=== PATIENT | male | born 1935 | race Caucasian/White ===

== ENCOUNTER 2017-06-07 11:40 | Outpatient (CLI) | payer MEDICARE ==
[2017-06-07 13:06] LABS: Mean Corpuscular HGB CONC 34.2 g/dL (32.0-36.0); Mean Corpuscular Hemoglobin 32.1 pg (27.0-31.0); Mean Corpuscular Volume 93.9 fl (80.0-94.0); Mean Platelet Volume 7.2 fL (7.4-10.4); Platelet Count 244 thou/uL (130-400); Red Blood Cell (RBC) Count 4.04 mill/uL (4.70-6.10); White Blood Cell (WBC) Count 7.4 thou/uL (4.8-10.8)
[2017-06-07 13:11] LABS: INR-International Normal Ratio 1.1; Prothrombin Time 14.3 SEC (12.0-14.7)
[2017-06-07 13:12] LABS: PTT 32.5 SEC (22.9-36.1)
[2017-06-07 13:20] LABS: Bilirubin Negative (Negative); Blood, Urine Large (Negative); Clarity CLEAR (Clear); Glucose, Urine (Dipstick) Negative (Negative); Leukocyte Trace (Negative); Nitrite Negative (Negative); Protein, Urine (Dipstick) 30 mg/dL (Neg-Trace); Specific Gravity, Urine 1.007 (1.002-1.036); Urobilinogen 0.2 mg/dL (0.2-1.0)
[2017-06-07 13:26] LABS: Bacteria/HPF None Seen HPF (None Seen); Hyaline Casts/LPF 0-3 HYALINE CAST LPF (0-3 Hyaline); Pathc Cast-AUWi Flag 0.14 (0-2.49); RBC/HPF GREATER THAN 50-TNTC HPF (0-3); Squamous Epithelial None Seen HPF (0-3); WBC/HPF 0-3 HPF (0-3)
[2017-06-07 13:33] LABS: Anion Gap 12 mmol/L (10-20); BUN (Urea Nitrogen) 12 mg/dL (8.4-25.7); Calc. Creatinine Clearance 0 mL/min (70-130); Calcium 9.6 mg/dL (7.8-10.44); Carbon Dioxide 26 mmol/L (23-31); Chloride 104 mmol/L (98-107); Estimated GFR-MDRD 62; Glucose 87 mg/dL (83-110); Potassium 4.3 mmol/L (3.5-5.1); Sodium 138 mmol/L (136-145)
--- NOTE | 2017-06-10 08:49 | EKG ---
Test Reason : Blood Pressure : / mmHG Vent. Rate : 058 BPM Atrial Rate : 058 BPM P-R Int : 176 ms QRS Dur : 138 ms QT Int : 456 ms P-R-T Axes : 028 033 212 degrees QTc Int : 447 ms Sinus bradycardia Left bundle branch block Abnormal ECG No previous ECGs available Confirmed by COOKIE AVILA, GABY ([id number]) on 06/10/2017 8:48:44 AM Referred By: ETHEL Confirmed By:GABY GARY MD
== END 2017-06-07 11:41 | disposition home or self-care (01) ==
LOC: LABBT 11:40
PROVIDERS: ATTEND Urology
DX: Z01.818 Encounter for other preprocedural examination (principal); D49.4 Neoplasm of unspecified behavior of bladder
CPT/HCPCS: 80048; 81001; 85027; 85610; 85730; 86850; 86900; 86901; 87086; 93005; 93010

== ENCOUNTER 2017-06-15 09:02 | Outpatient (CLI) | payer MEDICARE | END 2017-06-15 09:03 | disposition home or self-care (01) | LOC: LABBT 09:02 | PROVIDERS: ATTEND Urology | DX: Z01.818 Encounter for other preprocedural examination (principal); D49.4 Neoplasm of unspecified behavior of bladder | CPT/HCPCS: 86850; 86900; 86901 ==

== ENCOUNTER 2017-06-20 05:51 | Day surgery (SDC) | payer MEDICARE ==
[2017-06-07 11:58] VITALS: BMI 29.6
[2017-06-20] MEDS ORDERED: Levofloxacin 500 mg/D5W 100 ml Premix Bag ONE (06:40)
[2017-06-20 06:50] LABS: #Basophils 0.1 thou/uL (0.0-0.2); #Eosinphils 0.4 thou/uL (0.0-0.7); #Lymphocytes 2.2 thou/uL (1.20-3.40); #Monocytes 0.9 thou/uL (0.11-0.59); #Neutrophils 5.6 thou/uL (1.40-6.50); %Basophils 0.8 % (0.0-1.0); %Eosinophils 4.7 % (0.0-10.0); %Lymphocytes 23.6 % (21.0-51.0); %Neutrophils 60.9 % (42.0-75.0); Hemoglobin 12.9 g/dL (14.0-18.0); Mean Corpuscular HGB CONC 34.6 g/dL (32.0-36.0); Mean Corpuscular Hemoglobin 32.4 pg (27.0-31.0); Mean Corpuscular Volume 93.7 fl (80.0-94.0); Mean Platelet Volume 7.2 fL (7.4-10.4); Platelet Count 224 thou/uL (130-400); White Blood Cell (WBC) Count 9.1 thou/uL (4.8-10.8)
[2017-06-20] MEDS ORDERED: Iothalamate Meglumine 60% 50 ML VIAL FS ONE (07:07)
[2017-06-20] MEDS ORDERED: Fentanyl 100 MCG/2 ML VIAL ONE (07:08)
[2017-06-20] MEDS ORDERED: Midazolam HCl 2 mg/2 ml Vial ONE (07:08)
[2017-06-20] MEDS ORDERED: Oxybutynin 5 MG TAB ONE (08:52)
[2017-06-20] MEDS ORDERED: Phenazopyridine HCl 97.5 MG TABLET ONE ×2 (08:52)
[2017-06-20] MEDS ORDERED: HYDROcodone/Acetaminophen 5/325 mg Tablet ONE (10:10)
--- NOTE | 2017-06-20 11:32 | OP ---
DATE OF PROCEDURE: 06/20/2017 PRIMARY CARE PHYSICIAN: Dr. Aren Sellers. PREOPERATIVE DIAGNOSES: 1. An 82-year-old male with history of gross hematuria secondary to bladder tumor. 2. Trilobar hyperplasia of the prostate. POSTOPERATIVE DIAGNOSES: 1. An 82-year-old male with history of gross hematuria secondary to bladder tumor. 2. Trilobar hyperplasia of the prostate. PROCEDURES: Cystoscopy, meatal calibration dilatation with Sam sounds, transurethral resection of bladder tumor, fulguration of prostate. SURGEON: Chitra Cruz D.O. ANESTHESIA: General. COMPLICATIONS: None apparent. DISPOSITION: To recovery room in stable condition. SPECIMEN: TUR of the bladder, superficial and deep. EBL: Less than 50 mL minimal. INTRAOPERATIVE FINDINGS: 1. 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 2. Trilobar hyperplasia of the prostate, moderate to severe obstruction with intravesical median lobe, friable oozy prostate. 3. Bladder tumor x2; left lateral wall papillary sessile in nature, appears superficial, measuring approximately 1.5-2 cm, next focus right lateral wall 6 mm. INDICATIONS FOR THE PROCEDURE AND HISTORY: Mr. Blount is a pleasant 82-year- old male who presented to his PCP with gross hematuria. CT demonstrating bladder mass. The patient underwent cardiac clearance and presents today for transurethral resection of bladder tumor. Cardiac clearance has been obtained. Urine culture is negative. Indications for the procedure reviewed, risks and complications including, but not limited to, bleeding, pain, infection, stricture formation, clot retention, bladder perforation, sepsis, injury to adjacent organs, perioperative morbidity reviewed with him in detail. All questions were answered to their satisfaction and patient desired to proceed without reservation. DESCRIPTION OF THE PROCEDURE: After an informed consent is signed, the patient is taken to the operating room, placed in a dorsal lithotomy position and the genital area prepped and draped in the usual surgical sterile fashion. Bilateral LULU hose, SCDs, and broad-spectrum antibiotics were provided. A 21 Jordanian cystoscope was utilized for cystoscopy which passed without difficulty. There was a subtle bulbar stricture not warranting treatment. Prostatic urethra demonstrated friable prostate, trilobar hyperplasia with intravesical median lobe. The UO's were easily visualized away from the reflection of the intravesical median lobe. The bladder tumor was again surveyed demonstrating left lateral papillary tumor approximately 1.5-2 cm right lateral wall, second focus approximately 6 mm papillary sessile in nature. We did switch to a 70- degree lens in which I cannot find any further tumor focus. At this time, using a 26-Jordanian resectoscope with visual obturator, we passed resectoscope under direct visualization. Prior to passing, there was some resistance at the meatus accommodating 26 Jordanian. Therefore, I did calibrate his meatus with Sam sounds from 24-30 without difficulty. The visual obturator was then utilized to pass the resectoscope. As he has a high median bar intravesical median lobe, we carefully negotiated the resectoscope into the bladder, the angle was somewhat challenging due to his intravesical median lobe. The bladder was entered and at this time, we switched out to a bladder loop, bipolar gyrus loop. Resection of the bladder tumor was performed in a systematic fashion. Superficial specimen was sent separately. The right small lateral tumor was also resected with a superficial specimen. At the end of the procedure, I did not see any further tumor nidus. Given his age, his bladder was attenuated; therefore I did not aggressively resect deep. I was able to visualize muscle fibers, in which deep resection was performed for specimen and sent separately. As his bladder was attenuated, we did not go into deep resection as there is high risk of perforation. At the end of the procedure, there was no evidence of bladder tumor residual left. Upon removing the resectoscope, we did encounter prostatic oozing that needed to be addressed. There was discrete area of oozing coming from the anterior prostate bladder neck region and this was fulgurated. The lateral lobes were somewhat friable as well and I did perform fulguration of the prostate to get good hemostasis. To prevent catheter trauma, a 0.35 Super Stiff wire was placed into the bladder and a 24-Jordanian three-way Lynn catheter was passed over a guidewire assist which passed without difficulty. Subsequent urine was clear. A 30 mL was insufflated and the wire removed. His catheter was attached to a leg bag. I anticipate patient will be discharged home. He will follow up with me next week for catheter removal. He is advised to continue his prostate medication, terazosin and dutasteride. I would discuss with patient and family regarding possible elective TURP. He will follow up with me next week for catheter removal. He is discharged with [place] 5/ #50, Myrbetriq for a course of 5 days, Colace p.r.n., ciprofloxacin until follow up, AZO p.r.n. MTDD
[2017-06-20] MEDS ORDERED: Ketorolac Tromethamine 30 MG/ML VIAL ONE (15:14)
[2017-06-20] MEDS ORDERED: PROPOFOL 200 MG/20 ML VIAL ONE (15:14)
[2017-06-20] MEDS ORDERED: Lidocaine 1% PF 5 ML VIAL ONE (15:14)
== END 2017-06-20 13:15 | disposition home or self-care (01) ==
LOC: SDC 05:51
PROVIDERS: ATTEND Urology
PROC: 0TBB8ZX Excision of Bladder, Via Natural or Artificial Opening Endoscopic, Diagnostic (ICD-10-PCS; principal; 2017-06-20)
PROC: 0V508ZZ Destruction of Prostate, Via Natural or Artificial Opening Endoscopic (ICD-10-PCS; 2017-06-20)
DX: C67.2 Malignant neoplasm of lateral wall of bladder (principal); N40.0 Benign prostatic hyperplasia without lower urinary tract symptoms; I10 Essential (primary) hypertension; H40.9 Unspecified glaucoma; E03.9 Hypothyroidism, unspecified; Z79.899 Other long term (current) drug therapy; Z88.2 Allergy status to sulfonamides; Z98.890 Other specified postprocedural states; Z87.891 Personal history of nicotine dependence
CPT/HCPCS: 36415; 85025; 88307; J1885; J1956; J2001; J2250; J2704; J3010; Q9961

== ENCOUNTER → 2017-10-10 | Outpatient (CLI) | payer MEDICARE ==
[2017-10-10 12:23] LABS: Hemoglobin 12.3 g/dL (14.0-18.0); Mean Corpuscular HGB CONC 33.3 g/dL (32.0-36.0); Mean Corpuscular Hemoglobin 31.1 pg (27.0-31.0); Mean Corpuscular Volume 93.5 fL (78.0-98.0); Mean Platelet Volume 6.8 fL (7.4-10.4); Platelet Count 281 thou/uL (130-400); RBC Distribution Width 11.9 % (11.5-14.5); Red Blood Cell (RBC) Count 3.96 mill/uL (4.70-6.10); White Blood Cell (WBC) Count 7.8 thou/uL (4.8-10.8)
[2017-10-10 12:30] LABS: PTT 32.7 SEC (22.9-36.1); Prothrombin Time 13.5 SEC (12.0-14.7)
[2017-10-10 12:41] LABS: Bilirubin Negative (Negative); Blood, Urine Negative (Negative); Clarity CLEAR (Clear); Glucose, Urine (Dipstick) Negative (Negative); Leukocyte Negative (Negative); Nitrite Negative (Negative); Protein, Urine (Dipstick) Negative (Neg-Trace)
[2017-10-10 12:44] LABS: Anion Gap 14 mmol/L (10-20); BUN (Urea Nitrogen) 8 mg/dL (8.4-25.7); Calc. Creatinine Clearance 0 mL/min (70-130); Calcium 9.1 mg/dL (7.8-10.44); Carbon Dioxide 24 mmol/L (23-31); Chloride 104 mmol/L (98-107); Estimated GFR-MDRD 56; Glucose 162 mg/dL (83-110); Potassium 4.3 mmol/L (3.5-5.1); Sodium 138 mmol/L (136-145)
[2017-10-10 12:45] LABS: Bacteria/HPF None Seen HPF (None Seen); Hyaline Casts/LPF 0-3 HYALINE CAST LPF (0-3 Hyaline); Pathc Cast-AUWi Flag 0.14 (0-2.49); RBC/HPF 0-3 HPF (0-3); Squamous Epithelial None Seen HPF (0-3); WBC/HPF 0-3 HPF (0-3)
--- NOTE | 2017-10-12 15:08 | EKG ---
Test Reason : Blood Pressure : / mmHG Vent. Rate : 059 BPM Atrial Rate : 118 BPM P-R Int : 174 ms QRS Dur : 138 ms QT Int : 474 ms P-R-T Axes : 026 023 010 degrees QTc Int : 469 ms Sinus tachycardia with 2nd degree A-V block with 2:1 A-V conduction Left bundle branch block T wave abnormality, consider lateral ischemia Abnormal ECG When compared with ECG of 07-JUN-2017 12:29, No significant change was found Confirmed by GABY GARY MD ([id number]) on 10/12/2017 3:07:43 PM Referred By: ETHEL Confirmed By:GABY GARY MD
== END ==
LOC: LABBT 10:00
PROVIDERS: ATTEND Urology
DX: Z01.812 Encounter for preprocedural laboratory examination (principal); N40.0 Benign prostatic hyperplasia without lower urinary tract symptoms; Z85.51 Personal history of malignant neoplasm of bladder
CPT/HCPCS: 80048; 81001; 85027; 85610; 85730; 87086; 93005; 93010

== ENCOUNTER 2017-11-05 14:54 | Outpatient (CLI) | payer MEDICARE ==
[2017-11-05 15:48] LABS: Bilirubin Negative (Negative); Blood, Urine Negative (Negative); Clarity CLEAR (Clear); Glucose, Urine (Dipstick) 250 mg/dL (Negative); Hemoglobin 12.8 g/dL (14.0-18.0); Leukocyte Negative (Negative); Mean Corpuscular HGB CONC 34.6 g/dL (32.0-36.0); Mean Corpuscular Hemoglobin 32.1 pg (27.0-31.0); Mean Corpuscular Volume 92.8 fL (78.0-98.0); Mean Platelet Volume 7.3 fL (7.4-10.4); Nitrite Negative (Negative); Platelet Count 241 thou/uL (130-400); Protein, Urine (Dipstick) Negative (Neg-Trace); RBC Distribution Width 11.8 % (11.5-14.5); Red Blood Cell (RBC) Count 4.01 mill/uL (4.70-6.10); Specific Gravity, Urine 1.009 (1.002-1.036); White Blood Cell (WBC) Count 7.4 thou/uL (4.8-10.8); pH, Urine 6.5 (5.0-9.0)
[2017-11-05 15:49] LABS: Bacteria/HPF None Seen HPF (None Seen); Hyaline Casts/LPF 0-3 HYALINE CAST LPF (0-3 Hyaline); Pathc Cast-AUWi Flag 0.14 (0-2.49); RBC/HPF 0-3 HPF (0-3); Squamous Epithelial None Seen HPF (0-3); WBC/HPF 0-3 HPF (0-3)
[2017-11-05 15:55] LABS: PTT 30.9 SEC (22.9-36.1); Prothrombin Time 13.5 SEC (12.0-14.7)
[2017-11-05 16:05] LABS: Anion Gap 13 mmol/L (10-20); BUN (Urea Nitrogen) 11 mg/dL (8.4-25.7); Calc. Creatinine Clearance 0 mL/min (70-130); Calcium 8.8 mg/dL (7.8-10.44); Carbon Dioxide 23 mmol/L (23-31); Chloride 105 mmol/L (98-107); Estimated GFR-MDRD 55; Glucose 187 mg/dL (83-110); Potassium 3.9 mmol/L (3.5-5.1); Sodium 137 mmol/L (136-145)
--- NOTE | 2017-11-11 14:31 | EKG ---
Test Reason : Blood Pressure : / mmHG Vent. Rate : 063 BPM Atrial Rate : 063 BPM P-R Int : 174 ms QRS Dur : 136 ms QT Int : 450 ms P-R-T Axes : 029 026 211 degrees QTc Int : 460 ms Normal sinus rhythm Left bundle branch block Abnormal ECG When compared with ECG of 10-OCT-2017 11:53, Sinus rhythm is no longer with 2nd degree A-V block Inverted T waves have replaced nonspecific T wave abnormality in Inferior leads Confirmed by TSERING AMBROCIO (2) on 11/11/2017 2:31:15 PM Referred By: ETHEL Confirmed By:TSERING AMRBOCIO
== END 2017-11-05 14:55 | disposition home or self-care (01) ==
LOC: LABBT 14:54
PROVIDERS: ATTEND Urology
DX: Z01.818 Encounter for other preprocedural examination (principal); N40.0 Benign prostatic hyperplasia without lower urinary tract symptoms; Z85.51 Personal history of malignant neoplasm of bladder
CPT/HCPCS: 80048; 81001; 85027; 85610; 85730; 87086; 93005; 93010

== ENCOUNTER 2017-12-12 06:03 | Day surgery (SDC) | payer MEDICARE ==
[2017-11-05 15:06] VITALS: BMI 29.5
[2017-12-12] MEDS ORDERED: Levofloxacin 500 mg/D5W 100 ml Premix Bag ONE (06:20)
[2017-12-12] MEDS ORDERED: Famotidine/PF 20 mg/2ml Vial ONE (06:53)
[2017-12-12] MEDS ORDERED: Fentanyl 100 MCG/2 ML VIAL ONE (06:53)
[2017-12-12] MEDS ORDERED: Iothalamate Meglumine 60% 50 ML VIAL FS ONE (07:10)
[2017-12-12] MEDS ORDERED: Phenazopyridine HCl 97.5 MG TABLET ONE (08:44)
[2017-12-12] MEDS ORDERED: Oxybutynin 5 MG TAB ONE (08:44)
--- NOTE | 2017-12-12 10:24 | OP ---
DATE OF PROCEDURE: 12/12/2017 PREOPERATIVE DIAGNOSES: 1. 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 2. Recent cystoscopy grossly negative, 09/2017, positive cytology. POSTOPERATIVE DIAGNOSES: 1. 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 2. Recent cystoscopy grossly negative, 09/2017, positive cytology. PROCEDURES: Cystoscopy, bladder biopsy, TURBT, fulguration of median lobe of the prostate. SURGEON: Chitra Cruz D.O. ANESTHESIA: General. SPECIMEN: 1. Left trigonal/lateral bladder tumor or bladder biopsy. 2. TUR, deep bladder tumor bed DRAINS: A 20-Barbadian 3-way 30 mL Lynn catheter to leg bag. CBI port plugged. INTRAOPERATIVE FINDINGS: 1. Moderate BPH, small intravesical median lobe with prostatic varicosity. 2. Bilateral clear efflux of urine. 3. Left trigonal/lateral bladder tumor recurrence, superficial in nature, satellite lesions approximately 4 in number; surface area of the tumor bed fulgurated 2 cm. INDICATIONS FOR THE PROCEDURE AND HISTORY: Mr. Blount is a pleasant 82-year- old male, who presented to my office for evaluation of gross hematuria, subsequently found to have a left lateral bladder tumor. The patient with history of BPH, has been on terazosin and Avodart due to obstructing prostate. He initially underwent transurethral resection of the bladder tumor uneventfully ; final pathology consistent with a low-grade TCC with no evidence of lamina propria invasion. He underwent local cystoscopy at 3-month interval and found to have no tumor recurrence; however, cytology positive. A restaging CT was obtained demonstrating no evidence of abnormality or filling defect. He presents today for exam under anesthesia, random bladder biopsy, possible ureteroscopy retrograde. The patient desired to defer his exam under anesthesia due to social constraints, and therefore, presents today, per his requested date by the patient. The risks and complications of the procedure were reviewed including, but not limited to, bleeding, pain, infection, injury to adjacent organs, urosepsis, bladder neck contracture, clot retention, stricture formation. All questions answered to his satisfaction and he desired to proceed without reservation. DESCRIPTION OF THE PROCEDURE: After an informed consent is signed, the patient was taken to the operating room, placed in a dorsal lithotomy position with the genital area prepped and draped in the usual surgical sterile fashion. Bilateral LULU hose and SCDs were provided. A 21-Barbadian cystoscope was utilized , which passed without difficulty. The prostatic urethra was entered demonstrating bilobar hyperplasia with moderate obstruction. There was a small intravesical median lobe. There appeared to be some superficial varicosities of the median lobes, somewhat oozing upon entry into the bladder. The UOs were identified bilaterally with clear efflux of urine. There was no bladder trabeculation, stones. The cystoscopy was performed with a 30- and a 70-degree lens. Upon putting a 70-degree lens, we noticed the papillary tumor recurrence at the left lateral trigone encroaching the bladder neck. There were 3-4 satellite lesions, each approximately about 5-6 mm. No other lesions were found. Given the small satellite lesions, I did biopsy them with an endoscopic biopsy intact. This was sent as superficial tumor. Around the area of the tumor, the surface area of approximately 2 cm, there appeared to be some papillary abnormality of the mucosa. Therefore, we fulgurated the entire bed of the abnormal mucosa encompassing the biopsy of the satellite papillary lesions. The left UO was kept out of harm's way with fulguration. Clear efflux was noted. We did obtain deeper resection of the tumor bed for a separate specimen. Good hemostasis was noted. There was some oozing from the median lobe varicosities. Median lobe itself is small, with component of median bar. He does have significant varicosity of his prostate resulting in oozing. Fulguration of the bladder neck, small median lobe was performed to obtain good hemostasis. Good hemostasis was obtained and he tolerated the procedure well. A 20-Barbadian 3-way Lynn catheter was passed without difficulty and attached to gravity leg bag. CBI port was plugged. If urine output remains relatively clear, he will be discharged home with catheter to leg bag. He is discharged with [place] 5/325, #30, AZO, VESIcare 5 mg one p.o. daily #6, ciprofloxacin until followup appointment, Colace b.i.d. p.r.n. As there is an early recurrence of his bladder tumor, I would discuss with patient and family regarding BCG induction therapy. Previously, they declined; however, due to early recurrence, we will rediscuss with them regarding indications of BCG. MTDD
[2017-12-12] MEDS ORDERED: hydrALAZINE 20 MG/ML VIAL ONE (10:47)
[2017-12-12] MEDS ORDERED: PHENYLEPHRINE-NS 100 MCG/ML 10 ML SYRINGE ONE (14:17)
[2017-12-12] MEDS ORDERED: Ondansetron PF 4 MG/2 ML Vial ONE (14:17)
[2017-12-12] MEDS ORDERED: Glycopyrrolate 0.2 MG/ML 5 ML SYRINGE ONE (14:17)
[2017-12-12] MEDS ORDERED: Lidocaine 1% PF 5 ML VIAL ONE (14:17)
[2017-12-12] MEDS ORDERED: PROPOFOL 200 MG/20 ML VIAL ONE (14:17)
== END 2017-12-12 13:25 | disposition home or self-care (01) ==
LOC: SDC 06:03
PROVIDERS: ATTEND Urology
PROC: 0V508ZZ Destruction of Prostate, Via Natural or Artificial Opening Endoscopic (ICD-10-PCS; principal; 2017-12-12)
PROC: 0T5B8ZZ Destruction of Bladder, Via Natural or Artificial Opening Endoscopic (ICD-10-PCS; 2017-12-12)
DX: C67.0 Malignant neoplasm of trigone of bladder (principal); N40.0 Benign prostatic hyperplasia without lower urinary tract symptoms; Z79.82 Long term (current) use of aspirin; Z79.899 Other long term (current) drug therapy; Z88.2 Allergy status to sulfonamides; Z98.890 Other specified postprocedural states
CPT/HCPCS: 52234; 52601; 76000; 88305; 96374; C1758; 96375; J0131; J0360; J1956; J2001; J2405; J2704; J3010; Q9961; S0028

== ENCOUNTER 2018-03-20 06:28 | Outpatient (CLI) | payer MEDICARE ==
[2018-03-20 11:24] LABS: Hemoglobin 12.4 g/dL (14.0-18.0); Mean Corpuscular HGB CONC 32.6 g/dL (32.0-36.0); Mean Corpuscular Hemoglobin 30.1 pg (27.0-31.0); Mean Corpuscular Volume 92.3 fL (78.0-98.0); Mean Platelet Volume 7.6 fL (7.4-10.4); Platelet Count 227 thou/uL (130-400); Red Blood Cell (RBC) Count 4.13 mill/uL (4.70-6.10); White Blood Cell (WBC) Count 6.8 thou/uL (4.8-10.8)
[2018-03-20 11:25] LABS: Bilirubin Negative (Negative); Blood, Urine Negative (Negative); Clarity CLEAR (Clear); Glucose, Urine (Dipstick) Negative (Negative); Leukocyte Negative (Negative); Nitrite Negative (Negative); Protein, Urine (Dipstick) Negative (Neg-Trace); Specific Gravity, Urine 1.028 (1.002-1.036); pH, Urine 6.5 (5.0-9.0)
[2018-03-20 11:26] LABS: Bacteria/HPF None Seen HPF (None Seen); Hyaline Casts/LPF 0-3 HYALINE CAST LPF (0-3 Hyaline); Pathc Cast-AUWi Flag 0.14 (0-2.49); RBC/HPF 0-3 HPF (0-3); Squamous Epithelial 0-3 HPF (0-3); WBC/HPF 0-3 HPF (0-3)
[2018-03-20 11:32] LABS: INR-International Normal Ratio 1.1; PTT 31.1 SEC (22.9-36.1)
[2018-03-20 11:48] LABS: Anion Gap 11 mmol/L (10-20); BUN (Urea Nitrogen) 9 mg/dL (8.4-25.7); Calc. Creatinine Clearance 0 mL/min (70-130); Calcium 9.4 mg/dL (7.8-10.44); Carbon Dioxide 25 mmol/L (23-31); Chloride 103 mmol/L (98-107); Estimated GFR-MDRD 58; Glucose 159 mg/dL (83-110); Potassium 4.2 mmol/L (3.5-5.1); Sodium 135 mmol/L (136-145)
--- NOTE | 2018-03-20 16:02 | EKG ---
Test Reason : Blood Pressure : / mmHG Vent. Rate : 063 BPM Atrial Rate : 063 BPM P-R Int : 164 ms QRS Dur : 136 ms QT Int : 452 ms P-R-T Axes : 044 038 167 degrees QTc Int : 462 ms Normal sinus rhythm Non-specific intra-ventricular conduction block T wave abnormality, consider inferolateral ischemia Abnormal ECG When compared with ECG of 05-NOV-2017 15:28, No significant change was found Confirmed by JOHNATHON AVILA, . SBridgette ([id number]) on 03/20/2018 4:01:36 PM Referred By: ETHEL Confirmed By:DR. Evangelina DIEGO MD
== END 2018-03-20 06:29 | disposition home or self-care (01) ==
LOC: LABBT 06:28
PROVIDERS: ATTEND Urology
DX: Z01.818 Encounter for other preprocedural examination (principal); C67.9 Malignant neoplasm of bladder, unspecified; N40.0 Benign prostatic hyperplasia without lower urinary tract symptoms; I10 Essential (primary) hypertension; R81 Glycosuria
CPT/HCPCS: 80048; 81001; 85027; 85610; 85730; 87086; 93005; 93010

== ENCOUNTER 2018-03-20 08:53 | Outpatient (CLI) | payer MEDICARE ==
--- NOTE | 2018-03-20 10:48 | CT ---
CT ABDOMEN WITH AND WITHOUT IV CONTRAST CT PELVIS WITH AND WITHOUT IV CONTRAST: DATE: 03/20/2018. HISTORY: Malignant neoplasm of urinary bladder, hematuria. COMPARISON: 10/08/2017. FINDINGS: There is a small thin-walled lucency in the left lung base. Lung bases are otherwise clear. No renal or ureteral calculi are seen bilaterally, and there is no hydronephrosis. However, there is slight asymmetric prominence of the right ureter compared to the left ureter with an area of slight increased density seen within the mid right ureter at the level of the lower aspect right sacroiliac joint, and on delayed images through this region. The ureters are well opacified, and there is evide nce of a filling defect with mild thickening of the jones of the ureter in this region. Findings cou ld be related to transitional cell carcinoma involving the mid right ureter. No definite additional defect is seen in the bilateral renal collecting systems or ureters. There is a stable approximately 2.9 cm fluid attenuation lesion superior pole left kidney which is bi lobed and likely represents a small cyst. A subcentimeter too small to characterize hypodense lesion is seen in the mid portion right kidney. The urinary bladder is incompletely distended. Focal of gas is seen in the urinary bladder which cou ld be related to recent catheterization, but clinical correlation is recommended. The prostate gland is mildly enlarged in transverse dimensions measuring approximately 5.1 cm. Associated prostate alba cifications are present. The liver, spleen, and bilateral adrenal glands demonstrate a normal CT appearance. The pancreas is fatty replaced but also demonstrates an otherwise normal CT appearance. There are innumerable colonic diverticula involving the distal descending colon as well as involving the sigmoid colon. There is suggested thickening in the region of the sigmoid colon. This could be related to incomplete distention as well as secondary to multiple diverticula in this region. A frank lar finding was seen on the prior exam. Neoplastic process in this region is thought less likely, bu t this would be better assessed with colonoscopy. No pericolonic inflammatory changes are seen. Vascular calcifications are seen in the abdominal aorta and involving the iliac arteries. There are lucencies seen within the right femoral head also seen on the prior study and may be relate d to prominent subchondral cystic changes and possibly developing area of avascular necrosis. There is no collapse present in this region. Degenerative changes are seen in the lower lumbar spine. IMPRESSION: 1. Filling defect related to a mass-like lesion within the mid portion of the right ureter. 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 The ureter proximal to this region is mildly and asy mmetrically dilated compared to the left ureter. There is no hydronephrosis present. 2. No renal or ureteral calculi are seen bilaterally. 3. Left renal cyst with too small to characterize subcentimeter hypodense lesion in the mid portion of the right kidney. No enhancing renal mass is seen. 4. Colonic diverticulosis with innumerable colonic diverticula in the region of the sigmoid colon. There is suggested wall thickening within a portion of the sigmoid colon which could be related to in complete distention and diverticular disease, but this is asymmetric compared to the remainder of the colon. Colonoscopy is suggested for further evaluation. There is no pericolonic inflammatory stran ding identified. 5. Mild enlargement of the prostate gland. 6. Prominent fat-containing bilateral inguinal rings. 7. Additional findings as described above including lucency within the region of the superomedial as pect of the right femoral which could be related to either subchondral cystic change or possibly deve loping area of avascular necrosis. CODE T
[2018-03-20] MEDS ORDERED: Iopamidol 370 76% 100 ML VIAL ONE (13:30)
== END 2018-03-20 08:54 | disposition home or self-care (01) ==
LOC: CT 08:53
PROVIDERS: ATTEND Urology
DX: C67.9 Malignant neoplasm of bladder, unspecified (principal); R81 Glycosuria; N28.1 Cyst of kidney, acquired; K57.30 Diverticulosis of large intestine without perforation or abscess without bleeding; N40.0 Benign prostatic hyperplasia without lower urinary tract symptoms; C66.9 Malignant neoplasm of unspecified ureter
CPT/HCPCS: 74178; 80048; 81001; 85027; 85610; 85730; 87086; 93005; 93010; Q9967

== ENCOUNTER 2018-03-28 09:01 | Outpatient (CLI) | payer MEDICARE | END 2018-03-28 09:02 | disposition home or self-care (01) | LOC: LABBT 09:01 | PROVIDERS: ATTEND Urology | DX: Z01.812 Encounter for preprocedural laboratory examination (principal) | CPT/HCPCS: 86850; 86900; 86901 ==

== ENCOUNTER 2018-04-03 05:57 | Day surgery (SDC) | payer MEDICARE ==
[2018-03-20 10:13] VITALS: BMI 28.8
[2018-04-03] MEDS ORDERED: Iothalamate Meglumine 60% 50 ML VIAL FS ONE (07:06)
[2018-04-03] MEDS ORDERED: Fentanyl 100 MCG/2 ML VIAL ONE (07:12)
[2018-04-03] MEDS ORDERED: Levofloxacin 500 mg/D5W 100 ml Premix Bag ONE (07:54)
[2018-04-03] MEDS ORDERED: Oxybutynin 5 MG TAB ONE (09:36)
[2018-04-03] MEDS ORDERED: Phenazopyridine HCl 97.5 MG TABLET ONE (09:36)
--- NOTE | 2018-04-03 09:50 | RAD ---
RETROGRADE RIGHT UROGRAM: 04/03/2018 HISTORY: Right ureteral stent placement. Mass in right ureter on CT exam. FINDINGS: Five intraoperative fluoroscopic images of the abdomen are submitted for interpretation. Images demonstrate right retrograde urogram with additional imaging demonstrating a guidewire in plac e and subsequent images demonstrating placement of a right ureteral stent. The most proximal portion of the ureteral stent overlies the expected location of the upper pole collecting system, with the d istal portion of the stent overlying the expected location of the urinary bladder. Limited opacifica tion of the renal collecting system and ureter demonstrates mild dilatation of the right renal collec ting system as well as the ureter. Correlation with intraoperative findings is recommended. POS: MAYELA
--- NOTE | 2018-04-03 11:35 | OP ---
DATE OF PROCEDURE: 04/03/2018 PRIMARY CARE PHYSICIAN: Dr. Aren Sellers. PREOPERATIVE DIAGNOSES: 1. An 83-year-old male with pathologic Ta TCC low-grade bladder cancer, status post transurethral resection of bladder tumor, initially diagnosed in June 2017. 2. History of BPH. 3. Superficial left lateral tumor recurrence on surveillance cystoscopy. 4. Restaging CT demonstrating right mid ureteral filling defect measuring 1.3 cm in craniocaudal dimension at the level of mid SI level suspicious for ureteral transitional cell carcinoma. 5. Nonspecific colonic sigmoid wall thickening. Recommend colonoscopy electively. POSTOPERATIVE DIAGNOSES: 1. An 83-year-old male with pathologic Ta TCC low-grade bladder cancer, status post transurethral resection of bladder tumor, initially diagnosed in June 2017. 2. History of BPH. 3. Superficial left lateral tumor recurrence on surveillance cystoscopy. 4. Restaging CT demonstrating right mid ureteral filling defect measuring 1.3 cm in craniocaudal dimension at the level of mid SI level suspicious for ureteral transitional cell carcinoma. 5. Nonspecific colonic sigmoid wall thickening. Recommend colonoscopy electively. PROCEDURES PERFORMED: Cystoscopy, right retrograde pyelogram, 6 x 26 double-J ureteral stent, balloon dilatation of the right intramural ureter, rigid ureteroscopy, ureteral mass biopsy, pyeloscopy, bladder biopsy of left lateral superficial bladder tumors, fulguration of bladder tumor site 22-Malagasy 3-way Lynn catheter placement. ANESTHESIA: General. COMPLICATIONS: None apparent. DISPOSITION: To recovery room in stable condition. SPECIMENS: 1. Right mid ureteral biopsy x2 specimen. 2. Left lateral bladder tumor biopsy x3. INTRAOPERATIVE FINDINGS: 1. Bilobar hyperplasia of the prostate moderately obstructing with minimal median lobe component. 2. Left lateral superficial satellite tumor recurrence, 3 tiny areas in the left lateral wall each measuring approximately 3 mm surface area approximately 2 cm. 3. Right mid ureteral mass, ureteroscopy consistent with TCC. 4. Pyeloscopy without evidence of calyceal TCC involvement. INDICATIONS FOR PROCEDURE AND HISTORY: Mr. Blount is an 83-year-old male referred to me for history of gross hematuria, BPH. He underwent workup demonstrating a low-grade pathologic TCC of the bladder. The patient was on surveillance cystoscopy as they desired observation without BCG for the time being. Unfortunately, surveillance cystoscopy demonstrated left lateral papillary tumor recurrence small in caliber. However, as he has had recurrent TCC accelerated with initial treatment, I made a decision to perform an upper tract imaging for restaging. Unfortunately, repeat CT scan of the abdomen and pelvis with and without IV contrast demonstrated a right mid ureteral mass measuring 1.3 cm in craniocaudal dimension. I contacted the family regarding restaging CT findings and advise regarding concomitant ureteroscopy, biopsy of ureteral mass. Risks and complications and indications for the procedure were reviewed with the patient in detail including , but not limited to, bleeding, pain, infection, injury to adjacent organs, urosepsis, clot retention, stricture formation, possible secondary procedure, PE, DVT, and perioperative morbidity mortality. All questions were answered to his satisfaction. He desired to proceed without reservation. DESCRIPTION OF PROCEDURE: After an informed consent was signed, the patient was taken to the operating room, placed in a dorsal lithotomy position with the genital area prepped and draped in the usual surgical sterile fashion. Bilateral LULU hose SCDs and broad-spectrum antibiotics were provided. A 21-Malagasy cystoscope was utilized for cystoscopy, which demonstrated normal anterior posterior urethra. Prostatic urethra again demonstrated bilobar hyperplasia, moderately obstructing with minimal intravesical median lobe with UOs identified without significant issues. Surveillance cystoscopy again with the 30 and 70-degree lens demonstrated papillary focus appeared superficial in the left lateral wall. The UOs were well away. There were 3 satellite lesions approximately 2 to 3 mm; however, the surface area involving the area was approximately 2 cm. I initially evaluated his ureter first. At this time, a retrograde pyelogram was performed, which demonstrated high- grade obstruction due to a soft tissue mass in the mid SI ureter. I could not opacify proximal to the mass. Therefore, an open-ended catheter was placed to the level of the mass and we gently passed a 0.35 Sensor wire. This did pass without significant issues to the upper pole collecting system. An open-ended catheter was passed beyond the mass, and a retrograde pyelogram was performed confirming proper placement of the 0.35 Sensor wire. There was evidence of hydronephrosis consistent with the CT scan. At this time using a [employer] 4 cm 12-Malagasy balloon dilator, I dilated the intramural ureter. I dilated the ureter in 2 segments to the level of the mass. Subsequently, it was completely deflated. A rigid ureteroscope was then passed to the level of stone with safety wire in-situ. Unfortunately, this confirmed on visual inspection consistent with TCC papillary tumor. We used a back-loading big biopsy cup; biopsied 2 specimens. One was bit small, however, the second specimen was a significant tumor burden. At this time, we passed a 10-Malagasy dual-lumen access sheath to the level of the proximal ureter and a 0.35 Super Stiff wire was placed to the right upper pole. I attempted to pass a navigator sheath, however, would not pass; therefore, I did not forcibly engage. Therefore, the flexible ureteroscope was then passed over the working wire to the level of the renal pelvis. Surveillance of the collecting system failed to demonstrate any further TCC lesions in the collecting system of the kidney. The proximal ureter was surveyed, which demonstrated no lesions. We surveyed the ureteral mass again, which demonstrated a bulky mass in the mid ureter. I did attempt to ablate; however, given the bulky nature, moreover in location just at the level of the iliacs, I did not further pursue. A 6 x 26 double-J ureteral stent was passed without difficulty. At this time, we treated his bladder tumor. We biopsied it en bloc x3. The surface area involving the bladder tumor was then treated with gyrus bipolar. A 26-Malagasy resectoscope was passed with the visual obturator. Surface area of the bladder biopsy site was fulgurated with good hemostasis. A 22-Malagasy 3-way Lynn catheter was passed without difficulty, 30 mL insufflated. CBI port is plugged. If urine is relatively clear, I will discharge the patient. He will follow up with me next week with catheter removal and discuss pathology and regarding his further options of his ureteral TCC. Regarding his sigmoid colon demonstrating thickening elective colonoscopy and GI referral, he is advised and has been initiated. The patient discharged with Myrbetriq 50 mg one p.o. daily for 10 days; ciprofloxacin for 10 days; Colace; and [place] 5/325, #30. Job ID: [id number] [facility]
[2018-04-03] MEDS ORDERED: Lidocaine 1% PF 5 ML VIAL ONE (13:31)
[2018-04-03] MEDS ORDERED: PROPOFOL 200 MG/20 ML VIAL ONE (13:31)
[2018-04-03] MEDS ORDERED: Rocuronium Bromide 10 MG/ML (10ML VIAL) ONE (13:31)
[2018-04-03] MEDS ORDERED: PHENYLEPHRINE-NS 100 MCG/ML 10 ML SYRINGE ONE (13:31)
== END 2018-04-03 11:40 | disposition home or self-care (01) ==
LOC: SDC 05:57
PROVIDERS: ATTEND Urology
PROC: 0TB68ZX Excision of Right Ureter, Via Natural or Artificial Opening Endoscopic, Diagnostic (ICD-10-PCS; principal; 2018-04-03)
PROC: 0TBB8ZX Excision of Bladder, Via Natural or Artificial Opening Endoscopic, Diagnostic (ICD-10-PCS; 2018-04-03)
DX: C66.1 Malignant neoplasm of right ureter (principal); C67.2 Malignant neoplasm of lateral wall of bladder; N13.5 Crossing vessel and stricture of ureter without hydronephrosis; N40.0 Benign prostatic hyperplasia without lower urinary tract symptoms; I10 Essential (primary) hypertension; Z87.891 Personal history of nicotine dependence; Z85.51 Personal history of malignant neoplasm of bladder; Z79.899 Other long term (current) drug therapy; Z88.2 Allergy status to sulfonamides
CPT/HCPCS: 52204; 52354; 74420; 86850; 86900; 86901; 88305; C1758; C1769; 36415; A4216; J1956; J2001; J2704; J3010; J9280; Q9961

== ENCOUNTER 2018-04-18 10:14 | Outpatient (CLI) | payer MEDICARE ==
--- NOTE | 2018-04-18 15:38 | NM ---
WHOLE BODY BONE SCAN: INDICATION: Malignant neoplasm of the left ureter. COMPARISON: Prior CT of the abdomen and pelvis dated 03/20/2018. FINDINGS: 29.9 mCi Technetium 99m-MDP IV was utilized for the exam. There is mild urinary contamination seen within the peroneal region. There is some radiotracer accum ulating within the extrarenal pelves bilaterally at the level of the kidneys. No suspicious region o f abnormal radiotracer uptake is seen within the visualized axial and appendicular skeleton. There i s mild degenerative change involving the shoulders, sternoclavicular joint, and the spine. IMPRESSION: 1. No suspicious osteoblastic lesion identified. 2. Mild scattered degenerative change. POS: [facility]
== END 2018-04-18 10:15 | disposition home or self-care (01) ==
LOC: NM 10:14
PROVIDERS: ATTEND Urology
DX: C66.2 Malignant neoplasm of left ureter (principal); C67.9 Malignant neoplasm of bladder, unspecified; M19.012 Primary osteoarthritis, left shoulder; M19.011 Primary osteoarthritis, right shoulder
CPT/HCPCS: 78306; A9503

== ENCOUNTER 2018-04-22 08:34 | Outpatient (CLI) | payer MEDICARE ==
[2018-04-22] MEDS ORDERED: Iopamidol 370 76% 100 ML VIAL ONE (10:57)
--- NOTE | 2018-04-22 10:57 | CT ---
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 Evaluate for metastatic disease. COMPARISON: None. FINDINGS: Lungs are clear. No pneumothorax. No effusion. No suspicious pulmonary nodule. There is a 2-3 mm nodule in the left lung base abutting the diaphragmatic pleura, axial image 3, whic h was likely present back in 2018, not definitively a metastatic focus. No pericardial effusion. No pleural effusion. No thoracic spine compression fracture. The sternum and manubrium are intact. Thyroid is unremarkable. No mediastinal adenopathy. Upper abdomen demonstrates a partially visualized stent in the right kidney. IMPRESSION: No definite evidence of metastatic disease in the chest. 3.0 mm nodule left lung base as described, w hich was likely present back in 2018, unchanged, and therefore, likely benign. POS: [facility]
== END 2018-04-22 08:35 | disposition home or self-care (01) ==
LOC: BICCT 08:34
PROVIDERS: ATTEND Urology
DX: C66.2 Malignant neoplasm of left ureter (principal); C67.9 Malignant neoplasm of bladder, unspecified; R91.1 Solitary pulmonary nodule
CPT/HCPCS: 71260; 82565; Q9967

== ENCOUNTER 2018-04-24 10:27 | Outpatient (CLI) | payer MEDICARE ==
--- NOTE | 2018-04-24 15:30 | NM ---
RADIONUCLIDE DIURETIC RENOGRAM: HISTORY: Malignant neoplasm of ureter. RADIOPHARMACEUTICAL: Technetium 99m MAG-3 8.6 millicuries injected intravenously. DIURETIC: Lasix 40 mg IV, given 15 minutes prior to the injection of the radiopharmaceutical. CORRELATION: CT abdomen and pelvis from 03/20/2018. Bone scan from 04/18/2018. FINDINGS: There is good flow to both kidneys with normal tracer uptake and excretion. Normal downsloping renog jakub curves are seen on either side. The differential function measures 52% on the right and 48% on t he left. IMPRESSION: 1. No evidence of high-grade obstruction. 2. Differential function measures 52% on the right and 48% on the left. POS: [facility]
== END 2018-04-24 10:28 | disposition home or self-care (01) ==
LOC: NM 10:27
PROVIDERS: ATTEND Urology
DX: C66.2 Malignant neoplasm of left ureter (principal); C67.9 Malignant neoplasm of bladder, unspecified
CPT/HCPCS: 78708; A4641; A9562

== ENCOUNTER 2018-05-08 15:45 | Outpatient (CLI) | payer MEDICARE ==
[2018-05-08 17:03] LABS: Hemoglobin 11.9 g/dL (14.0-18.0); Mean Corpuscular HGB CONC 33.3 g/dL (32.0-36.0); Mean Corpuscular Hemoglobin 30.9 pg (27.0-31.0); Mean Corpuscular Volume 92.8 fL (78.0-98.0); Mean Platelet Volume 7.4 fL (7.4-10.4); Platelet Count 215 thou/uL (130-400); RBC Distribution Width 11.8 % (11.5-14.5); Red Blood Cell (RBC) Count 3.87 mill/uL (4.70-6.10); White Blood Cell (WBC) Count 8.8 thou/uL (4.8-10.8)
[2018-05-08 17:04] LABS: Bilirubin Negative (Negative); Blood, Urine Large (Negative); Clarity CLOUDY (Clear); Glucose, Urine (Dipstick) 100 mg/dL (Negative); Leukocyte Large (Negative); Nitrite Negative (Negative); PTT 30.2 SEC (22.9-36.1); Protein, Urine (Dipstick) 100 mg/dL (Neg-Trace); Specific Gravity, Urine 1.016 (1.002-1.036)
[2018-05-08 17:05] LABS: Hyaline Casts/LPF 0-3 HYALINE CAST LPF (0-3 Hyaline); Pathc Cast-AUWi Flag 0.54 (0-2.49); Squamous Epithelial None Seen HPF (0-3)
[2018-05-08 17:06] LABS: Yeast-AUWi Flag 46.6 (0-25.0)
[2018-05-08 17:18] LABS: Bacteria/HPF 1+ HPF (None Seen); RBC/HPF 21-50 HPF (0-3); Yeast-All Forms None Seen HPF (None Seen)
[2018-05-08 17:20] LABS: Anion Gap 11 mmol/L (10-20); BUN (Urea Nitrogen) 8 mg/dL (8.4-25.7); Calc. Creatinine Clearance 0 mL/min (70-130); Calcium 8.8 mg/dL (7.8-10.44); Carbon Dioxide 26 mmol/L (23-31); Chloride 103 mmol/L (98-107); Estimated GFR-MDRD 55; Glucose 177 mg/dL (83-110); Potassium 3.9 mmol/L (3.5-5.1); Sodium 136 mmol/L (136-145)
--- NOTE | 2018-05-10 16:37 | EKG ---
Test Reason : Blood Pressure : / mmHG Vent. Rate : 071 BPM Atrial Rate : 071 BPM P-R Int : 164 ms QRS Dur : 134 ms QT Int : 442 ms P-R-T Axes : 036 040 251 degrees QTc Int : 480 ms Normal sinus rhythm Non-specific intra-ventricular conduction block T wave abnormality, consider inferolateral ischemia Abnormal ECG When compared with ECG of 20-MAR-2018 10:39, No significant change was found Confirmed by DR. Adrián CAIN ([id number]) on 05/10/2018 4:37:09 PM Referred By: ETHEL Confirmed By:DR. Adrián CAIN
== END 2018-05-08 15:46 | disposition home or self-care (01) ==
LOC: LABBT 15:45
PROVIDERS: ATTEND Urology
DX: Z01.818 Encounter for other preprocedural examination (principal); N32.89 Other specified disorders of bladder
CPT/HCPCS: 80048; 81001; 85027; 85610; 85730; 86850; 86900; 86901; 87077; 87086; 87186; 93005; 93010

== ENCOUNTER 2018-05-15 05:47 | Day surgery (SDC) | payer MEDICARE ==
[2018-05-08 16:18] VITALS: BMI 29.5
[2018-05-15] MEDS ORDERED: Levofloxacin 500 mg/D5W 100 ml Premix Bag ONE (06:01)
[2018-05-15] MEDS ORDERED: Fentanyl 100 MCG/2 ML VIAL ONE (06:36)
[2018-05-15] MEDS ORDERED: Iothalamate Meglumine 60% 50 ML VIAL FS ONE (06:49)
[2018-05-15] MEDS ORDERED: Phenazopyridine HCl 97.5 MG TABLET ONE (10:51)
[2018-05-15] MEDS ORDERED: Oxybutynin 5 MG TAB ONE (10:51)
--- NOTE | 2018-05-15 11:49 | OP ---
DATE OF PROCEDURE: 05/15/2018 PREOPERATIVE DIAGNOSES: 1. An 83-year-old male with history of Ta TCC low-grade bladder cancer, status post transurethral resection of bladder tumour initially diagnosed in June 2017. 2. History of BPH. 3. Newly appreciated right mid ureteral TCC 1.3 cm at the level of L5 mid SI ureter. Previous biopsy demonstrating low-grade noninvasive TCC of the ureter. POSTOPERATIVE DIAGNOSES: 1. An 83-year-old male with history of Ta TCC low-grade bladder cancer, status post transurethral resection of bladder tumour initially diagnosed in June 2017. 2. History of BPH. 3. Newly appreciated right mid ureteral TCC 1.3 cm at the level of L5 mid SI ureter. Previous biopsy demonstrating low-grade noninvasive TCC of the ureter. PROCEDURES PERFORMED: Cystoscopy, right retrograde pyelogram, 6 x 26 double-J ureteral stent exchange, right rigid and flexible ureteroscopy, flexible pyeloscopy, laser ablation of mid ureteral TCC tumor, bladder biopsy of the left lateral wall, fulguration of biopsy site, 20-Pakistani 3-way Lynn catheter placement with a 3- way port plugged attached to gravity bag. ANESTHESIA: General. COMPLICATIONS: None apparent. SPECIMENS: Left lateral bladder biopsy x2. INTRAOPERATIVE FINDINGS: 1. Bilobar hyperplasia of the prostate moderately obstructing with high median bar. 2. Left lateral bladder with previous bladder biopsy TURBT site demonstrating no gross papillary tumor recurrence, previous repeat biopsy demonstrated polypoid mucosa with no evidence of mass. There were some polypoid lesions in the left lateral wall. This was biopsy suspicion low for TCC recurrence. 3. Right pyeloscopy demonstrating no gross calyceal tumor. 4. Restaging of the right mid ureteral TCC noted, a second nidus of ureteral TCC about 2 cm proximal to this region appears mucosa based. INDICATIONS FOR THE PROCEDURE AND HISTORY: Mr. Blount is an 83-year-old male referred to me with history of gross hematuria and BPH. Workup demonstrated low-grade TCC of the bladder, which was appropriately treated. On surveillance cystoscopy, he developed left lateral tumor recurrence small in nature. Subsequent 3-month interval cystoscopy demonstrated polypoid lesions. I did obtain a restaging CT as I had concern regarding recurrence of his bladder cancer in an accelerated fashion, therefore, CT was obtained. This demonstrated a right mid ureteral mass consistent with TCC confirmed on ureteroscopy, ureteral mass biopsy. He was presented at [facility] and options of right nephroureterectomy vs endoscopic treatment for conservative nephron sparing. Segmental ureterectomy not advised due to length of the tumor. However, he has been fully informed regarding indications for repeat ureteroscopy, stricture formation, possible risk of perforation, sepsis, a need for ongoing surveillance under anesthesia was reviewed. He would like to give an attempt for TCC to be treated endoscopically if possible, therefore, presents for ureteroscopic ablation. Risks and complications as above were reviewed with the patient in detail including, but not limited to, bleeding, pain, infection, injury to adjacent organs, urosepsis, possible secondary procedure, ureteral perforation, stricture formation, PE, DVT, perioperative morbidity mortality was reviewed. All questions were answered to his satisfaction. The patient and family desired to proceed without reservation. DESCRIPTION OF PROCEDURE: After an informed consent was signed, the patient was taken to the operating room, placed in a dorsal lithotomy position. Bilateral LULU hose SCDs and broad-spectrum antibiotics were provided. Repeat urine culture was negative. After general anesthesia, we prepped and draped him in the usual surgical sterile fashion. A 21-Pakistani cystoscope was utilized for cystoscopy, which demonstrated normal anterior posterior urethra. Again, noted was a bilobar hyperplasia of the prostate, moderately obstructing. There was a median bar. He previously had a small intravesical median lobe. I do not appreciate a gross intravesical median lobe on today's cystoscopy. The UOs identified well away from the bladder neck. Bladder was surveyed with a 30 and 70-degree lens, which demonstrated no gross evidence of papillary tumor recurrence. Previous resection site at the left lateral wall was noted with granulomatous reaction. Surrounding areas demonstrated changes consistent with polypoid inflammation. I did biopsy this area x2 and the surface area approximately 2 to 3 cm of the polypoid inflammation was fulgurated with gyrus bipolar. We proceeded to remove his ureteral stent and at this time, the stent was removed to the level of the meatus and a 0.35 Sensor wire was passed to the right upper pole without difficulty. A staged rigid ureteroscopy was performed demonstrating the tumor in the right mid ureter at the level of L5 -S1 to mid SI joint level. Attempts were made to remove bulk of the tumor using a zero tip nitinol basket, Milagros basket however it would not engage appropriately to be removed in this manner. We used a 365 micron laser fiber at tissue ablating setting. I initially tried an endoscopic Bugbee, however, as I did not want to use sterile water with pressure irrigation, we used normal saline and had the cautery setting at 40 to 50. Although, there was ablation and cauterization effect, decision was made to use laser instead for more efficacious ablation. Using 365 micron laser fiber, we ablated the transitional tumor on the right mid ureter. We did much as we could with the rigid ureteroscope, however, given the angle, I did switch to a flexible ureteroscope as there as the base of the tumor located in the anterior wall of the right mid ureter. We ablated the tumor with laser adequately. There was a small mucosal flap just inferior to dominant mass became somewhat hindersome to pass the scope back and forth, however, I was able to pass without traumatizing the ureter. The tumor was ablated as much as we could and ablated reaction with cauterization effect was noted. We passed the flexible ureteroscope all the way into the upper collecting system, which I did not appreciate any calyceal TCC. There was some mucosa field defect change just proximal to the primary tumor approximately 1cm cm in the anterior wall and I did ablate this with the laser fiber as well. The focus of the mucosa field defect appears to be approximately 1 cm. This area was ablated. Restaging of the primary TCC of the mid ureter demonstrated adequate ablation. I did not aggressively ablate the tumor, to decrease his risk of ureteral perforation. As I anticipate that he will need a staged ureteroscopy to further stage his progress with laser ablation. To minimize risk of ureteral stricture and injury, i.e., perforation, we ablated as much as we could on this endeavor and I do plan on bringing this patient back for restaging ureteroscopy to see results of current ablation. No active bleeding was appreciated. A 6 x 26 double-J ureteral stent was passed without difficulty. The area of fulguration of the bladder demonstrated no active bleeding and with good hemostasis. A 20-Pakistani 3-way Lynn catheter was placed, 30 mL insufflated and catheter plugged with the CBI port and attached to gravity bag demonstrating clear output. The patient and family desires gravity bag 24/7 as it is easier to take care of and emptying. He is discharged with ciprofloxacin for 10 days; Myrbetriq 50 mg one p.o. daily for 7 days; Colace p.r.n.; Shawn , #30 p.r.n. He will follow up with me next Sunday for catheter removal. I do recommend that he proceed with restaging ureteroscopy to re-stage his TCC of the mid ureter. Job ID: [id number] [facility]
--- NOTE | 2018-05-15 12:00 | RAD ---
RETROGRADE IVP: COMPARISON: 04/03/2018. HISTORY: Kidney stones. FINDINGS/IMPRESSION: Multiple limited intraoperative fluoroscopic views from a retrograde IVP were submitted for interpret ation. There is mild right hydronephrosis. Eventually, a double J ureteral stent is seen in the rig t renal collecting system. This appears in good position. POS: [facility]
== END 2018-05-15 12:15 | disposition home or self-care (01) ==
LOC: SDC 05:47
PROVIDERS: ATTEND Urology
PROC: 0T568ZZ Destruction of Right Ureter, Via Natural or Artificial Opening Endoscopic (ICD-10-PCS; principal; 2018-05-15)
PROC: 0TBB8ZX Excision of Bladder, Via Natural or Artificial Opening Endoscopic, Diagnostic (ICD-10-PCS; 2018-05-15)
PROC: 0T768DZ Dilation of Right Ureter with Intraluminal Device, Via Natural or Artificial Opening Endoscopic (ICD-10-PCS; 2018-05-15)
DX: C66.1 Malignant neoplasm of right ureter (principal); N30.80 Other cystitis without hematuria; N32.89 Other specified disorders of bladder; N40.1 Benign prostatic hyperplasia with lower urinary tract symptoms; N13.8 Other obstructive and reflux uropathy; I10 Essential (primary) hypertension; Z87.891 Personal history of nicotine dependence; Z79.899 Other long term (current) drug therapy; Z88.2 Allergy status to sulfonamides; Z98.890 Other specified postprocedural states
CPT/HCPCS: 52204; 52332; 52354; 74420; 88305; C1758; C1769; J1956; J3010; J3370; Q9961

== ENCOUNTER 2018-05-23 07:41 | Outpatient (CLI) | payer MEDICARE ==
--- NOTE | 2018-05-23 08:49 | ULT ---
FEXAM: Bilateral lower extremity venous duplex: Deep veins evaluated with color Doppler, spectral analysis, and compression. INDICATIONS: Bilateral lower extremity pain and edema. FINDINGS: Deep veins interrogated include common femoral vein, femoral vein, popliteal vein, and post erior tibial vein. These veins show normal compression and blood flow. No evidence of DVT. IMPRESSION: Negative Bilateral venous duplex exam.
== END 2018-05-23 07:42 | disposition home or self-care (01) ==
LOC: ULT 07:41
PROVIDERS: ATTEND Urology
DX: M79.89 Other specified soft tissue disorders (principal)
CPT/HCPCS: 93970

== ENCOUNTER 2018-06-03 00:07 | Outpatient (CLI) | payer MEDICARE ==
[2018-06-03 13:06] LABS: Bilirubin Negative (Negative); Blood, Urine Moderate (Negative); Clarity CLEAR (Clear); Glucose, Urine (Dipstick) Negative (Negative); Leukocyte Moderate (Negative); Nitrite Negative (Negative); Protein, Urine (Dipstick) 30 mg/dL (Neg-Trace); Specific Gravity, Urine 1.011 (1.002-1.036)
[2018-06-03 13:07] LABS: Bacteria/HPF None Seen HPF (None Seen); Hyaline Casts/LPF 7-10 HYALINE CAST LPF (0-3 Hyaline); Pathc Cast-AUWi Flag 2.04 (0-2.49); RBC/HPF GREATER THAN 50-TNTC HPF (0-3); Squamous Epithelial 0-3 HPF (0-3); WBC/HPF 21-50 HPF (0-3)
[2018-06-03 13:08] LABS: Hemoglobin 12.2 g/dL (14.0-18.0); Mean Corpuscular HGB CONC 32.1 g/dL (32.0-36.0); Mean Corpuscular Hemoglobin 30.3 pg (27.0-31.0); Mean Corpuscular Volume 94.3 fL (78.0-98.0); Mean Platelet Volume 7.6 fL (7.4-10.4); Platelet Count 259 thou/uL (130-400); RBC Distribution Width 11.9 % (11.5-14.5); Red Blood Cell (RBC) Count 4.02 mill/uL (4.70-6.10); White Blood Cell (WBC) Count 7.7 thou/uL (4.8-10.8)
[2018-06-03 13:10] LABS: Yeast-AUWi Flag 46.9 (0-25.0)
[2018-06-03 13:13] LABS: PTT 31.2 SEC (22.9-36.1); Prothrombin Time 13.5 SEC (12.0-14.7)
[2018-06-03 13:15] LABS: Anion Gap 12 mmol/L (10-20); BUN (Urea Nitrogen) 8 mg/dL (8.4-25.7); Calc. Creatinine Clearance 0 mL/min (70-130); Calcium 9.2 mg/dL (7.8-10.44); Carbon Dioxide 27 mmol/L (23-31); Chloride 102 mmol/L (98-107); Estimated GFR-MDRD 60; Glucose 171 mg/dL (83-110); Potassium 3.9 mmol/L (3.5-5.1); Sodium 137 mmol/L (136-145)
[2018-06-03 13:26] LABS: Renal Epithelial None Seen HPF (0-3); Transitional Epithelial NONE SEEN HPF (0-3); Yeast-All Forms None Seen HPF (None Seen)
== END 2018-06-03 00:08 | disposition home or self-care (01) ==
LOC: LABBT 00:07
PROVIDERS: ATTEND Urology
DX: Z01.812 Encounter for preprocedural laboratory examination (principal); C67.9 Malignant neoplasm of bladder, unspecified
CPT/HCPCS: 80048; 81001; 85027; 85610; 85730; 87086; 93005; 93010

== ENCOUNTER 2018-06-17 05:57 | Day surgery (SDC) | payer MEDICARE ==
[2018-06-03 11:57] VITALS: BMI 28.7
[2018-06-17] MEDS ORDERED: Fentanyl 100 MCG/2 ML VIAL ONE (06:31)
[2018-06-17] MEDS ORDERED: cefTRIAXone\\ROCEPHIN 2 GM VIAL ONE (06:55)
[2018-06-17] MEDS ORDERED: Sodium Chloride 0.9% 100 ML ONE (06:55)
[2018-06-17] MEDS ORDERED: Levofloxacin 500 mg/D5W 100 ml Premix Bag ONE (06:55)
[2018-06-17] MEDS ORDERED: Iothalamate Meglumine 60% 50 ML VIAL FS ONE (06:57)
[2018-06-17] MEDS ORDERED: Phenazopyridine HCl 97.5 MG TABLET ONE (09:15)
[2018-06-17] MEDS ORDERED: Oxybutynin 5 MG TAB ONE (09:15)
--- NOTE | 2018-06-17 10:09 | OP ---
DATE OF PROCEDURE: 06/17/2018 PRIMARY CARE PHYSICIAN: Aren Sellers MD PREOPERATIVE DIAGNOSES: 1. An 83-year-old male with history of pathologic Ta TCC low-grade bladder cancer, status post transurethral resection of bladder tumor. 2. 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 3. History of bilobar hyperplasia of the prostate. POSTOPERATIVE DIAGNOSES: 1. An 83-year-old male with history of pathologic Ta TCC low-grade bladder cancer, status post transurethral resection of bladder tumor. 2. 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 3. History of bilobar hyperplasia of the prostate. PROCEDURES PERFORMED: Cystoscopy, transurethral resection of bladder tumor, right 6 x 26 double-J ureteral stent exchange, right retrograde pyelogram, right ureteroscopy, pyeloscopy, laser ablation of residual right ureteral TCC and intravesical mitomycin-C instillation. ANESTHESIA: General. COMPLICATIONS: None apparent. SPECIMENS: 1. TUR of right bladder neck tumor, superficial. 2. Deep. INTRAOPERATIVE FINDINGS: 1. Bilobar hyperplasia of the prostate, moderately obstructing. 2. Previous left lateral TUR site with granulating tissue. No evidence of tumor recurrence on the left side. 3. Newly appreciated right bladder neck polypoid sessile lesion concerning for a new right TCC of the bladder neck measuring approximately 1.5 cm, surface area 2-3cm fulgurated. 4. Possible secondary satellite lesion right lateral periureteral x2, 5 mm each. 5. Ureteroscopy demonstrating near resolution of his previous ureteral TCC, small residual lesion in the right mid ureter ablated. 6. Pyeloscopy negative for tumor. INDICATIONS FOR PROCEDURE: Mr. Blount is a pleasant 83-year-old male with history of low-grade TCC, initial TURBT June 20, 2017. He underwent repeat resection demonstrating a small recurrence of the left lateral wall. Restaging CT demonstrated a right ureteral mass consistent with TCC, biopsied and confirmed to be low grade. He underwent laser ablation of his ureteral mass, which was large in size. He presents today for second-look ureteroscopy. Risks, complications, and indications have been fully discussed with patient and family in detail including, but not limited to, bleeding, pain, infection, sepsis, stricture formation, bladder, ureteral, or kidney injury, PE, DVT, perioperative morbidity and mortality. All questions were answered to his satisfaction. He desired to proceed without reservation. DESCRIPTION OF PROCEDURE: After an informed consent was signed, the patient was taken to the operating room, placed in the dorsal lithotomy position with the genital area prepped and draped in the usual surgical sterile fashion. Bilateral LULU hose SCDs and broad-spectrum antibiotics were provided. A 21-Afghan cystoscope was utilized for cystoscopy, which demonstrated normal anterior and posterior urethra. Bilobar hyperplasia, moderately obstructing with no evidence of intravesical median lobe. The UO was about 5-6 mm away from the bladder neck. There was a newly appreciated right bladder neck lesion, which appeared to be polypoid, sessile in nature. The tumor measured approximately 1.5-2 cm surface area at the right bladder neck at 7 o'clock position. We did perform a cystoscopic evaluation using a 30 and 70-degree lens. I did not see any further lesion. However, after removing the stent, there were 2 right periureteral lateral lesion about 5 mm each. The previous resection site in the left lateral wall demonstrated no evidence of tumor recurrence. Granulating tissue noted from the previous resection site noted. At this time, the previously placed ureteral stent was removed to level of the meatus and a 0.35 Sensor wire passed. However, the stent did migrate out, therefore an open-ended catheter was utilized to perform retrograde pyelogram, which demonstrated no obvious filling defect. There was a wide caliber change of the mid ureter where the previous tumor was. The upper pole collecting system opacified without difficulty. A 0.035 Sensor wire was able to be passed without significant issues to the right upper pole. At this time, a rigid ureteroscope was performed. I was able to pass the scope to the proximal ureter just distal to the UPJ with the rigid ureteroscope. Surveillance ureteroscopy demonstrates no gross tumor recurrence of concern there. The previous presenting tumor site at the right mid ureter demonstrated some postoperative changes of inflammation. However, there was a minute amount of tissue that may be inflammation versus tumor residual. These were quite small residual left. Using 200 micron laser fiber, I ablated the residual lesion. It was not obvious that it was tumor. However, given the inflammatory area, as there could be a tumor nidus, I did ablate this lesion with resolution. Reinspection of the ureter from the area just distal to the UPJ to the ureter were clear of any obvious ureteral tumor recurrence. At this time with the wire in situ, we passed a 10-Afghan dual-lumen access sheath, performing a retrograde pyelogram. A second safety wire 0.035 Super Stiff was then placed into the right upper pole. An 11/13-Afghan x 46 navigator passed without difficulty to the proximal UPJ. Flexible ureteroscope was then advanced without significant issues. Pyeloscopy was performed, which demonstrated no evidence of calyceal lesion of concern. There was no evidence of ureteral perforation with surveillance of the ureter. At this time, the navigator was removed and a 6 x 26 double-J ureteral stent was passed over the guidewire. All wires were then subsequently removed. At this time, we performed a resection of the bladder neck tumor. A 26-Afghan continuous sheath resectoscope with a visual obturator was passed without significant issue to the bladder. Using gyrus bipolar, we resected the bladder neck tumor flush to the bladder mucosa. Superficial and deep were sent separately. Upon further resecting, there may be component of cystitis cystica of the right nicole-trigone. I ablated the 2 small residual tumors next to the ureter with gyrus bipolar. This surface area cauterized was approximately 2.5 to 3 cm, cauterized the bladder neck and resolved any inflammatory residual mass of concern. I did fulgurate the edges of previous resection site as well as there appeared to be some inflammatory reaction consistent with cystitis. Good hemostasis was noted. A 20-Afghan 3-way Lynn catheter was placed with 30 mL of sterile water instilled. We placed mitomycin-C 40 mg diluted in 40 mL of sterile water. We will hold retention for an hour in PACU. CBI will be started subsequently and I anticipate the patient will be discharged with indwelling Lynn catheter for removal of catheter and stent next week. Job ID: [id number] [facility]
--- NOTE | 2018-06-17 10:10 | RAD ---
FOUR FLUOROSCOPIC SPOT IMAGES SUBMITTED FROM A RETROGRADE IVP: INDICATION: History of cystoscopy and right stent placement. FINDINGS: Selected images demonstrate retrograde opacification of the right renal collecting system. There is moderate right hydronephrosis still present. Subsequent images demonstrate placement of a wire withi n the superior calyx of the right renal collecting system with subsequent placement of a right ureter al catheter. Visualized bowel gas pattern is unremarkable appearing. IMPRESSION: Intraoperative images from a retrograde IVP evaluation. The 1st submitted images demonstrated modera te right hydronephrosis. Subsequent images demonstrate placement of right ureteral catheter and wire . POS: [facility]
[2018-06-17] MEDS ORDERED: Ondansetron PF 4 MG/2 ML Vial ONE (17:00)
[2018-06-17] MEDS ORDERED: Dexamethasone 20 MG/5 ML VIAL ONE (17:00)
[2018-06-17] MEDS ORDERED: Glycopyrrolate 0.2 MG/ML 5 ML SYRINGE ONE (17:00)
[2018-06-17] MEDS ORDERED: Lidocaine 1% PF 5 ML VIAL ONE (17:00)
[2018-06-17] MEDS ORDERED: Rocuronium Bromide 10 MG/ML (10ML VIAL) ONE (17:00)
[2018-06-17] MEDS ORDERED: Succinylcholine Chloride 20 MG/ML 10 ml SYRINGE FS ONE (17:00)
[2018-06-17] MEDS ORDERED: PROPOFOL 200 MG/20 ML VIAL ONE (17:00)
== END 2018-06-17 13:30 | disposition home or self-care (01) ==
LOC: SDC 05:57
PROVIDERS: ATTEND Urology
PROC: 0T5B8ZZ Destruction of Bladder, Via Natural or Artificial Opening Endoscopic (ICD-10-PCS; principal; 2018-06-17)
PROC: 0T5C8ZZ Destruction of Bladder Neck, Via Natural or Artificial Opening Endoscopic (ICD-10-PCS; 2018-06-17)
PROC: 0T768DZ Dilation of Right Ureter with Intraluminal Device, Via Natural or Artificial Opening Endoscopic (ICD-10-PCS; 2018-06-17)
PROC: 0TP98DZ Removal of Intraluminal Device from Ureter, Via Natural or Artificial Opening Endoscopic (ICD-10-PCS; 2018-06-17)
PROC: BT1DZZZ Fluoroscopy of Right Kidney, Ureter and Bladder (ICD-10-PCS; 2018-06-17)
PROC: 0T568ZZ Destruction of Right Ureter, Via Natural or Artificial Opening Endoscopic (ICD-10-PCS; 2018-06-17)
DX: C66.1 Malignant neoplasm of right ureter (principal); C67.5 Malignant neoplasm of bladder neck; N30.80 Other cystitis without hematuria; N40.0 Benign prostatic hyperplasia without lower urinary tract symptoms; Z79.899 Other long term (current) drug therapy; Z88.2 Allergy status to sulfonamides; Z98.890 Other specified postprocedural states
CPT/HCPCS: 52234; 52332; 52354; 74420; 86850; 86900; 86901; 88305; 88341; 88342; C1758; C1769; J9280; 36415; A4216; J0696; J1100; J1956; J2001; J2405; J2704; J3010; J3490; Q9961

== ENCOUNTER 2018-08-12 08:18 | Outpatient (CLI) | payer MEDICARE ==
[2018-08-12] MEDS ORDERED: Iopamidol 300 61% 100 ML VIAL FS ONE (09:00)
--- NOTE | 2018-08-12 10:12 | CT ---
CT Abdomen Pelvis W WO con History: C6-C7 0.9. Cc 66.2. Malignant neoplasm of the urinary bladder unspecified site. Transitional cell carcinoma of left ureter. Comparison: CT abdomen and pelvis March 20, 2018 Findings: Previously described right mid/distal ureteral filling defect is not appreciated on today's examination. No abnormal enhancing urothelial mass. Simple cyst superior pole left kidney. Prostate mildly enlarged. No retroperitoneal periaortic adenopathy. Incidental note is made of a sple nule. Urinary bladder is unremarkable. No dilated loops of large or small bowel. Mild diverticular disease without active current inflammation. Mild pancreatic atrophy. Mild submucosal thickening of the mid sigmoid colon unchanged. On the delayed phase contrast there are no filling defects within the renal calyces, pelvis, nor ureters. There is very subtle thickening of the right mid and distal ureter. No acute osseous abnormality. Subcortical cyst formation of the right femoral head. Impression: 1. Long segment thickening of the right mid and distal ureter approximately 12 cm may be posttreatmen t in nature versus changes from stent placement.. No evidence of obstruction. No asymmetric renal enhancement. No filling defect. 2. No hydronephrosis. 3. No abnormal renal enhancing mass. 4. Incidental note of a diverticulum of the third portion of the duodenum. 5. Mild circumferential wall thickening of the submucosa of the sigmoid colon with extensive divertic ular disease likely sequelae of prior bouts of diverticulitis. Recommend correlation with colonoscopic evaluation.
== END 2018-08-12 08:19 | disposition home or self-care (01) ==
LOC: SCSCT 08:18
PROVIDERS: ATTEND Urology
DX: C67.9 Malignant neoplasm of bladder, unspecified (principal); C66.2 Malignant neoplasm of left ureter; K57.30 Diverticulosis of large intestine without perforation or abscess without bleeding
CPT/HCPCS: 36415; 74178; 80053; 81001; 87077; 87086; 87186; 88121; Q9967

== ENCOUNTER 2018-09-06 09:57 | Outpatient (CLI) | payer MEDICARE ==
[2018-09-06 11:31] LABS: Hemoglobin 11.7 g/dL (14.0-18.0); Mean Corpuscular HGB CONC 32.9 g/dL (32.0-36.0); Mean Corpuscular Hemoglobin 30.9 pg (27.0-31.0); Mean Corpuscular Volume 94.1 fL (78.0-98.0); Mean Platelet Volume 7.3 fL (7.4-10.4); Platelet Count 216 thou/uL (130-400); RBC Distribution Width 12.1 % (11.5-14.5); Red Blood Cell (RBC) Count 3.78 mill/uL (4.70-6.10); White Blood Cell (WBC) Count 6.3 thou/uL (4.8-10.8)
[2018-09-06 11:38] LABS: Bacteria/HPF None Seen HPF (None Seen); Bilirubin Negative (Negative); Blood, Urine Negative (Negative); Clarity Clear (Clear); Glucose, Urine (Dipstick) 30 mg/dL (Negative); Leukocyte Negative Leu/uL (Negative); Nitrite Negative (Negative); PTT 31.4 SEC (22.9-36.1); Protein, Urine (Dipstick) Negative (Neg-Trace); Prothrombin Time 13.3 SEC (12.0-14.7); RBC/HPF 0-3 HPF (0-3); Squamous Epithelial None Seen HPF (0-3); Urobilinogen Normal mg/dL (Less than 2); WBC/HPF 0-3 HPF (0-3)
[2018-09-06 12:01] LABS: Anion Gap 12 mmol/L (10-20); BUN (Urea Nitrogen) 6 mg/dL (8.4-25.7); Calc. Creatinine Clearance 0 mL/min (70-130); Calcium 8.9 mg/dL (7.8-10.44); Carbon Dioxide 24 mmol/L (23-31); Chloride 105 mmol/L (98-107); Estimated GFR-MDRD 57; Glucose 173 mg/dL (83-110); Potassium 4.8 mmol/L (3.5-5.1); Sodium 136 mmol/L (136-145)
--- NOTE | 2018-09-06 17:21 | EKG ---
Test Reason : Blood Pressure : / mmHG Vent. Rate : 055 BPM Atrial Rate : 055 BPM P-R Int : 182 ms QRS Dur : 140 ms QT Int : 494 ms P-R-T Axes : 040 038 229 degrees QTc Int : 472 ms Sinus bradycardia Non-specific intra-ventricular conduction block Cannot rule out Anterior infarct (cited on or before 03-JUN-2018) T wave abnormality, consider inferolateral ischemia Abnormal ECG When compared with ECG of 03-JUN-2018 12:28, (Unconfirmed) No significant change was found Confirmed by DR. Katharine BAUTISTA ([id number]) on 09/06/2018 5:20:29 PM Referred By: ETHEL Confirmed By:DR. Katharine BAUTISTA
== END 2018-09-06 09:58 | disposition home or self-care (01) ==
LOC: LABBT 09:57
PROVIDERS: ATTEND Urology
DX: Z01.818 Encounter for other preprocedural examination (principal); C67.9 Malignant neoplasm of bladder, unspecified
CPT/HCPCS: 80048; 81001; 85027; 85610; 85730; 87086; 93005; 93010

== ENCOUNTER 2018-09-13 10:05 | Outpatient (CLI) | payer MEDICARE | END 2018-09-13 10:06 | disposition home or self-care (01) | LOC: LABBT 10:05 | PROVIDERS: ATTEND Urology | DX: Z01.812 Encounter for preprocedural laboratory examination (principal); C67.9 Malignant neoplasm of bladder, unspecified | CPT/HCPCS: 86850; 86900; 86901 ==

== ENCOUNTER 2018-09-16 06:54 | Day surgery (SDC) | payer MEDICARE ==
[2018-09-06 10:37] VITALS: BMI 30.4
[2018-09-16] MEDS ORDERED: Fentanyl 100 MCG/2 ML VIAL ONE (08:46)
[2018-09-16] MEDS ORDERED: Iothalamate Meglumine 60% 50 ML VIAL FS ONE (08:58)
[2018-09-16] MEDS ORDERED: Piperacillin/Tazobactam 3.375 GM VIAL ONE (09:01)
[2018-09-16] MEDS ORDERED: Sodium Chloride 0.9% 100 ML ONE (09:01)
--- NOTE | 2018-09-16 10:39 | RAD ---
EXAM: Retrograde IVP HISTORY: Right hydronephrosis COMPARISON: CT abdomen/pelvis 08/12/2018 FINDINGS/IMPRESSION: Limited intraoperative fluoroscopic views of the retrograde IVP were submitted f or interpretation. Contrast is seen on the initial image in the right ureter. There is enlargement of the right ureter without significant calyceal dilatation in the right kidney. No obvious filling d efects are seen. A double-J stent is seen in good position on the final image.
[2018-09-16] MEDS ORDERED: SUGAMMADEX SODIUM 200 MG/2 ML VIAL ONE (10:43)
[2018-09-16] MEDS ORDERED: Phenazopyridine HCl 97.5 MG TABLET ONE (11:16)
--- NOTE | 2018-09-16 12:31 | OP ---
DATE OF PROCEDURE: 09/16/2018 PREOPERATIVE DIAGNOSES: 1. 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 2. History of right ureteral transitional cell carcinoma, status post laser ablation, ureteral biopsy. 3. Benign prostatic hyperplasia. POSTOPERATIVE DIAGNOSES: 1. 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 2. History of right ureteral transitional cell carcinoma, status post laser ablation, ureteral biopsy. 3. Benign prostatic hyperplasia. PROCEDURES PERFORMED: Cystoscopy, bladder biopsy, fulguration of biopsy sites, right retrograde pyelogram, 6 x 26 double-J ureteral stent placement, flexible and rigid ureteroscopy, big biopsy of right ureteral lesion at the level of L5-S1, laser ablation of ureteral lesion x2, flexible pyeloscopy. ANESTHESIA: General. COMPLICATIONS: None apparent. DISPOSITION: To recovery room in stable condition. INTRAOPERATIVE FINDINGS: 1. Moderately obstructing prostate, with small intravesical median lobe. 2. Previous resection site noted in the mid-trigone just proximal to the bladder neck with no recurrence. 3. Diffuse area of cystitis cystica with no gross evidence of papillary tumor recurrence in the bladder. 4. Ureteroscopy demonstrating small papillary recurrence about 5 to 6 mm in the right L5-S1 ureter, second recurrence tiny 2 to 3 mm right distal ureter at the level of S3-S4. 5. Pyeloscopy, negative for TCC. 6. A caliber change in the right ureter of the previous ureteral TCC site at the level of L5, however, no evidence of obstructing stricture. Scope able to be passed without significant issues. SPECIMENS: 1. Right ureteral biopsy x1. 2. Bladder biopsy x3: Posterior, right, and left lateral wall. DRAINS: 6 x 26 double-J ureteral stent with distal tail in situ. INDICATIONS FOR PROCEDURE AND HISTORY: Mr. Blount is a pleasant 83-year-old male with history of pathologic Ta low-grade TCC of the bladder, status post TURBT. Initial presenting bladder tumor about 1.5 to 2 cm. Subsequent staging demonstrated a right ureteral mass, right ureteral mass. He underwent treatment of his ureteral lesion with laser ablation, biopsy. He presents today for staging ureteroscopy, cystoscopy. Risks and complications and indications for the procedure was reviewed with the patient and family in detail including, but not limited to, bleeding, pain, infection, injury to adjacent organs, urosepsis, ureteral renal injury, stricture formation. All questions were answered to his satisfaction and he desired to proceed. DESCRIPTION OF PROCEDURE: After an informed consent was signed, the patient was taken to the operating room, placed in a dorsal lithotomy position with the genital area prepped and draped in the usual surgical sterile fashion. A 21-Yoruba cystoscope was utilized for cystoscopy, which demonstrated normal urethra with no evidence of stricture. Prostatic urethra was staged, which demonstrated moderately obstructing lateral lobes. There was a small intravesical median lobe; however, this was not encroaching the ureteral orifice. The UOs are about 5 to 6 mm away from the bladder neck easily visualized. At this time, we surveyed the bladder using a 30-degree and 70-degree lens. There was no papillary tumor recurrence of concern. There were diffuse areas of cystitis cystica changes mostly in bilateral lateral wall, posterior wall. The previous resection site at the bladder neck trigone region demonstrated no evidence of papillary recurrence. I did do a random bladder biopsy of the bladder including the cystitis cystica change lesions in the right, left, lateral wall, posterior wall. Endoscopic Bugbee was utilized to coagulate and cauterize the biopsy site, which demonstrated good hemostasis. I did perform a ureteroscopy first. At this time, a 0.35 Sensor wire was passed to the right ureter with an open-ended catheter. Retrograde pyelogram was performed. This demonstrated a caliber change in the L5-S1, however, no gross stricture. The ureter component of the mid segment where he previously had the ureteral TCC was more capacious. However, there appeared to be no significant caliber change demonstrating obstruction. The upper tract collecting system demonstrated no evidence of hydronephrosis. A 0.35 Sensor wire was placed in the right upper pole and we performed a rigid ureteroscope for diagnosis. There was a caliber change at the L5-S1 ureter, however, the scope was able to be passed in and out without significant issues with no gross evidence of obstructing stricture. There was a small papillary recurrence at the floor of the ureter at the L5-S1 just distal to the caliber change of the ureter, this appeared to be about 6 to 8 mm in surface area. We used a big back-loading biopsy forceps. It was very difficult to engage because of the angle. We were able to biopsy some of the lesion and sent for permanent chemical histologic evaluation. Restaging ureteroscopy demonstrated the lesion was resolved with a biopsy. Using a 200 micron laser fiber and a tissue setting, we ablated the bed of the tumor. There was a second tiny lesion in the S3 ureter about 2 to 3 mm in the medial anterior wall, which we ablated with the laser fiber. At this time, a second safety wire was placed into the right upper pole using a 10-Yoruba dual-lumen access sheath. A flexible ureteroscope was then advanced over the safety wire to the level of the upper pole. We surveyed the collecting system, which demonstrated no evidence of upper tract calyceal lesion of concern. At this time, we surveyed the ureter, which demonstrated no evidence of further TCC of concern. A 6 x 26 double-J ureteral stent was passed over the safety wire and the wire completely removed. We surveyed the bladder biopsy sites, which demonstrated no evidence of bleeding or oozing of concern. As minimal biopsy was performed of the bladder mucosa, I did not leave the patient with a Lynn catheter and we were watching for voiding status postop and we will discharge if no significant issues of retention. He is discharged with Macrobid 100 mg one p.o. b.i.d. x5 days, then one p.o. b.i.d. on September 26, morning of cysto stent pull. Azo p.r.n., Ditropan 5 mg #20 p.o. q.8 hours for bladder spasm. He will continue his BPH medications with Proscar, Hytrin. Return to clinic on September 26 for stent pull on [facility]. I will continue to monitor him with 3-month interval surveillance cystoscopy. Given that he has minimal residual ureteral TCC, pending followup cytology, may examine him under local cysto, if followup CT staging is grossly unremarkable. Job ID: [id number] [facility]
[2018-09-16] MEDS ORDERED: Rocuronium Bromide 10 MG/ML (10ML VIAL) ONE (17:01)
[2018-09-16] MEDS ORDERED: PROPOFOL 200 MG/20 ML VIAL ONE (17:01)
[2018-09-16] MEDS ORDERED: Lidocaine 1% PF 5 ML VIAL ONE (17:01)
[2018-09-16] MEDS ORDERED: Glycopyrrolate 0.2 MG/ML 5 ML SYRINGE ONE (17:01)
[2018-09-16] MEDS ORDERED: ePHEDrine 50 MG/ML VIAL ONE (17:01)
== END 2018-09-16 14:35 | disposition home or self-care (01) ==
LOC: SDC 06:54
PROVIDERS: ATTEND Urology
PROC: 0T568ZZ Destruction of Right Ureter, Via Natural or Artificial Opening Endoscopic (ICD-10-PCS; principal; 2018-09-16)
PROC: 0TBB8ZX Excision of Bladder, Via Natural or Artificial Opening Endoscopic, Diagnostic (ICD-10-PCS; 2018-09-16)
PROC: 0T768DZ Dilation of Right Ureter with Intraluminal Device, Via Natural or Artificial Opening Endoscopic (ICD-10-PCS; 2018-09-16)
DX: C66.1 Malignant neoplasm of right ureter (principal); N30.80 Other cystitis without hematuria; N40.0 Benign prostatic hyperplasia without lower urinary tract symptoms; E11.9 Type 2 diabetes mellitus without complications; I10 Essential (primary) hypertension; Z85.51 Personal history of malignant neoplasm of bladder; Z87.891 Personal history of nicotine dependence; Z79.899 Other long term (current) drug therapy; Z88.2 Allergy status to sulfonamides; Z98.890 Other specified postprocedural states
CPT/HCPCS: 52204; 52332; 52354; 74420; 88305; 88341; 88342; C1758; C1769; A4216; J2001; J2543; J2704; J3010; J3490; J9280

== ENCOUNTER 2018-12-06 09:15 | Outpatient (CLI) | payer MEDICARE ==
--- NOTE | 2018-12-09 23:07 | EKG ---
Test Reason : Blood Pressure : / mmHG Vent. Rate : 062 BPM Atrial Rate : 062 BPM P-R Int : 170 ms QRS Dur : 138 ms QT Int : 462 ms P-R-T Axes : 033 020 201 degrees QTc Int : 468 ms Normal sinus rhythm Non-specific intra-ventricular conduction block T wave abnormality, consider inferolateral ischemia Abnormal ECG When compared with ECG of 06-SEP-2018 11:04, No significant change was found Confirmed by BAYLEE PINO M.D. ([id number]) on 12/09/2018 11:07:19 PM Referred By: ETHEL Confirmed By:BAYLEE PINO M.D.
== END 2018-12-06 09:16 | disposition home or self-care (01) ==
LOC: LABBT 09:15
PROVIDERS: ATTEND Urology
DX: Z01.818 Encounter for other preprocedural examination (principal); C67.9 Malignant neoplasm of bladder, unspecified; C66.2 Malignant neoplasm of left ureter; N40.0 Benign prostatic hyperplasia without lower urinary tract symptoms; R31.9 Hematuria, unspecified; I10 Essential (primary) hypertension
CPT/HCPCS: 93005; 93010

== ENCOUNTER 2018-12-09 08:39 | Day surgery (SDC) | payer MEDICARE ==
[2018-12-06 10:19] VITALS: BMI 29.9
[2018-12-06 11:02] LABS: Hemoglobin 12.3 g/dL (14.0-18.0); Mean Corpuscular HGB CONC 34.8 g/dL (32.0-36.0); Mean Corpuscular Hemoglobin 32.9 pg (27.0-31.0); Mean Corpuscular Volume 94.5 fL (78.0-98.0); Mean Platelet Volume 7.3 fL (7.4-10.4); Platelet Count 226 thou/uL (130-400); Red Blood Cell (RBC) Count 3.76 mill/uL (4.70-6.10)
[2018-12-06 11:09] LABS: PTT 30.5 SEC (22.9-36.1); Prothrombin Time 13.6 SEC (12.0-14.7)
[2018-12-06 11:23] LABS: Anion Gap 12 mmol/L (10-20); BUN (Urea Nitrogen) 4 mg/dL (8.4-25.7); Calc. Creatinine Clearance 0 mL/min (70-130); Carbon Dioxide 24 mmol/L (23-31); Chloride 104 mmol/L (98-107); Estimated GFR-MDRD 56; Glucose 213 mg/dL (83-110); Potassium 4.2 mmol/L (3.5-5.1); Sodium 136 mmol/L (136-145)
[2018-12-09] MEDS ORDERED: Levofloxacin 500 mg/D5W 100 ml Premix Bag ONE (09:49)
[2018-12-09] MEDS ORDERED: Fentanyl 100 MCG/2 ML VIAL ONE (14:05)
[2018-12-09] MEDS ORDERED: Iothalamate Meglumine 60% 50 ML VIAL FS ONE (14:29)
--- NOTE | 2018-12-09 15:41 | RAD ---
Exam: Intraoperative fluoroscopy for retrograde IVP Exposure: 23 mGy; 40 seconds FINDINGS: Retrograde IVP was performed. Bilateral ureteral stents are placed. IMPRESSION: Intraprocedure fluoroscopy as above.
[2018-12-09] MEDS ORDERED: Phenazopyridine HCl 97.5 MG TABLET ONE (16:06)
--- NOTE | 2018-12-09 18:03 | OP ---
DATE OF PROCEDURE: 12/09/2018 PREOPERATIVE DIAGNOSES: 1. 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 2. History of right ureteral transitional cell carcinoma, low grade, noninvasive. 3. History of Benign prostatic hypertrophy. 4. History of cystitis cystica/glandularis. POSTOPERATIVE DIAGNOSES: 1. 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 2. History of right ureteral transitional cell carcinoma, low grade, noninvasive. 3. History of Benign prostatic hypertrophy. 4. History of cystitis cystica/glandularis. PROCEDURES PERFORMED: 1. Cystoscopy. 2. Bilateral retrograde. 3. Bilateral 6 x 26 stent placement. 4. Bilateral ureteroscopy. 5. Left diagnostic ureteroscopy. 6. Laser ablation of right mid ureteral lesion at the level of just proximal to the intramural ureter and nonspecific right mid ureteral lesion area around S2-S3 region of previous tumor site. 7. Bladder biopsy of posterior wall. 8. Transurethral resection of bladder neck tumor. 9. Prostatic urethral biopsy. 10. Fulguration of prostatic urethral biopsy site. 11. Fulguration of bladder biopsy. ANESTHESIA: General. COMPLICATIONS: None apparent. DISPOSITION: To recovery room in stable condition. DRAINS: Bilateral 6 x 26 double-J ureteral stent. SPECIMENS: 1. Posterior bladder wall cystitis cystica/glandularis area. 2. Prostatic urethral biopsy of left mid and lateral prostatic urethra. 3. Transurethral resection of bladder neck tumor at 1 o'clock position. COMPLICATIONS: None. INTRAOPERATIVE FINDINGS: 1. Bilobar hyperplasia of the prostate, moderate. 2. Left lateral mid prostatic urethral lesion about 4 to 5 mm with 2nd small lesion 2 to 3 mm in the mid prostatic urethra, ablated. 3. Bladder of posterior wall consistent with prior cystitis cystica/glandularis lesion. 4. Left retrograde pyelogram, demonstrating some fullness of the mid ureter just proximal to the intramural ureter; however no evidence of stricture nor ureteral lesion on the left. 5. Right retrograde pyelogram demonstrating as previous. Some fullness just proximal to the previous TCC ablation with no functional obstruction, no obstructing ureteral stricture No hydronephrosis. Nonspecific right mid S2 ureteral area, ablated, surface area about 5-6 mm. 6. Nonspecific right inflammatory lesion in the right ureter just proximal to the intramural ureter. INDICATIONS FOR PROCEDURE AND HISTORY: Mr. Blount is an 83-year-old male with history of transitional carcinoma of the bladder, right ureteral TCC. Given his advanced age, they declined BCG, declined right nephroureterectomy with bladder cuff, therefore, on surveillance cystoscopy. He recently underwent a right ureteroscopy, laser ablation of his ureteral TCC with low-grade recurrence of minute, and recent cytologies positive. He has a recent CT scan in 07/2018, which demonstrated no metastatic disease. He presents today for exam under anesthesia due to positive cytology. Indications reviewed including risks and complications including, but not limited to, bleeding, pain, infection, injury to adjacent organs, bladder perforation, ureteral stricture disease, sepsis. All questions were answered to the satisfaction and he desired to proceed. DESCRIPTION OF PROCEDURE: After an informed consent was signed, the patient was taken to the operating room, placed in a dorsal lithotomy position with the genital area prepped and draped in the usual surgical sterile fashion. A 22-Ghanaian cystoscope was utilized for cystoscopy, which demonstrated normal anterior urethra. Prostatic urethra was entered, which demonstrated a small inflammatory lesion at the left mid prostatic urethra, about 5 or 6 mm. A small 2 mm inflammatory lesion in the posterior urethra, mid. Bladder with bilobar hyperplasia of the prostate was noted, demonstrating moderate obstruction with no median lobe. Upon entering the bladder, the bilateral UOs identified with clear efflux of urine. At the posterior wall, there were intermittent areas of cystitis cystica/glandularis changes. Upon entering the bladder, we did see a bladder tumor recurrence at the bladder neck region, isolated, located at 1 o'clock position in the bladder neck about 10 mm. This appeared to be sessile, superficial. At this time, we staged the ureters 1st, performing bilateral retrograde pyelogram. Right retrograde pyelogram demonstrates again previous ureteral TCC site with focal dilatation above this site with no evidence of intrinsic functional obstruction. No filling defect was noted. A 0.035 Sensor wire was placed into the right upper pole and we performed the diagnostic ureteroscopy. It was nice and dilated as due to previous ureteral stent and ureteroscopic evaluation. There was a nonspecific tiny pedunculated inflammatory lesion in the right distal ureter just proximal to the intramural ureter. This measured about 2 to 3 mm. We tried a biopsy; however, this was ablated with a biopsy forceps because this was a small in nature. At the level of the previous ureteral TCC at S2-S3 level. There were some inflammatory changes, nonspecific. Upon trying a biopsy, it appeared to be high risk for perforation. Therefore, we ablated this area with surface area about 6 mm in size. No other lesions were seen. As such, we placed a 6 x 26 double-J ureteral stent. It was placed in the right collecting system. Left retrograde pyelogram was performed. This demonstrated some fullness just proximal to the intramural ureter. No gross filling defect was noted. However, we needed to rule out an occult lesion here. Therefore, a 0.035 Sensor wire was placed into the left upper pole, we dilated the left intramural ureter. Dilation of the intramural ureter was performed using [employer] 4-cm 12-Ghanaian balloon dilator of the left intramural ureter. Subsequently, we were able to pass a rigid ureteroscope without any issues and this demonstrated no ureteral intrinsic lesion of concern. A 6 x 26 double-J ureteral stent was then placed into the left collecting system with ease. At this time, we biopsied the posterior wall cystitis cystica region, we biopsied the prostatic urethral lesion with flexible biopsy forceps. This area was fulgurated with Gyrus bipolar. At this time, we passed a 24-Ghanaian Gyrus bipolar resectoscope under visual obturator. We resected the bladder neck tumor, and since it was small in size upon resection, most of the tumor was obliterated; however, we were obtained specimen and this was sent under formalin. The bed of the tumor was resected and appeared to be isolated to the bladder neck. As the tumor was in the bladder neck, I did not see the need for an indwelling Lynn catheter as there was no significant hematuria of concern. He will be monitored postoperatively. If there is no significant hematuria or retention of concern, he will be discharged without an indwelling Lynn catheter. He is discharged with ciprofloxacin for a course of 12 days, tramadol p.r.n., Azo p.r.n., Colace p.r.n., he is to continue his BPH medications of terazosin and Avodart. He will return to clinic on 12/19 for cysto and bilateral stent pull under local. I will discuss with the patient and family regarding reconsideration for BCG. Increased risk of BCG complication due to advanced age has been reviewed with them in detail. Job ID: [id number] MTDD
== END 2018-12-09 17:40 | disposition home or self-care (01) ==
LOC: SDC 08:39
PROVIDERS: ATTEND Urology
PROC: 0TB78ZX Excision of Left Ureter, Via Natural or Artificial Opening Endoscopic, Diagnostic (ICD-10-PCS; principal; 2018-12-09)
PROC: 0TB68ZX Excision of Right Ureter, Via Natural or Artificial Opening Endoscopic, Diagnostic (ICD-10-PCS; 2018-12-09)
PROC: 0T5B8ZZ Destruction of Bladder, Via Natural or Artificial Opening Endoscopic (ICD-10-PCS; 2018-12-09)
PROC: 0TBD8ZX Excision of Urethra, Via Natural or Artificial Opening Endoscopic, Diagnostic (ICD-10-PCS; 2018-12-09)
PROC: 0T788DZ Dilation of Bilateral Ureters with Intraluminal Device, Via Natural or Artificial Opening Endoscopic (ICD-10-PCS; 2018-12-09)
DX: C66.1 Malignant neoplasm of right ureter (principal); C67.5 Malignant neoplasm of bladder neck; N30.81 Other cystitis with hematuria; N40.1 Benign prostatic hyperplasia with lower urinary tract symptoms; N13.8 Other obstructive and reflux uropathy; I10 Essential (primary) hypertension; E11.9 Type 2 diabetes mellitus without complications; Z87.891 Personal history of nicotine dependence; Z79.899 Other long term (current) drug therapy
CPT/HCPCS: 74420; 80048; 85027; 85610; 85730; 86850; 86900; 86901; 88305; 88307; J1956; J3010

== ENCOUNTER 2019-03-17 07:18 | Outpatient (CLI) | payer MEDICARE ==
[2019-03-17 10:29] LABS: Hemoglobin 12.4 g/dL (14.0-18.0); Mean Corpuscular HGB CONC 33.8 g/dL (32.0-36.0); Mean Corpuscular Volume 94.8 fL (78.0-98.0); Mean Platelet Volume 7.5 fL (7.4-10.4); Platelet Count 229 thou/uL (130-400); RBC Distribution Width 12.1 % (11.5-14.5); Red Blood Cell (RBC) Count 3.87 mill/uL (4.70-6.10); White Blood Cell (WBC) Count 6.6 thou/uL (4.8-10.8)
[2019-03-17 10:32] LABS: Bacteria/HPF None Seen HPF (None Seen); Bilirubin Negative (Negative); Blood, Urine Negative (Negative); Clarity Clear (Clear); Glucose, Urine (Dipstick) Normal (Negative); Leukocyte Negative Leu/uL (Negative); Nitrite Negative (Negative); Protein, Urine (Dipstick) Negative (Neg-Trace); RBC/HPF 0-3 HPF (0-3); Squamous Epithelial 0-3 HPF (0-3); Urobilinogen Normal mg/dL (Less than 2); WBC/HPF 0-3 HPF (0-3)
[2019-03-17 10:35] LABS: PTT 31.9 SEC (22.9-36.1); Prothrombin Time 13.2 SEC (12.0-14.7)
[2019-03-17 10:50] LABS: Anion Gap 10 mmol/L (10-20); BUN (Urea Nitrogen) 7 mg/dL (8.4-25.7); Calc. Creatinine Clearance 0 mL/min (70-130); Calcium 8.8 mg/dL (7.8-10.44); Carbon Dioxide 27 mmol/L (23-31); Chloride 104 mmol/L (98-107); Estimated GFR-MDRD 62; Glucose 188 mg/dL (83-110); Potassium 4.1 mmol/L (3.5-5.1); Sodium 137 mmol/L (136-145)
--- NOTE | 2019-03-17 23:30 | EKG ---
Test Reason : Blood Pressure : / mmHG Vent. Rate : 066 BPM Atrial Rate : 066 BPM P-R Int : 142 ms QRS Dur : 134 ms QT Int : 434 ms P-R-T Axes : 028 044 251 degrees QTc Int : 454 ms Normal sinus rhythm Non-specific intra-ventricular conduction block Cannot rule out Anterior infarct (cited on or before 17-MAR-2019) T wave abnormality, consider inferolateral ischemia Abnormal ECG When compared with ECG of 06-DEC-2018 10:41, T wave inversion more evident in Inferior leads Confirmed by Jaycob GUAN ([id number]) on 03/17/2019 11:30:28 PM Referred By: ETHEL Confirmed By:Jaycob GUAN
== END 2019-03-17 07:19 | disposition home or self-care (01) ==
LOC: LABBT 07:18 → EDSTATUS 07:18 → LABBT 07:19
PROVIDERS: ATTEND Urology
DX: Z01.818 Encounter for other preprocedural examination (principal); C67.9 Malignant neoplasm of bladder, unspecified
CPT/HCPCS: 80048; 81001; 85027; 85610; 85730; 86850; 86900; 86901; 87086; 93005; 93010

== ENCOUNTER 2019-03-19 10:57 | Outpatient (CLI) | payer MEDICARE ==
--- NOTE | 2019-03-19 13:03 | CT ---
CT Abdomen Pelvis W WO con: 03/19/2019 12:00 AM CLINICAL HISTORY: Cancer of the urinary bladder. TECHNIQUE: Multiple contiguous axial images were obtained and a CT of the abdomen and pelvis without and with IV contrast. Postcontrast images were obtained in the nephrographic and excretory phases. Sagittal and coronal reformats were performed. COMPARISON: 08/12/2018 FINDINGS: Kidneys and Urinary Tract: Right kidney and ureter: No calculi. No hydronephrosis or hydroureter. Subcentimeter hypodensity like ly represents a small cyst No urothelial lesions: no filling defect, dilation, stricture or wall thickening. Left kidney and ureter: No calculi. No hydronephrosis or hydroureter. 2.9 cm left renal cyst No uroth elial lesions: no filling defect, dilation, stricture or wall thickening. Urinary bladder: Normal, no calculi, mass or other lesions. Remainder of Abdomen and Pelvis: Liver: Normal. Gallbladder and biliary system: Normal. No CT evident gallstones. No biliary ductal dilatation. Spleen: Normal. Pancreas: Normal. Adrenal glands: Normal. GI tract: Scattered diverticula in the colon. Normal caliber small bowel. Abdominal aorta and its major branches: Atherosclerotic calcifications. No aneurysm. Peritoneum/retroperitoneum: Normal. No ascites. No adenopathy. Pelvic structures: Normal. No pelvic lymphadenopathy. Body wall and musculoskeletal: Mild degenerative changes in the spine. Visualized lower thorax: Normal. No pulmonary parenchymal mass or pleural effusion. IMPRESSION: 1. Bilateral renal cysts 2. Diverticulosis 3. No evidence of urinary collecting system abnormality.
== END 2019-03-19 10:58 | disposition home or self-care (01) ==
LOC: SCSCT 10:57
PROVIDERS: ATTEND Urology
DX: C67.9 Malignant neoplasm of bladder, unspecified (principal); C66.2 Malignant neoplasm of left ureter; N28.1 Cyst of kidney, acquired; K57.30 Diverticulosis of large intestine without perforation or abscess without bleeding
CPT/HCPCS: 74178

== ENCOUNTER 2019-07-03 06:34 | Outpatient (CLI) | payer MEDICARE, OTHER ==
[2019-07-03 15:33] LABS: Hemoglobin 12.7 g/dL (14.0-18.0); Mean Corpuscular HGB CONC 33.8 g/dL (32.0-36.0); Mean Corpuscular Hemoglobin 32.6 pg (27.0-31.0); Mean Corpuscular Volume 96.3 fL (78.0-98.0); Mean Platelet Volume 7.6 fL (7.4-10.4); Platelet Count 220 thou/uL (130-400); RBC Distribution Width 11.9 % (11.5-14.5); White Blood Cell (WBC) Count 6.8 thou/uL (4.8-10.8)
[2019-07-03 15:37] LABS: PTT 29.7 SEC (22.9-36.1); Prothrombin Time 12.7 sec (12.0-14.7)
[2019-07-03 15:48] LABS: Anion Gap 13 mmol/L (10-20); BUN (Urea Nitrogen) 7 mg/dL (8.4-25.7); Calc. Creatinine Clearance 0 mL/min (70-130); Calcium 8.8 mg/dL (7.8-10.44); Carbon Dioxide 25 mmol/L (23-31); Chloride 104 mmol/L (98-107); Estimated GFR-MDRD 53; Glucose 150 mg/dL (83-110); Potassium 3.8 mmol/L (3.5-5.1); Sodium 138 mmol/L (136-145)
[2019-07-03 16:10] LABS: Bacteria/HPF None Seen HPF (None Seen); Bilirubin Negative (Negative); Blood, Urine Negative (Negative); Clarity Clear (Clear); Glucose, Urine (Dipstick) 150 mg/dL (Negative); Leukocyte Negative Leu/uL (Negative); Nitrite Negative (Negative); Protein, Urine (Dipstick) Negative (Neg-Trace); RBC/HPF 0-3 HPF (0-3); Squamous Epithelial None Seen HPF (0-3); Urobilinogen Normal mg/dL (Less than 2); WBC/HPF 0-3 HPF (0-3)
--- NOTE | 2019-07-03 17:41 | EKG ---
Test Reason : Blood Pressure : / mmHG Vent. Rate : 060 BPM Atrial Rate : 060 BPM P-R Int : 168 ms QRS Dur : 140 ms QT Int : 470 ms P-R-T Axes : 040 028 153 degrees QTc Int : 470 ms Normal sinus rhythm Left bundle branch block Abnormal ECG When compared with ECG of 17-MAR-2019 10:05, Minimal criteria for Anterior infarct are no longer Present T wave inversion less evident in Inferior leads Confirmed by JOHNATHON AVILA, SBridgette ([id number]) on 07/03/2019 5:40:51 PM Referred By: ETHEL Confirmed By:DR. Evangelina DIEGO MD
[2019-07-04 10:42] LABS: SARS-CoV-2 MS2 Positive; SARS-CoV-2 N Gene Negative; SARS-CoV-2 S Gene Negative; SARS-CoV-2 orf1ab Negative
== END 2019-07-03 06:35 | disposition home or self-care (01) ==
LOC: LABBT 06:34
PROVIDERS: ATTEND Urology
DX: Z01.818 Encounter for other preprocedural examination (principal); Z11.59 Encounter for screening for other viral diseases; C67.9 Malignant neoplasm of bladder, unspecified; C66.2 Malignant neoplasm of left ureter; N40.0 Benign prostatic hyperplasia without lower urinary tract symptoms; I10 Essential (primary) hypertension; N28.1 Cyst of kidney, acquired; R31.9 Hematuria, unspecified
CPT/HCPCS: 80048; 81001; 85027; 85610; 85730; 86850; 86900; 86901; 87086; 93005; U0003; 87635; 93010

== ENCOUNTER 2019-07-07 06:01 | Day surgery (SDC) | payer MEDICARE ==
[2019-07-03 14:41] VITALS: BMI 27.9
[2019-07-07] MEDS ORDERED: Iopamidol 50 ML FS ONE (07:05)
[2019-07-07] MEDS ORDERED: PHENYLEPHRINE-NS 100 MCG/ML 10 ML SYRINGE ONE ×2 (07:06→10:33)
[2019-07-07] MEDS ORDERED: Fentanyl 100 MCG/2 ML VIAL ONE (07:06)
[2019-07-07] MEDS ORDERED: Phenylephrine 10 MG/ML VIAL ONE (07:07)
[2019-07-07] MEDS ORDERED: Levofloxacin 500 mg/D5W 100 ml Premix Bag ONE (07:10)
--- NOTE | 2019-07-07 09:51 | RAD ---
Retrograde ureterogram intraoperative fluoroscopy HISTORY: Ureteral obstruction. FINDINGS: Intraoperative fluoroscopy was provided for retrograde study as performed by Dr. Froy crandall. Spot fluoroscopic images show contrast opacification of a mildly distended right ureter. Full balloon profile documented at a focal area of narrowing at the mid to distal right ureter. Final image shows double-pigtail stent projecting over the expected course of the right ureter.
[2019-07-07] MEDS ORDERED: Oxybutynin 5 MG TAB ONE (10:29)
[2019-07-07] MEDS ORDERED: Phenazopyridine HCl 97.5 MG TABLET ONE (10:30)
[2019-07-07] MEDS ORDERED: Ondansetron PF 4 MG/2 ML Vial ONE (10:33)
[2019-07-07] MEDS ORDERED: Lidocaine 1% PF 5 ML VIAL ONE (10:33)
[2019-07-07] MEDS ORDERED: Rocuronium Bromide 10 MG/ML (10ML VIAL) ONE (10:33)
[2019-07-07] MEDS ORDERED: PROPOFOL 200 MG/20 ML VIAL ONE (10:33)
--- NOTE | 2019-07-07 10:38 | OP ---
DATE OF PROCEDURE: 07/07/2019 PREOPERATIVE DIAGNOSES: 1. An 84-year-old male with history of pathologic Ta transitional cell carcinoma , low-grade bladder tumor, status post transurethral resection of bladder tumor with multiple recurrence. 2. 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 POSTOPERATIVE DIAGNOSES: 1. An 84-year-old male with history of pathologic Ta transitional cell carcinoma , low-grade bladder tumor, status post transurethral resection of bladder tumor with multiple recurrence. 2. 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 PROCEDURES PERFORMED: Cystoscopy, bladder biopsy, fulguration of bladder tumor( multiple), right retrograde pyelogram, 6 x 26 double-J ureteral stent, a rigid and flexible ureteroscopy, flexible pyeloscopy, laser ablation of multiple right ureteral, renal pelvic transitional cell carcinoma with multiple recurrence, dilation of right mid ureteral stricture, debulking of right ureteral renal pelvic transitional cell carcinoma, right ureteral biopsy, right renal pelvic mass biopsy. ANESTHESIA: General. ESTIMATED BLOOD LOSS: Minimal. IV FLUIDS: 800 mL. COMPLICATIONS: None apparent. DISPOSITION: To recovery room in stable condition INTRAOPERATIVE FINDINGS: 1. Multiple satellite bladder tumor recurrence: papillary TCC of the right UO x3-4( 2-3mm) , right posterior wall tumor recurrence about 8-10 mm, dome 3-4 focus of recurrence each about 6 to 8 mm. 2. Multiple right ureteral TCC, innumerous(numerous right ureteral lesions studded , most of which variable 2-5 mm ) 3. Right mid ureteral stricture, low-grade, at the location of initial tumor site, nonobstructing. 4. Multiple right renal pelvic calyceal TCC tumor innumerous(multiple focus seen in the right renal pelvis, right mid to upper pole calyx) 5. Bilobar hyperplasia of the prostate, moderate. INDICATIONS FOR THE PROCEDURE AND HISTORY: Mr. Blount is a pleasant 84-year- old whom I have been following with multiple bladder tumor recurrence, right ureteral renal pelvic TCC. He was presented at [facility], deemed advanced age to proceed with chemo, right nephroureterectomy, therefore, we have been managing his bladder and ureteral TCC with debulking laser ablation. He had a staging CT scan this year in February 2019, which demonstrated no obvious filling defect or metastatic disease. He recently had a CT scan June 19, bone scan, chest x-ray demonstrating no evidence of metastatic disease. However, even though the imaging was read as normal on CT, per my review, there was a filling defect in the upper pole about 1.3 cm. As he has multiple bladder tumor recurrence, presents today for diagnostic ureteroscopy, pyeloscopy, bladder biopsy, TURBT. Risks and complications of the procedure, has been discussed with him in detail including, but not limited to, bleeding, pain, infection, injury to adjacent organs, urosepsis. He presents today for the staging ureteroscopy, pyeloscopy, bladder tumor resection. Risks and complications of the procedure were reviewed with him in detail including, but not limited to, bleeding, pain, infection, injury to adjacent organs, ureteral renal bladder injury, stricture formation. All questions answered to his satisfaction. He desired to proceed. DESCRIPTION OF PROCEDURE: After an informed consent was signed, the patient taken to the operating room, placed in a dorsal lithotomy position with the genital area prepped and draped in the usual surgical sterile fashion. A 21-Congolese cystoscope was utilized for cystoscopy, which demonstrated normal anterior posterior urethra. Moderately obstructing bilobar hyperplasia of the prostate was noted. Upon entering the bladder, there was some cystitis glandularis cystica changes in the trigone as previous. The bilateral UOs identified in normal anatomical location with mildly patulous UOs bilaterally. As previously noted, there were about 4 small sessile lesions surrounding the right ureteral orifice, these were about 2 to 3 mm in size. At the dome of the bladder, about 4 lesions about 6 to 8 mm each in size. At this time, we did a bladder biopsy of the posterior wall en block. Biopsy removed, and we also took some specimen off the right periureteral lesion. However, these were very small. Therefore, I did not need to fulgurate the area. As the dome is somewhat difficult to engage the tumor with the resection loop, decision was made to ablate the tumor with Gyrus bipolar at the dome tumors. After we removed the posterior and the right ureteral tumor, we transitioned to a bipolar gyrus, with a 26-Congolese resectoscope visual obturator. I cauterized the tumor bed of the posterior wall, and we had to treat his bladder dome lesion recurrence with the bladder not significantly distended as it was difficult to engage. With manual compression of the dome, we were able to ablate the dome lesion completely with Gyrus. Excellent hemostasis was noted. At this time, we engaged the right UO with a retrograde pyelogram. There were multiple filling defects especially in the proximal ureter and a narrowing of the mid ureter consistent with prior retrograde pyelogram with proximal dilatation. The collecting system itself is not dilated. At this time, we placed a 0.35 Sensor wire into the right upper pole and a rigid ureteroscopy was performed. There were multiple tumor recurrence in the right ureter, innumerous to count. Using a 200 micron laser fiber at a tissue ablation setting of 1.0 joules, we debulked the lesions within the ureter. Care was taken not to aggressively ablate because as we were working in the ureter we debulked as much as we could. However, tumor residual remains, as there were some areas that are difficult to engage. However, we were able to debulk most of his ureteral TCC. However, there were innumerous tumor recurrence throughout the right ureter. There was a focal narrowing in the right mid ureter consistent with the initial presentation. However, this was nonobstructing with proximal dilatation. At this time, we passed a 0.35 Super Stiff wire through the dual-lumen access sheath. This was able to be passed into the proximal ureter with ease. However, an 11/13- Congolese navigator would not pass the distal mid ureter. Therefore, a decision was made to dilate the area of narrowing. We dilated the [id number] ureter in 2 sequences using 6 cm 15-Congolese balloon dilator. After successful dilatation of the mid and distal ureter, we were able to pass a 11/13-Congolese navigator to the right proximal ureter. We surveyed the collecting system. Unfortunately there were multiple tumor recurrence in the renal pelvis in the upper and mid calyx consistent with tumor progression and recurrence accelerated. Using a back-loading biopsy forceps, we were able to biopsy the renal pelvic tumor, of note, we did biopsy the distal ureteral TCC as well for tissue diagnosis using back-loading biopsy as well. With the specimen obtained, we transitioned to a 273 micron ball-tip fiber. We ablated some of the tumors. However, this was a debulking, not curative as it was too numerous to treat complete. We debulked some of his renal pelvic in mid and upper pole calyceal tumor recurrence. However, tumor nidus remained as there was too much tumor recurrence to render him free. As this is not a curative intent, after debulking some of the tumor, a decision was made to stop, as it is not curative in nature and visualization became somewhat poor due to sloughing of the ablated tumor nidus. The ureter was surveyed, which demonstrated no evidence of ureteral injury. A 6 x 26 double-J ureteral stent was passed without difficulty. We surveyed the bladder demonstrating good hemostasis. A 20-Congolese 3-way Lynn catheter was placed, 30 mL insufflated. We instilled 40 mg of mitomycin-C in 40 mL of water and we will hold retention for 1 hour and started CBI. Plan to monitor his urine output after mitomycin-C and will be discharged with indwelling Lynn catheter. He will return to clinic next week, to review pathology and remove Lynn catheter. I will leave his ureteral stent minimum for 2 weeks as we ablated a lot of his tumors in the ureter and renal pelvis to allow the mucosa to heal. He is discharged with ciprofloxacin for 10 days 500 mg, Azo p.r.n., Colace p.r.n., tramadol #30 50 mg 1 to 2 p.o. q.6 hours, VESIcare 5 mg one p.o. daily # 10. He will follow up with me next at 1:15 for catheter removal and review pathology. I will need to discuss with the patient regarding proceeding with right nephroureterectomy as an option. Job ID: [id number] MTDD
== END 2019-07-07 13:00 | disposition home or self-care (01) ==
LOC: SDC 06:01
PROVIDERS: ATTEND Urology
PROC: 0T5B8ZZ Destruction of Bladder, Via Natural or Artificial Opening Endoscopic (ICD-10-PCS; principal; 2019-07-07)
PROC: 0T538ZZ Destruction of Right Kidney Pelvis, Via Natural or Artificial Opening Endoscopic (ICD-10-PCS; 2019-07-07)
PROC: 0T568ZZ Destruction of Right Ureter, Via Natural or Artificial Opening Endoscopic (ICD-10-PCS; 2019-07-07)
PROC: 0T768DZ Dilation of Right Ureter with Intraluminal Device, Via Natural or Artificial Opening Endoscopic (ICD-10-PCS; 2019-07-07)
DX: C65.1 Malignant neoplasm of right renal pelvis (principal); C67.6 Malignant neoplasm of ureteric orifice; C67.1 Malignant neoplasm of dome of bladder; C67.4 Malignant neoplasm of posterior wall of bladder; N13.5 Crossing vessel and stricture of ureter without hydronephrosis; N40.0 Benign prostatic hyperplasia without lower urinary tract symptoms; N30.81 Other cystitis with hematuria; E11.9 Type 2 diabetes mellitus without complications; I10 Essential (primary) hypertension; N28.1 Cyst of kidney, acquired; Z87.891 Personal history of nicotine dependence; Z79.899 Other long term (current) drug therapy; Z88.2 Allergy status to sulfonamides
CPT/HCPCS: 52234; 52332; 52354; 74420; 88305; C1758; C1769; J9280; J1956; J2001; J2370; J2405; J2704; J3010; Q9967

== ENCOUNTER 2019-08-12 20:20 | Inpatient (IN) | payer MEDICARE ==
[2019-08-12] MEDS ORDERED: Ondansetron PF 4 MG/2 ML Vial ONE (20:24)
[2019-08-12 20:45] LABS: #Eosinphils 0.2 thou/uL (0.0-0.7); #Lymphocytes 2.1 thou/uL (1.20-3.40); #Monocytes 0.8 thou/uL (0.11-0.59); #Neutrophils 10.3 thou/uL (1.40-6.50); %Basophils 0.2 % (0.0-1.0); %Eosinophils 1.4 % (0.0-10.0); %Lymphocytes 15.5 % (21.0-51.0); %Monocytes 6.2 % (0.0-10.0); %Neutrophils 76.7 % (42.0-75.0); Hemoglobin 12.6 g/dL (14.0-18.0); Mean Corpuscular Hemoglobin 32.9 pg (27.0-31.0); Mean Corpuscular Volume 93.9 fL (78.0-98.0); Mean Platelet Volume 7.1 fL (7.4-10.4); Platelet Count 310 thou/uL (130-400); RBC Distribution Width 11.6 % (11.5-14.5); Red Blood Cell (RBC) Count 3.83 mill/uL (4.70-6.10); White Blood Cell (WBC) Count 13.4 thou/uL (4.8-10.8)
[2019-08-12 21:01] LABS: ALT (SGPT) 12 U/L (8-55); AST (SGOT) 15 U/L (5-34); Albumin 3.7 g/dL (3.4-4.8); Alkaline Phosphatase 69 U/L (40-110); Anion Gap 17 mmol/L (10-20); BUN (Urea Nitrogen) 9 mg/dL (8.4-25.7); Bilirubin, Total 0.5 mg/dL (0.2-1.2); Calc. Creatinine Clearance 0 mL/min (70-130); Calcium 8.6 mg/dL (7.8-10.44); Carbon Dioxide 20 mmol/L (23-31); Chloride 101 mmol/L (98-107); Estimated GFR-MDRD 58; Globulin 2.9 g/dL (2.4-3.5); Glucose 197 mg/dL (83-110); Potassium 3.5 mmol/L (3.5-5.1); Protein, Total 6.6 g/dL (5.8-8.1); Sodium 134 mmol/L (136-145)
--- NOTE | 2019-08-12 21:10 | RAD ---
PORTABLE CHEST: 08/12/19 HISTORY: Fall. Heart size appears borderline considering technique. Pulmonary vessels are mildly engorged again. Choco e of this just related to supine technique. There are chronic appearing lung changes. The bones are d emineralized. A left humeral shaft fracture is partially visualized. No rib fractures. IMPRESSION: 1. Borderline heart size with some chronic appearing lung change. 2. Partially visualized spiral fracture of the left humeral shaft. POS: [facility]
--- NOTE | 2019-08-12 21:12 | RAD ---
LEFT HUMERUS TWO VIEWS: 08/12/19 HISTORY: Fall with pain in humerus. There is a spiral type fracture which extends from the proximal to the distal aspect of the humeral s haft. There is approximately a half shaft width of displacement associated with this. IMPRESSION: Spiral fracture of the humeral shaft. POS: [facility]
--- NOTE | 2019-08-12 21:13 | RAD ---
LEFT ELBOW TWO VIEWS: 08/12/19 HISTORY: Fall with elbow pain. Spiral type fracture of the humeral shaft is again identified. The bones are demineralized. I do not see any definite signs of fracture at the level of the elbow. IMPRESSION: Humeral shaft fracture. POS: [facility]
--- NOTE | 2019-08-12 21:14 | RAD ---
RIGHT KNEE TWO VIEWS: 08/12/19 HISTORY: Fall with knee pain. There is a fracture of the patella. Fracture appears to extend in a more transverse orientation throu gh the mid to upper pole portion of the patella. There is some minimal offset of the superior patella r articular surface. No significant distraction of the fracture. There is associated joint effusion. IMPRESSION: Patellar fracture. POS: [facility]
--- NOTE | 2019-08-12 21:24 | CT ---
CT OF BRAIN PERFORMED WITHOUT CONTRAST ENHANCEMENT: 08/12/19 HISTORY: Altered mental status. Status post fall. There is generalized ventricular and sulcal prominence. There is no signs of intracerebral hemorrhage or extra-axial fluid collections. The sagittal and transverse sinuses in this patient is somewhat pr ominent, but I do not believe this represents subdural blood. No mass effect. The mastoid air cells a nd visualized sinuses are clear. IMPRESSION: No acute intracranial abnormalities. POS: [facility]
[2019-08-13 00:21] LABS: Troponin I 0.038 ng/mL (< 0.028)
[2019-08-13] MEDS ORDERED: Ondansetron ODT 4 MG TAB PO PRN (00:52)
[2019-08-13] MEDS ORDERED: Insulin Regular 300 UNITS/3 ML VIAL SC PRN (00:52)
[2019-08-13] MEDS ORDERED: Morphine 2 MG/ML SYRINGE SLOW IVP PRN (00:52)
[2019-08-13] MEDS ORDERED: Cyclobenzaprine 10 MG TAB PO PRN (00:52)
[2019-08-13] MEDS ORDERED: Ondansetron PF 4 MG/2 ML Vial IVP PRN (00:52)
[2019-08-13] MEDS ORDERED: Morphine 4 MG/ML VIAL SLOW IVP PRN (00:52)
[2019-08-13] MEDS ORDERED: Dextrose 50% Abboject 50 ML SYRINGE SLOW IVP PRN (00:52)
[2019-08-13] MEDS ORDERED: hydrALAZINE 20 MG/ML VIAL SLOW IVP PRN (00:52)
[2019-08-13] MEDS ORDERED: Dextrose 5% in Water 1,000 ML IV PRN (00:52)
[2019-08-13] MEDS ORDERED: Acetaminophen 325 MG TAB PO SCH (01:00)
[2019-08-13] MEDS ORDERED: Ketorolac Tromethamine 30 MG/ML VIAL IVP SCH (01:15)
[2019-08-13 01:22] VITALS: BMI 28.5
--- NOTE | 2019-08-13 01:36 | HP ---
REQUESTING PHYSICIAN: Dr. Rainey. ATTENDING SURGEON: Dr. Schwartz. CONSULTATIONS: Orthopedics, Dr. Medina. HISTORY OF PRESENT ILLNESS: The patient is an 84-year-old man, who has a history of renal and bladder cancer. Today, he was at [facility] to undergo procedures. When returning home, the patient needed to go to the bathroom. He stopped at a store in [place] and on his way to the bathroom, tripped over some carts in the aisle and fell, injuring his left upper extremity and his right lower extremity. The patient denied any loss of consciousness. He was evaluated on the scene by [place] [facility] and they recommended he be transported to [place], but the patient declined that and requested that he be allowed to come home and seek treatment here. The patient was brought to the emergency department by probably own vehicle. Once in the emergency department, the patient was noted to be some vasovagal, which he relates to the pain of his left upper extremity. He underwent evaluation and examination in the emergency department, was noted to have a left midshaft humerus fracture and a right patella fracture. The remainders of his exams were unremarkable. The patient remained hemodynamically stable with the exception of one blood pressure of systolic of 77, who has since been responsive to fluids and he reports that he felt fine when they reported his blood pressure being that low. The patient's EKG was unremarkable. We were asked to evaluate the patient for admission and orthopedic examination. ALLERGIES: SULFA. THE PATIENT REPORTS HAVING A RASH A CHILD. CURRENT MEDICATIONS: 1. . 2. Latanoprost ophthalmic. 3. Levothyroxine. 4. Lisinopril. 5. Terazosin. PAST MEDICAL HISTORY: Diabetes which he reports he controlled with his diet, hypothyroidism, hyperlipidemia, and hypertension. The patient has significant hearing loss. PAST SURGICAL HISTORY: Appendectomy, multiple cystoscopies by Dr. Cruz. SOCIAL HISTORY: The patient lives here in [place] with family. He is a former smoker greater than 10 years ago. Denies drug or alcohol use. 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 REVIEW OF SYSTEMS: A 10-point review of systems is negative as otherwise stated. PHYSICAL EXAMINATION: VITAL SIGNS: Current vital signs; blood pressure 129/67, heart rate 84, respirations 18, oxygen saturation 95% on room air, and temperature is 98.1. GENERAL: The patient is resting comfortably in bed. He is hard of hearing, but he is awake, alert, and oriented x3. [place] Coma Scale is 15. HEENT: Head is normocephalic and atraumatic. Eyes, extraocular motions are intact. PERRLA bilaterally. Ears are atraumatic without discharge. Nose is atraumatic without discharge. Oropharynx is clear. NECK: Nontender. Trachea is midline with no JVD. CHEST: Clear to auscultation with good inspiratory and expiratory effort. HEART: Regular rate and rhythm. ABDOMEN: Soft, flat, and nontender with active bowel sounds. Pelvis is stable. EXTREMITIES: Neurovascularly intact x4. Left upper extremity is immobilized in a sling and a long-arm posterior splint. Again, he is neurovascularly intact in that extremity. The right lower extremity has a knee immobilizer on it, again is neurovascularly intact. By report, the patient's back is atraumatic and nontender. LABORATORY FINDINGS: White blood cell count 13.4, hemoglobin 12.6, hematocrit 36.0, platelets 310. Sodium 134, potassium 3.5, chloride 101, CO2 of 20, BUN 9, creatinine 1.20, glucose 197. LFTs are unremarkable. CK-MB 4.0, troponin 0.032. BNP 98. D-dimer 11.6. RADIOGRAPHIC EXAMINATION: CT of the brain without contrast shows no acute intracranial abnormalities. CT of the C-spine without contrast shows a questionable change in the posterior ligament of C2, otherwise unremarkable for acute findings. AP chest x-ray shows some chronic appearing lung changes. Views of the left humerus show a spiral fracture of the humeral shaft. Views of the left elbow demonstrate the humeral shaft fracture. Views of the right knee show a transverse patella fracture. ASSESSMENT AND PLAN: 1. Status post ground level fall with several-hour delayed presentation. 2. Left humerus fracture. 3. Right patella fracture. 4. Pain secondary to above. 5. Elevated D-dimer, most likely due to his cancer. The patient does not have any symptoms at this time concerning for pulmonary embolism, specifically dyspnea, shortness of breath, hypoxia, tachycardia, and EKG changes. In light of him already receiving today at [facility] and renal issues, even in light of his normal creatinine, it was felt that we will hold off on doing a CTA at this time. The patient also does not have any calf pain suspicious for deep venous thrombosis. We will put the patient on the telemetry for tonight for close monitoring. If any symptoms or signs change, we can emergently do his chest CTA. The patient will be kept n.p.o. overnight. We will do pain control, pulmonary toilet, gastritis, mechanical VTE prophylaxis. The ER has notified Dr. Medina of the patient. The evaluation, examination, laboratory, and radiographic findings will be discussed with Dr. Schwartz after this dictation. Job ID: [id number]
[2019-08-13] MEDS: Sodium Chloride 0.9% 1,000 ML IV SCH ×2 (01:55→05:34)
[2019-08-13] MEDS: Acetaminophen 325 MG TAB PO SCH ×4 (05:33→23:03)
[2019-08-13 05:36] LABS: #Monocytes 0.7 thou/uL (0.11-0.59); #Neutrophils 8.7 thou/uL (1.40-6.50); %Basophils 0.3 % (0.0-1.0); %Eosinophils 0.2 % (0.0-10.0); %Lymphocytes 9.3 % (21.0-51.0); %Monocytes 6.2 % (0.0-10.0); Hemoglobin 10.1 g/dL (14.0-18.0); Mean Corpuscular HGB CONC 35.2 g/dL (32.0-36.0); Mean Corpuscular Volume 93.8 fL (78.0-98.0); Mean Platelet Volume 7.4 fL (7.4-10.4); Platelet Count 244 thou/uL (130-400); RBC Distribution Width 11.6 % (11.5-14.5); Red Blood Cell (RBC) Count 3.07 mill/uL (4.70-6.10); White Blood Cell (WBC) Count 10.4 thou/uL (4.8-10.8)
[2019-08-13] MEDS: Insulin Regular 300 UNITS/3 ML VIAL SC PRN ×2 (05:43→17:12)
[2019-08-13 05:51] LABS: INR-International Normal Ratio 1.1; Prothrombin Time 14.7 sec (12.0-14.7)
[2019-08-13 05:52] LABS: PTT 30.3 sec (22.9-36.1)
[2019-08-13 05:59] LABS: Phosphorus 3.1 mg/dL (2.3-4.7)
[2019-08-13 06:01] LABS: Anion Gap 9 mmol/L (10-20); BUN (Urea Nitrogen) 9 mg/dL (8.4-25.7); Calc. Creatinine Clearance 61 mL/min (70-130); Calcium 7.6 mg/dL (7.8-10.44); Carbon Dioxide 24 mmol/L (23-31); Chloride 104 mmol/L (98-107); Estimated GFR-MDRD 66; Glucose 194 mg/dL (83-110); Magnesium 1.6 mg/dL (1.6-2.6); Sodium 133 mmol/L (136-145)
--- NOTE | 2019-08-13 06:29 | CT ---
CT OF CERVICAL SPINE PERFORMED WITHOUT CONTRAST ENHANCEMENT: HISTORY: Fall with neck pain. FINDINGS: There is moderate degenerative disk narrowing at C4-5 and more severe disk narrowing at C5-6 and c6-7 . The facets are in normal alignment. There are moderate degenerative facet changes noted. There is a mild to moderate degree of canal stenosis from the C4-5 to the C6-7 level. There is right -sided foraminal narrowing at C4-5 and C5-6 and bilateral foraminal narrowing at C6-7. There is no C T evidence for a fracture. The lung apices are clear. IMPRESSION: No CT evidence of fracture of the cervical spine. POS: [facility]
[2019-08-13] MEDS ORDERED: Magnesium 2 GM/50 ML 2 GM in Premix Bag 1 BAG IVPB SCH (07:15)
[2019-08-13] MEDS ORDERED: Magnesium Sulfate 2 GM in Sodium Chloride 0.9% 100 ML IVPB SCH (07:15)
[2019-08-13] MEDS ORDERED: Ibuprofen 200 MG TAB PO PRN (09:10)
[2019-08-13] MEDS ORDERED: traMADol HCl 50 MG TAB PO PRN (09:11)
--- NOTE | 2019-08-13 11:38 | CON ---
DATE OF CONSULTATION: We were asked by Trauma to see the patient. The patient was coming home from [facility], He had received a lot of fluids. They pulled off to use the restroom. Unfortunately, when he walked around the corner, he was wearing a mask and did not see a cart that was on the floor, he stumbled and sustained a left humerus fracture and right patella fracture. The patient's son said he hit his head, but he was cognizant and lucid after the fall. He is able to move his left hand, does not have a whole lot of swelling in the area. Sensations are good. The same for his right lower extremity. He has good sensations in the lower extremity and movement. The patient was brought to the hospital. These fractures were found. PAST MEDICAL HISTORY: Positive for diet-controlled diabetes, hypothyroidism, hyperlipidemia, and hypertension. He does have some mild hearing loss. He is able to hear me okay and bladder and kidney cancer. PAST SURGICAL HISTORY: Appendectomy, multiple cystoscopies by Dr. Cruz. SOCIAL HISTORY: He lives alone. Family is close. Quit smoking many years ago. No drug or alcohol use. 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 ALLERGIES: SULFA. CURRENT MEDICATIONS: 1. Latanoprost ophthalmic. 2. Levothyroxine. 3. Lisinopril. 4. Terazosin. 5. Dutasteride. 6. Tylenol as needed. FAMILY HISTORY: For this event is noncontributory. REVIEW OF SYSTEMS: Denies any chest pain or shortness of breath. No headache. He is lucid, answering questions well. His only complaint is currently left upper extremity pain, very mild and right lower extremity pain, mild. He does have bladder issues, but reports no urinary issues currently. PHYSICAL EXAMINATION: GENERAL: Well-nourished, well-developed male, alert, pleasant, and in no acute distress. Speech clear. Affect pleasant. Answers questions appropriately. He is alert and oriented x3. Son is at the bedside and his is on video call. HEENT: Face symmetric. Tongue midline. I reviewed the scalp, but did not see any bruising to the scalp or the face. NECK: Supple. Trachea midline. LUNGS: Respirations are 16, no acute distress. EXTREMITIES: Upper extremities and hands are equal size, shape, bulk, and tone. 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 He does have a splint on his left upper extremity and he is currently in a sling. Sensations to upper extremities are intact. Pelvis, no pain with rocking or moving the lower extremities around. The right lower extremity is in a horribly small knee immobilizer that is probably grossly and remarkably inappropriate. It is so small, I Will order a new one. Left lower extremity and right lower extremity DP and PT pulses are intact as are movements of the feet and digits and sensations are intact. IMAGING STUDIES: X-ray show a midshaft humerus fracture. Patella x-rays, a fracture just past the superior mid part of the patella, but it is intact and touching. We will keep him in a knee immobilizer. ASSESSMENT: 1. Fall with ensuing left humerus fracture and right patella fracture with no loss of consciousness. 2. Multiple health issues currently. The most significant one being renal and bladder cancer taken care by Dr. Cruz, and [facility]. PLAN: Currently with viewing his x-rays and imaging studies, no surgical intervention is needed. He is in a sugar-tong splint and sling and that will be perfect for the time being. We will see him back in 10 to 14 days and put him in a clamshell type brace and this has been explained to the family and the patient. Also for the patella with the totally inappropriate knee immobilizer placed, we will get a new one placed 22 inches from either the hospital if we have any of this equipment or from [facility]. This has also been explained to the patient. We will follow this up also in 10 to 14 days. Again, both areas of fractures need no surgical intervention at this point. I explained this to the patient's daughter and son. They had many questions, which I addressed and answered. The patient I think would be a great candidate for inpatient rehab, but if he does well with physical therapy here, he might be able to go home with home health, home PT. Dr. Cruz did go down and see the patient. She is worried about him being here due to his immunocompromised status, which Trauma and Orthopedics also agree with. We will try and get him either to inpatient rehab or home depending on how he does with therapy. The family is quite happy with this plan. We will check on the patient daily and see about his progress. Job ID: [id number] [facility]
--- NOTE | 2019-08-13 11:43 | PRG ---
DATE OF SERVICE: 08/13/2019 SUBJECTIVE: Mr. Blount is an 84-year-old man with history of bladder cancer, who is post injury #1, status post ground level fall. The patient sustained a left humerus and right patellar fractures, both of which being managed nonoperatively per Orthopedic Surgery. The patient is awake and alert. He has been on a threat monitoring analyst on telemetry and has had no arrhythmias. This morning denies any dyspnea or syncope. He reports adequate pain control. OBJECTIVE: VITAL SIGNS: Currently include blood pressure 132/58, pulse 75, respiratory rate is 13, temperature 97.6 degrees Fahrenheit, and oxygen saturation is 97% on room air. HEART: Reveals regular rate and rhythm. LUNGS: Clear to auscultation bilaterally. Breathing regular and nonlabored. ABDOMEN: Soft, nontender, and nondistended. NEUROLOGIC: Reveals no focal deficits present. IMPRESSION: 1. Post- injury day #1 s/p Fall 2. Left Humeral fracture 3. Right patellar fracture PLAN: 1. The patient will be transferred to general surgical floor, where we will continue with physical and occupational therapy. 2. Anticipate discharge to home versus inpatient rehabilitation over the next 24 hours. Job ID: [id number] [facility]
[2019-08-13] MEDS: Gabapentin 100 MG CAP PO SCH ×2 (14:26→20:52)
--- NOTE | 2019-08-13 16:34 | CON ---
DATE OF CONSULTATION: 08/13/2019 HISTORY OF PRESENT ILLNESS: Mr. 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 The patient and son desired my services to check on his status, as he was admitted late last night, ground fall and he sustained a left humerus fracture and right patellar fracture. The patient was just leaving [facility], as I referred him to [facility] for higher level of care. Given his advanced age, he is a poor surgical candidate for right nephroureterectomy. As such, I have been treating him by debulking his ureteral TCC. His last ureteroscopy with me was July 07, 2019. His bladder cancer appeared to be in remission, however, his right ureteral TCC has progressed, bulky and multiple in nature. Therefore, debulking was no longer an optimal option. Given his advanced age and comorbidities, patient was advised to obtain a second opinion at [facility]. with my encouragement, they have done so. Records from [facility] reviewed, patient underwent evaluation by Dr. Mcgarry, who specializes in upper tract transitional cell carcinoma at [facility]. He underwent repeat ureteroscopy, laser ablation of multifocal ureteral TCC on July 30, 2019, with a stent exchange. He has an appointment at [facility] this Sunday, with repeat CT scan and echocardiogram and the plan is to discuss with the patient regarding adjuvant chemotherapy including Adriamycin, Gemzar, and Taxol. Local medical oncology service recommended no chemotherapy given his advanced age. The patient states that he has been urinating without significant issues. He has always tolerated ureteral stent without significant issues and he denies flank pain, dysuria, or gross hematuria. He states that they had given him fluid boluses, he had strong urge to urinate, and in a hurry to obtain access to the bathroom, he fell. Currently, he has been seen by Trauma Service, Orthopedic Surgery, and a plan is to monitor him nonoperatively. PT evaluation is in progress. 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 PAST SURGICAL HISTORY: Includes; 1. Appendectomy. 2. Eye surgery. 3. He has undergone numerous cystoscopies, right ureteroscopies, and TURBTs. 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 FAMILY HISTORY: Positive for heart disease, diabetes. SOCIAL HISTORY: Nonsmoker. He lives with his family. ALLERGIES: HE IS ALLERGIC TO SULFA, WHICH CAUSES HIVES AND SWELLING. REVIEW OF SYSTEMS: Ten-point review of systems as above, otherwise noncontributory. PHYSICAL EXAMINATION: VITAL SIGNS: Stable at 98.2, 82, 18, 98, and 156/72. I's and O's; there are no strict I's and O's, but he has voided urine, which I visualized at bedside is concentrated yellow. GENERAL: The patient is in no acute distress, he appears to be in good spirits, states that he is happy to see me on today's visit. HEENT: Grossly unremarkable. HEART: Regular rate. LUNGS: Clear. ABDOMEN: Soft, nontender, and nondistended. No rigidity. No rebound. Obese. EXTREMITIES: He has his left arm in a cast as well as right lower extremity. GENITOURINARY: Deferred at this time, as family is at bedside. PERTINENT LABORATORY DATA: Sodium 133, creatinine is 1.0. Admitting creatinine is 1.2. Coagulation profile is within normal limits. IMPRESSION AND PLAN: Mr. 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 1. 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 Due to progressive right ureteral transitional cell carcinoma bulky in nature, he has been referred to [facility] , in which he underwent repeat ureteroscopy, laser lithotripsy, stent placement on July 30, 2019. He is currently admitted, status post fall, with left upper extremity, right patellar fracture. I did discuss his case with Orthopedic Surgery. Plan is to monitor him with nonsurgical treatment and plan physical therapy. I informed the patient as well as Orthopedic Service, we would like to have the patient proceed with his cancer evaluation ongoing at [facility]. Avoid nephrotoxins, as the patient has history of acute renal insufficiency, with right upper tract urothelial carcinoma Job ID: [id number] [facility]
[2019-08-13] MEDS: Terazosin HCl 5 MG CAP PO SCH (20:52)
[2019-08-13] MEDS ORDERED: Non-Formulary Item 1 EACH (Terazosin Hcl [Terazosin Hcl] 10 MG) PO SCH (21:00)
[2019-08-13] MEDS: Latanoprost 0.005% Ophth Soln 2.5 ml Bottle EA EYE SCH (21:04)
--- NOTE | 2019-08-14 02:06 | PRG ---
DATE OF SERVICE: 08/14/2019 SUBJECTIVE: The patient is currently on the surgical floor. He was moved up from telemetry floor today. He is status post ground level fall, which he sustained a left humerus fracture and a right patellar fracture, both of which are going to be treated nonoperatively. The patient is currently awaiting placement. His pain is controlled. He is tolerating a diet. PHYSICAL EXAMINATION: VITAL SIGNS: Stable. The patient is afebrile. GENERAL: The patient is resting comfortably in bed. He is awake, alert, conversant, and appropriate. He denies any complaints at this time. RESPIRATIONS: Nonlabored. ABDOMEN: Soft, nondistended. EXTREMITIES: Neurovascularly intact x4. His left upper extremity has a splint and sling on it. His right lower extremity has a knee immobilizer on it. ASSESSMENT AND PLAN: 1. Status post ground level fall. 2. Left humerus fracture. 3. Right patellar fracture. Plan will be to continue supportive care. Encourage physical and occupational therapy and await discharge decision. Job ID: [id number]
[2019-08-14] MEDS: Acetaminophen 325 MG TAB PO SCH ×4 (05:56→23:46)
[2019-08-14] MEDS: Levothyroxine Sodium 25 MCG TAB PO SCH (05:56)
[2019-08-14] MEDS: Insulin Regular 300 UNITS/3 ML VIAL SC PRN ×3 (05:59→17:19)
[2019-08-14 06:11] LABS: Anion Gap 10 mmol/L (10-20); BUN (Urea Nitrogen) 8 mg/dL (8.4-25.7); Calc. Creatinine Clearance 60 mL/min (70-130); Calcium 7.5 mg/dL (7.8-10.44); Carbon Dioxide 24 mmol/L (23-31); Chloride 102 mmol/L (98-107); Estimated GFR-MDRD 65; Glucose 138 mg/dL (83-110); Phosphorus 3.1 mg/dL (2.3-4.7); Potassium 3.3 mmol/L (3.5-5.1); Sodium 133 mmol/L (136-145)
--- NOTE | 2019-08-14 07:14 | CT ---
CT OF BRAIN PERFORMED WITHOUT CONTRAST ENHANCEMENT: HISTORY: Fell and hit head. FINDINGS: Generalized ventricular and sulcal prominence. There are no signs of intracerebral hemorrhage or ext raaxial fluid collection. The falx is somewhat dense, but I think this is largely related to calcifi cation and prominence related to the atrophy. The sagittal and transverse sinuses are also prominent and some increased density along the tentorium. Again, I think this is just on the basis of some de nsity to the tentorium and not true subdural blood given its very symmetric appearance. IMPRESSION: No acute intracranial abnormalities. Findings discussed with Dr. Daily. CODE CR
--- NOTE | 2019-08-14 07:25 | PRG ---
DATE OF SERVICE: 08/14/2019 SUBJECTIVE: The patient resting comfortably, easily arousable. OBJECTIVE: VITAL SIGNS: Stable. He is afebrile. Urine output, clear yellow. ABDOMEN: Soft, nontender, and nondistended. No suprapubic tenderness. EXTREMITIES: Appropriate braces in place. He relates no significant discomfort. IMPRESSION AND PLAN: 1. Mr. Blount is a pleasant 84-year-old male, well known to me with history of bladder cancer, history of right bulky ureteral transitional cell carcinoma, recently underwent right ureteroscopy, repeat debulking by Dr. Mcgarry at [facility]. patient was deemed a poor surgical candidate for right nephroureterectomy locally as well as an [facility]. 2. Current admission due to ground fall, humerus and patellar fracture, managed nonoperatively. Await placement. Discussed with the patient's son yesterday regarding ongoing treatment. Repeat workup/imaging pending at [facility]. Ideally, the patient and family would like to continue treatment at [facility] this will be dictated by his placement rehab. 3. BPH. Continue BPH medications. Continue present management. Job ID: [id number] [facility]
[2019-08-14] MEDS: Dutasteride 0.5 MG CAP PO SCH (07:36)
[2019-08-14] MEDS: Lisinopril 10 MG TAB PO SCH (07:36)
[2019-08-14] MEDS: Gabapentin 100 MG CAP PO SCH ×3 (07:36→20:16)
--- NOTE | 2019-08-14 15:33 | PRG ---
DATE OF SERVICE: 08/14/2019 SUBJECTIVE: The patient was evaluated today during morning rounds. He denied having any pain and reported that he is tolerating p.o. at this time. He continues to work with physical therapy and occupational therapy at this time. He suffered a left midshaft humerus fracture and a right patella fracture that are currently being treated nonoperatively. Both physical therapy and occupational therapy have recommended rehab at this time and for the patient's insurance, he is currently pending skilled placement. Dr. Cruz has consulted on the patient and recommends that he continue his workup and imaging at [facility] as soon as possible. OBJECTIVE: VITAL SIGNS: Temperature 97.9 Fahrenheit, pulse 78, respiratory rate 18, 98% on room air, blood pressure 131/65. GENERAL: Elderly male, sitting upright, in bedside chair, in no acute distress. HEENT: Atraumatic and normocephalic. Trachea midline. RESPIRATORY: Equal rise and fall. Nonlabored. The patient in no acute respiratory distress. CARDIAC: Regular rate and rhythm. No murmurs appreciated. ABDOMEN: Soft, nontender, nondistended. Active bowel sounds. EXTREMITIES: Sling in place for supporting left upper extremity and splint in place on the right lower extremity. The patient is neurovascularly intact x4. LABORATORY DATA: Sodium 133, potassium 3.3, chloride 102, carbon dioxide 24, BUN 8, creatinine 1.08, GFR 65, phosphorus 3.1, magnesium 2.0. IMAGING DATA: No new diagnostic imaging report. ASSESSMENT: 1. Status post ground level fall. 2. Left humerus fracture, treated nonoperatively. 3. Right patella fracture, treated nonoperatively. 4. 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 PLAN: Continue supportive care at this time. The patient is to continue PT and OT. The patient continues to tolerate his diet. We will continue to monitor electrolytes and replete as necessary. The patient is currently waiting on placement in fci unit for continued physical therapy and occupational therapy. We will encourage the patient to continue to follow up with [facility] for imaging and workup as soon as appropriate. The patient will continue to have nonoperative management at this time. The patient was evaluated by and the case discussed with Dr. Chowdary during morning rounds and he is agreeable with the plan of care. Job ID: [id number] [facility]
[2019-08-14] MEDS: Senokot S 8.6-50 MG TAB PO SCH (20:16)
[2019-08-14] MEDS: Terazosin HCl 5 MG CAP PO SCH (20:16)
[2019-08-14] MEDS: Latanoprost 0.005% Ophth Soln 2.5 ml Bottle EA EYE SCH (20:16)
--- NOTE | 2019-08-15 01:26 | PRG ---
DATE OF SERVICE: 08/15/2019 SUBJECTIVE: The patient is currently on the surgical floor. He is status post ground level fall with a delayed presentation of the left humerus fracture and right patellar fracture, both of which are being treated nonoperatively. He is currently awaiting placement. Due to his insurance, it appears he likely will have to go to a skilled facility. He and his family are in agreement with this. Today, the patient had no issues. He is tolerating a diet. His pain is controlled, and he is working with Physical and Occupational Therapy. PHYSICAL EXAMINATION: VITAL SIGNS: Stable. The patient is afebrile. GENERAL: The patient is resting comfortably in bed. He is awake, alert, conversant, and appropriate. Jennifer Coma Scale is 15. HEENT: Unremarkable. LUNGS: Clear to auscultation bilaterally. HEART: Regular rate and rhythm. ABDOMEN: Soft, flat, nontender with active bowel sounds. EXTREMITIES: Neurovascularly intact x4. His splint and sling are in place. They are clean, dry, and intact. ASSESSMENT AND PLAN: 1. Status post ground level fall. 2. Left humerus fracture, treated nonoperatively. 3. Right patellar fracture, treated nonoperatively. Plan will be to continue supportive care and await placement decision. Job ID: [id number]
[2019-08-15] MEDS: Levothyroxine Sodium 25 MCG TAB PO SCH (05:32)
[2019-08-15] MEDS: Acetaminophen 325 MG TAB PO SCH ×2 (05:32→11:43)
[2019-08-15] MEDS: Insulin Regular 300 UNITS/3 ML VIAL SC PRN ×2 (05:39→12:48)
[2019-08-15 06:06] LABS: Anion Gap 9 mmol/L (10-20); BUN (Urea Nitrogen) 9 mg/dL (8.4-25.7); Calc. Creatinine Clearance 55 mL/min (70-130); Calcium 7.7 mg/dL (7.8-10.44); Carbon Dioxide 25 mmol/L (23-31); Chloride 106 mmol/L (98-107); Estimated GFR-MDRD 59; Glucose 144 mg/dL (83-110); Phosphorus 3.4 mg/dL (2.3-4.7); Potassium 4.1 mmol/L (3.5-5.1); Sodium 136 mmol/L (136-145)
--- NOTE | 2019-08-15 07:33 | PRG ---
DATE OF SERVICE: 08/15/2019 SUBJECTIVE: The patient without complaints, doing well. OBJECTIVE: VITAL SIGNS: Stable. He is afebrile. ABDOMEN: Soft, nontender, and nondistended. No CVA tenderness. No suprapubic tenderness of concern. I's and O's; 2170 in, 2625 out. LABORATORY DATA: Creatinine stable at 1.1. IMPRESSION: 1. Mr. Blount is a pleasant 84-year-old male, well known to me with history of bladder cancer. 2. 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 3. Current admission due to fall, left humerus, right patellar fracture, managed nonoperatively. 4. Benign prostatic hyperplasia. Continue medication. await placement due to recent fall. He is undergoing ongoing treatment at [facility]. Recent ureteroscopy, stent exchange performed by Dr. Mcgarry. patient's son is fully aware, that his father needs to continue follow up regarding his right upper tract ureteral transitional cell carcinoma at [facility]. will sign off. Dr. Lynch is covering me this weekend Contacted patient's family. They are being transitioned to for chest rehab this afternoon. They have arranged a tentative date with [facility] September 18. Will be transitioning to [facility] assisted under Dr. Gerardo Job ID: [id number] [facility]
[2019-08-15] MEDS: Gabapentin 100 MG CAP PO SCH ×2 (08:28→14:02)
[2019-08-15] MEDS: Lisinopril 10 MG TAB PO SCH (08:28)
[2019-08-15] MEDS: Dutasteride 0.5 MG CAP PO SCH (08:28)
[2019-08-15] MEDS: Senokot S 8.6-50 MG TAB PO SCH (08:28)
[2019-08-15] MEDS ORDERED: Polyethylene Glycol 3350 17 GM Packet PO SCH (09:00)
[2019-08-15 11:24] VITALS: BP 145/70; TEMP 97.9
--- NOTE | 2019-08-15 11:29 | PRG ---
DATE OF SERVICE: 08/15/2019 This is Keaton Moran PA-C dictating a report for Aquiles Chowdary DO. SUBJECTIVE: Mr. Blount is an 84-year-old male, status post fall with he suffered from left proximal humerus fracture and right patellar fracture, conservative treatment per Orthopedic, Dr. Medina. The patient remained in surgical floor. The patient's condition has been stable. The patient has been working with physical therapy, occupation therapy. His vital signs have been stable. He tolerated with his regular diet. No overnight event. bridge ironworker is working for placement in jail facility. OBJECTIVE: GENERAL: Currently, the patient is lying in bed, comfortable with no acute respiratory distress. VITAL SIGNS: Temperature 97.6, heart rate 82, respiratory rate 16, O2 saturation 97% on room air, and blood pressure 137/65. LUNGS: Clear bilaterally. HEART: Regular rate and rhythm. ABDOMEN: Soft, nondistended. EXTREMITIES: Neurovascularly intact x4. Left upper extremity and right lower extremity braces in place, comfortable. NEUROLOGIC: No focal neurology deficits. ASSESSMENT: 1. Status post ground level fall. 2. Left distal proximal humeral fracture, conservative treatment. 3. Right patellar fracture, conservative treatment. 4. History of bladder cancer. PLAN: Continue supportive care. Continue pain control. Initiate DVT prophylaxis today. Continue working with physical therapy and occupational therapy. bridge ironworker is working for placement in jail facility for rehab. The patient was seen on rounds with Dr. Chowdary on round this morning. Job ID: [id number] MTDD
[2019-08-15] MEDS ORDERED: Enoxaparin Sodium 40 MG/0.4 ML SYRINGE SC SCH (21:00)
== END 2019-08-15 15:31 | DRG 563 ==
LOC: ERS 20:20 → 2NO 08-13 00:06 → SURG A 08-13 12:06
PROVIDERS: ADMIT Surgery; ATTEND Surgery
DX: S42.342A Displaced spiral fracture of shaft of humerus, left arm, initial encounter for closed fracture (principal); S82.031A Displaced transverse fracture of right patella, initial encounter for closed fracture; C66.1 Malignant neoplasm of right ureter; E03.9 Hypothyroidism, unspecified; I10 Essential (primary) hypertension; E78.5 Hyperlipidemia, unspecified; F17.210 Nicotine dependence, cigarettes, uncomplicated; H91.90 Unspecified hearing loss, unspecified ear; N40.0 Benign prostatic hyperplasia without lower urinary tract symptoms; E11.9 Type 2 diabetes mellitus without complications; H40.9 Unspecified glaucoma; W01.0XXA Fall on same level from slipping, tripping and stumbling without subsequent striking against object, initial encounter; Y92.512 Supermarket, store or market as the place of occurrence of the external cause; Z90.49 Acquired absence of other specified parts of digestive tract; Z85.51 Personal history of malignant neoplasm of bladder; Z85.528 Personal history of other malignant neoplasm of kidney; Z88.2 Allergy status to sulfonamides; Z79.899 Other long term (current) drug therapy; Z79.890 Hormone replacement therapy
CPT/HCPCS: 36415; 36416; 70450; 71045; 72125; 80048; 80053; 82553; 83735; 83880; 84100; 84484; 85025; 85379; 85610; 85730; 93005; 94760; 96361; 96374; J1815; J1885; J2405; J3475; J7030

== ENCOUNTER 2019-11-12 11:50 | Inpatient (IN) | payer MEDICARE, OTHER ==
[2019-11-12 12:35] LABS: #Lymphocytes 0.7 thou/uL (1.20-3.40); #Monocytes 0.6 thou/uL (0.11-0.59); #Neutrophils 13.2 thou/uL (1.40-6.50); %Basophils 0.2 % (0.0-1.0); %Eosinophils 0.2 % (0.0-10.0); %Lymphocytes 5.1 % (21.0-51.0); %Monocytes 4.1 % (0.0-10.0); %Neutrophils 90.4 % (42.0-75.0); Hemoglobin 11.1 g/dL (14.0-18.0); Mean Corpuscular HGB CONC 30.8 g/dL (32.0-36.0); Mean Corpuscular Hemoglobin 30.9 pg (27.0-31.0); Mean Platelet Volume 8.2 fL (7.4-10.4); Platelet Count 258 thou/uL (130-400); RBC Distribution Width 11.5 % (11.5-14.5); Red Blood Cell (RBC) Count 3.61 mill/uL (4.70-6.10); White Blood Cell (WBC) Count 14.6 thou/uL (4.8-10.8)
[2019-11-12 13:01] LABS: ALT (SGPT) 12 U/L (8-55); AST (SGOT) 11 U/L (5-34); Albumin 3.7 g/dL (3.4-4.8); Alkaline Phosphatase 119 U/L (40-110); BUN (Urea Nitrogen) 33 mg/dL (8.4-25.7); Bilirubin, Total 0.4 mg/dL (0.2-1.2); Calc. Creatinine Clearance 0 mL/min (70-130); Calcium 8.8 mg/dL (7.8-10.44); Chloride 96 mmol/L (98-107); Estimated GFR-MDRD 25; Globulin 2.9 g/dL (2.4-3.5); Lipase 57 U/L (8-78); Protein, Total 6.6 g/dL (5.8-8.1); Sodium 130 mmol/L (136-145)
[2019-11-12 13:05] LABS: Carbon Dioxide Less than 8 mmol/L (23-31)
[2019-11-12 13:10] LABS: Glucose 741 mg/dL (83-110)
[2019-11-12] MEDS ORDERED: Ondansetron PF 4 MG/2 ML Vial ONE ×2 (13:17→14:24)
[2019-11-12] MEDS ORDERED: Electrolyte Replacement Protocol IVPB SCH (13:53)
[2019-11-12] MEDS ORDERED: Sodium Chloride 0.9% 1,000 ML IV PRN ×4 (13:53)
[2019-11-12] MEDS ORDERED: Bisacodyl 5 MG TAB PO PRN (13:53)
[2019-11-12] MEDS ORDERED: Ondansetron PF 4 MG/2 ML Vial IVP PRN (13:53)
[2019-11-12] MEDS ORDERED: NS 0.9% w/ 20 MEQ KCL 1,000 ML IV PRN ×2 (13:53)
[2019-11-12] MEDS ORDERED: Dextrose 5 %-0.45 % NaCl 1,000 ML IV PRN (13:53)
[2019-11-12] MEDS ORDERED: D5 1/2 NS w/20 mEq KCL 1,000 ML IV PRN (13:53)
[2019-11-12 13:56] LABS: Base Excess-Venous -22.2 mmol/L (-2.0 to 3.0); Bicarbonate (HCO3v) 5.7 mmol/L (22.0-28.0); CO2 Tension (PvCO2) 18.5 mmHg (40.0-50.0); Calcium, Ionized 1.13 mmol/L (See Comments:); Chloride 103 mmol/L (98-107); Hemoglobin - Calc 11.2 g/dL (14.0-18.0); Potassium 4.9 mmol/L (3.5-5.1); Sodium 125 mmol/L (138-145); T. Carbon Dioxide 6.3 mmol/L (22.0-28.0); vO2 Saturation-calc 96.9 % (60.0-85.0)
--- NOTE | 2019-11-12 13:58 | CT ---
CT OF THE ABDOMEN AND PELVIS WITHOUT IV CONTRAST: 11/12/19 INDICATION: History of nausea, vomiting, and diarrhea with history of renal cell carcinoma. COMPARISON: Prior CT of the abdomen and pelvis dated 06/20/19. FINDINGS: Lung bases are clear. Unopacified liver is unremarkable appearing. The pancreas and adrenal glands ar e unremarkable. The spleen is normal appearing. There are stable left renal cysts. There is a right d ouble-J ureteral stent in place. Prostate is enlarged. There is scattered colonic diverticula. Colon is poorly distended. The appendix is not definitely seen. Small bowel is of normal caliber. There are moderate calcifications involving the abdominal and pelvic vasculature. There is scattered degenerat rissa and osteoarthritic change. No definite acute osseous abnormality is evident. There is healing fra cture deformity involving the anterior lateral right 7th through 9th ribs. IMPRESSION: 1. Right double-J ureteral stent without hydronephrosis. 2. Healing right anterior lateral 7th through 9th rib fractures. 3. Colonic diverticulosis without overt evidence of colonic diverticulitis. POS: [facility]
[2019-11-12] MEDS ORDERED: HUMULIN R 100 UNITS in Sodium Chloride 0.9% 100 ML IVPB SCH ×2 (14:00→19:15)
[2019-11-12] MEDS ORDERED: Potassium Chloride 20 MEQ TAB ONE (14:05)
[2019-11-12] MEDS ORDERED: Insulin Regular 300 UNITS/3 ML VIAL ONE (14:05)
[2019-11-12 14:07] LABS: CKMB 4.1 ng/mL (0-6.6)
[2019-11-12 14:59] LABS: BUN (Urea Nitrogen) 34 mg/dL (8.4-25.7); Calc. Creatinine Clearance 0 mL/min (70-130); Calcium 8.5 mg/dL (7.8-10.44); Carbon Dioxide Less than 8 mmol/L (23-31); Chloride 96 mmol/L (98-107); Estimated GFR-MDRD 25; Glucose 800 mg/dL (83-110); Sodium 129 mmol/L (136-145)
[2019-11-12] MEDS ORDERED: Vancomycin 1 GM in Premix Bag 1 BAG IVPB SCH (16:00)
[2019-11-12 16:15] LABS: Lactic Acid 3.1 mmol/L (0.5-2.2)
[2019-11-12 16:44] LABS: Hemoglobin A1c 7.1 % (4.0-6.0)
[2019-11-12] MEDS ORDERED: Sodium Bicarb 50 MEQ/50 ML Abboject 8.4% SYRINGE IVP SCH ×2 (16:45→19:00)
--- NOTE | 2019-11-12 16:53 | PDOC.HHP ---
Hospitalist HPI - History of Present Illness Vomiting and diarrhea History of Present Illness: Patient is a pleasant 83-year-old gentleman who was seen in the emergency room on November 12, 2019. He is accompanied by daughter. Patient is hard of hearing, unable to converse well because he usually relies on lip reading. Patient's grandson stays with him. Patient reportedly developed vomiting and diarrhea as well as nausea last night. He reportedly has a history of diet- controlled diabetes mellitus and has noticed that his blood sugars have been slowly creeping up. He denies any abdominal pain, melena, hematochezia or hematemesis. He denies any urinary symptoms. He denies any cough. He denies any chest pain. Patient has a history of bladder and ureteral transitional cell carcinoma. He h as started immunotherapy at [facility]. His first session was 2 weeks ago. He was supposed to go back a couple of days ago but did not travel to [place] because of inclement weather. In the emergency room, patient was diagnosed with diabetic ketoacidosis. He was started on intravenous fluids and intravenous insulin. However, his blood pressure started decreasing. He is now getting a central line and will be started on pressors for possible septic shock. ED Course: BP: 88/35, Pulse: 110, Resp: 17, Temp: 94.5 (Rectal), Pain: 0, O2 sat: 95 on (Room Air), Time: 11/12/2019 16:44. Hospitalist ROS - Review of Systems Constitutional: denies: fever, chills, sweats, weakness, malaise Respiratory: denies: cough, shortness of breath, SOB with excertion, pleuritic pain, wheezing Cardiovascular: denies: chest pain, palpitations, orthopnea, paroxysmal noc. dyspnea, edema, light headedness Gastrointestinal: reports: nausea, vomiting, diarrhea Genitourinary: denies: dysuria, frequency, incontinence, hematuria, retention All other systems reviewed; all pertinent +/- noted in HPI/Subj - Medication Medications: Allergies: Sulfa Current medications: dutasteride capsule : Strength - 0.5 mg : ORAL Patient Dose: once a day. latanoprost drops : Strength - 0.005 % : OPHTHALMIC (EYE) Patient Dose: once a day (at bedtime). levothyroxine oral tablet : Strength - 25 mcg : ORAL Patient Dose: once a day (in the morning). lisinopril tablet : Strength - 10 mg : ORAL Patient Dose: once a day (in the morning). terazosin capsule : Strength - 10 mg : ORAL Patient Dose: once a day (in the morning). gabapentin tablet : Strength - 100 mg : ORAL Patient Dose: See Notes.UNKNOWN STRENGTH. Hospitalist History - Past Medical History Other Medical History: Past medical history: Significant for diet-controlled diabetes mellitus, hypothyroidism, dyslipidemia and hypertension. Patient had left ventricular ejection fraction of 50 to 55% in April 2019. Patient also has a history of transitional cell cancer of urinary bladder and ureter. Surgical history: Appendectomy and multiple cystoscopies. Social history: Patient quit smoking in 1959. He denies alcohol use or recreational drug use. Family history: Significant for heart disease in his mother side of the family. CODE STATUS: I discussed his CODE STATUS. He is DNAR. - Exam General Appearance: awake alert Eye: anicteric sclera ENT: normocephalic atraumatic Neck: supple, no thyromegaly Heart - other findings: S1, S2, tachycardic and regular. Respiratory: CTAB, no wheezes, no rales, no ronchi, normal chest expansion Gastrointestinal: soft, non-tender, non-distended, normal bowel sounds Extremities: 1+ LE edema Skin: no rashes Psychiatric: normal affect, normal behavior, oriented to person, oriented to place Hospitalist Results - Labs Result Diagrams: 11/12/19 12:23 11/12/19 16:58 Lab results: WBC 14.6 thou/uL (4.8-10.8) H 11/12/19 12:23 Hgb 11.1 g/dL (14.0-18.0) L 11/12/19 12:23 Hct 36.2 % (42.0-52.0) L 11/12/19 12:23 MCV 100.0 fL (78.0-98.0) H 11/12/19 12:23 Plt Count 258 thou/uL (130-400) 11/12/19 12:23 Neutrophils % 90.4 % (42.0-75.0) H 11/12/19 12:23 VBG pCO2 18.5 mmHg (40.0-50.0) L* 11/12/19 13:57 VBG pO2 117.9 mmHg (35.0-45.0) H 11/12/19 13:57 Sodium 129 mmol/L (136-145) L 11/12/19 14:08 Potassium 5.0 mmol/L (3.5-5.1) 11/12/19 14:08 Chloride 96 mmol/L (98-107) L 11/12/19 14:08 Carbon Dioxide Less than 8 mmol/L (23-31) L* 11/12/19 14:08 BUN 34 mg/dL (8.4-25.7) H 11/12/19 14:08 Creatinine 2.45 mg/dL (0.7-1.3) H 11/12/19 14:08 Glucose 800 mg/dL (83-110) H* 11/12/19 14:08 Lactic Acid 3.1 mmol/L (0.5-2.2) H 11/12/19 15:48 Calcium 8.5 mg/dL (7.8-10.44) 11/12/19 14:08 Total Bilirubin 0.4 mg/dL (0.2-1.2) 11/12/19 12:23 AST 11 U/L (5-34) 11/12/19 12:23 ALT 12 U/L (8-55) 11/12/19 12:23 Alkaline Phosphatase 119 U/L (40-110) H 11/12/19 12:23 CK-MB (CK-2) 4.1 ng/mL (0-6.6) 11/12/19 13:07 Troponin I 0.033 ng/mL (< 0.028) H 11/12/19 13:07 Serum Total Protein 6.6 g/dL (5.8-8.1) 11/12/19 12:23 Albumin 3.7 g/dL (3.4-4.8) 11/12/19 12:23 Lipase 57 U/L (8-78) 11/12/19 12:23 - EKG Interpretation EKG: EKG by my review shows sinus tachycardia. He also has a left bundle branch block, which was also present in the past. - Radiology Interpretation Chest x-ray Status: image reviewed by me Additional Comment: EXAM: CHEST ONE VIEW HISTORY: Nausea vomiting and diarrhea. High blood sugar. Evaluate for infection. COMPARISON: 08/12/2019 FINDINGS: Cardiac silhouette and pulmonary vasculature are within normal limits for the portable technique of t he study. The lungs are clear without consolidation or pleural fluid. Osteopenia is again present. IMPRESSION: No acute cardiopulmonary process. CT scan - abdomen Additional Comment: CT OF THE ABDOMEN AND PELVIS WITHOUT IV CONTRAST: 11/12/19 INDICATION: History of nausea, vomiting, and diarrhea with history of renal cell carcinoma. COMPARISON: Prior CT of the abdomen and pelvis dated 06/20/19. FINDINGS: Lung bases are clear. Unopacified liver is unremarkable appearing. The pancreas and adrenal glands ar e unremarkable. The spleen is normal appearing. There are stable left renal cysts. There is a right d ouble-J ureteral stent in place. Prostate is enlarged. There is scattered colonic diverticula. Colon is poorly distended. The appendix is not definitely seen. Small bowel is of normal caliber. There are moderate calcifications involving the abdominal and pelvic vasculature. There is scattered degenerat rissa and osteoarthritic change. No definite acute osseous abnormality is evident. There is healing fra cture deformity involving the anterior lateral right 7th through 9th ribs. IMPRESSION: 1. Right double-J ureteral stent without hydronephrosis. 2. Healing right anterior lateral 7th through 9th rib fractures. 3. Colonic diverticulosis without overt evidence of colonic diverticulitis. Hospitalist H&P A/P - Problem (1) Septic shock Code(s): A41.9 - SEPSIS, UNSPECIFIED ORGANISM; R65.21 - SEVERE SEPSIS WITH SEPTIC SHOCK Status: Acute (2) DKA (diabetic ketoacidoses) Code(s): E11.10 - TYPE 2 DIABETES MELLITUS WITH KETOACIDOSIS WITHOUT COMA Status: Acute (3) SARIAH (acute kidney injury) Code(s): N17.9 - ACUTE KIDNEY FAILURE, UNSPECIFIED Status: Acute (4) Hyponatremia Code(s): E87.1 - HYPO-OSMOLALITY AND HYPONATREMIA Status: Acute (5) Metabolic acidosis Code(s): E87.2 - ACIDOSIS Status: Acute (6) Lactic acidosis Code(s): E87.2 - ACIDOSIS Status: Acute (7) Vomiting and diarrhea Code(s): R11.10 - VOMITING, UNSPECIFIED; R19.7 - DIARRHEA, UNSPECIFIED Status: Acute (8) HTN (hypertension) Code(s): I10 - ESSENTIAL (PRIMARY) HYPERTENSION Status: Chronic (9) Hypothyroidism Code(s): E03.9 - HYPOTHYROIDISM, UNSPECIFIED Status: Chronic - Plan Plan: Patient to be admitted to critical care unit for vasopressors. Check urinalysis. Check blood cultures. Start empiric antibiotics, IV vancomycin and IV Zosyn. Follow cultures. Start DKA protocol. Check hemoglobin A1c. Check TSH. Check stool studies to rule out infection. Hyponatremia secondary to hyperosmolarity from DKA. Continue dutasteride and terazosin.
[2019-11-12 17:22] LABS: Actual Bicarbonate (HCO3a) 5.4 mEq/L (22-28); Analyzer IN Cardio ER; Base Excess (BEa) -22.3 mEq/L (-2.0 to +3.0); Calcium, Ionized (arterial) 1.24 mmol/L (1.12-1.30); Carboxyhemoglobin (COHb) 0.2 gm% (0.0-3.0); Hemoglobin (Hb) 10.6 g/dL (14.0-18.0); O2 Tension (PaO2), arterial 114.3 mmHg (> 60.0); Potassium - ABG Lab 4.35 mmol/L (3.70-5.30)
[2019-11-12 17:23] LABS: CO2 Tension 17.4 mmHg (35.0-45.0); Puncture Site RRA; pH, Arterial 7.11 (7.35-7.45)
[2019-11-12 17:30] LABS: BUN (Urea Nitrogen) 36 mg/dL (8.4-25.7); Calc. Creatinine Clearance 0 mL/min (70-130); Calcium 8.1 mg/dL (7.8-10.44); Chloride 101 mmol/L (98-107); Estimated GFR-MDRD 24; Potassium 4.2 mmol/L (3.5-5.1); Sodium 131 mmol/L (136-145)
[2019-11-12 17:32] LABS: Carbon Dioxide Less than 8 mmol/L (23-31); Glucose 744 mg/dL (83-110)
[2019-11-12 17:36] LABS: Bilirubin Negative (Negative); Blood, Urine 3+ (Negative); Clarity Turbid (Clear); Glucose, Urine (Dipstick) Greater than 1000 mg/dL (Negative); Ketone, Urine 40 mg/dL (Negative); Leukocyte 500 Leu/uL (Negative); Nitrite Negative (Negative); Protein, Urine (Dipstick) 100 mg/dL (Neg-Trace); Specific Gravity, Urine 1.014 (1.002-1.036); Squamous Epithelial 0-3 HPF (0-3); Urobilinogen Normal mg/dL (Less than 2); WBC/HPF Greater than 50 HPF (0-3); pH, Urine 5.5 (5.0-9.0)
[2019-11-12 17:37] LABS: Troponin I 0.052 ng/mL (< 0.028)
[2019-11-12 17:43] LABS: Bacteria/HPF None Seen HPF (None Seen)
[2019-11-12 17:44] LABS: Renal Epithelial 0-3 HPF (None Seen); Transitional Epithelial 0-3 HPF (None Seen); Yeast-Budding 4+ HPF (None Seen)
[2019-11-12] MEDS ORDERED: Midazolam HCl 2 mg/2 ml Vial ONE (17:56)
[2019-11-12] MEDS ORDERED: Ventilator Sedation Protocol 1 EACH FS ONE (18:06)
[2019-11-12 18:33] LABS: Glucose 737 mg/dL (83-110)
[2019-11-12] MEDS ORDERED: DISCONTINUE PREVIOUS NARCOTIC PAIN MEDICATIONS AND BENZODIAZEPINES FS SCH (18:45)
[2019-11-12] MEDS ORDERED: Propofol 1,000 MG/100 ML VIAL IV PRN (18:45)
[2019-11-12] MEDS ORDERED: Propofol BOLUS 1,000 MG/100 ML VIAL IV PRN (18:45)
[2019-11-12] MEDS ORDERED: Fentanyl BOLUS 250 ML IVPB PRN (18:45)
[2019-11-12 18:47] LABS: Analyzer IN Cardio ER; Base Excess (BEa) -22.8 mEq/L (-2.0 to +3.0); Calcium, Ionized (arterial) 1.21 mmol/L (1.12-1.30); Carboxyhemoglobin (COHb) 0.2 gm% (0.0-3.0); Hemoglobin (Hb) 10.3 g/dL (14.0-18.0); O2 Tension (PaO2), arterial 226.1 mmHg (> 60.0); Potassium - ABG Lab 4.26 mmol/L (3.70-5.30)
[2019-11-12 18:50] LABS: CO2 Tension 16.4 mmHg (35.0-45.0); Puncture Site RRA
[2019-11-12] MEDS: Sodium Bicarb 50 MEQ/50 ML Abboject 8.4% SYRINGE ONE ×2 (18:51→18:52)
[2019-11-12] MEDS: fentaNYL Citrate/PF 2,000 MCG in Sodium Chloride 0.9% 60 ML IV SCH (19:12)
[2019-11-12] MEDS ORDERED: Sodium Chloride 0.45% 1,000 ML IV SCH (19:15)
[2019-11-12] MEDS ORDERED: Sodium Chloride 0.9% 1,000 ML IV SCH (19:15)
[2019-11-12] MEDS: Sodium Bicarbonate 150 MEQ in Dextrose 5% in Water 1,000 ML IV SCH (19:59)
[2019-11-12] MEDS: Lorazepam 2 MG/ML VIAL SLOW IVP PRN (20:03)
[2019-11-12] MEDS ORDERED: Vancomycin 1.5 GRAM/300 ML BAG 1.5 GM in Premix Bag 1 BAG IVPB SCH (20:15)
[2019-11-12] MEDS: Piperacillin/Tazobactam 4.5 GM in Sodium Chloride 0.9% 100 ML IVPB SCH (20:38)
[2019-11-12 21:34] LABS: Glucose 652 mg/dL (83-110)
[2019-11-12 21:50] LABS: BUN (Urea Nitrogen) 38 mg/dL (8.4-25.7); Calc. Creatinine Clearance 23 mL/min (70-130); Calcium 7.6 mg/dL (7.8-10.44); Chloride 105 mmol/L (98-107); Estimated GFR-MDRD 24; Potassium 4.3 mmol/L (3.5-5.1); Sodium 135 mmol/L (136-145)
[2019-11-12 21:53] LABS: Carbon Dioxide Less than 8 mmol/L (23-31); Glucose 651 mg/dL (83-110)
[2019-11-12] MEDS ORDERED: Piperacillin/Tazobactam 4.5 GM in Sodium Chloride 0.9% 100 ML IVPB SCH (22:00)
[2019-11-12 23:05] LABS: Glucose 645 mg/dL (83-110)
[2019-11-12] MEDS: Norepinephrine 8 MG/0.9% NS 250 ML IVPB SCH (23:18)
[2019-11-13 00:25] LABS: Glucose 627 mg/dL (83-110)
--- NOTE | 2019-11-13 00:35 | CON ---
DATE OF CONSULTATION: 11/12/2019 HISTORY OF PRESENT ILLNESS: Mr. Blount is an 84-year-old male, who presented to the hospital this morning with a history of less than 24 hours of nausea, vomiting, and diarrhea. He ate a [employer] and his daughter was wondering if this was the problem. He has no pre-existing diagnosis of diabetes, requiring medication, although apparently it has been noted that his blood sugar has been increasing. He has bladder and ureteral transitional cell carcinoma, was recently started on immunotherapy. He missed his last visit to [facility] because of the weather. He was seen in the emergency department and had significant hyperglycemia with severe metabolic acidosis and an elevated beta hydroxybutyrate and was subsequently admitted to the critical care unit. He really has not been a frequent flyer in this hospital and was last admitted in August after a fall, leading to a proximal humerus fracture and a right patella fracture. Both fractures were managed conservatively. PAST MEDICAL HISTORY: Other problems include hypothyroidism, lipid disorder, and hypertension as well as significant hearing loss. He has had multiple cystoscopies in the past and an appendectomy. SOCIAL HISTORY: Quit smoking 10 years ago. He is not a drinker. 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 REVIEW OF SYSTEMS: Ten points otherwise negative. His daughter tells me that he was quite active prior to this admission. PHYSICAL EXAMINATION: VITAL SIGNS: When he arrived from the emergency room, his blood pressure was in the 90s, heart rate was in 80s, respiratory rate was in the low 20s, but he had extremely large tidal volume breaths. I am guessing he was breathing 800 to 900 cc per breath. HEAD AND NECK: Unremarkable. LUNGS: Clear. HEART: Regular rhythm. No S3. ABDOMEN: Soft and nontender. EXTREMITIES: Without clubbing, cyanosis, or edema. He was not on an insulin drip on arrival. LABORATORY DATA: White count is 14.6 at noon today with hemoglobin 11.1, and platelets 258. Sodium was 129, potassium 5, chloride 96, bicarb less than 8, BUN 34, and creatinine 2.45, glucose 800, creatinine was 1.17 in July when he was in the hospital. Beta-hydroxybutyrate was 9.7. COVID screen was not done. Urinalysis is unremarkable. A venous blood gas showed pH of 7.09. An arterial blood gas was ordered at 1721; already, he has come to the ICU, his pH was 7.11, CO2 of , PO2 114. Chest x-ray was clear. IMPRESSION: Even though it is clinically unusual, it certainly appears that he may have diabetic ketoacidosis. I have seen starvation ketosis falsely bump up a beta-hydroxybutyrate assay. I have read that there could be a false cross acid a with significant starvation ketones, but he has not had a decrease in p.o. intake by history longer enough to explain this, so I think we have to assume that he has a mixture of hyperosmolar state and diabetic ketoacidosis. He was started on an insulin drip. He had received some insulin in the ER, but no drip. He is given two more liters of saline on arrival. He was given two amps of bicarb post intubation and blood gas showed no change in his pH. He was started on a bicarb drip. We will gently hydrate him at 200 cc an hour with his bicarb drip and gently administer insulin, and I suspect we will see gradual improvement of his glucoses, which is what we want to see. He did go from being normal to 800 in 24 hours, so we probably need to move cautiously as far as correcting his hyperosmolar state. Did recommend intubation because I did not think he could keep up these large tidal volumes for 12 to 24 hours. His daughter approved to this recommendation. He has been successfully intubated and is sedated for ventilation. CRITICAL CARE TIME: 95 minutes independent of procedures performed. Job ID: [id number] MTDD
[2019-11-13] MEDS: Sodium Bicarbonate 150 MEQ in Dextrose 5% in Water 1,000 ML IV SCH (00:53)
[2019-11-13 01:33] LABS: Glucose 642 mg/dL (83-110)
[2019-11-13 01:58] LABS: Glucose 609 mg/dL (83-110)
[2019-11-13 03:38] LABS: #Basophils 0.1 thou/uL (0.0-0.2); #Lymphocytes 1.2 thou/uL (1.20-3.40); #Monocytes 1.3 thou/uL (0.11-0.59); #Neutrophils 17.1 thou/uL (1.40-6.50); %Basophils 0.4 % (0.0-1.0); %Eosinophils 0.2 % (0.0-10.0); %Lymphocytes 6.2 % (21.0-51.0); %Monocytes 6.4 % (0.0-10.0); %Neutrophils 86.8 % (42.0-75.0); Hemoglobin 10.1 g/dL (14.0-18.0); Mean Corpuscular Hemoglobin 31.3 pg (27.0-31.0); Mean Corpuscular Volume 94.7 fL (78.0-98.0); Mean Platelet Volume 8.1 fL (7.4-10.4); Platelet Count 258 thou/uL (130-400); RBC Distribution Width 11.5 % (11.5-14.5); Red Blood Cell (RBC) Count 3.24 mill/uL (4.70-6.10); White Blood Cell (WBC) Count 19.7 thou/uL (4.8-10.8)
[2019-11-13 03:52] LABS: Anion Gap 22 mmol/L (10-20); BUN (Urea Nitrogen) 42 mg/dL (8.4-25.7); Calc. Creatinine Clearance 22 mL/min (70-130); Calcium 7.9 mg/dL (7.8-10.44); Carbon Dioxide 16 mmol/L (23-31); Chloride 103 mmol/L (98-107); Estimated GFR-MDRD 22; Potassium 3.4 mmol/L (3.5-5.1); Sodium 138 mmol/L (136-145)
[2019-11-13 04:01] LABS: Glucose 557 mg/dL (83-110)
[2019-11-13] MEDS ORDERED: Potassium Chloride 40 MEQ in Premix Bag 1 BAG IVPB SCH (05:00)
[2019-11-13] MEDS: Levothyroxine Sodium 25 MCG TAB PO SCH (05:28)
[2019-11-13] MEDS: Piperacillin/Tazobactam 4.5 GM in Sodium Chloride 0.9% 100 ML IVPB SCH (05:28)
[2019-11-13 06:08] LABS: Glucose 480 mg/dL (83-110)
--- NOTE | 2019-11-13 06:48 | OP ---
DATE OF PROCEDURE: 11/12/2019 PROCEDURE: Fiberoptic intubation. DESCRIPTION OF PROCEDURE: The patient had intubation explained. His throat was sprayed with Cetacaine. He was given 1 mg of versed. As he became somnolent, a bite block was placed in his mouth. Bronchoscope was introduced and passed down through normal-appearing cords into his trachea. This tube was secured above the main amy and the scope was withdrawn, and he was hyperventilated. The scope was re-introduced, and his entire tracheobronchial tree was inspected. No endobronchial lesions were seen. He tolerated the procedure well. There were no purulent secretions. Antibiotics had not been started in the emergency department, so these were ordered to be started as soon as he arrived in the ICU. Job ID: [id number]
[2019-11-13 06:59] LABS: Actual Bicarbonate (HCO3a) 21.5 mEq/L (22-28); Base Excess (BEa) 0.7 mEq/L (-2.0 to +3.0); Calcium, Ionized (arterial) 1.06 mmol/L (1.12-1.30); Carboxyhemoglobin (COHb) 0.3 gm% (0.0-3.0); Hemoglobin (Hb) 10.6 g/dL (14.0-18.0); O2 Tension (PaO2), arterial 156.3 mmHg (> 60.0); Potassium - ABG Lab 3.14 mmol/L (3.70-5.30)
[2019-11-13 07:03] LABS: CO2 Tension 23.2 mmHg (35.0-45.0); Puncture Site RRA; pH, Arterial 7.58 (7.35-7.45)
[2019-11-13 07:55] LABS: Glucose 453 mg/dL (83-110)
[2019-11-13 08:01] LABS: Magnesium 1.7 mg/dL (1.6-2.6)
--- NOTE | 2019-11-13 08:02 | RAD ---
Exam: Chest one view HISTORY:Respiratory distress. Ventilated patient. Comparison: 11/12/2019 FINDINGS: Bilaterally tubes: Interval placement of endotracheal tube and nasogastric tube. The distal tip of the nasogastric tube is not included on this exam. Cardiac silhouette: Normal Aorta: Unremarkable Pulmonary vessels: Normal Costophrenic angles: Clear LUNGS: Scattered interstitial opacities. Pneumothorax: None Osseous abnormalities: None IMPRESSION: 1. Interval placement of endotracheal tube and nasogastric tube 2. Scattered interstitial opacities. Correlate for edema and/or infiltrate
[2019-11-13 08:08] LABS: Phosphorus 1.6 mg/dL (2.3-4.7)
--- NOTE | 2019-11-13 08:20 | CON ---
DATE OF CONSULTATION: 11/13/2019 Consultation requested by daughter. REASON FOR CONSULT: History of transitional cell carcinoma of the bladder and right upper tract TCC. HISTORY OF PRESENT ILLNESS: Mr. Blount is a pleasant 84-year-old male, well known to me, he was initially referred to me by his primary care, as he was subsequently diagnosed with low-grade transitional cell carcinoma of the bladder, BPH on dual medical therapy with terazosin and Avodart. He underwent uneventful TURBT, however, was found to have subsequently right upper tract ureterorenal pelvic TCC. I have been performing multiple TURBTs, ureteroscopies, debulking his ureteral TCC. However, he has had progressive increase in the bulk of the tumor, and has been deemed high risk for nephroureterectomy by local Oncology as well as [facility]. He has transitioned his care regarding his upper tract TCC to [facility] and has undergone multiple ureteroscopies and has undergone chemoimmunotherapy. I do not have recent records of his [facility] assessment; however, it appears that he has missed recent followup with [facility]. Family has been very proactive in his care. Events of his admission reviewed. He is admitted with dehydration, nausea, vomiting, and DKA. He is currently intubated in the ICU due to severe metabolic acidosis. His ER records, CT, and labs were reviewed. PAST MEDICAL HISTORY: Includes low-grade TCC of the bladder, TCC of the right ureter and renal pelvis, diabetes, BPH, glaucoma, and hypertension. PAST SURGICAL HISTORY: Includes appendectomy, multiple cystoscopies, TURBTs, and ureteroscopies. He was recently admitted for hip fracture. FAMILY HISTORY: Positive for coronary artery disease and diabetes. SOCIAL HISTORY: He is a former smoker, quit in 1961. Has extended family with good marriage and family therapist help. He is a . ALLERGIES: ALLERGIC TO SULFA, CAUSES RASH AND HIVES. REVIEW OF SYSTEMS: Ten-point review of systems unable to be obtained as he is intubated. PHYSICAL EXAMINATION: VITAL SIGNS: Temperature 98.6, 27, 40, 82, and 149/79. I's and O's 4480 in, urine output 360. NG tube 650, bilious fluid. GENERAL: Intubated. HEART: Regular rate. LUNGS: Clear. Intermittent coarse rhonchi. ABDOMEN: Morbidly obese, protuberant. No rigidity. No rebound. : Lynn catheter noted with clear yellow urine, however, it is secured on tension, I re-sutured his catheter with StatLock x2, covered with appropriate dressing as he is on two-point restraints due to confusion. Nursing staff advised regarding appropriate catheter care, to keep out of harm's way to prevent traumatic Lynn catheter removal. EXTREMITIES: No cyanosis, clubbing, or edema. No calf tenderness appreciated. NEUROLOGIC: Unable to fully exam due to intubated state. SKIN: No obvious rashes or lesions appreciated. PERTINENT LABORATORY DATA: Sodium 129, admitting creatinine 2.4, his baseline creatinine is 1.1. White count is 14, hemoglobin 10, platelet 257. Glucose on admission is 800. He is on an insulin drip. UA demonstrates 500 leukocytes, 7- 10 rbc's, greater than 50 wbc's, no bacteria noted. CT of the abdomen and pelvis on admission without contrast, which I reviewed myself, right ureteral stent in appropriate position in the renal pelvis with no evidence of hydronephrosis, BPH noted. No obvious bladder mass. , ureteral pelvic mass appreciated. IMPRESSION AND PLAN: 1. Mr. Blount is an 84-year-old male with history of bladder cancer transitional cell carcinoma, low-grade; right ureterorenal pelvic transitional cell carcinoma, bulky in nature. He has undergone multiple ureteroscopies, debulking, has transitioned care to [facility]. He was also deemed high risk for nephroureterectomy at [facility] and continues to be treated with surveillance ureteroscopy and chemotherapy at [facility]. When he is medically stable, the patient will continue to follow up at [facility]. 2. BPH with no significant PVR previously of concern. Continue indwelling Lynn catheter as he is currently intubated and this can be removed when his mental status improves. 3. Currently admitted due to diabetic ketoacidosis. He is in the ICU, managed by hospitalist and ICU muleser. Today's consultation provided as a courtesy as family requested me to check his inpatient status. There are no acute issues regarding his transitional cell cancer of the renal pelvis or bladder on this admission, continue medical therapy, ICU monitoring for diabetic ketoacidosis. will see juan Job ID: [id number] [facility]
[2019-11-13] MEDS ORDERED: Sodium Chloride 0.45% 1,000 ML IV SCH (09:00)
[2019-11-13] MEDS ORDERED: Sodium Chloride 0.9% 1,000 ML IV SCH (09:00)
[2019-11-13] MEDS ORDERED: Potassium Phosphate 30 MMOL in Sodium Chloride 0.9% 250 ML 250 ML IVPB SCH (09:00)
[2019-11-13 09:07] LABS: Glucose 407 mg/dL (83-110)
[2019-11-13] MEDS: Dutasteride 0.5 MG CAP PO SCH (09:15)
[2019-11-13] MEDS: Terazosin HCl 5 MG CAP PO SCH (09:16)
[2019-11-13] MEDS: Enoxaparin Sodium 30 MG/0.3 ML SYRINGE SC SCH (09:16)
[2019-11-13] MEDS: Albumin 25% 25 GM/100 ML BOT IVPB SCH ×3 (09:30→21:31)
[2019-11-13] MEDS: Lorazepam 2 MG/ML VIAL SLOW IVP PRN ×2 (10:26→23:43)
[2019-11-13 10:50] LABS: Anion Gap 17 mmol/L (10-20); BUN (Urea Nitrogen) 40 mg/dL (8.4-25.7); Calc. Creatinine Clearance 24 mL/min (70-130); Calcium 7.7 mg/dL (7.8-10.44); Carbon Dioxide 21 mmol/L (23-31); Chloride 103 mmol/L (98-107); Estimated GFR-MDRD 24; Glucose 361 mg/dL (83-110); Sodium 138 mmol/L (136-145)
[2019-11-13 10:55] LABS: Potassium 2.8 mmol/L (3.5-5.1)
[2019-11-13] MEDS: fentaNYL Citrate/PF 2,000 MCG in Sodium Chloride 0.9% 60 ML IV SCH (11:29)
[2019-11-13 11:40] LABS: Glucose 302 mg/dL (83-110)
[2019-11-13] MEDS: Piperacillin/Tazobactam 2.25 GM in Sodium Chloride 0.9% 100 ML IVPB SCH ×2 (11:44→17:34)
[2019-11-13] MEDS: Norepinephrine 8 MG/0.9% NS 250 ML IVPB SCH (11:54)
--- NOTE | 2019-11-13 11:59 | PRG ---
DATE OF SERVICE: 11/13/2019 SUBJECTIVE: Mr. Blount is sedated for ventilation. OBJECTIVE: VITAL SIGNS: Heart rates in the 60s, blood pressure 112/44. He is afebrile. Oximetry is 100%. LUNGS: Clear anteriorly. HEART: Regular rhythm. ABDOMEN: Soft and nontender. EXTREMITIES: Without edema. LABORATORY DATA: White count 19.7, hemoglobin 10.1, platelets 258. Sodium 138, potassium 2.8, chloride 103, bicarb 21, BUN 40, creatinine 2.52. Glucose is trending downwards in an appropriate rate. Blood gas shows pH 7.58, CO2 of 23, pO2 of 156. Ventilatory rate was decreased. Bicarb drip has been discontinued. Potassium phosphates ordered for replacement of potassium and phosphorus. With his declining renal function, I am hesitant to wean and extubate him today, so we will re-assess in the morning. CRITICAL CARE TIME: 30 minutes. Job ID: [id number] MTDD
[2019-11-13 12:08] LABS: SARS-CoV-2 MS2 Positive; SARS-CoV-2 N Gene Negative; SARS-CoV-2 S Gene Negative; SARS-CoV-2 by NAA Not Detected (NotDetected); SARS-CoV-2 orf1ab Negative
[2019-11-13 13:34] LABS: Glucose 229 mg/dL (83-110)
[2019-11-13] MEDS ORDERED: Dextrose 5 %-0.45 % NaCl 1,000 ML IV SCH (14:30)
[2019-11-13 15:12] LABS: Glucose 129 mg/dL (83-110)
[2019-11-13 17:38] LABS: Glucose 141 mg/dL (83-110)
--- NOTE | 2019-11-13 17:54 | PDOC.HOSPP ---
- Subjective Encounter Date: 11/13/19 Encounter Time: 10:00 Subjective: Seen for follow-up regarding diabetic ketoacidosis. Patient is intubated, unable to complete review of systems. - Objective Vital Signs & Weight: Vital Signs (12 hours) Temp Pulse Resp Pulse Ox 11/13/19 17:48 16 11/13/19 16:00 97.9 F 11/13/19 15:56 16 11/13/19 15:42 65 11/13/19 13:56 16 11/13/19 13:36 65 11/13/19 12:00 16 11/13/19 10:00 16 11/13/19 09:56 63 11/13/19 08:00 16 100 11/13/19 06:52 85 11/13/19 06:00 27 H Weight Admit Weight 171 lb Weight 171 lb 15.369 oz Most Recent Monitor Data Heart Rate from ECG 62 NIBP 132/50 NIBP BP-Mean 77 Respiration from ECG 0 SpO2 100 I&O: 11/12/19 11/13/19 11/14/19 06:59 06:59 06:59 Intake Total 4468.8 2229.9 Output Total 1010 253 Balance 3458.8 1976.9 Result Diagrams: 11/13/19 03:00 11/13/19 17:04 Additional Labs: Accuchecks 11/13/19 11/13/19 11/13/19 17:17 16:11 15:33 POC Glucose 129 H 100 99 11/13/19 11/13/19 11/13/19 05:49 04:26 04:26 POC Glucose 448 H 473 H 452 H 11/13/19 11/13/19 04:17 03:13 POC Glucose 451 H 475 H I reviewed patient's labs and MAR EKG Reviewed by me: Yes (Telemetry: Normal sinus rhythm) Hospitalist ROS - Review of Systems ROS unobtainable: due to endotracheal tube - Medication Medications: Active Medications Generic Name Dose Route Start Last Admin Trade Name Freq PRN Reason Stop Dose Admin Albumin Human 25 gm 11/13/19 09:00 11/13/19 14:47 Albumin 25% 25 Gm/100 Ml Bot IVPB 11/14/19 03:01 25 gm 0300,0900,1500,2100 PINA Administration Albuterol/Ipratropium 3 ml 11/13/19 10:30 11/13/19 14:19 Ipratropium/Albuterol Sulfate 3 Ml Neb NEB 3 ml [id number] PINA Administration Dutasteride 0.5 mg 11/13/19 09:00 11/13/19 09:15 Dutasteride 0.5 Mg Cap PO 0.5 mg DAILY PINA Administration Enoxaparin Sodium 30 mg 11/13/19 09:00 11/13/19 09:16 Enoxaparin Sodium 30 Mg/0.3 Ml Syringe SC 30 mg 09 PINA Administration Norepinephrine Bitartrate 250 mls @ 0 mls/hr 11/12/19 16:15 11/13/19 11:54 Levophed IVPB 250 mls INF PINA Administration Protocol Titrate Fentanyl Citrate 2,000 mcg/ 100 mls @ 0 mls/hr 11/12/19 18:45 11/13/19 11:29 Sodium Chloride IV 12/12/19 18:45 100 mls INF PINA Administration Protocol Per Protocol Insulin Human Regular 100 101 mls @ 5 mls/hr 11/12/19 19:15 11/13/19 11:58 units/ Sodium Chloride IVPB 101 mls INF PINA Administration Piperacillin Sod/Tazobactam 100 mls @ 200 mls/hr 11/13/19 12:00 11/13/19 17:34 Sod 2.25 gm/ Sodium Chloride IVPB 100 mls Q6HR PINA Administration Dextrose/Sodium Chloride 1,000 mls @ 150 mls/hr 11/13/19 14:30 11/13/19 14:47 D5 1/2 Ns IV 1,000 mls .[id number] PINA Administration Levothyroxine Sodium 25 mcg 11/13/19 06:00 11/13/19 05:28 Levothyroxine Sodium 25 Mcg Tab PO 25 mcg 0600 PINA Administration Lorazepam 2 mg 11/12/19 18:45 11/13/19 10:26 Lorazepam 2 Mg/Ml Vial SLOW IVP 12/12/19 18:45 2 mg Q1H PRN Administration Breakthrough agitation Terazosin HCl 10 mg 11/13/19 09:00 11/13/19 09:16 Terazosin Hcl 5 Mg Cap PO 10 mg QAM PINA Administration - Exam General - other findings: Intubated Eye: anicteric sclera ENT: normocephalic atraumatic Neck - other findings: Endotracheal tube Heart: RRR Respiratory: CTAB Gastrointestinal: soft, non-tender Extremities: no cyanosis Skin: no rashes Neurological - other findings: Unable to assess Psychiatric - other findings: Unable to assess Hosp A/P (1) DKA (diabetic ketoacidoses) Code(s): E11.10 - TYPE 2 DIABETES MELLITUS WITH KETOACIDOSIS WITHOUT COMA Status: Acute (2) Septic shock Code(s): A41.9 - SEPSIS, UNSPECIFIED ORGANISM; R65.21 - SEVERE SEPSIS WITH SEPTIC SHOCK Status: Acute (3) SARIAH (acute kidney injury) Code(s): N17.9 - ACUTE KIDNEY FAILURE, UNSPECIFIED Status: Acute (4) Hyponatremia Code(s): E87.1 - HYPO-OSMOLALITY AND HYPONATREMIA Status: Acute (5) Metabolic acidosis Code(s): E87.2 - ACIDOSIS Status: Acute (6) Lactic acidosis Code(s): E87.2 - ACIDOSIS Status: Acute (7) Vomiting and diarrhea Code(s): R11.10 - VOMITING, UNSPECIFIED; R19.7 - DIARRHEA, UNSPECIFIED Status: Acute (8) HTN (hypertension) Code(s): I10 - ESSENTIAL (PRIMARY) HYPERTENSION Status: Chronic (9) Hypothyroidism Code(s): E03.9 - HYPOTHYROIDISM, UNSPECIFIED Status: Chronic - Plan DKA is improving. Continue IV vancomycin and Zosyn, follow cultures. Creatinine improved slightly. Electrolyte replacement protocol. Patient is intubated and mechanically ventilated, currently in CCU.
[2019-11-13 18:31] LABS: Anion Gap 14 mmol/L (10-20); BUN (Urea Nitrogen) 39 mg/dL (8.4-25.7); Calc. Creatinine Clearance 25 mL/min (70-130); Calcium 7.6 mg/dL (7.8-10.44); Carbon Dioxide 22 mmol/L (23-31); Chloride 104 mmol/L (98-107); Estimated GFR-MDRD 26; Glucose 176 mg/dL (83-110); Potassium 3.3 mmol/L (3.5-5.1); Sodium 137 mmol/L (136-145)
[2019-11-13] MEDS ORDERED: Sodium Chloride 77 MEQ in Dextrose 10% in Water 1,000 ML IV SCH ×2 (18:45→19:00)
[2019-11-13 19:28] LABS: Glucose 212 mg/dL (83-110)
[2019-11-13 21:10] LABS: Glucose 237 mg/dL (83-110)
[2019-11-13 22:46] LABS: Glucose 254 mg/dL (83-110)
--- NOTE | 2019-11-14 | CON ---
DATE OF CONSULTATION: 11/13/2019 HISTORY OF PRESENT ILLNESS: Mr. Blount is an 84-year-old white male, who was admitted for sepsis and currently we are being consulted for his acute kidney injury. The patient initially presented with persistent nausea and vomiting. Workup suggested he may have been septic. He was also found to be in a ? of DKA. He was also severely acidemic. For that reason, he has received bicarbonate therapy. He was also given volume repletion. During the course of the treatment, he developed pulmonary edema. He was subsequently intubated due to the acute respiratory failure. 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 REVIEW OF SYSTEMS: Not obtainable since the patient is intubated and on ventilator. PAST MEDICAL HISTORY: 1. Hypertension. 2. Glaucoma. 3. BPH. 4. Type 2 DM. 5. 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 The patient recently received immunotherapy for his underlying ureteral cancer. 6. History of decreased hearing. PAST SURGICAL HISTORY: 1. Status post multiple cystoscopy, status post appendectomy, status post TURBT, status post ureteroscopy. 2. Status post colonoscopy. FAMILY HISTORY: No family history of ESRD. SOCIAL HISTORY: The patient lives in [place]. He lives alone. He has 3 children. He is a . He smoked for 5 years one pack a day. He is a . 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 Education, high school. Alcohol, none. No IV drug abuse. ALLERGIES: SULFA. TRAUMA: Status post toe fracture, status post left humeral fracture, and status post right kneecap fracture. IMMUNIZATION: Up-to-date. HOSPITALIZATIONS: Please see past medical history. PHYSICAL EXAMINATION: VITAL SIGNS: Blood pressure is noted at 125/47, heart rate 63, and O2 saturation 100%. GENERAL: The patient is sedated, intubated, on ventilator support. HEENT: Pinkish conjunctivae. Anicteric sclerae. NECK: No neck mass. No carotid bruits. No JVD. CHEST: No deformities. LUNGS: Decreased breath sounds. HEART: Normal sinus rhythm. No murmurs, gallops, or rubs. ABDOMEN: Globular, soft, nontender, no masses. EXTREMITIES: No edema. No deformities. NEUROLOGICAL: The patient is sedated. MEDICATIONS: Medications of November 13, 2019; 1. Albumin 25 g IV q.6. 2. He is currently on D5 half-normal saline at 150 mL/h. 3. Avodart 0.5 mg p.o. daily. 4. Lovenox 30 mg subcu daily. 5. Fentanyl IV as directed. 6. Insulin drip. 7. Levothyroxine 25 mcg daily. 8. Norepinephrine IV drip as directed. 9. Zosyn 2.25 g IV q.6 hours. 10. Propofol drip as directed. 11. Terazosin 10 mg q.a.m. LABORATORY DATA: November 13, 2019; white count 19.7 and hemoglobin 10.1. Sodium 128, potassium 2.8, chloride 103, carbon dioxide 21, BUN 40, creatinine 2.52, glucose 361, and calcium 7.7. November 12, 2019; creatinine 2.56. August 15, 2019; creatinine 1.07. Urinalysis of November 12, 2019, shows a urine that is turbid. Urine glucose more than 1000, protein is 100, rbc is 7 to 10, and wbc greater than 50. CT of the abdomen and pelvis, November 12, 2019, showed right double-J ureteral stent without hydronephrosis, healing right anterior lateral 7th to 9th rib fracture, colonic diverticulosis. There is no hydronephrosis. ASSESSMENT AND PLAN: 1. Acute kidney injury-consider hemodynamically-mediated renal dysfunction. Currently hemodynamics is being optimized. The patient receiving IV fluid-crystalloids and colloids. The urine sediment does not show any overt acute tubular necrosis. Although, this possibility may still be that the elevated renal dysfunction is prerenal in etiology. There is no indication for any dialytic intervention with this patient. The case was discussed at length with the patient's daughter. 2. Sepsis, on IV antibiotics. 3. Acute respiratory failure, currently intubated on ventilator support. I agree with current management. Please note, the patient's prognosis remains guarded. Job ID: [id number]
[2019-11-14] MEDS: Piperacillin/Tazobactam 2.25 GM in Sodium Chloride 0.9% 100 ML IVPB SCH ×4 (00:11→18:05)
[2019-11-14] MEDS: fentaNYL Citrate/PF 2,000 MCG in Sodium Chloride 0.9% 60 ML IV SCH (01:03)
[2019-11-14] MEDS: Lorazepam 2 MG/ML VIAL SLOW IVP PRN (03:18)
[2019-11-14] MEDS: Albumin 25% 25 GM/100 ML BOT IVPB SCH (03:18)
[2019-11-14 05:04] LABS: Band 16 % (5-11); Hemoglobin 9.1 g/dL (14.0-18.0); Lymphocytes 15 % (21-51); MDiff Complete? YES; Mean Corpuscular HGB CONC 35.4 g/dL (32.0-36.0); Mean Corpuscular Hemoglobin 33.4 pg (27.0-31.0); Mean Corpuscular Volume 94.3 fL (78.0-98.0); Mean Platelet Volume 8.1 fL (7.4-10.4); Monocytes 2 % (0-10); Neutrophil 67 % (42-75); Platelet Count 157 thou/uL (130-400); Platelet Morphology Comment Appears Adequate; RBC Distribution Width 11.7 % (11.5-14.5); Red Blood Cell (RBC) Count 2.72 mill/uL (4.70-6.10); White Blood Cell (WBC) Count 8.3 thou/uL (4.8-10.8)
[2019-11-14 05:05] LABS: Anion Gap 14 mmol/L (10-20); BUN (Urea Nitrogen) 32 mg/dL (8.4-25.7); Calc. Creatinine Clearance 28 mL/min (70-130); Calcium 7.7 mg/dL (7.8-10.44); Carbon Dioxide 23 mmol/L (23-31); Chloride 104 mmol/L (98-107); Estimated GFR-MDRD 30; Glucose 330 mg/dL (83-110); Sodium 138 mmol/L (136-145)
[2019-11-14] MEDS: Levothyroxine Sodium 25 MCG TAB PO SCH (06:02)
[2019-11-14 07:03] LABS: Actual Bicarbonate (HCO3a) 22.4 mEq/L (22-28); Base Excess (BEa) -1.7 mEq/L (-2.0 to +3.0); CO2 Tension 35.2 mmHg (35.0-45.0); Calcium, Ionized (arterial) 1.05 mmol/L (1.12-1.30); Carboxyhemoglobin (COHb) 0.3 gm% (0.0-3.0); Hemoglobin (Hb) 9.6 g/dL (14.0-18.0); O2 Tension (PaO2), arterial 80.5 mmHg (> 60.0); Potassium - ABG Lab 3.02 mmol/L (3.70-5.30); pH, Arterial 7.42 (7.35-7.45)
[2019-11-14 07:09] LABS: Puncture Site RRAD
--- NOTE | 2019-11-14 07:52 | RAD ---
Chest AP view INDICATION: Intubation COMPARISON: November 13, 2019 FINDINGS: Lungs: There is persistent bilateral airspace disease in the lung bases Cardiac silhouette: The cardiomediastinal silhouette appears within normal limits. Pulmonary vasculature: Normal Pleural spaces: No pleural effusion or pneumothorax is demonstrated. Upper abdomen: No abnormality seen. Osseous structures: No acute osseous abnormality. Additional findings: ET tube and gastric catheter unchanged. IMPRESSION: Persistent bibasilar airspace disease. ET tube and gastric catheter unchanged. No pneumothorax.
[2019-11-14] MEDS ORDERED: Potassium Chloride 40 MEQ in Premix Bag 1 BAG IVPB SCH (08:45)
[2019-11-14] MEDS: Enoxaparin Sodium 30 MG/0.3 ML SYRINGE SC SCH (08:54)
[2019-11-14] MEDS: Terazosin HCl 5 MG CAP PO SCH (08:54)
[2019-11-14] MEDS: Dutasteride 0.5 MG CAP PO SCH (08:54)
--- NOTE | 2019-11-14 09:19 | PRG ---
DATE OF SERVICE: 11/14/2019 SUBJECTIVE: Mr. Blount is an 84-year-old white male, being followed up by the renal service for his acute kidney injury. He was initially admitted for generalized weakness and was diagnosed to have DKA as well as sepsis. He was initially volume repleted due to possible prerenal azotemia. He developed volume overload with this. He was subsequently intubated and placed on ventilator support. He is currently being optimized on his hemodynamics. He did receive albumin infusion yesterday. We feel that the patient's acute kidney injury may be all hemodynamically-mediated renal dysfunction. No acute events noted last night. OBJECTIVE: VITAL SIGNS: Blood pressure is currently noted at 135/58, heart rate 101, respiratory rate 14, and O2 saturation 97%. GENERAL: The patient is sedated, intubated on ventilator support. SKIN: Adequate turgor. HEENT: He has slightly pale conjunctivae. Anicteric sclerae. NECK: No neck mass. No carotid bruits. No JVD. CHEST: No deformities. LUNGS: Decreased breath sounds. HEART: Normal sinus rhythm. No murmur. No gallops. No rubs. ABDOMEN: Globular, soft, and nontender. No masses. EXTREMITIES: No edema. No deformities. MEDICATIONS: Medications of 11/14/2019 were reviewed. LABORATORY DATA: On 11/14/2019: White count 8.3, hemoglobin 9.1, and hematocrit 25.6. Sodium 138, potassium 3, chloride 104, carbon dioxide 23, BUN 32, creatinine 2.13, GFR 30 mL/minute, and calcium 7.7. Repeat urinalysis of 11/14/2019 is pending. On 11/14/2019, chest x-ray shows persistent bilateral airspace disease in lung bases. No pleural effusion noted. Pulmonary vasculature is noted to be within normal. ASSESSMENT AND PLAN: 1. Acute kidney injury, consider hemodynamically-mediated renal dysfunction. Much improved with crystalloid and colloid infusion. There is no indication for any dialytic intervention. Creatinine is actually slowly improving. Urine sediment previously was relatively benign. We will recheck another urinalysis today to rule out superimposed acute tubular necrosis. 2. Acute respiratory failure, stable, currently intubated on ventilator support. 3. Diabetic ketoacidosis, currently on insulin drip. 4. Sepsis, on IV antibiotics. Recheck CBC and basic metabolic in a.m. Job ID: [id number]
[2019-11-14] MEDS ORDERED: Dextrose 5% in Water 1,000 ML IV PRN (09:30)
[2019-11-14] MEDS: Sodium Chloride 0.45% 1,000 ML IV SCH (09:38)
[2019-11-14] MEDS: Insulin Glargine 20 UNITS in Pre-Filled Syringe 1 EACH SC SCH (11:30)
[2019-11-14] MEDS: Insulin Regular 300 UNITS/3 ML VIAL SC PRN ×2 (12:27→18:06)
--- NOTE | 2019-11-14 17:56 | PDOC.HOSPP ---
- Subjective Encounter Date: 11/14/19 Encounter Time: 17:55 Subjective: Patient seen for follow-up regarding sepsis. He is currently intubated, could not complete review of systems. - Objective Vital Signs & Weight: Vital Signs (12 hours) Temp Pulse Resp Pulse Ox 11/14/19 16:00 99.2 F 16 11/14/19 15:45 89 11/14/19 15:44 91 19 95 11/14/19 14:00 15 11/14/19 12:00 100.0 F H 11/14/19 11:52 95 11/14/19 11:49 14 11/14/19 10:13 106 H 17 95 11/14/19 10:00 16 11/14/19 09:00 100.8 F H 11/14/19 08:00 100.1 F H 11/14/19 07:57 98 11/14/19 07:46 16 11/14/19 07:11 69 16 100 11/14/19 07:09 69 11/14/19 06:00 16 Weight Admit Weight 171 lb Weight 175 lb 4.28 oz Most Recent Monitor Data Heart Rate from ECG 78 NIBP 132/62 NIBP BP-Mean 85 Respiration from ECG 13 SpO2 96 I&O: 11/13/19 11/14/19 11/15/19 06:59 06:59 06:59 Intake Total 4468.8 4677.1 522.7 Output Total 1010 929 465 Balance 3458.8 3748.1 57.7 Result Diagrams: 11/14/19 04:15 11/14/19 04:15 Additional Labs: Accuchecks 11/14/19 11/14/19 11/14/19 17:45 12:15 09:08 POC Glucose 257 H 299 H 256 H 11/14/19 11/14/19 11/14/19 08:31 07:34 06:11 POC Glucose 296 H 319 H 328 H 11/14/19 11/14/19 11/14/19 05:14 04:18 03:21 POC Glucose 322 H 332 H 254 H 11/14/19 11/14/19 11/14/19 02:12 01:11 00:16 POC Glucose 281 H 258 H 277 H 11/12/19 11/12/19 11/12/19 22:19 20:58 19:27 POC Glucose Greater than 500 H Greater than 500 H Greater than 500 H 11/12/19 18:01 POC Glucose Greater than 500 H I reviewed patient's labs and MAR EKG Reviewed by me: Yes (Telemetry: Normal sinus rhythm) Hospitalist ROS - Review of Systems ROS unobtainable: due to endotracheal tube - Medication Medications: Active Medications Generic Name Dose Route Start Last Admin Trade Name Freq PRN Reason Stop Dose Admin Albuterol/Ipratropium 3 ml 11/13/19 10:30 11/14/19 15:44 Ipratropium/Albuterol Sulfate 3 Ml Neb NEB 3 ml [id number] PINA Administration Dutasteride 0.5 mg 11/13/19 09:00 11/14/19 08:54 Dutasteride 0.5 Mg Cap PO 0.5 mg DAILY PINA Administration Enoxaparin Sodium 30 mg 11/13/19 09:00 11/14/19 08:54 Enoxaparin Sodium 30 Mg/0.3 Ml Syringe SC 30 mg 0900 PINA Administration Norepinephrine Bitartrate 250 mls @ 0 mls/hr 11/12/19 16:15 11/13/19 11:54 Levophed IVPB 250 mls INF PINA Administration Protocol Titrate Piperacillin Sod/Tazobactam 100 mls @ 200 mls/hr 11/13/19 12:00 11/14/19 11:44 Sod 2.25 gm/ Sodium Chloride IVPB 100 mls Q6HR PINA Administration Sodium Chloride 1,000 mls @ 75 mls/hr 11/14/19 09:30 11/14/19 09:38 1/2 Normal Saline IV 1,000 mls .[id number] PINA Administration Insulin Glargine 20 units/ 0.2 mls @ 0 mls/hr 11/14/19 09:00 11/14/19 11:30 Miscellaneous Medication SC 0.2 mls QAM PINA Administration Dexmedetomidine HCl 400 mcg/ 100 mls @ 0 mls/hr 11/14/19 10:45 11/14/19 10:49 Sodium Chloride IVPB 100 mls INF PINA Administration Protocol Per Protocol Insulin Human Regular 0 units 11/14/19 09:30 11/14/19 12:27 Insulin Regular 300 Units/3 Ml Vial SC 6 unit .MODERATE SLIDING SC PRN Administration MODERATE SLIDING SCALE Protocol Levothyroxine Sodium 25 mcg 11/13/19 06:00 11/14/19 06:02 Levothyroxine Sodium 25 Mcg Tab PO 25 mcg 0600 PINA Administration Sodium Chloride 10 ml 11/14/19 09:00 11/14/19 09:19 Flush - Normal Saline 10 Ml Syringe IVF 10 ml Q12HR PINA Administration Terazosin HCl 10 mg 11/13/19 09:00 11/14/19 08:54 Terazosin Hcl 5 Mg Cap PO 10 mg QAM PINA Administration - Exam General Appearance: awake alert Eye: anicteric sclera ENT: normocephalic atraumatic Heart: RRR Respiratory: CTAB Gastrointestinal: soft, normal bowel sounds Skin: no rashes Neurological - other findings: Unable to assess Psychiatric - other findings: Unable to assess Hosp A/P (1) Sepsis Code(s): A41.9 - SEPSIS, UNSPECIFIED ORGANISM Status: Acute (2) DKA (diabetic ketoacidoses) Code(s): E11.10 - TYPE 2 DIABETES MELLITUS WITH KETOACIDOSIS WITHOUT COMA Status: Acute (3) SARIAH (acute kidney injury) Code(s): N17.9 - ACUTE KIDNEY FAILURE, UNSPECIFIED Status: Acute (4) HTN (hypertension) Code(s): I10 - ESSENTIAL (PRIMARY) HYPERTENSION Status: Chronic (5) Hypothyroidism Code(s): E03.9 - HYPOTHYROIDISM, UNSPECIFIED Status: Chronic (6) Hyponatremia Code(s): E87.1 - HYPO-OSMOLALITY AND HYPONATREMIA Status: Resolved (7) Metabolic acidosis Code(s): E87.2 - ACIDOSIS Status: Resolved (8) Vomiting and diarrhea Code(s): R11.10 - VOMITING, UNSPECIFIED; R19.7 - DIARRHEA, UNSPECIFIED Status: Resolved - Plan DKA is improving. Continue Zosyn, cultures negative so far. Creatinine improved to 2.13. Electrolyte replacement protocol. Patient is intubated and mechanically ventilated, currently in CCU. Pulmonary and critical care medicine and nephrology following. TSH is low but free T4 is normal.
--- NOTE | 2019-11-14 21:01 | PRG ---
DATE OF SERVICE: 11/14/2019 SUBJECTIVE: Mr. Blount did well overnight. We tried to wean him today, but he would become agitated, tachypneic, and tachycardic. We switched him to Precedex for sedation and he has basically been on a spontaneous breathing trial all day with 10 of pressure support, 5 of PEEP, and done well. His minute ventilation is 7 to 8 L a minute. OBJECTIVE: LUNGS: Unchanged. HEART: Unchanged. ABDOMEN: Unchanged. He is started on Lantus insulin and his drip was stopped this morning. LABORATORY DATA: White count is 8.3, hemoglobin 9.1, platelets 157. Glucoses have been in the mid 200s today. PH this morning is 7.42, pCO2 of 35, pO2 of 80. IMPRESSION: 1. Status post immunotherapy for bladder cancer. 2. New onset type 1 diabetes, which is extremely unusual in an 84-year-old. 3. Acute renal insufficiency with improved renal function. He may have an increase in interstitial markings in his lung bases, but we will repeat a chest x-ray in the morning. Hopefully, we can consider weaning and extubation tomorrow. His acid-base disorders resolved and his diabetes is at least reasonably controlled. Now explained to his daughter that him running highish blood sugar is better than running extremely low blood sugars at 84 years of age. CRITICAL CARE TIME: 30 minutes. Job ID: [id number]
[2019-11-14] MEDS: Morphine 2 MG/ML VIAL SLOW IVP PRN (21:53)
[2019-11-15] MEDS: Piperacillin/Tazobactam 2.25 GM in Sodium Chloride 0.9% 100 ML IVPB SCH ×4 (00:18→18:37)
[2019-11-15] MEDS: Sodium Chloride 0.45% 1,000 ML IV SCH ×2 (01:01→17:41)
[2019-11-15] MEDS: Morphine 2 MG/ML VIAL SLOW IVP PRN (04:47)
[2019-11-15] MEDS: Levothyroxine Sodium 25 MCG TAB PO SCH (04:59)
[2019-11-15 05:08] LABS: Anion Gap 14 mmol/L (10-20); BUN (Urea Nitrogen) 21 mg/dL (8.4-25.7); Calc. Creatinine Clearance 40 mL/min (70-130); Calcium 7.7 mg/dL (7.8-10.44); Carbon Dioxide 22 mmol/L (23-31); Chloride 105 mmol/L (98-107); Estimated GFR-MDRD 44; Glucose 244 mg/dL (83-110); Potassium 3.5 mmol/L (3.5-5.1); Sodium 137 mmol/L (136-145)
[2019-11-15 05:16] LABS: Band 15 % (5-11); Hemoglobin 9.7 g/dL (14.0-18.0); Lymphocytes 13 % (21-51); MDiff Complete? YES; Mean Corpuscular HGB CONC 33.6 g/dL (32.0-36.0); Mean Corpuscular Hemoglobin 32.2 pg (27.0-31.0); Mean Corpuscular Volume 95.8 fL (78.0-98.0); Mean Platelet Volume 8.3 fL (7.4-10.4); Monocytes 3 % (0-10); Neutrophil 69 % (42-75); Platelet Count 136 thou/uL (130-400); RBC Distribution Width 11.7 % (11.5-14.5); Red Blood Cell (RBC) Count 3.02 mill/uL (4.70-6.10); White Blood Cell (WBC) Count 7.1 thou/uL (4.8-10.8)
[2019-11-15] MEDS: Insulin Regular 300 UNITS/3 ML VIAL SC PRN ×2 (05:22→11:49)
[2019-11-15 07:24] LABS: Actual Bicarbonate (HCO3a) 22.8 mEq/L (22-28); Base Excess (BEa) -1.1 mEq/L (-2.0 to +3.0); CO2 Tension 35.3 mmHg (35.0-45.0); Calcium, Ionized (arterial) 1.09 mmol/L (1.12-1.30); Carboxyhemoglobin (COHb) 0.3 gm% (0.0-3.0); Hemoglobin (Hb) 11.5 g/dL (14.0-18.0); O2 Tension (PaO2), arterial 73.5 mmHg (> 60.0); Potassium - ABG Lab 3.68 mmol/L (3.70-5.30); pH, Arterial 7.43 (7.35-7.45)
[2019-11-15 07:46] LABS: ALV-art Gradient 131.925 mmHg (0-20); Puncture Site RRAD
[2019-11-15] MEDS: Enoxaparin Sodium 30 MG/0.3 ML SYRINGE SC SCH (08:05)
[2019-11-15] MEDS: Insulin Glargine 20 UNITS in Pre-Filled Syringe 1 EACH SC SCH (08:05)
[2019-11-15] MEDS: Terazosin HCl 5 MG CAP PO SCH (08:05)
[2019-11-15] MEDS: Dutasteride 0.5 MG CAP PO SCH (08:05)
--- NOTE | 2019-11-15 12:10 | PRG ---
DATE OF SERVICE: 11/15/2019 SERVICE: Renal Medicine. SUBJECTIVE: Mr. Blount is an 84-year-old white male who was initially admitted for hypotension, DKA, and sepsis. We are following up this patient for his acute kidney injury. Initially, we felt that acute kidney injury was from a hemodynamically-mediated renal dysfunction. He has been given fluid- crystalloids and colloids. There is an improvement of the renal function with a creatinine now noted at 1.51. Please note that the patient's creatinine initially was as high as 2.75. He is tolerating current IV hydration. He is also diuresing about 50 mL/hour. He has also been extubated. OBJECTIVE: VITAL SIGNS: Blood pressure 148/81, heart rate 86, respiratory rate 17, and O2 saturation 100%. GENERAL: The patient is sleepy, but arousable, not in distress. SKIN: Adequate turgor. HEENT: Pinkish conjunctivae. Anicteric sclerae. NECK: No neck mass. No carotid bruits. No JVD. CHEST: No deformities. LUNGS: Decreased breath sounds. HEART: Normal sinus rhythm. No murmur. No gallops. No rubs. ABDOMEN: Globular, soft, nontender. No masses. EXTREMITIES: No edema. MEDICATIONS: Of November 15, 2019, were reviewed. LABORATORY DATA: Laboratories of November 15, 2019; white count 7.1, hemoglobin 9.7. Sodium 137, potassium 3.5, chloride 105, carbon dioxide 22, BUN 21, creatinine 1.51, and calcium 7.7. ASSESSMENT AND PLAN: 1. Acute kidney injury - hemodynamically-mediated renal dysfunction. Much improved with hydration-crystalloids and colloids. Creatinine now noted at 1.51 with a GFR of 44 mL/minute. There is no indication for any dialytic intervention. With this patient, continue supportive care. 2. Acute respiratory failure, resolved. The patient currently off ventilator. 3. Recheck CBC and basic metabolic profile in a.m. Job ID: [id number] [facility]
--- NOTE | 2019-11-15 14:26 | PRG ---
DATE OF SERVICE: 11/15/2019 SUBJECTIVE: Carroll Blount did well overnight. Sedation was minimal Precedex. This morning he was awake and follow commands. He met criteria for extubation after a long spontaneous breathing trial basically all night yesterday. OBJECTIVE: LUNGS: Clear. HEART: Regular rhythm. ABDOMEN: Soft. EXTREMITIES: Without asymmetry or edema. LABORATORY DATA: White count 7.1, hemoglobin 9.7, platelets 136. Sodium 137, potassium 3.5, chloride 105, bicarb 22, BUN 21, creatinine 1.51. Cultures were negative except for yeast from urine culture, which I suspect is yeast contaminant versus yeast colonization. Once his Lynn comes out, he could be given Diflucan for a few days and that should take care of this. I felt he was a candidate for extubation. This has been done successfully. We turned off his Precedex once he was extubated. Hopefully tomorrow, we can transfer him out of Critical Care. He is on Lantus and insulin plus sliding scale, appears to be stable at this time. I suspect he was just intravascularly dry and acidemic and diabetic ketoacidosis. No clear infectious cause has been identified at this point. Critical care time was 30 min. Job ID: [id number] [facility]
--- NOTE | 2019-11-15 17:59 | PDOC.HOSPP ---
- Subjective Encounter Date: 11/15/19 Encounter Time: 15:30 Subjective: Patient seen and examined for respiratory failure with diabetic ketoacidosis. Extubated today. Denies any nausea, fever or abdominal pain. - Objective Vital Signs & Weight: Vital Signs (12 hours) Temp Pulse Resp Pulse Ox 11/15/19 16:00 98.8 F 98 11/15/19 14:50 94 21 H 98 11/15/19 12:00 98.4 F 99 11/15/19 10:06 81 17 100 11/15/19 08:00 98 11/15/19 07:59 14 11/15/19 07:44 74 11/15/19 07:43 81 15 99 11/15/19 06:00 18 Weight Admit Weight 171 lb Weight 183 lb 3.266 oz Most Recent Monitor Data Heart Rate from ECG 108 NIBP 149/76 NIBP BP-Mean 100 Respiration from ECG 24 SpO2 98 I&O: 11/14/19 11/15/19 11/16/19 06:59 06:59 06:59 Intake Total 4677.1 2221.5 122.2 Output Total 929 1078 640 Balance 3748.1 1143.5 -517.8 Result Diagrams: 11/15/19 04:35 11/15/19 04:35 Additional Labs: Accuchecks 11/15/19 11/15/19 11/15/19 16:23 11:51 08:14 POC Glucose 76 155 H 222 H 11/15/19 11/14/19 00:22 20:53 POC Glucose 151 H 195 H EKG Reviewed by me: Yes (Sinus rhythm on telemetry) Hospitalist ROS - Review of Systems Respiratory: denies: cough, dry, shortness of breath, hemoptysis, SOB with excertion, pleuritic pain, sputum, wheezing, other Cardiovascular: denies: chest pain, palpitations, orthopnea, paroxysmal noc. dyspnea, edema, light headedness, other - Medication Medications: Active Medications Generic Name Dose Route Start Last Admin Trade Name Freq PRN Reason Stop Dose Admin Albuterol/Ipratropium 3 ml 11/13/19 10:30 11/15/19 14:50 Ipratropium/Albuterol Sulfate 3 Ml Neb NEB 3 ml [id number] PINA Administration Dutasteride 0.5 mg 11/13/19 09:00 11/15/19 08:05 Dutasteride 0.5 Mg Cap PO 0.5 mg DAILY PINA Administration Enoxaparin Sodium 30 mg 11/13/19 09:00 11/15/19 08:05 Enoxaparin Sodium 30 Mg/0.3 Ml Syringe SC 30 mg 0900 PINA Administration Norepinephrine Bitartrate 250 mls @ 0 mls/hr 11/12/19 16:15 11/13/19 11:54 Levophed IVPB 250 mls INF PINA Administration Protocol Titrate Piperacillin Sod/Tazobactam 100 mls @ 200 mls/hr 11/13/19 12:00 11/15/19 11:48 Sod 2.25 gm/ Sodium Chloride IVPB 100 mls Q6HR PINA Administration Sodium Chloride 1,000 mls @ 75 mls/hr 11/14/19 09:30 11/15/19 17:41 1/2 Normal Saline IV 1,000 mls .[id number] PINA Administration Insulin Glargine 20 units/ 0.2 mls @ 0 mls/hr 11/14/19 09:00 11/15/19 08:05 Miscellaneous Medication SC 0.2 mls QAM PINA Administration Dexmedetomidine HCl 400 mcg/ 100 mls @ 0 mls/hr 11/14/19 10:45 11/15/19 03:23 Sodium Chloride IVPB 100 mls INF PINA Administration Protocol Per Protocol Levothyroxine Sodium 25 mcg 11/13/19 06:00 11/15/19 04:59 Levothyroxine Sodium 25 Mcg Tab PO 25 mcg 0600 PINA Administration Morphine Sulfate 2 mg 11/12/19 18:45 11/15/19 04:47 Morphine 2 Mg/Ml Vial SLOW IVP 12/12/19 18:45 2 mg Q1H PRN Administration Breakthrough Pain/Agitation Sodium Chloride 10 ml 11/14/19 09:00 11/15/19 08:36 Flush - Normal Saline 10 Ml Syringe IVF 10 ml Q12HR PINA Administration Terazosin HCl 10 mg 11/13/19 09:00 11/15/19 08:05 Terazosin Hcl 5 Mg Cap PO 10 mg QAM PINA Administration - Exam General Appearance: ill appearing Neck: supple, no JVD Heart: RRR, no gallops Respiratory: no wheezes, rhonchi Gastrointestinal: soft, non-tender, normal bowel sounds Extremities: no cyanosis Neurological: no new deficit Hosp A/P (1) SARIAH (acute kidney injury) Code(s): N17.9 - ACUTE KIDNEY FAILURE, UNSPECIFIED Status: Acute (2) DKA (diabetic ketoacidoses) Code(s): E11.10 - TYPE 2 DIABETES MELLITUS WITH KETOACIDOSIS WITHOUT COMA Status: Acute (3) Hypovolemic shock Code(s): R57.1 - HYPOVOLEMIC SHOCK Status: Acute (4) Lactic acidosis Code(s): E87.2 - ACIDOSIS Status: Acute (5) Hypothyroidism Code(s): E03.9 - HYPOTHYROIDISM, UNSPECIFIED Status: Chronic (6) Other issues per previous notes - Plan Continue IV fluids. Continue current dose of Lantus with sliding scale. Continue empiric Zosyn. Lynn catheter can probably be DC'd in a.m. due to yeast colonization. Will start fluconazole tomorrow. Consult physical therapy. Speech therapy consulted. Continue DVT prophylaxis. Add Pepcid. Continue other medications as above. Resume eyedrops.
[2019-11-15] MEDS: Dextrose 5 %-0.45 % NaCl 1,000 ML IV SCH (18:33)
[2019-11-15] MEDS: Famotidine 20 MG TAB PO SCH (20:16)
[2019-11-15] MEDS: Docusate 100 MG CAP PO SCH (20:16)
[2019-11-15] MEDS: Dextrose 50% Abboject 50 ML SYRINGE IVP PRN (20:17)
[2019-11-15] MEDS: Latanoprost 0.005% Ophth Soln 2.5 ml Bottle EA EYE SCH (20:21)
[2019-11-16] MEDS: Piperacillin/Tazobactam 2.25 GM in Sodium Chloride 0.9% 100 ML IVPB SCH ×4 (00:15→17:55)
[2019-11-16] MEDS: Insulin Regular 300 UNITS/3 ML VIAL SC PRN ×3 (04:10→15:30)
[2019-11-16 04:55] LABS: Anion Gap 13 mmol/L (10-20); BUN (Urea Nitrogen) 14 mg/dL (8.4-25.7); Calc. Creatinine Clearance 56 mL/min (70-130); Calcium 7.7 mg/dL (7.8-10.44); Carbon Dioxide 22 mmol/L (23-31); Chloride 105 mmol/L (98-107); Estimated GFR-MDRD 59; Glucose 182 mg/dL (83-110); Magnesium 1.4 mg/dL (1.6-2.6); Potassium 3.3 mmol/L (3.5-5.1); Sodium 137 mmol/L (136-145)
[2019-11-16 04:56] LABS: Phosphorus 1.7 mg/dL (2.3-4.7)
[2019-11-16] MEDS: Levothyroxine Sodium 25 MCG TAB PO SCH (05:11)
[2019-11-16] MEDS ORDERED: Potassium Chloride 40 MEQ in Premix Bag 1 BAG IVPB SCH (05:15)
[2019-11-16] MEDS ORDERED: Electrolyte Replacement Protoc 1 EACH EACH FS PRN (05:15)
[2019-11-16 05:31] LABS: Band 18 % (5-11); Hemoglobin 9.7 g/dL (14.0-18.0); Lymphocytes 9 % (21-51); MDiff Complete? YES; Mean Corpuscular HGB CONC 34.1 g/dL (32.0-36.0); Mean Corpuscular Hemoglobin 32.4 pg (27.0-31.0); Mean Platelet Volume 8.5 fL (7.4-10.4); Monocytes 3 % (0-10); Neutrophil 70 % (42-75); Platelet Count 133 thou/uL (130-400); RBC Distribution Width 11.6 % (11.5-14.5); Red Blood Cell (RBC) Count 2.99 mill/uL (4.70-6.10); White Blood Cell (WBC) Count 9.1 thou/uL (4.8-10.8)
[2019-11-16] MEDS ORDERED: Magnesium 2 GM/50 ML 2 GM in Premix Bag 1 BAG IVPB SCH (06:00)
[2019-11-16] MEDS ORDERED: Potassium Phosphate 15 MMOL in Sodium Chloride 0.9% 250 ML 250 ML IVPB SCH (06:15)
[2019-11-16] MEDS: Docusate 100 MG CAP PO SCH ×3 (08:46→20:44)
[2019-11-16] MEDS: Saccharomyces boulardii 250 MG CAP PO SCH ×2 (08:47→10:57)
[2019-11-16] MEDS: Dutasteride 0.5 MG CAP PO SCH ×2 (08:47→10:57)
[2019-11-16] MEDS: Fluconazole 100 MG TAB PO SCH ×2 (08:47→10:57)
[2019-11-16] MEDS: Famotidine 20 MG TAB PO SCH ×3 (08:47→20:44)
[2019-11-16] MEDS: Terazosin HCl 5 MG CAP PO SCH ×2 (08:48→10:57)
[2019-11-16] MEDS: Insulin Glargine 20 UNITS in Pre-Filled Syringe 1 EACH SC SCH (08:56)
[2019-11-16] MEDS: Enoxaparin Sodium 30 MG/0.3 ML SYRINGE SC SCH (08:56)
[2019-11-16] MEDS: Dextrose 5 %-0.45 % NaCl 1,000 ML IV SCH (11:01)
--- NOTE | 2019-11-16 11:37 | PRG ---
DATE OF SERVICE: 11/16/2019 SUBJECTIVE: Mr. Blount is an 84-year-old white male, who was admitted for DKA/sepsis. He was seen by the Renal Service for his acute kidney injury. We felt that this was a hemodynamically-mediated renal dysfunction. The patient received crystalloids and colloids. He has now been extubated. Renal function is much improved. No acute events noted last night. OBJECTIVE: VITAL SIGNS: Blood pressure is 141/81, heart rate is 98, respiratory rate 17, O2 saturation 95%. GENERAL: The patient is awake, can follow simple commands, not in distress. SKIN: Adequate turgor. HEENT: Slightly pale conjunctivae. Anicteric sclerae. NECK: No neck mass. No carotid bruits. No JVD. CHEST: No deformities. LUNGS: Clear breath sounds. No wheezing. No crackles. HEART: Normal sinus rhythm. No murmur. No gallops. No rubs. ABDOMEN: Globular. Soft. Nontender. No masses. EXTREMITIES: No edema. MEDICATIONS: November 16, 2019, was reviewed. LABORATORY DATA: Laboratories of November 16, 2019; white count 9.1, hemoglobin 9.7. Sodium 137, potassium 3.3, chloride 105, carbon dioxide 22, BUN 14, creatinine 1.17, glucose 182, calcium 7.7, magnesium 1.4, phosphorus 1.7. ASSESSMENT AND PLAN: 1. Acute kidney injury - hemodynamically mediated renal dysfunction. Renal function is much improved, is now normal, baseline. This is improved with IV hydration. 2. Mild decreased phosphorus/decreased magnesium level, p.r.n. correction. 3. Status post sepsis - on IV antibiotics. 4. Diabetes ketoacidosis, much improved. 5. Mild hypokalemia, p.r.n. correction. 6. Due to the improved renal function, we will be signing off. Please recall if needed. Job ID: [id number] [facility]
--- NOTE | 2019-11-16 13:05 | EKG ---
Test Reason : STAT Blood Pressure : / mmHG Vent. Rate : 062 BPM Atrial Rate : 062 BPM P-R Int : 160 ms QRS Dur : 132 ms QT Int : 464 ms P-R-T Axes : 034 040 211 degrees QTc Int : 470 ms Normal sinus rhythm Left bundle branch block Abnormal ECG No previous ECGs available Confirmed by GABY GARY MD ([id number]) on 11/16/2019 1:05:05 PM Referred By: LIZ Confirmed By:GABY GARY MD
[2019-11-16] MEDS: Sodium Chloride 0.45% 1,000 ML IV SCH (13:26)
--- NOTE | 2019-11-16 14:44 | PDOC.HOSPP ---
- Subjective Encounter Date: 11/16/19 Encounter Time: 13:30 Subjective: Patient seen and examined for sepsis with DKA. Denies any new complaints. No overnight events. No fever or chills reported. - Objective Vital Signs & Weight: Vital Signs (12 hours) Temp Pulse Resp Pulse Ox 11/16/19 14:19 96 20 100 11/16/19 12:00 97.8 F 11/16/19 10:34 98 17 95 11/16/19 08:00 99.3 F 97 11/16/19 07:05 95 21 H 96 11/16/19 04:00 100.1 F H Weight Admit Weight 171 lb Weight 187 lb 9.814 oz Most Recent Monitor Data Heart Rate from ECG 93 NIBP 126/64 NIBP BP-Mean 84 Respiration from ECG 19 SpO2 97 I&O: 11/15/19 11/16/19 11/17/19 06:59 06:59 06:59 Intake Total 2221.5 2126.2 270 Output Total 1078 1227 240 Balance 1143.5 899.2 30 Result Diagrams: 11/16/19 03:54 11/16/19 03:54 Additional Labs: Accuchecks 11/16/19 11/16/19 11/16/19 11:18 08:03 06:29 POC Glucose 205 H 181 H 144 H 11/16/19 11/16/19 11/15/19 04:12 02:40 22:16 POC Glucose 170 H 158 H 103 H 11/15/19 11/15/19 11/15/19 20:12 18:06 16:23 POC Glucose 65 L 64 L 76 Laboratory Tests 11/16/19 11/16/19 03:54 03:54 Phosphorus 1.7 L Magnesium 1.4 L EKG Reviewed by me: Yes (Sinus rhythm on telemetry) Hospitalist ROS - Review of Systems Respiratory: denies: cough, dry, shortness of breath, hemoptysis, SOB with excertion, pleuritic pain, sputum, wheezing, other Cardiovascular: denies: chest pain, palpitations, orthopnea, paroxysmal noc. dyspnea, edema, light headedness, other - Medication Medications: Active Medications Generic Name Dose Route Start Last Admin Trade Name Freq PRN Reason Stop Dose Admin Albuterol/Ipratropium 3 ml 11/13/19 10:30 11/16/19 14:19 Ipratropium/Albuterol Sulfate 3 Ml Neb NEB 3 ml [id number] PINA Administration Dextrose/Water 25 gm 11/14/19 09:30 11/15/19 20:17 Dextrose 50% Abboject 50 Ml Syringe IVP 25 gm PRN PRN Administration HYPOGLYCEMIA PROTOCOL Docusate Sodium 100 mg 11/15/19 21:00 11/16/19 10:58 Docusate 100 Mg Cap PO 100 mg BID PINA Administration Dutasteride 0.5 mg 11/13/19 09:00 11/16/19 10:57 Dutasteride 0.5 Mg Cap PO 0.5 mg DAILY PINA Administration Enoxaparin Sodium 30 mg 11/13/19 09:00 11/16/19 08:56 Enoxaparin Sodium 30 Mg/0.3 Ml Syringe SC 30 mg 09 PINA Administration Famotidine 20 mg 11/15/19 21:00 11/16/19 10:57 Famotidine 20 Mg Tab PO 20 mg BID PINA Administration Norepinephrine Bitartrate 250 mls @ 0 mls/hr 11/12/19 16:15 11/13/19 11:54 Levophed IVPB 250 mls INF PINA Administration Protocol Titrate Piperacillin Sod/Tazobactam 100 mls @ 200 mls/hr 11/13/19 12:00 11/16/19 12:15 Sod 2.25 gm/ Sodium Chloride IVPB 100 mls Q6HR PINA Administration Sodium Chloride 1,000 mls @ 75 mls/hr 11/14/19 09:30 11/16/19 13:26 1/2 Normal Saline IV 1,000 mls .[id number] PINA Administration Insulin Glargine 20 units/ 0.2 mls @ 0 mls/hr 11/14/19 09:00 11/16/19 08:56 Miscellaneous Medication SC 0.2 mls QAM PINA Administration Dexmedetomidine HCl 400 mcg/ 100 mls @ 0 mls/hr 11/14/19 10:45 11/15/19 03:23 Sodium Chloride IVPB 100 mls INF PINA Administration Protocol Per Protocol Insulin Human Regular 0 units 11/15/19 16:45 11/16/19 11:19 Insulin Regular 300 Units/3 Ml Vial SC 3 units .MILD SLIDING PRN Administration MILD SLIDING SCALE Protocol Latanoprost 1 drop 11/15/19 21:00 11/15/19 20:21 Latanoprost 0.005% Ophth Soln 2.5 Ml Bottle EA EYE 1 drop HS PINA Administration Levothyroxine Sodium 25 mcg 11/13/19 06:00 11/16/19 05:11 Levothyroxine Sodium 25 Mcg Tab PO Not Given 0600 PINA Morphine Sulfate 2 mg 11/12/19 18:45 11/15/19 04:47 Morphine 2 Mg/Ml Vial SLOW IVP 12/12/19 18:45 2 mg Q1H PRN Administration Breakthrough Pain/Agitation Saccharomyces Boulardii 250 mg 11/16/19 09:00 11/16/19 10:57 Saccharomyces Boulardii 250 Mg Cap PO 250 mg DAILY PINA Administration Sodium Chloride 10 ml 11/14/19 09:00 11/16/19 08:56 Flush - Normal Saline 10 Ml Syringe IVF 10 ml Q12HR PINA Administration Terazosin HCl 10 mg 11/13/19 09:00 11/16/19 10:57 Terazosin Hcl 5 Mg Cap PO 10 mg QAM PINA Administration - Exam General Appearance: NAD Neck: supple, no JVD Heart: RRR, no gallops Respiratory: no wheezes, no ronchi Gastrointestinal: soft, non-distended Extremities: no clubbing, no edema Neurological: no new deficit Hosp A/P (1) DKA (diabetic ketoacidoses) Code(s): E11.10 - TYPE 2 DIABETES MELLITUS WITH KETOACIDOSIS WITHOUT COMA Status: Acute (2) SARIAH (acute kidney injury) Code(s): N17.9 - ACUTE KIDNEY FAILURE, UNSPECIFIED Status: Acute (3) Hypovolemic shock Code(s): R57.1 - HYPOVOLEMIC SHOCK Status: Acute (4) Lactic acidosis Code(s): E87.2 - ACIDOSIS Status: Acute (5) Hypothyroidism Code(s): E03.9 - HYPOTHYROIDISM, UNSPECIFIED Status: Chronic (6) Electrolyte abnormality Code(s): E87.8 - OTH DISORDERS OF ELECTROLYTE AND FLUID BALANCE, NEC Status: Acute (7) Swallowing dysfunction Code(s): R13.10 - DYSPHAGIA, UNSPECIFIED Status: Acute (8) Other issues per previous notes - Plan DVT proph w/lovenox, DVT proph w/SCDs 11/15 Start diet per speech therapy recommendation. Change IV fluid to half NS. Continue Lantus with sliding scale. Continue empiric antibiotics. Cultures so far have been negative. Will discontinue Lynn catheter in a.m. Continue physical therapy. Replace electrolytes. A.m. labs. Continue other medications as above. 11/14 Continue IV fluids. Continue current dose of Lantus with sliding scale. Continue empiric Zosyn. Lynn catheter can probably be DC'd in a.m. due to yeast colonization. Will start fluconazole tomorrow. Consult physical therapy. Speech therapy consulted. Continue DVT prophylaxis. Add Pepcid. Continue other medications as above. Resume eyedrops.
--- NOTE | 2019-11-16 15:12 | PRG ---
DATE OF SERVICE: 11/16/2019 SUBJECTIVE: Mr. Blount is still very hard of hearing, so I have to get close to his right ear for him to understand me. He says he is feeling better. His family feels he is a little better. OBJECTIVE: VITAL SIGNS: Heart rates in the 90s, respiratory rate is 20, oximetry is 100%, and Blood pressure 126/64. He is on room air now. LUNGS: Clear. HEART: Regular rhythm. ABDOMEN: Soft. LABORATORY DATA: White count 9.1, hemoglobin 9.7, and platelets 133. Sodium 137, potassium 3.3, chloride 105, bicarb 22, BUN 14, and creatinine 1.17. He did have a drop in blood glucoses yesterday, but he is trending back up with D5W. IMPRESSION: 1. Status post immunotherapy for bladder cancer. 2. Diabetic ketoacidosis, which is unusual for an 84-year-old with no prior history of type 1 diabetes major pancreatic insult. I would wonder if side effect of the immunotherapy, although I will have to discuss this with one of the oncologists here in [facility] that deals with these drugs more often. It probably would be stable to move him out of the Critical Care Unit in the morning. Job ID: [id number]
[2019-11-16] MEDS: Latanoprost 0.005% Ophth Soln 2.5 ml Bottle EA EYE SCH (20:46)
[2019-11-16] MEDS ORDERED: PHOS-NAK 1 PKT PACK PO SCH (21:00)
[2019-11-17] MEDS: Piperacillin/Tazobactam 2.25 GM in Sodium Chloride 0.9% 100 ML IVPB SCH ×5 (00:30→23:16)
[2019-11-17 05:12] LABS: Band 4 % (5-11); Eosinophils 3 % (0-10); Hemoglobin 9.3 g/dL (14.0-18.0); Lymphocytes 11 % (21-51); MDiff Complete? YES; Mean Corpuscular HGB CONC 34.2 g/dL (32.0-36.0); Mean Corpuscular Hemoglobin 33.1 pg (27.0-31.0); Mean Corpuscular Volume 96.9 fL (78.0-98.0); Monocytes 10 % (0-10); Neutrophil 72 % (42-75); Platelet Count 147 thou/uL (130-400); RBC Distribution Width 11.8 % (11.5-14.5); Red Blood Cell (RBC) Count 2.81 mill/uL (4.70-6.10); White Blood Cell (WBC) Count 8.7 thou/uL (4.8-10.8)
[2019-11-17 05:15] LABS: Anion Gap 12 mmol/L (10-20); BUN (Urea Nitrogen) 13 mg/dL (8.4-25.7); Calc. Creatinine Clearance 63 mL/min (70-130); Calcium 7.9 mg/dL (7.8-10.44); Carbon Dioxide 22 mmol/L (23-31); Chloride 107 mmol/L (98-107); Estimated GFR-MDRD 68; Glucose 106 mg/dL (83-110); Magnesium 1.9 mg/dL (1.6-2.6); Potassium 3.4 mmol/L (3.5-5.1); Sodium 138 mmol/L (136-145)
[2019-11-17] MEDS: Sodium Chloride 0.45% 1,000 ML IV SCH ×2 (05:15→13:55)
[2019-11-17 05:16] LABS: Phosphorus 2.2 mg/dL (2.3-4.7)
[2019-11-17] MEDS ORDERED: Potassium Chloride 40 MEQ in Premix Bag 1 BAG IVPB SCH (05:30)
[2019-11-17] MEDS ORDERED: Magnesium 2 GM/50 ML 2 GM in Premix Bag 1 BAG IVPB SCH (05:30)
[2019-11-17] MEDS: Levothyroxine Sodium 25 MCG TAB PO SCH (06:13)
[2019-11-17] MEDS: Docusate 100 MG CAP PO SCH ×2 (08:27→20:41)
[2019-11-17] MEDS: Dutasteride 0.5 MG CAP PO SCH (08:27)
[2019-11-17] MEDS: Famotidine 20 MG TAB PO SCH ×2 (08:28→20:41)
[2019-11-17] MEDS: Terazosin HCl 5 MG CAP PO SCH (08:28)
[2019-11-17] MEDS: Saccharomyces boulardii 250 MG CAP PO SCH (08:28)
[2019-11-17] MEDS: Enoxaparin Sodium 30 MG/0.3 ML SYRINGE SC SCH (08:28)
[2019-11-17] MEDS: Insulin Glargine 20 UNITS in Pre-Filled Syringe 1 EACH SC SCH (08:48)
--- NOTE | 2019-11-17 09:46 | PRG ---
DATE OF SERVICE: 11/17/2019 SUBJECTIVE: Mr. Blount says he is feeling better. OBJECTIVE: GENERAL: He is in no distress. VITAL SIGNS: Temperature is 99, heart rate is 98, blood pressure 141/75, respiratory rate is in the 20s, oximetry is 100%. LUNGS: Clear. HEART: Regular rhythm. ABDOMEN: Soft. LABORATORY DATA: White count 8.7, hemoglobin 9.3, platelets 147. Sodium 138, potassium 3.4, chloride 107, bicarb 22, BUN 32, creatinine 1.04. IMPRESSION: 1. Status post intubation for severe diabetic ketoacidosis. 2. Diabetic ketoacidosis, resolved. 3. Advanced age. 4. Bladder cancer, receiving immunotherapy. 5. Anemia, most likely chronic disease. PLAN: Continue supportive care. He will be transferred out of the critical care unit today to a medical bed. He needs to begin physical therapy and then will likely need placement in some type of rehab environment for at least a short period of time unless he progresses rapidly with physical therapy. Job ID: [id number]
[2019-11-17] MEDS: Insulin Regular 300 UNITS/3 ML VIAL SC PRN ×2 (12:59→16:42)
--- NOTE | 2019-11-17 17:42 | PDOC.HOSPP ---
- Subjective Encounter Date: 11/17/19 Encounter Time: 09:45 Subjective: Patient seen and examined for altered mentation with sepsis. Denies any new complaints. No overnight events. - Objective Vital Signs & Weight: Vital Signs (12 hours) Temp Pulse Pulse Resp BP BP Pulse Ox 11/17/19 16:00 97.9 F 96 20 126/72 97 11/17/19 14:52 92 20 98 11/17/19 11:22 97.4 F L 97 22 H 152/77 H 96 11/17/19 10:10 97.8 F 102 H 20 157/77 H 96 11/17/19 08:56 100 142/84 H 11/17/19 08:00 99.2 F 11/17/19 06:38 100 11/17/19 06:37 97 20 100 Weight Admit Weight 171 lb Weight 188 lb 7.924 oz Most Recent Monitor Data Heart Rate from ECG 99 NIBP 142/84 NIBP BP-Mean 103 Respiration from ECG 25 SpO2 100 I&O: 11/16/19 11/17/19 11/18/19 06:59 06:59 06:59 Intake Total 2126.2 2679 Output Total 1227 741 0 Balance 899.2 1938 0 Result Diagrams: 11/17/19 04:20 11/17/19 04:20 Additional Labs: Accuchecks 11/17/19 11/17/19 11/17/19 16:30 11:59 08:31 POC Glucose 234 H 214 H 138 H 11/17/19 11/17/19 11/16/19 04:30 00:39 20:36 POC Glucose 99 106 H 121 H 11/16/19 11/13/19 00:24 04:17 POC Glucose 144 H 451 H EKG Reviewed by me: Yes (Sinus rhythm on telemetry) Hospitalist ROS - Review of Systems Respiratory: denies: cough, dry, shortness of breath, hemoptysis, SOB with excertion, pleuritic pain, sputum, wheezing, other Cardiovascular: denies: chest pain, palpitations, orthopnea, paroxysmal noc. dyspnea, edema, light headedness, other - Medication Medications: Active Medications Generic Name Dose Route Start Last Admin Trade Name Freq PRN Reason Stop Dose Admin Albuterol/Ipratropium 3 ml 11/13/19 10:30 11/17/19 14:52 Ipratropium/Albuterol Sulfate 3 Ml Neb NEB 3 ml [id number] PINA Administration Dextrose/Water 25 gm 11/14/19 09:30 11/15/19 20:17 Dextrose 50% Abboject 50 Ml Syringe IVP 25 gm PRN PRN Administration HYPOGLYCEMIA PROTOCOL Docusate Sodium 100 mg 11/15/19 21:00 11/17/19 08:27 Docusate 100 Mg Cap PO 100 mg BID PINA Administration Dutasteride 0.5 mg 11/13/19 09:00 11/17/19 08:27 Dutasteride 0.5 Mg Cap PO 0.5 mg DAILY PINA Administration Enoxaparin Sodium 30 mg 11/13/19 09:00 11/17/19 08:28 Enoxaparin Sodium 30 Mg/0.3 Ml Syringe SC 30 mg 0900 PINA Administration Famotidine 20 mg 11/15/19 21:00 11/17/19 08:28 Famotidine 20 Mg Tab PO 20 mg BID PINA Administration Norepinephrine Bitartrate 250 mls @ 0 mls/hr 11/12/19 16:15 11/13/19 11:54 Levophed IVPB 250 mls INF PINA Administration Protocol Titrate Piperacillin Sod/Tazobactam 100 mls @ 200 mls/hr 11/13/19 12:00 11/17/19 13:05 Sod 2.25 gm/ Sodium Chloride IVPB 100 mls Q6HR PINA Administration Sodium Chloride 1,000 mls @ 75 mls/hr 11/14/19 09:30 11/17/19 13:55 1/2 Normal Saline IV 1,000 mls .[id number] PINA Administration Insulin Glargine 20 units/ 0.2 mls @ 0 mls/hr 11/14/19 09:00 11/17/19 08:48 Miscellaneous Medication SC 0.2 mls QAM PINA Administration Dexmedetomidine HCl 400 mcg/ 100 mls @ 0 mls/hr 11/14/19 10:45 11/15/19 03:23 Sodium Chloride IVPB 100 mls INF PINA Administration Protocol Per Protocol Insulin Human Regular 0 units 11/15/19 16:45 11/17/19 16:42 Insulin Regular 300 Units/3 Ml Vial SC 3 units .MILD SLIDING PRN Administration MILD SLIDING SCALE Protocol Latanoprost 1 drop 11/15/19 21:00 11/16/19 20:46 Latanoprost 0.005% Ophth Soln 2.5 Ml Bottle EA EYE 1 drop HS PINA Administration Levothyroxine Sodium 25 mcg 11/13/19 06:00 11/17/19 06:13 Levothyroxine Sodium 25 Mcg Tab PO 25 mcg 0600 PINA Administration Morphine Sulfate 2 mg 11/12/19 18:45 11/15/19 04:47 Morphine 2 Mg/Ml Vial SLOW IVP 12/12/19 18:45 2 mg Q1H PRN Administration Breakthrough Pain/Agitation Saccharomyces Boulardii 250 mg 11/16/19 09:00 11/17/19 08:28 Saccharomyces Boulardii 250 Mg Cap PO 250 mg DAILY PINA Administration Sodium Chloride 10 ml 11/14/19 09:00 11/17/19 08:28 Flush - Normal Saline 10 Ml Syringe IVF Not Given Q12HR PINA Terazosin HCl 10 mg 11/13/19 09:00 11/17/19 08:28 Terazosin Hcl 5 Mg Cap PO 10 mg QAM PINA Administration - Exam General Appearance: NAD Neck: supple, no JVD Heart: RRR, no gallops, no rubs Respiratory: no rales Gastrointestinal: non-tender, non-distended Extremities: no cyanosis Neurological: no new deficit Hosp A/P (1) DKA (diabetic ketoacidoses) Code(s): E11.10 - TYPE 2 DIABETES MELLITUS WITH KETOACIDOSIS WITHOUT COMA Status: Acute (2) SARIAH (acute kidney injury) Code(s): N17.9 - ACUTE KIDNEY FAILURE, UNSPECIFIED Status: Acute (3) Hypovolemic shock Code(s): R57.1 - HYPOVOLEMIC SHOCK Status: Acute (4) Lactic acidosis Code(s): E87.2 - ACIDOSIS Status: Acute (5) Hypothyroidism Code(s): E03.9 - HYPOTHYROIDISM, UNSPECIFIED Status: Chronic (6) Electrolyte abnormality Code(s): E87.8 - OTH DISORDERS OF ELECTROLYTE AND FLUID BALANCE, NEC Status: Acute (7) Swallowing dysfunction Code(s): R13.10 - DYSPHAGIA, UNSPECIFIED Status: Acute (8) Other issues per previous notes - Plan 11/16 Continue supportive care. Patient will be transferred to medical bed. [facility] facility evaluation. Cultures negative so far. Lynn catheter DC'd. Continue other medications including antibiotics for now. Continue current dose of Lantus with sliding scale. Replace potassium and phosphorus. Recheck labs in a.m. 11/15 Start diet per speech therapy recommendation. Change IV fluid to half NS. Continue Lantus with sliding scale. Continue empiric antibiotics. Cultures so far have been negative. Will discontinue Lynn catheter in a.m. Continue physical therapy. Replace electrolytes. A.m. labs. Continue other medications as above. 11/14 Continue IV fluids. Continue current dose of Lantus with sliding scale. Continue empiric Zosyn. Lynn catheter can probably be DC'd in a.m. due to yeast colonization. Will start fluconazole tomorrow. Consult physical therapy. Speech therapy consulted. Continue DVT prophylaxis. Add Pepcid. Continue other medications as above. Resume eyedrops.
[2019-11-17] MEDS: Latanoprost 0.005% Ophth Soln 2.5 ml Bottle EA EYE SCH (23:16)
[2019-11-18] MEDS ORDERED: OLANZapine 10 MG VIAL IM SCH (03:30)
--- NOTE | 2019-11-18 03:31 | PDOC.EVN ---
Event Note - Event Note Event Note: 032 Pt acutely agitated overnight, punching and kicking staff members and pulling at lines. Pt given 2.5 mg of Zyprexa.
[2019-11-18] MEDS: Levothyroxine Sodium 25 MCG TAB PO SCH (05:43)
[2019-11-18] MEDS: Piperacillin/Tazobactam 2.25 GM in Sodium Chloride 0.9% 100 ML IVPB SCH ×3 (06:18→17:29)
[2019-11-18 06:23] LABS: Anion Gap 14 mmol/L (10-20); BUN (Urea Nitrogen) 14 mg/dL (8.4-25.7); Calc. Creatinine Clearance 60 mL/min (70-130); Calcium 8.1 mg/dL (7.8-10.44); Carbon Dioxide 21 mmol/L (23-31); Chloride 107 mmol/L (98-107); Estimated GFR-MDRD 64; Glucose 111 mg/dL (83-110); Potassium 3.6 mmol/L (3.5-5.1); Sodium 138 mmol/L (136-145)
[2019-11-18 06:24] LABS: Phosphorus 2.1 mg/dL (2.3-4.7)
[2019-11-18 06:33] LABS: Hemoglobin 9.3 g/dL (14.0-18.0); Mean Corpuscular HGB CONC 33.2 g/dL (32.0-36.0); Mean Corpuscular Hemoglobin 32.3 pg (27.0-31.0); Mean Corpuscular Volume 97.1 fL (78.0-98.0); Mean Platelet Volume 7.3 fL (7.4-10.4); Platelet Count 186 thou/uL (130-400); RBC Distribution Width 11.9 % (11.5-14.5); Red Blood Cell (RBC) Count 2.89 mill/uL (4.70-6.10)
[2019-11-18 06:44] LABS: Band 9 % (5-11); Eosinophils 3 % (0-10); Lymphocytes 17 % (21-51); MDiff Complete? YES; Monocytes 7 % (0-10); Neutrophil 64 % (42-75)
[2019-11-18] MEDS ORDERED: Magnesium 2 GM/50 ML 2 GM in Premix Bag 1 BAG IVPB SCH (07:30)
[2019-11-18] MEDS: Insulin Glargine 20 UNITS in Pre-Filled Syringe 1 EACH SC SCH (08:12)
[2019-11-18] MEDS: Docusate 100 MG CAP PO SCH ×3 (08:13→21:18)
[2019-11-18] MEDS: Dutasteride 0.5 MG CAP PO SCH (08:13)
[2019-11-18] MEDS: Fluconazole 100 MG TAB PO SCH (08:13)
[2019-11-18] MEDS: Saccharomyces boulardii 250 MG CAP PO SCH (08:13)
[2019-11-18] MEDS: Enoxaparin Sodium 30 MG/0.3 ML SYRINGE SC SCH (08:14)
[2019-11-18] MEDS: Terazosin HCl 5 MG CAP PO SCH (08:18)
[2019-11-18] MEDS: Famotidine 20 MG TAB PO SCH ×3 (08:18→21:18)
[2019-11-18] MEDS: Sodium Chloride 0.45% 1,000 ML IV SCH ×2 (08:19→18:40)
[2019-11-18] MEDS ORDERED: Chloraseptic Spray 180 ml Bottle PO PRN (10:37)
[2019-11-18] MEDS ORDERED: Cepastat Lozenges 1 LOZ PO PRN (10:37)
--- NOTE | 2019-11-18 11:34 | PDOC.HOSPP ---
- Subjective Encounter Date: 11/18/19 Encounter Time: 11:00 Subjective: Patient seen and examined for encephalopathy. Became agitated this morning requiring Zyprexa by overnight team. Mentation slowly improving at this time. - Objective Vital Signs & Weight: Vital Signs (12 hours) Temp Pulse Resp BP Pulse Ox 11/18/19 10:33 98 18 97 11/18/19 07:08 95 11/18/19 07:06 102 H 20 95 11/18/19 04:00 98.2 F 107 H 20 146/68 H 96 11/18/19 02:14 89 20 100 11/17/19 23:53 98.4 F 97 20 158/78 H 95 Weight Admit Weight 171 lb Weight 195 lb 4.8 oz Most Recent Monitor Data Heart Rate from ECG 99 NIBP 142/84 NIBP BP-Mean 103 Respiration from ECG 25 SpO2 100 I&O: 11/17/19 11/18/19 11/19/19 06:59 06:59 06:59 Intake Total 2679 Output Total 741 0 Balance 1938 0 Result Diagrams: 11/18/19 05:47 11/18/19 05:47 Additional Labs: Accuchecks 11/18/19 11/17/19 11/17/19 04:29 19:43 16:30 POC Glucose 114 H 209 H 234 H 11/17/19 11:59 POC Glucose 214 H Hospitalist ROS - Review of Systems Respiratory: denies: cough, dry, shortness of breath, hemoptysis, SOB with excertion, pleuritic pain, sputum, wheezing, other Cardiovascular: denies: chest pain, palpitations, orthopnea, paroxysmal noc. dyspnea, edema, light headedness, other - Medication Medications: Active Medications Generic Name Dose Route Start Last Admin Trade Name Freq PRN Reason Stop Dose Admin Albuterol/Ipratropium 3 ml 11/13/19 10:30 11/18/19 10:33 Ipratropium/Albuterol Sulfate 3 Ml Neb NEB 3 ml [id number] PINA Administration Dextrose/Water 25 gm 11/14/19 09:30 11/15/19 20:17 Dextrose 50% Abboject 50 Ml Syringe IVP 25 gm PRN PRN Administration HYPOGLYCEMIA PROTOCOL Docusate Sodium 100 mg 11/15/19 21:00 11/18/19 08:13 Docusate 100 Mg Cap PO 100 mg BID PINA Administration Dutasteride 0.5 mg 11/13/19 09:00 11/18/19 08:13 Dutasteride 0.5 Mg Cap PO 0.5 mg DAILY PINA Administration Enoxaparin Sodium 30 mg 11/13/19 09:00 11/18/19 08:14 Enoxaparin Sodium 30 Mg/0.3 Ml Syringe SC 30 mg 0900 PINA Administration Famotidine 20 mg 11/15/19 21:00 11/18/19 08:18 Famotidine 20 Mg Tab PO 20 mg BID PINA Administration Fluconazole 100 mg 11/18/19 09:00 11/18/19 08:13 Fluconazole 100 Mg Tab PO 100 mg DAILY PINA Administration Piperacillin Sod/Tazobactam 100 mls @ 200 mls/hr 11/13/19 12:00 11/18/19 06:18 Sod 2.25 gm/ Sodium Chloride IVPB 100 mls Q6HR PINA Administration Sodium Chloride 1,000 mls @ 75 mls/hr 11/14/19 09:30 11/18/19 08:19 1/2 Normal Saline IV 1,000 mls .[id number] PINA Administration Insulin Glargine 20 units/ 0.2 mls @ 0 mls/hr 11/14/19 09:00 11/18/19 08:12 Miscellaneous Medication SC 0.2 mls QAM PINA Administration Insulin Human Regular 0 units 11/15/19 16:45 11/17/19 16:42 Insulin Regular 300 Units/3 Ml Vial SC 3 units .MILD SLIDING PRN Administration MILD SLIDING SCALE Protocol Latanoprost 1 drop 11/15/19 21:00 11/17/19 23:16 Latanoprost 0.005% Ophth Soln 2.5 Ml Bottle EA EYE 1 drop HS PINA Administration Saccharomyces Boulardii 250 mg 11/16/19 09:00 11/18/19 08:13 Saccharomyces Boulardii 250 Mg Cap PO 250 mg DAILY PINA Administration Sodium Chloride 10 ml 11/14/19 09:00 11/18/19 08:14 Flush - Normal Saline 10 Ml Syringe IVF Not Given Q12HR PNIA Terazosin HCl 10 mg 11/13/19 09:00 11/18/19 08:18 Terazosin Hcl 5 Mg Cap PO 10 mg QAM PINA Administration - Exam General Appearance: ill appearing General - other findings: Sitting on the chair Heart: RRR, no gallops Respiratory: no wheezes, no ronchi Gastrointestinal: non-tender, non-distended Extremities: no cyanosis, no clubbing Neurological: no new deficit Psychiatric: A&O x 3 Psychiatric - other findings: With intermittent confusion Hosp A/P (1) Toxic metabolic encephalopathy Code(s): G92 - TOXIC ENCEPHALOPATHY Status: Acute (2) DKA (diabetic ketoacidoses) Code(s): E11.10 - TYPE 2 DIABETES MELLITUS WITH KETOACIDOSIS WITHOUT COMA Status: Acute (3) SARIAH (acute kidney injury) Code(s): N17.9 - ACUTE KIDNEY FAILURE, UNSPECIFIED Status: Acute (4) Hypovolemic shock Code(s): R57.1 - HYPOVOLEMIC SHOCK Status: Acute (5) Lactic acidosis Code(s): E87.2 - ACIDOSIS Status: Acute (6) Hypothyroidism Code(s): E03.9 - HYPOTHYROIDISM, UNSPECIFIED Status: Chronic (7) Electrolyte abnormality Code(s): E87.8 - OTH DISORDERS OF ELECTROLYTE AND FLUID BALANCE, NEC Status: Acute (8) Swallowing dysfunction Code(s): R13.10 - DYSPHAGIA, UNSPECIFIED Status: Acute (9) History of bladder cancer Code(s): Z85.51 - PERSONAL HISTORY OF MALIGNANT NEOPLASM OF BLADDER Status: Acute (10) Other issues per previous notes - Plan DVT proph w/SCDs 11/17 Overnight events reviewed. Replace vitals which was 2.1 today. Continue IV fluids. Continue current dose of Lantus. Change sliding scale to AC at bedtime. Discussed case with neurology who recommended CT brain with and without contrast and the EEG. Will complete 7 days of antibiotics. Will check postvoid residual. Repeat urinalysis per family's request continue fluconazole. Recheck labs in a.m. [facility] facility evaluation 11/16 Continue supportive care. Patient will be transferred to medical bed. [facility] facility evaluation. Cultures negative so far. Lynn catheter DC'd. Continue other medications including antibiotics for now. Continue current dose of Lantus with sliding scale. Replace potassium and phosphorus. Recheck labs in a.m. 11/15 Start diet per speech therapy recommendation. Change IV fluid to half NS. Continue Lantus with sliding scale. Continue empiric antibiotics. Cultures so far have been negative. Will discontinue Lynn catheter in a.m. Continue physical therapy. Replace electrolytes. A.m. labs. Continue other medications as above. 11/14 Continue IV fluids. Continue current dose of Lantus with sliding scale. Continue empiric Zosyn. Lynn catheter can probably be DC'd in a.m. due to yeast colonization. Will start fluconazole tomorrow. Consult physical therapy. Speech therapy consulted. Continue DVT prophylaxis. Add Pepcid. Continue other medications as above. Resume eyedrops. Other problems: History of hypertension, dyslipidemia, hypertension, history of bladder and ureteral cancer, former smoker, severe dehydration with osmolality of 341 on admission, chronic anemia
[2019-11-18] MEDS ORDERED: Iopamidol-370 76% 500 ML 1 ML ONE (11:52)
[2019-11-18] MEDS: K-Phos Neutral 250 MG TAB PO SCH ×3 (12:17→17:23)
[2019-11-18] MEDS ORDERED: Lorazepam 2 MG/ML VIAL SLOW IVP PRN (12:27)
[2019-11-18] MEDS ORDERED: Lorazepam 2 MG/ML VIAL SLOW IVP SCH (14:00)
--- NOTE | 2019-11-18 14:18 | CON ---
NEUROLOGY CONSULTATION DATE OF CONSULTATION: 11/18/2019 REASON FOR CONSULTATION: Altered mental status. HISTORY OF PRESENT ILLNESS: Mr. Blount is a pleasant male with a history of bladder carcinoma, presented to the emergency room on 11/12/2019 because of generalized malaise, nausea, vomiting, and diarrhea. In the emergency room, his blood sugar was noted to be high and was diagnosed with diabetic ketoacidosis and was admitted to the hospital for further management. He also became extremely hypertensive, so he was intubated, sedated, and also started on pressors for possible septic shock. He was extubated last weekend and since then, the family has concern about his mental status. He has waxing and waning mental status. He only remembers the events prior to coming to the hospital and is only alert and oriented to person and place. The history is taken from the daughter, who denies any focal deficits, but does report ongoing problem with mental status since the last few days, which becomes worse during the night per daughter. REVIEW OF SYSTEMS: Respiratory: denies: cough, dry, shortness of breath, hemoptysis, SOB with excertion, pleuritic pain, sputum, wheezing, other Cardiovascular: denies: chest pain, palpitations, orthopnea, paroxysmal noc. dyspnea, edema, light headedness, other ALLERGIES: SULFA. HOME MEDICATIONS: 1. Dutasteride 0.5 mg once daily. 2. Latanoprost once a day. 3. Levothyroxine 25 mcg once daily. 4. Lisinopril 10 mg once daily. 5. Terazosin 10 mg once daily. 6. Gabapentin 100 mg daily. PAST MEDICAL HISTORY: 1. Diabetes mellitus. 2. Hypothyroidism. 3. Dyslipidemia. 4. Hypertension. 5. 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 PAST SURGICAL HISTORY: Appendectomy and multiple cystoscopies. SOCIAL HISTORY: The patient quit smoking in 1959. Denies alcohol or illegal drug use. FAMILY HISTORY: Significant for heart disease on maternal side. PHYSICAL EXAMINATION: General Appearance: ill appearing Heart: RRR, no gallops Respiratory: no wheezes, no ronchi Gastrointestinal: non-tender, non-distended Extremities: no cyanosis, no clubbing Neurological: Mental status, the patient is alert and oriented to person and place. Speech is clear. He is hard of hearing. Follows commands intermittently. Cranial nerves 2 through 12 intact except hearing deficit bilaterally. Motor; muscle tone and bulk are normal. Moving all 4 extremities equally and symmetrically. Sensory withdraws to nailbed pressure bilaterally. Cerebellar, finger-nose testing intact. Gait deferred due to the patient's safety reasons. Vital Signs & Weight: Vital Signs (12 hours) Temp Pulse Resp BP Pulse Ox 11/18/19 10:33 98 18 97 11/18/19 07:08 95 11/18/19 07:06 102 H 20 95 11/18/19 04:00 98.2 F 107 H 20 146/68 H 96 11/18/19 02:14 89 20 100 11/17/19 23:53 98.4 F 97 20 158/78 H 95 Weight Admit Weight 171 lb Weight 195 lb 4.8 oz Most Recent Monitor Data Heart Rate from ECG 99 NIBP 142/84 NIBP BP-Mean 103 Respiration from ECG 25 SpO2 100 I&O: 11/17/19 11/18/19 11/19/19 06:59 06:59 06:59 Intake Total 2679 Output Total 741 0 Balance 1938 0 DATA REVIEWED: I reviewed the labs, which are significant for hyperglycemia. Additional Labs: Accuchecks 11/18/19 11/17/19 11/17/19 04:29 19:43 16:30 POC Glucose 114 H 209 H 234 H 11/17/19 11:59 POC Glucose 214 H Lab results: WBC 14.6 thou/uL (4.8-10.8) H 11/12/19 12:23 Hgb 11.1 g/dL (14.0-18.0) L 11/12/19 12:23 Hct 36.2 % (42.0-52.0) L 11/12/19 12:23 MCV 100.0 fL (78.0-98.0) H 11/12/19 12:23 Plt Count 258 thou/uL (130-400) 11/12/19 12:23 Neutrophils % 90.4 % (42.0-75.0) H 11/12/19 12:23 VBG pCO2 18.5 mmHg (40.0-50.0) L* 11/12/19 13:57 VBG pO2 117.9 mmHg (35.0-45.0) H 11/12/19 13:57 Sodium 129 mmol/L (136-145) L 11/12/19 14:08 Potassium 5.0 mmol/L (3.5-5.1) 11/12/19 14:08 Chloride 96 mmol/L (98-107) L 11/12/19 14:08 Carbon Dioxide Less than 8 mmol/L (23-31) L* 11/12/19 14:08 BUN 34 mg/dL (8.4-25.7) H 11/12/19 14:08 Creatinine 2.45 mg/dL (0.7-1.3) H 11/12/19 14:08 Glucose 800 mg/dL (83-110) H* 11/12/19 14:08 Lactic Acid 3.1 mmol/L (0.5-2.2) H 11/12/19 15:48 Calcium 8.5 mg/dL (7.8-10.44) 11/12/19 14:08 Total Bilirubin 0.4 mg/dL (0.2-1.2) 11/12/19 12:23 AST 11 U/L (5-34) 11/12/19 12:23 ALT 12 U/L (8-55) 11/12/19 12:23 Alkaline Phosphatase 119 U/L (40-110) H 11/12/19 12:23 CK-MB (CK-2) 4.1 ng/mL (0-6.6) 11/12/19 13:07 Troponin I 0.033 ng/mL (< 0.028) H 11/12/19 13:07 Serum Total Protein 6.6 g/dL (5.8-8.1) 11/12/19 12:23 Albumin 3.7 g/dL (3.4-4.8) 11/12/19 12:23 Lipase 57 U/L (8-78) 11/12/19 12:23 EKG: EKG by my review shows sinus tachycardia. Active Medications Generic Name Dose Route Start Last Admin Trade Name Freq PRN Reason Stop Dose Admin Albuterol/Ipratropium 3 ml 11/13/19 10:30 11/18/19 10:33 Ipratropium/Albuterol Sulfate 3 Ml Neb NEB 3 ml [id number] PINA Administration Dextrose/Water 25 gm 11/14/19 09:30 11/15/19 20:17 Dextrose 50% Abboject 50 Ml Syringe IVP 25 gm PRN PRN Administration HYPOGLYCEMIA PROTOCOL Docusate Sodium 100 mg 11/15/19 21:00 11/18/19 08:13 Docusate 100 Mg Cap PO 100 mg BID PINA Administration Dutasteride 0.5 mg 11/13/19 09:00 11/18/19 08:13 Dutasteride 0.5 Mg Cap PO 0.5 mg DAILY PINA Administration Enoxaparin Sodium 30 mg 11/13/19 09:00 11/18/19 08:14 Enoxaparin Sodium 30 Mg/0.3 Ml Syringe SC 30 mg 899 PINA Administration Famotidine 20 mg 11/15/19 21:00 11/18/19 08:18 Famotidine 20 Mg Tab PO 20 mg BID PINA Administration Fluconazole 100 mg 11/18/19 09:00 11/18/19 08:13 Fluconazole 100 Mg Tab PO 100 mg DAILY PINA Administration Piperacillin Sod/Tazobactam 100 mls @ 200 mls/hr 11/13/19 12:00 11/18/19 06:18 Sod 2.25 gm/ Sodium Chloride IVPB 100 mls Q6HR PINA Administration Sodium Chloride 1,000 mls @ 75 mls/hr 11/14/19 09:30 11/18/19 08:19 1/2 Normal Saline IV 1,000 mls .[id number] PINA Administration Insulin Glargine 20 units/ 0.2 mls @ 0 mls/hr 11/14/19 09:00 11/18/19 08:12 Miscellaneous Medication SC 0.2 mls QAM PINA Administration Insulin Human Regular 0 units 11/15/19 16:45 11/17/19 16:42 Insulin Regular 300 Units/3 Ml Vial SC 3 units .MILD SLIDING PRN Administration MILD SLIDING SCALE Protocol Latanoprost 1 drop 11/15/19 21:00 11/17/19 23:16 Latanoprost 0.005% Ophth Soln 2.5 Ml Bottle EA EYE 1 drop HS PINA Administration Saccharomyces Boulardii 250 mg 11/16/19 09:00 11/18/19 08:13 Saccharomyces Boulardii 250 Mg Cap PO 250 mg DAILY PINA Administration Sodium Chloride 10 ml 11/14/19 09:00 11/18/19 08:14 Flush - Normal Saline 10 Ml Syringe IVF Not Given Q12HR PINA Terazosin HCl 10 mg 11/13/19 09:00 11/18/19 08:18 Terazosin Hcl 5 Mg Cap PO 10 mg QAM PINA Administration ASSESSMENT AND PLAN: (1) Toxic metabolic encephalopathy Code(s): G92 - TOXIC ENCEPHALOPATHY Status: Acute (2) DKA (diabetic ketoacidoses) Code(s): E11.10 - TYPE 2 DIABETES MELLITUS WITH KETOACIDOSIS WITHOUT COMA Status: Acute (3) SARIAH (acute kidney injury) Code(s): N17.9 - ACUTE KIDNEY FAILURE, UNSPECIFIED Status: Acute (4) Hypovolemic shock Code(s): R57.1 - HYPOVOLEMIC SHOCK Status: Acute (5) Lactic acidosis Code(s): E87.2 - ACIDOSIS Status: Acute (6) Hypothyroidism Code(s): E03.9 - HYPOTHYROIDISM, UNSPECIFIED Status: Chronic (7) Electrolyte abnormality Code(s): E87.8 - OTH DISORDERS OF ELECTROLYTE AND FLUID BALANCE, NEC Status: Acute (8) Swallowing dysfunction Code(s): R13.10 - DYSPHAGIA, UNSPECIFIED Status: Acute (9) History of bladder cancer Code(s): Z85.51 - PERSONAL HISTORY OF MALIGNANT NEOPLASM OF BLADDER Status: Acute Mr. Carroll Blount is consulted for altered mental status. Altered mental status seems to be multifactorial most likely secondary to metabolic etiology; however, acute intracranial process cannot be completely ruled out. Hospital delirium is also in the differential, but is a diagnosis of exclusion, so consider head CT to rule out acute intracranial process or bleed, consider EEG to rule out underlying cortical irritability or seizure activity. Neuro checks every 4 hours. Continue home medications. Continue medical management per primary team. PT/OT/speech. We will continue to follow. Plan discussed in detail with the patient, the patient's daughter, and also with the primary attending, Dr. Flip Storm. Job ID: [id number] MTDD
--- NOTE | 2019-11-18 14:32 | PRG ---
DATE OF SERVICE: 11/18/2019 SUBJECTIVE: The patient is transitioned to a medical floor, events over the last few days reviewed. Renal function has normalized, however, continues to be confused, encephalopathy. Currently, receiving Ativan. Family at bedside. OBJECTIVE: VITAL SIGNS: T-max 98. Vital signs are stable. GENITOURINARY: His Lynn catheter has been removed and he has been voiding in his briefs. GENERAL: The patient is in no acute distress, confused, however, recognizes me as one of his providers. ABDOMEN: Soft, nontender, nondistended. No rigidity. No rebound. PERTINENT LABORATORY DATA: White count 7, hemoglobin 9.3, and platelets 186. Renal function, creatinine 1.0, has normalized. Admitting creatinine of 2.4. Urine culture demonstrating yeast species. IMPRESSION AND PLAN: Mr. Blount is a pleasant 84-year-old male, admitted for acute renal insufficiency, diabetic ketoacidosis, history of bladder cancer, ureteral cancer, has transitioned to [facility] due to bulky ureteral transitional cell carcinoma, undergoing surveillance ureteroscopy, debulking, currently on Keytruda. Per [id number], his last ureteroscopy was sometime around July. His current CT scan demonstrates no obvious bulky ureteral transitional cell carcinoma or hydronephrosis of concern. Long discussion with family at bedside, will most likely transition to [facility] facility due to encephalopathy and deconditioned status, and will resume care at [facility] for staged ureteroscopy. The patient has no significant urinary retention of concern, I do not recommend re-placing indwelling Lynn catheter. pvr zero Job ID: [id number] [facility]
--- NOTE | 2019-11-18 15:04 | CT ---
Exam: Head CT with and without contrast HISTORY: Altered mental status. History of bladder cancer. FINDINGS: Noncontrast head CT: No parenchymal hemorrhage No extra-axial hematoma No midline shift Basilar cisterns are patent Age-appropriate brain volume. Cortical shelton-white matter differentiation is preserved No hydrocephalus Adequate aeration of the sinuses and mastoid air cells Intact calvarium Postcontrast head CT: No pathologic enhancement of the brain parenchyma IMPRESSION: No pathologic enhancement the brain parenchyma. No acute intracranial process.
[2019-11-18 15:14] LABS: Bilirubin Negative (Negative); Blood, Urine 2+ (Negative); Clarity Turbid (Clear); Glucose, Urine (Dipstick) Normal (Negative); Ketone, Urine 10 mg/dL (Negative); Leukocyte 500 Leu/uL (Negative); Nitrite 1+ (Negative); Protein, Urine (Dipstick) 70 mg/dL (Neg-Trace); RBC/HPF Greater than 50 HPF (0-3); Specific Gravity, Urine 1.027 (1.002-1.036); Squamous Epithelial 0-3 HPF (0-3); Transitional Epithelial 0-3 HPF (None Seen); Urobilinogen Normal mg/dL (Less than 2); WBC/HPF Greater than 50 HPF (0-3)
[2019-11-18 15:23] LABS: Bacteria/HPF 1+ HPF (None Seen); Yeast-Budding 2+ HPF (None Seen)
[2019-11-18 15:24] LABS: Urine Culture Reflex Yes Yes
--- NOTE | 2019-11-18 18:15 | EEG ---
DATE OF SERVICE: 11/18/2019 ATTENDING PHYSICIAN: Norma Sandra MD This EEG was performed using 24-channel NXT-IDtek video digital EEG machine with 24-disk electrodes. This was an extended 2 hours 5 minutes of inpatient video EEG recording. Digital analysis of the EEG was done for spike and seizure detection, which revealed no abnormalities. BACKGROUND: The posterior background rhythm was not observed. HYPERVENTILATION: Not performed. PHOTIC STIMULATION: Not performed. SLEEP: No stage change was observed. EEG DIAGNOSES: 1. Generalized irregular theta activity seen during the recording. 2. Absence of posterior background rhythm. CLINICAL INTERPRETATION: This EEG is consistent with moderate generalized nonspecific cerebral dysfunction. Job ID: [id number]
--- NOTE | 2019-11-18 18:33 | PRG ---
DATE OF SERVICE: 11/18/2019 SUBJECTIVE: Mr. Blount became more encephalopathic today. He was sent down for a head CT, which showed no pathology. No subdural. No bleed. He was transferred to intermediate care. OBJECTIVE: LUNGS: Basically unchanged. HEART: Basically unchanged. ABDOMEN: Basically unchanged. LABORATORY DATA: White count 7, hemoglobin 9.3 platelets 186. Electrolytes are unremarkable. Bicarb is 21, anion gap is 10, glucose has been between 84 and the 200s. IMPRESSION AND PLAN: Metabolic encephalopathy after a hyperosmolar state. Addie may work in calming him down with juan East. He will be transferred to intermediate care. Job ID: [id number]
[2019-11-18] MEDS: Dextrose 50% Abboject 50 ML SYRINGE IVP PRN ×2 (18:39→21:05)
[2019-11-18] MEDS: Latanoprost 0.005% Ophth Soln 2.5 ml Bottle EA EYE SCH (21:17)
[2019-11-18] MEDS: Haloperidol Lactate 5 MG/ML VIAL IM PRN (22:56)
[2019-11-19] MEDS: Piperacillin/Tazobactam 2.25 GM in Sodium Chloride 0.9% 100 ML IVPB SCH ×5 (00:24→23:54)
[2019-11-19] MEDS ORDERED: Dextrose 5 %-0.45 % NaCl 1,000 ML IV SCH (00:45)
[2019-11-19 03:56] LABS: Band 3 % (5-11); Eosinophils 6 % (0-10); Hemoglobin 8.9 g/dL (14.0-18.0); Lymphocytes 10 % (21-51); MDiff Complete? YES; Mean Corpuscular HGB CONC 33.7 g/dL (32.0-36.0); Mean Corpuscular Hemoglobin 32.6 pg (27.0-31.0); Mean Corpuscular Volume 96.8 fL (78.0-98.0); Mean Platelet Volume 7.3 fL (7.4-10.4); Monocytes 16 % (0-10); Neutrophil 65 % (42-75); Platelet Count 196 thou/uL (130-400); Red Blood Cell (RBC) Count 2.73 mill/uL (4.70-6.10); White Blood Cell (WBC) Count 6.4 thou/uL (4.8-10.8)
[2019-11-19 04:05] LABS: Phosphorus 3.2 mg/dL (2.3-4.7)
[2019-11-19 04:07] LABS: Anion Gap 12 mmol/L (10-20); BUN (Urea Nitrogen) 11 mg/dL (8.4-25.7); Calc. Creatinine Clearance 67 mL/min (70-130); Calcium 7.9 mg/dL (7.8-10.44); Carbon Dioxide 23 mmol/L (23-31); Chloride 107 mmol/L (98-107); Estimated GFR-MDRD 70; Magnesium 2.2 mg/dL (1.6-2.6); Potassium 3.5 mmol/L (3.5-5.1); Sodium 138 mmol/L (136-145)
[2019-11-19 04:09] LABS: Glucose 42 mg/dL (83-110)
[2019-11-19] MEDS: Dextrose 50% Abboject 50 ML SYRINGE IVP PRN (04:13)
[2019-11-19] MEDS ORDERED: Potassium Chloride 20 MEQ TAB PO SCH (04:45)
[2019-11-19] MEDS: Levothyroxine Sodium 25 MCG TAB PO SCH (05:23)
--- NOTE | 2019-11-19 07:50 | PRG ---
DATE OF SERVICE: 11/19/2019 SUBJECTIVE: The patient's [id number] at bedside, Katerine. Patient has been transferred to [facility] due to encephalopathy. He is arousable, however, appears somnolent. He does recognize me as his provider, however, remains confused. Vital signs are stable. He is afebrile. Catheter has been removed, has been subsequently incontinent. We did check a postvoid residual yesterday, which is zero. OBJECTIVE: ABDOMEN: Soft. No rigidity. No rebound. EXTREMITIES: No cyanosis, clubbing, or edema. PERTINENT LABORATORY DATA: White count 6, hemoglobin 8.9, platelet 196. Creatinine is 1.0. Blood sugar today is 42, which has been addressed by Primary Care. Prior urine culture with an indwelling Lynn catheter demonstrated yeast species. Blood cultures negative. Repeat UA ordered by Primary Service. Culture pending. IMPRESSION AND PLAN: Mr. Blount is an 84-year-old male with history of diabetes, admitted with encephalopathy, diabetic ketoacidosis. 1. History of bladder cancer, right ureteral transitional cell carcinoma, status post multiple ureteroscopy, TURBT, currently on imaging remains no evidence of obvious mass of concern. He has transitioned his care to [facility] as locally. He was deemed high risk for chemo, nephroureterectomy. He remains high risk for nephroureterectomy and has been undergoing surveillance ureteroscopy at [facility] with DR Handley . He is on chemotherapy per Desean. transitioned to the [facility] due to persistent encephalopathy. He will be discharged to Rehab when medically stable. Condition remains guarded. Updated family, who is at bedside. Do not place Lynn catheter as he will likely pull the catheter out causing more issues. He has no significant PVR of concern. will follow p.r.n. bacteriuria is expected, as he recently had an indwelling Lynn catheter. Given that he has persistent encephalopathy, pending final sensitivity, may treat accordingly. Job ID: [id number] [facility]
[2019-11-19] MEDS: Dutasteride 0.5 MG CAP PO SCH (09:34)
[2019-11-19] MEDS: Enoxaparin Sodium 30 MG/0.3 ML SYRINGE SC SCH (09:34)
[2019-11-19] MEDS: Terazosin HCl 5 MG CAP PO SCH (09:35)
[2019-11-19] MEDS: Saccharomyces boulardii 250 MG CAP PO SCH (09:35)
[2019-11-19] MEDS: Docusate 100 MG CAP PO SCH ×2 (09:35→20:52)
[2019-11-19] MEDS: Multivit, Therapeutic 1 TAB PO SCH (09:35)
[2019-11-19] MEDS: Cyanocobalamin (Vitamin B-12) 1,000 MCG TAB PO SCH (09:35)
[2019-11-19] MEDS: Folic Acid 1 MG TAB PO SCH (09:36)
[2019-11-19] MEDS: Fluconazole 100 MG TAB PO SCH (09:36)
[2019-11-19] MEDS: Acetaminophen 325 MG TAB PO PRN ×2 (09:36→15:11)
[2019-11-19] MEDS: Famotidine 20 MG TAB PO SCH ×2 (09:36→20:51)
[2019-11-19] MEDS: K-Phos Neutral 250 MG TAB PO SCH ×3 (09:36→17:55)
--- NOTE | 2019-11-19 12:49 | PDOC.NEUPN ---
- Subjective Encounter Date: 11/19/19 Subjective: Patient seems little bit agitated today. at bedside. He was transferred to [facility] yesterday because of altered mental status and an episode of agitation and combativeness which resolved after treatment. EEG negative for seizure activity and head CT negative for acute intracranial process. - Objective Vital Signs & Weight: Vital Signs (12 hours) Temp Pulse Resp Pulse Ox 11/19/19 11:34 99.4 F 11/19/19 11:05 102 H 23 H 98 11/19/19 08:00 98 11/19/19 07:35 99.0 F 11/19/19 07:34 98 11/19/19 07:33 92 20 96 11/19/19 04:00 97.6 F 11/19/19 02:21 98 11/19/19 02:19 91 20 96 Weight Admit Weight 171 lb Weight 198 lb 6.4 oz Most Recent Monitor Data Heart Rate from ECG 104 NIBP 121/73 NIBP BP-Mean 89 Respiration from ECG 25 SpO2 99 I&O: 11/18/19 11/19/19 11/20/19 06:59 06:59 06:59 Intake Total 1000 Output Total 0 100 Balance 0 900 Result Diagrams: 11/19/19 03:24 11/19/19 03:24 Additional Labs: Accuchecks 11/19/19 11/19/19 11/19/19 12:07 10:03 08:50 POC Glucose 109 H 90 85 11/19/19 11/19/19 11/19/19 06:35 04:10 00:18 POC Glucose 84 43 L* 65 L 11/18/19 11/18/19 11/18/19 22:06 21:05 19:21 POC Glucose 111 H 56 L* 98 Radiology Reviewed by me: Yes EKG Reviewed by me: Yes ROS - Review of Systems ROS unobtainable: due to mental status - Medication Medications: Active Medications Generic Name Dose Route Start Last Admin Trade Name Freq PRN Reason Stop Dose Admin Acetaminophen 650 mg 11/12/19 13:53 11/19/19 09:36 Acetaminophen 325 Mg Tab PO 650 mg Q4H PRN Administration Headache/Fever/Mild Pain (1-3) Albuterol/Ipratropium 3 ml 11/13/19 10:30 11/19/19 11:05 Ipratropium/Albuterol Sulfate 3 Ml Neb NEB 3 ml [id number] PINA Administration Cyanocobalamin 1,000 mcg 11/19/19 09:00 11/19/19 09:35 Cyanocobalamin (Vitamin B-12) 1,000 Mcg Tab PO 1,000 mcg DAILY PINA Administration Dextrose/Water 25 gm 11/14/19 09:30 11/19/19 04:13 Dextrose 50% Abboject 50 Ml Syringe IVP 25 gm PRN PRN Administration HYPOGLYCEMIA PROTOCOL Docusate Sodium 100 mg 11/15/19 21:00 11/19/19 09:35 Docusate 100 Mg Cap PO 100 mg BID PINA Administration Dutasteride 0.5 mg 11/13/19 09:00 11/19/19 09:34 Dutasteride 0.5 Mg Cap PO 0.5 mg DAILY PINA Administration Enoxaparin Sodium 30 mg 11/13/19 09:00 11/19/19 09:34 Enoxaparin Sodium 30 Mg/0.3 Ml Syringe SC 30 mg 0900 PINA Administration Famotidine 20 mg 11/15/19 21:00 11/19/19 09:36 Famotidine 20 Mg Tab PO 20 mg BID PINA Administration Fluconazole 100 mg 11/18/19 09:00 11/19/19 09:36 Fluconazole 100 Mg Tab PO 100 mg DAILY PINA Administration Folic Acid 1 mg 11/19/19 09:00 11/19/19 09:36 Folic Acid 1 Mg Tab PO 1 mg DAILY PINA Administration Haloperidol Lactate 5 mg 11/18/19 15:37 11/18/19 22:56 Haloperidol Lactate 5 Mg/Ml Vial IM 5 mg Q4H PRN Administration Agitation Piperacillin Sod/Tazobactam 100 mls @ 200 mls/hr 11/13/19 12:00 11/19/19 11:48 Sod 2.25 gm/ Sodium Chloride IVPB 100 mls Q6HR PINA Administration Insulin Glargine 20 units/ 0.2 mls @ 0 mls/hr 11/14/19 09:00 11/18/19 08:12 Miscellaneous Medication SC 0.2 mls QAM PINA Administration Insulin Human Regular 0 units 11/15/19 16:45 11/17/19 16:42 Insulin Regular 300 Units/3 Ml Vial SC 3 units .MILD SLIDING PRN Administration MILD SLIDING SCALE Protocol Latanoprost 1 drop 11/15/19 21:00 11/18/19 21:17 Latanoprost 0.005% Ophth Soln 2.5 Ml Bottle EA EYE 1 drop HS PINA Administration Levothyroxine Sodium 25 mcg 11/19/19 06:00 11/19/19 05:23 Levothyroxine Sodium 25 Mcg Tab PO 25 mcg 0600 PINA Administration Multivitamins 1 tab 11/19/19 09:00 11/19/19 09:35 Multivit, Therapeutic 1 Tab PO 1 tab DAILY PINA Administration Phosphorus 250 mg 11/18/19 08:00 11/19/19 11:50 K-Phos Neutral 250 Mg Tab PO 250 mg TID-WM PINA Administration Quetiapine Fumarate 50 mg 11/18/19 21:00 11/18/19 21:17 Quetiapine Fumarate 25 Mg Tab PO 50 mg HS PINA Administration Saccharomyces Boulardii 250 mg 11/16/19 09:00 11/19/19 09:35 Saccharomyces Boulardii 250 Mg Cap PO 250 mg DAILY PINA Administration Sodium Chloride 10 ml 11/14/19 09:00 11/19/19 09:34 Flush - Normal Saline 10 Ml Syringe IVF 10 ml Q12HR PINA Administration Terazosin HCl 10 mg 11/13/19 09:00 11/19/19 09:35 Terazosin Hcl 5 Mg Cap PO 10 mg QAM PINA Administration - Exam General Appearance: NAD Eye: PERRL ENT: normocephalic atraumatic Neck: supple Respiratory: CTAB Cardiovascular: RRR Gastrointestinal: soft Extremities: no cyanosis Skin: normal turgor Neurological: no focal deficits, no new deficit Musculoskeletal: normal tone, normal strength, no muscle wasting (Agitated and confused) Results - Labs Result Diagrams: 11/19/19 03:24 11/19/19 03:24 Lab results: WBC 6.4 thou/uL (4.8-10.8) 11/19/19 03:24 Hgb 8.9 g/dL (14.0-18.0) L 11/19/19 03:24 Hct 26.4 % (42.0-52.0) L 11/19/19 03:24 MCV 96.8 fL (78.0-98.0) 11/19/19 03:24 Plt Count 196 thou/uL (130-400) 11/19/19 03:24 Neutrophils % 86.8 % (42.0-75.0) H 11/13/19 03:00 Band Neuts % (Manual) 3 % (5-11) L 11/19/19 03:24 ABG pH 7.43 (7.35-7.45) 11/15/19 07:18 ABG pCO2 35.3 mmHg (35.0-45.0) 11/15/19 07:18 ABG pO2 73.5 mmHg (> 60.0) H 11/15/19 07:18 VBG pCO2 18.5 mmHg (40.0-50.0) L* 11/12/19 13:57 VBG pO2 117.9 mmHg (35.0-45.0) H 11/12/19 13:57 Sodium 138 mmol/L (136-145) 11/19/19 03:24 Potassium 3.5 mmol/L (3.5-5.1) 11/19/19 03:24 Chloride 107 mmol/L (98-107) 11/19/19 03:24 Carbon Dioxide 23 mmol/L (23-31) 11/19/19 03:24 BUN 11 mg/dL (8.4-25.7) 11/19/19 03:24 Creatinine 1.01 mg/dL (0.7-1.3) 11/19/19 03:24 Glucose 42 mg/dL (83-110) L* 11/19/19 03:24 Lactic Acid 3.1 mmol/L (0.5-2.2) H 11/12/19 15:48 Calcium 7.9 mg/dL (7.8-10.44) 11/19/19 03:24 Total Bilirubin 0.4 mg/dL (0.2-1.2) 11/12/19 12:23 AST 11 U/L (5-34) 11/12/19 12:23 ALT 12 U/L (8-55) 11/12/19 12:23 Alkaline Phosphatase 119 U/L (40-110) H 11/12/19 12:23 CK-MB (CK-2) 4.1 ng/mL (0-6.6) 11/12/19 13:07 Troponin I 0.052 ng/mL (< 0.028) H 11/12/19 16:58 C-Reactive Protein 20.87 mg/dL (= or < 0.5) H 11/17/19 04:20 Serum Total Protein 6.6 g/dL (5.8-8.1) 11/12/19 12:23 Albumin 3.7 g/dL (3.4-4.8) 11/12/19 12:23 Lipase 57 U/L (8-78) 11/12/19 12:23 Urine Ketones 10 mg/dL (Negative) A 11/18/19 13:52 Urine Blood 2+ (Negative) A 11/18/19 13:52 Urine Nitrite 1+ (Negative) A 11/18/19 13:52 Ur Leukocyte Esterase 500 Rashad/uL (Negative) A 11/18/19 13:52 Urine RBC Greater than 50 HPF (0-3) A 11/18/19 13:52 Urine WBC Greater than 50 HPF (0-3) A 11/18/19 13:52 Ur Squamous Epith Cells 0-3 HPF (0-3) 11/18/19 13:52 Urine Bacteria 1+ HPF (None Seen) A 11/18/19 13:52 - Radiology Interpretation CT scan - head Status: image reviewed by me, report reviewed by me Additional Comment: No acute intracranial process PN A/P (1) AMS (altered mental status) Code(s): R41.82 - ALTERED MENTAL STATUS, UNSPECIFIED Status: Acute (2) Electrolyte abnormality Code(s): E87.8 - OTH DISORDERS OF ELECTROLYTE AND FLUID BALANCE, NEC Status: Acute (3) Hypovolemic shock Code(s): R57.1 - HYPOVOLEMIC SHOCK Status: Acute (4) Sepsis Code(s): A41.9 - SEPSIS, UNSPECIFIED ORGANISM Status: Acute (5) HTN (hypertension) Code(s): I10 - ESSENTIAL (PRIMARY) HYPERTENSION Status: Chronic (6) Hypothyroidism Code(s): E03.9 - HYPOTHYROIDISM, UNSPECIFIED Status: Chronic (7) Hyponatremia Code(s): E87.1 - HYPO-OSMOLALITY AND HYPONATREMIA Status: Resolved (8) Metabolic acidosis Code(s): E87.2 - ACIDOSIS Status: Resolved (9) Vomiting and diarrhea Code(s): R11.10 - VOMITING, UNSPECIFIED; R19.7 - DIARRHEA, UNSPECIFIED Status: Resolved - Plan Daily Plan: PT/OT, speech therapy 84-year-old female with history significant for uncontrolled diabetes presented with DKA on admission consulted for altered mental status which becomes worse at night. Most likely secondary to metabolic etiology. No intracranial process determine since EEG and head CT is negative. Hospital delirium is also in the differential since his condition worsened during the night. EEG reviewed and was negative for seizure activity. Head CT reviewed and was negative for acute intracranial process. Neurochecks every 4 hours Continue home medications Continue medical management per primary team Observe delirium precautions PT/OT/speech when stable Plan discussed in detail with the patient's and also with the nursing staff.
--- NOTE | 2019-11-19 14:32 | RAD ---
XR Chest 1 View Portable History: Shortness of breath Comparison: Radiograph November 14, 2019 Findings: The patient has been extubated and the enteric tube is removed. Hazy opacities are present both lower lobes. Heart size is enlarged. No pneumothorax. Impression: Hazy opacities within both lower lobes concerning for infection or aspiration.
--- NOTE | 2019-11-19 14:56 | PDOC.HOSPP ---
- Subjective Encounter Date: 11/19/19 Encounter Time: 13:30 Subjective: Patient seen and examined for altered mentation with diabetic ketoacidosis. Patient was transferred to [facility] yesterday due to worsening mentation. Mentation was better this morning per RN. Had some confusion issues last night. Family at the bedside. - Objective Vital Signs & Weight: Vital Signs (12 hours) Temp Pulse Resp Pulse Ox 11/19/19 14:26 96 24 H 100 11/19/19 11:34 99.4 F 11/19/19 11:05 102 H 23 H 98 11/19/19 08:00 98 11/19/19 07:35 99.0 F 11/19/19 07:34 98 11/19/19 07:33 92 20 96 11/19/19 04:00 97.6 F Weight Admit Weight 171 lb Weight 198 lb 6.4 oz Most Recent Monitor Data Heart Rate from ECG 104 NIBP 121/73 NIBP BP-Mean 89 Respiration from ECG 25 SpO2 99 I&O: 11/18/19 11/19/19 11/20/19 06:59 06:59 06:59 Intake Total 1000 Output Total 0 100 Balance 0 900 Result Diagrams: 11/19/19 03:24 11/19/19 03:24 Additional Labs: Accuchecks 11/19/19 11/19/19 11/19/19 12:07 10:03 08:50 POC Glucose 109 H 90 85 11/19/19 11/19/19 11/19/19 06:35 04:10 00:18 POC Glucose 84 43 L* 65 L 11/18/19 11/18/19 11/18/19 22:06 21:05 19:21 POC Glucose 111 H 56 L* 98 Microbiology 11/12/19 15:46 Venous blood - Right Arm Blood Culture - Final NO GROWTH IN 5 DAYS 11/12/19 15:40 Venous blood - Left Hand Blood Culture - Final NO GROWTH IN 5 DAYS 11/12/19 13:35 Urine clean catch Urine Culture - Final Yeast species 11/18/19 15:24 Urine clean catch Urine Culture - Preliminary Gram Negative Jaime Presumptive Proteus mirabilis Radiology Reviewed by me: Yes (Chest x-ray? Aspiration) EKG Reviewed by me: Yes (Sinus rhythm on telemetry) Hospitalist ROS - Review of Systems ROS unobtainable: due to mental status - Medication Medications: Active Medications Generic Name Dose Route Start Last Admin Trade Name Freq PRN Reason Stop Dose Admin Acetaminophen 650 mg 11/12/19 13:53 11/19/19 09:36 Acetaminophen 325 Mg Tab PO 650 mg Q4H PRN Administration Headache/Fever/Mild Pain (1-3) Albuterol/Ipratropium 3 ml 11/13/19 10:30 11/19/19 14:26 Ipratropium/Albuterol Sulfate 3 Ml Neb NEB 3 ml [id number] PINA Administration Cyanocobalamin 1,000 mcg 11/19/19 09:00 11/19/19 09:35 Cyanocobalamin (Vitamin B-12) 1,000 Mcg Tab PO 1,000 mcg DAILY PINA Administration Dextrose/Water 25 gm 11/14/19 09:30 11/19/19 04:13 Dextrose 50% Abboject 50 Ml Syringe IVP 25 gm PRN PRN Administration HYPOGLYCEMIA PROTOCOL Docusate Sodium 100 mg 11/15/19 21:00 11/19/19 09:35 Docusate 100 Mg Cap PO 100 mg BID PINA Administration Dutasteride 0.5 mg 11/13/19 09:00 11/19/19 09:34 Dutasteride 0.5 Mg Cap PO 0.5 mg DAILY PINA Administration Enoxaparin Sodium 30 mg 11/13/19 09:00 11/19/19 09:34 Enoxaparin Sodium 30 Mg/0.3 Ml Syringe SC 30 mg 0900 PINA Administration Famotidine 20 mg 11/15/19 21:00 11/19/19 09:36 Famotidine 20 Mg Tab PO 20 mg BID PINA Administration Fluconazole 100 mg 11/18/19 09:00 11/19/19 09:36 Fluconazole 100 Mg Tab PO 100 mg DAILY PINA Administration Folic Acid 1 mg 11/19/19 09:00 11/19/19 09:36 Folic Acid 1 Mg Tab PO 1 mg DAILY PINA Administration Haloperidol Lactate 5 mg 11/18/19 15:37 11/18/19 22:56 Haloperidol Lactate 5 Mg/Ml Vial IM 5 mg Q4H PRN Administration Agitation Piperacillin Sod/Tazobactam 100 mls @ 200 mls/hr 11/13/19 12:00 11/19/19 11:48 Sod 2.25 gm/ Sodium Chloride IVPB 100 mls Q6HR PINA Administration Insulin Glargine 20 units/ 0.2 mls @ 0 mls/hr 11/14/19 09:00 11/18/19 08:12 Miscellaneous Medication SC 0.2 mls QAM PINA Administration Insulin Human Regular 0 units 11/15/19 16:45 11/17/19 16:42 Insulin Regular 300 Units/3 Ml Vial SC 3 units .MILD SLIDING PRN Administration MILD SLIDING SCALE Protocol Latanoprost 1 drop 11/15/19 21:00 11/18/19 21:17 Latanoprost 0.005% Ophth Soln 2.5 Ml Bottle EA EYE 1 drop HS PINA Administration Levothyroxine Sodium 25 mcg 11/19/19 06:00 11/19/19 05:23 Levothyroxine Sodium 25 Mcg Tab PO 25 mcg 0600 PINA Administration Multivitamins 1 tab 11/19/19 09:00 11/19/19 09:35 Multivit, Therapeutic 1 Tab PO 1 tab DAILY PINA Administration Phosphorus 250 mg 11/18/19 08:00 11/19/19 11:50 K-Phos Neutral 250 Mg Tab PO 250 mg TID-WM PINA Administration Quetiapine Fumarate 50 mg 11/18/19 21:00 11/18/19 21:17 Quetiapine Fumarate 25 Mg Tab PO 50 mg HS PINA Administration Saccharomyces Boulardii 250 mg 11/16/19 09:00 11/19/19 09:35 Saccharomyces Boulardii 250 Mg Cap PO 250 mg DAILY PINA Administration Sodium Chloride 10 ml 11/14/19 09:00 11/19/19 09:34 Flush - Normal Saline 10 Ml Syringe IVF 10 ml Q12HR PINA Administration Terazosin HCl 10 mg 11/13/19 09:00 11/19/19 09:35 Terazosin Hcl 5 Mg Cap PO 10 mg QAM PINA Administration - Exam Neck: supple, no JVD Heart: RRR, no gallops Respiratory: no wheezes, rales, rhonchi Gastrointestinal: soft, non-distended, normal bowel sounds Extremities: no cyanosis, no clubbing Musculoskeletal: generalized weakness Psychiatric: somnolent Hosp A/P (1) Toxic metabolic encephalopathy Code(s): G92 - TOXIC ENCEPHALOPATHY Status: Acute (2) Aspiration pneumonia Code(s): J69.0 - PNEUMONITIS DUE TO INHALATION OF FOOD AND VOMIT Status: Acute (3) UTI (urinary tract infection) Status: Acute (4) DKA (diabetic ketoacidoses) Code(s): E11.10 - TYPE 2 DIABETES MELLITUS WITH KETOACIDOSIS WITHOUT COMA Status: Acute (5) SARIAH (acute kidney injury) Code(s): N17.9 - ACUTE KIDNEY FAILURE, UNSPECIFIED Status: Acute (6) Hypovolemic shock Code(s): R57.1 - HYPOVOLEMIC SHOCK Status: Acute (7) Lactic acidosis Code(s): E87.2 - ACIDOSIS Status: Acute (8) Hypothyroidism Code(s): E03.9 - HYPOTHYROIDISM, UNSPECIFIED Status: Chronic (9) Electrolyte abnormality Code(s): E87.8 - OTH DISORDERS OF ELECTROLYTE AND FLUID BALANCE, NEC Status: Acute (10) Swallowing dysfunction Code(s): R13.10 - DYSPHAGIA, UNSPECIFIED Status: Acute (11) History of bladder cancer Code(s): Z85.51 - PERSONAL HISTORY OF MALIGNANT NEOPLASM OF BLADDER Status: Acute (12) Other issues per previous notes - Plan plan discussed w/ family 11/18 Patient transferred to [facility] yesterday. Had hypoglycemia this morning. Will hold Lantus. Mentation gradually improving. Will adjust IV fluids based on blood sugar. Continue IV Zosyn for possible aspiration pneumonia. Repeat urine cultures pending. Continue nebulizer treatments. Add incentive spirometry. Replace electrolytes. Recheck labs in a.m. encourage family to stay overnight if possible 11/17 Overnight events reviewed. Replace vitals which was 2.1 today. Continue IV flu ids. Continue current dose of Lantus. Change sliding scale to AC at bedtime. Discussed case with neurology who recommended CT brain with and without contrast and the EEG. Will complete 7 days of antibiotics. Will check postvoid residual. Repeat urinalysis per family's request continue fluconazole. Recheck labs in a.m. [facility] facility evaluation 11/16 Continue supportive care. Patient will be transferred to medical bed. [facility] facility evaluation. Cultures negative so far. Lynn catheter DC'd. Continue other medications including antibiotics for now. Continue current dose of Lantus with sliding scale. Replace potassium and phosphorus. Recheck labs in a.m. 11/15 Start diet per speech therapy recommendation. Change IV fluid to half NS. Continue Lantus with sliding scale. Continue empiric antibiotics. Cultures so far have been negative. Will discontinue Lynn catheter in a.m. Continue physical therapy. Replace electrolytes. A.m. labs. Continue other medications as above. 11/14 Continue IV fluids. Continue current dose of Lantus with sliding scale. Continue empiric Zosyn. Lynn catheter can probably be DC'd in a.m. due to yeast colonization. Will start fluconazole tomorrow. Consult physical therapy. Speech therapy consulted. Continue DVT prophylaxis. Add Pepcid. Continue other medications as above. Resume eyedrops. Other problems: History of hypertension, dyslipidemia, hypertension, history of bladder and ureteral cancer, former smoker, severe dehydration with osmolality of 341 on admission, chronic anemia
[2019-11-19] MEDS: 1/2 NS w/KCL 20 mEq 1,000 ML IV SCH (15:10)
--- NOTE | 2019-11-19 16:52 | PRG ---
DATE OF SERVICE: 11/19/2019 SUBJECTIVE: Mr. Blount is less encephalopathic today. OBJECTIVE: VITAL SIGNS: He is afebrile, heart rate is in the 90s, respiratory rates in the 20s, oximetry is 100% on room air, and blood pressure 145/67. LUNGS: Clear. HEART: Regular rhythm. ABDOMEN: Soft. LABORATORY DATA: White count 6.4, hemoglobin 8.9, and platelets 196. Glucose was low this morning. Sodium 138, potassium 3.5, chloride 107, bicarb 23, BUN 11, creatinine 1.01. IMPRESSION: 1. Status post diabetic ketoacidosis. 2. Bladder cancer. 3. Status post mechanical ventilation, clinically stable. 4. Encephalopathy secondary to critical illness. Chest x-ray is hazy at both lung bases. I suspect this is mostly atelectasis. I doubt he needs anything more than the antibiotics he is currently receiving. It would be reasonable to switch him to Augmentin in my opinion. Job ID: [id number]
[2019-11-19] MEDS: Haloperidol Lactate 5 MG/ML VIAL IM PRN (20:51)
[2019-11-19] MEDS: Latanoprost 0.005% Ophth Soln 2.5 ml Bottle EA EYE SCH (20:52)
[2019-11-20 03:30] LABS: #Basophils 0.1 thou/uL (0.0-0.2); #Eosinphils 0.3 thou/uL (0.0-0.7); #Lymphocytes 0.9 thou/uL (1.20-3.40); #Neutrophils 4.5 thou/uL (1.40-6.50); %Basophils 1.2 % (0.0-1.0); %Eosinophils 4.8 % (0.0-10.0); %Lymphocytes 12.8 % (21.0-51.0); %Monocytes 14.3 % (0.0-10.0); %Neutrophils 66.9 % (42.0-75.0); Hemoglobin 9.1 g/dL (14.0-18.0); Mean Corpuscular HGB CONC 32.8 g/dL (32.0-36.0); Mean Corpuscular Hemoglobin 32.5 pg (27.0-31.0); Mean Corpuscular Volume 99.1 fL (78.0-98.0); Mean Platelet Volume 7.3 fL (7.4-10.4); Platelet Count 275 thou/uL (130-400); RBC Distribution Width 12.3 % (11.5-14.5); White Blood Cell (WBC) Count 6.7 thou/uL (4.8-10.8)
[2019-11-20 03:49] LABS: Anion Gap 18 mmol/L (10-20); BUN (Urea Nitrogen) 11 mg/dL (8.4-25.7); Calc. Creatinine Clearance 58 mL/min (70-130); Calcium 7.7 mg/dL (7.8-10.44); Carbon Dioxide 19 mmol/L (23-31); Chloride 106 mmol/L (98-107); Estimated GFR-MDRD 58; Glucose 215 mg/dL (83-110); Potassium 4.2 mmol/L (3.5-5.1); Sodium 139 mmol/L (136-145)
[2019-11-20 03:50] LABS: Phosphorus 4.1 mg/dL (2.3-4.7)
[2019-11-20] MEDS: Piperacillin/Tazobactam 2.25 GM in Sodium Chloride 0.9% 100 ML IVPB SCH ×3 (05:44→16:36)
[2019-11-20] MEDS: Levothyroxine Sodium 25 MCG TAB PO SCH (05:44)
[2019-11-20] MEDS ORDERED: Magnesium 2 GM/50 ML 2 GM in Premix Bag 1 BAG IVPB SCH ×2 (06:30→20:00)
--- NOTE | 2019-11-20 07:57 | PRG ---
DATE OF SERVICE: 11/20/2019 SUBJECTIVE: Status unchanged, the patient confused, arousable. OBJECTIVE: VITAL SIGNS: Stable. He is afebrile. ABDOMEN: Soft, nontender, nondistended. LUNGS: Intermittent wheezing. No rigidity. No rebound in the abdominal exam. PERTINENT LABORATORY: White count 6.7, hemoglobin 9, platelet 275. Creatinine 1.1. Repeat urine culture demonstrates low count enterobacter and Proteus, both of which is sensitive to Zosyn. IMPRESSION AND PLAN: 1. Mr. Blount is an 84-year-old male admitted for DKA. 2. Metabolic encephalopathy. 3. History of bladder cancer, right ureteral transitional cell carcinoma, bulky, status post multiple ureteroscopy, debulking, undergoing Keytruda at [facility] and staged ureteroscopy, last performed per family in July [address] Ferrer. 4. Recent urine culture demonstrates low count enterobacter and Proteus. He recently had an indwelling Lynn catheter. I do not feel that his encephalopathy is due to low count bacteria, however, given his clinical status, it is reasonable to treat his positive urine culture. Appreciate Pulmonology note, considering transitioning to oral Augmentin. However, oral antibiotic regimen from my perspective would be ideal for cephalosporin third generation such as Omnicef if he is transitioning to oral antibiotic therapy. If he is to remain on IV antibiotic therapy, may continue IV Zosyn as it is sensitive, or IV cefepime to cover pulmonary and issues. 5. Advised nursing staff regarding PureWick as he is voiding in his diapers. 6. Condition remains guarded given his multiple comorbidities. Job ID: [id number] [facility]
[2019-11-20] MEDS: K-Phos Neutral 250 MG TAB PO SCH ×3 (08:48→16:36)
[2019-11-20] MEDS: Saccharomyces boulardii 250 MG CAP PO SCH (08:49)
[2019-11-20] MEDS: Enoxaparin Sodium 30 MG/0.3 ML SYRINGE SC SCH (08:49)
[2019-11-20] MEDS: Terazosin HCl 5 MG CAP PO SCH (08:49)
[2019-11-20] MEDS: Famotidine 20 MG TAB PO SCH (08:49)
[2019-11-20] MEDS: Docusate 100 MG CAP PO SCH ×2 (08:49→20:01)
[2019-11-20] MEDS: Dutasteride 0.5 MG CAP PO SCH (08:49)
[2019-11-20] MEDS: Cyanocobalamin (Vitamin B-12) 1,000 MCG TAB PO SCH (08:49)
[2019-11-20] MEDS: Folic Acid 1 MG TAB PO SCH (08:49)
[2019-11-20] MEDS: Fluconazole 100 MG TAB PO SCH (08:49)
[2019-11-20] MEDS: Multivit, Therapeutic 1 TAB PO SCH (08:49)
[2019-11-20] MEDS: Acetaminophen 325 MG TAB PO PRN (08:50)
[2019-11-20] MEDS: Insulin Regular 300 UNITS/3 ML VIAL SC PRN ×2 (12:27→16:45)
--- NOTE | 2019-11-20 14:22 | PDOC.NEUPN ---
- Subjective Encounter Date: 11/20/19 Subjective: Patient somnolent today but oriented to his name. Per his , he was agitated at night and received Haldol - Objective Vital Signs & Weight: Vital Signs (12 hours) Temp Pulse Pulse Pulse Resp BP BP 11/20/19 11:20 97.9 F 11/20/19 10:42 92 23 H 11/20/19 09:37 94 103 H 128/54 L 143/63 H 11/20/19 08:00 11/20/19 07:58 100 26 H 11/20/19 07:55 98.0 F 11/20/19 03:00 97.8 F 11/20/19 02:24 100 24 H Pulse Ox 11/20/19 11:20 11/20/19 10:42 100 11/20/19 09:37 11/20/19 08:00 98 11/20/19 07:58 11/20/19 07:55 11/20/19 03:00 11/20/19 02:24 100 Weight Admit Weight 171 lb Weight 199 lb 12.8 oz Most Recent Monitor Data Heart Rate from ECG 94 NIBP 110/50 NIBP BP-Mean 70 Respiration from ECG 29 SpO2 100 I&O: 11/19/19 11/20/19 11/21/19 06:59 06:59 06:59 Intake Total 1000 1759 Output Total 100 100 Balance 900 1659 Result Diagrams: 11/20/19 03:15 11/20/19 03:15 Additional Labs: Accuchecks 11/20/19 11/20/19 11/20/19 12:29 04:17 00:10 POC Glucose 249 H 199 H 184 H 11/19/19 11/19/19 11/18/19 20:20 16:47 18:42 POC Glucose 143 H 134 H 28 L* Radiology Reviewed by me: Yes EKG Reviewed by me: Yes ROS - Review of Systems ROS unobtainable: due to mental status - Medication Medications: Active Medications Generic Name Dose Route Start Last Admin Trade Name Freq PRN Reason Stop Dose Admin Acetaminophen 650 mg 11/12/19 13:53 11/20/19 08:50 Acetaminophen 325 Mg Tab PO 650 mg Q4H PRN Administration Headache/Fever/Mild Pain (1-3) Albuterol/Ipratropium 3 ml 11/13/19 10:30 11/20/19 10:42 Ipratropium/Albuterol Sulfate 3 Ml Neb NEB 3 ml [id number] PINA Administration Cyanocobalamin 1,000 mcg 11/19/19 09:00 11/20/19 08:49 Cyanocobalamin (Vitamin B-12) 1,000 Mcg Tab PO 1,000 mcg DAILY PINA Administration Dextrose/Water 25 gm 11/14/19 09:30 11/19/19 04:13 Dextrose 50% Abboject 50 Ml Syringe IVP 25 gm PRN PRN Administration HYPOGLYCEMIA PROTOCOL Docusate Sodium 100 mg 11/15/19 21:00 11/20/19 08:49 Docusate 100 Mg Cap PO 100 mg BID PINA Administration Dutasteride 0.5 mg 11/13/19 09:00 11/20/19 08:49 Dutasteride 0.5 Mg Cap PO 0.5 mg DAILY PINA Administration Enoxaparin Sodium 30 mg 11/13/19 09:00 11/20/19 08:49 Enoxaparin Sodium 30 Mg/0.3 Ml Syringe SC 30 mg 09 PINA Administration Famotidine 20 mg 11/15/19 21:00 11/20/19 08:49 Famotidine 20 Mg Tab PO 20 mg BID PINA Administration Fluconazole 100 mg 11/18/19 09:00 11/20/19 08:49 Fluconazole 100 Mg Tab PO 100 mg DAILY PINA Administration Folic Acid 1 mg 11/19/19 09:00 11/20/19 08:49 Folic Acid 1 Mg Tab PO 1 mg DAILY PINA Administration Haloperidol Lactate 5 mg 11/18/19 15:37 11/19/19 20:51 Haloperidol Lactate 5 Mg/Ml Vial IM 5 mg Q4H PRN Administration Agitation Piperacillin Sod/Tazobactam 100 mls @ 200 mls/hr 11/13/19 12:00 11/20/19 12:08 Sod 2.25 gm/ Sodium Chloride IVPB 100 mls Q6HR PINA Administration Insulin Glargine 20 units/ 0.2 mls @ 0 mls/hr 11/14/19 09:00 11/18/19 08:12 Miscellaneous Medication SC 0.2 mls QAM PINA Administration Potassium Chloride/Sodium Chloride 1,000 mls @ 50 mls/hr 11/19/19 12:30 09/30/20 15:10 1/2 Ns W/Kcl 20 Meq IV 1,000 mls .Q20H PINA Administration Insulin Human Regular 0 units 11/15/19 16:45 11/20/19 12:27 Insulin Regular 300 Units/3 Ml Vial SC 3 units .MILD SLIDING PRN Administration MILD SLIDING SCALE Protocol Latanoprost 1 drop 11/15/19 21:00 11/19/19 20:52 Latanoprost 0.005% Ophth Soln 2.5 Ml Bottle EA EYE 1 drop HS PINA Administration Levothyroxine Sodium 25 mcg 11/19/19 06:00 11/20/19 05:44 Levothyroxine Sodium 25 Mcg Tab PO 25 mcg 0600 PINA Administration Multivitamins 1 tab 11/19/19 09:00 11/20/19 08:49 Multivit, Therapeutic 1 Tab PO 1 tab DAILY PINA Administration Phosphorus 250 mg 11/18/19 08:00 11/20/19 12:09 K-Phos Neutral 250 Mg Tab PO Not Given TID-WM PINA Quetiapine Fumarate 50 mg 11/18/19 21:00 11/19/19 20:52 Quetiapine Fumarate 25 Mg Tab PO 50 mg HS IPNA Administration Saccharomyces Boulardii 250 mg 11/16/19 09:00 11/20/19 08:49 Saccharomyces Boulardii 250 Mg Cap PO 250 mg DAILY PINA Administration Sodium Chloride 10 ml 11/14/19 09:00 11/20/19 08:52 Flush - Normal Saline 10 Ml Syringe IVF 10 ml Q12HR PINA Administration Terazosin HCl 10 mg 11/13/19 09:00 11/20/19 08:49 Terazosin Hcl 5 Mg Cap PO 10 mg QAM PINA Administration - Exam General Appearance: NAD Eye: PERRL ENT: normocephalic atraumatic Neck: supple Respiratory: CTAB Cardiovascular: RRR Gastrointestinal: soft Extremities: no cyanosis Skin: normal turgor Neurological: no focal deficits, no new deficit Musculoskeletal: normal tone, no muscle wasting PSYCH: oriented to person, somnolent Results - Labs Result Diagrams: 11/20/19 03:15 11/20/19 03:15 Lab results: WBC 6.7 thou/uL (4.8-10.8) 11/20/19 03:15 Hgb 9.1 g/dL (14.0-18.0) L 11/20/19 03:15 Hct 27.8 % (42.0-52.0) L 11/20/19 03:15 MCV 99.1 fL (78.0-98.0) H 11/20/19 03:15 Plt Count 275 thou/uL (130-400) 11/20/19 03:15 Neutrophils % 66.9 % (42.0-75.0) 11/20/19 03:15 Band Neuts % (Manual) 3 % (5-11) L 11/19/19 03:24 ABG pH 7.43 (7.35-7.45) 11/15/19 07:18 ABG pCO2 35.3 mmHg (35.0-45.0) 11/15/19 07:18 ABG pO2 73.5 mmHg (> 60.0) H 11/15/19 07:18 VBG pCO2 18.5 mmHg (40.0-50.0) L* 11/12/19 13:57 VBG pO2 117.9 mmHg (35.0-45.0) H 11/12/19 13:57 Sodium 139 mmol/L (136-145) 11/20/19 03:15 Potassium 4.2 mmol/L (3.5-5.1) 11/20/19 03:15 Chloride 106 mmol/L (98-107) 11/20/19 03:15 Carbon Dioxide 19 mmol/L (23-31) L 11/20/19 03:15 BUN 11 mg/dL (8.4-25.7) 11/20/19 03:15 Creatinine 1.19 mg/dL (0.7-1.3) 11/20/19 03:15 Glucose 215 mg/dL (83-110) H 11/20/19 03:15 Lactic Acid 3.1 mmol/L (0.5-2.2) H 11/12/19 15:48 Calcium 7.7 mg/dL (7.8-10.44) L 11/20/19 03:15 Total Bilirubin 0.4 mg/dL (0.2-1.2) 11/12/19 12:23 AST 11 U/L (5-34) 11/12/19 12:23 ALT 12 U/L (8-55) 11/12/19 12:23 Alkaline Phosphatase 119 U/L (40-110) H 11/12/19 12:23 CK-MB (CK-2) 4.1 ng/mL (0-6.6) 11/12/19 13:07 Troponin I 0.052 ng/mL (< 0.028) H 11/12/19 16:58 C-Reactive Protein 20.87 mg/dL (= or < 0.5) H 11/17/19 04:20 Serum Total Protein 6.6 g/dL (5.8-8.1) 11/12/19 12:23 Albumin 3.7 g/dL (3.4-4.8) 11/12/19 12:23 Lipase 57 U/L (8-78) 11/12/19 12:23 Urine Ketones 10 mg/dL (Negative) A 11/18/19 13:52 Urine Blood 2+ (Negative) A 11/18/19 13:52 Urine Nitrite 1+ (Negative) A 11/18/19 13:52 Ur Leukocyte Esterase 500 Rashad/uL (Negative) A 11/18/19 13:52 Urine RBC Greater than 50 HPF (0-3) A 11/18/19 13:52 Urine WBC Greater than 50 HPF (0-3) A 11/18/19 13:52 Ur Squamous Epith Cells 0-3 HPF (0-3) 11/18/19 13:52 Urine Bacteria 1+ HPF (None Seen) A 11/18/19 13:52 - Radiology Interpretation CT scan - head Status: image reviewed by me, report reviewed by me Additional Comment: Negative for acute intracranial pathology. PN A/P (1) AMS (altered mental status) Code(s): R41.82 - ALTERED MENTAL STATUS, UNSPECIFIED Status: Acute (2) Electrolyte abnormality Code(s): E87.8 - OTH DISORDERS OF ELECTROLYTE AND FLUID BALANCE, NEC Status: Acute (3) Hypovolemic shock Code(s): R57.1 - HYPOVOLEMIC SHOCK Status: Acute (4) Sepsis Code(s): A41.9 - SEPSIS, UNSPECIFIED ORGANISM Status: Acute (5) HTN (hypertension) Code(s): I10 - ESSENTIAL (PRIMARY) HYPERTENSION Status: Chronic (6) Hypothyroidism Code(s): E03.9 - HYPOTHYROIDISM, UNSPECIFIED Status: Chronic (7) Hyponatremia Code(s): E87.1 - HYPO-OSMOLALITY AND HYPONATREMIA Status: Resolved (8) Metabolic acidosis Code(s): E87.2 - ACIDOSIS Status: Resolved (9) Vomiting and diarrhea Code(s): R11.10 - VOMITING, UNSPECIFIED; R19.7 - DIARRHEA, UNSPECIFIED Status: Resolved - Plan Daily Plan: PT/OT, speech therapy, DVT proph w/SCDs 84-year-old female with history significant for uncontrolled diabetes presented with DKA on admission consulted for altered mental status which becomes worse at night. Most likely secondary to metabolic etiology. No intracranial process determine since EEG and head CT is negative. hospital delirium is also in the differential EEG reviewed and was negative for seizure activity. Head CT reviewed and was negative for acute intracranial process. Neurochecks every 4 hours Continue home medications Continue medical management per primary team Observe delirium precautions PT/OT/speech when stable Patient extremely somnolent. N.p.o. till cleared by speech. No further recommendation from neurology perspective Plan discussed in detail with the patient's
[2019-11-20] MEDS: 1/2 NS w/KCL 20 mEq 1,000 ML IV SCH (14:39)
--- NOTE | 2019-11-20 16:57 | PDOC.HOSPP ---
- Subjective Encounter Date: 11/20/19 Encounter Time: 09:30 Subjective: Patient seen and examined for altered mentation. Overnight events reviewed. Somnolent. Family at the bedside. No fever, chills or nausea reported - Objective Vital Signs & Weight: Vital Signs (12 hours) Temp Pulse Pulse Pulse Resp BP BP 11/20/19 15:45 97.2 F L 11/20/19 14:45 96 21 H 11/20/19 13:51 91 120/56 L 11/20/19 11:20 97.9 F 11/20/19 10:42 92 23 H 11/20/19 09:37 94 103 H 128/54 L 143/63 H 11/20/19 08:00 11/20/19 07:58 100 26 H 11/20/19 07:55 98.0 F Pulse Ox Pulse Ox 11/20/19 15:45 11/20/19 14:45 100 11/20/19 13:51 100 11/20/19 11:20 11/20/19 10:42 100 11/20/19 09:37 11/20/19 08:00 98 11/20/19 07:58 11/20/19 07:55 Weight Admit Weight 171 lb Weight 199 lb 12.8 oz Most Recent Monitor Data Heart Rate from ECG 94 NIBP 99/80 NIBP BP-Mean 86 Respiration from ECG 22 SpO2 100 I&O: 11/19/19 11/20/19 11/21/19 06:59 06:59 06:59 Intake Total 1000 1759 Output Total 100 100 Balance 900 1659 Result Diagrams: 11/20/19 03:15 11/20/19 03:15 Additional Labs: Accuchecks 11/20/19 11/20/19 11/20/19 16:05 12:29 04:17 POC Glucose 240 H 249 H 199 H 11/20/19 11/19/19 00:10 20:20 POC Glucose 184 H 143 H EKG Reviewed by me: Yes (Sinus rhythm on telemetry) Hospitalist ROS - Review of Systems ROS unobtainable: due to mental status - Medication Medications: Active Medications Generic Name Dose Route Start Last Admin Trade Name Freq PRN Reason Stop Dose Admin Acetaminophen 650 mg 11/12/19 13:53 11/20/19 08:50 Acetaminophen 325 Mg Tab PO 650 mg Q4H PRN Administration Headache/Fever/Mild Pain (1-3) Albuterol/Ipratropium 3 ml 11/13/19 10:30 11/20/19 14:45 Ipratropium/Albuterol Sulfate 3 Ml Neb NEB 3 ml [id number] PINA Administration Cyanocobalamin 1,000 mcg 11/19/19 09:00 11/20/19 08:49 Cyanocobalamin (Vitamin B-12) 1,000 Mcg Tab PO 1,000 mcg DAILY PINA Administration Dextrose/Water 25 gm 11/14/19 09:30 11/19/19 04:13 Dextrose 50% Abboject 50 Ml Syringe IVP 25 gm PRN PRN Administration HYPOGLYCEMIA PROTOCOL Docusate Sodium 100 mg 11/15/19 21:00 11/20/19 08:49 Docusate 100 Mg Cap PO 100 mg BID PINA Administration Dutasteride 0.5 mg 11/13/19 09:00 11/20/19 08:49 Dutasteride 0.5 Mg Cap PO 0.5 mg DAILY PINA Administration Enoxaparin Sodium 30 mg 11/13/19 09:00 11/20/19 08:49 Enoxaparin Sodium 30 Mg/0.3 Ml Syringe SC 30 mg 0900 PINA Administration Famotidine 20 mg 11/15/19 21:00 11/20/19 08:49 Famotidine 20 Mg Tab PO 20 mg BID PINA Administration Fluconazole 100 mg 11/18/19 09:00 11/20/19 08:49 Fluconazole 100 Mg Tab PO 100 mg DAILY PINA Administration Folic Acid 1 mg 11/19/19 09:00 11/20/19 08:49 Folic Acid 1 Mg Tab PO 1 mg DAILY PINA Administration Haloperidol Lactate 5 mg 11/18/19 15:37 11/19/19 20:51 Haloperidol Lactate 5 Mg/Ml Vial IM 5 mg Q4H PRN Administration Agitation Piperacillin Sod/Tazobactam 100 mls @ 200 mls/hr 11/13/19 12:00 11/20/19 16:36 Sod 2.25 gm/ Sodium Chloride IVPB 100 mls Q6HR PINA Administration Insulin Glargine 20 units/ 0.2 mls @ 0 mls/hr 11/14/19 09:00 11/18/19 08:12 Miscellaneous Medication SC 0.2 mls QAM PINA Administration Potassium Chloride/Sodium Chloride 1,000 mls @ 50 mls/hr 11/19/19 12:30 14:39 1/2 Ns W/Kcl 20 Meq IV 1,000 mls .Q20H PINA Administration Insulin Human Regular 0 units 11/15/19 16:45 11/20/19 16:45 Insulin Regular 300 Units/3 Ml Vial SC 3 units .MILD SLIDING PRN Administration MILD SLIDING SCALE Protocol Latanoprost 1 drop 11/15/19 21:00 11/19/19 20:52 Latanoprost 0.005% Ophth Soln 2.5 Ml Bottle EA EYE 1 drop HS PINA Administration Levothyroxine Sodium 25 mcg 11/19/19 06:00 11/20/19 05:44 Levothyroxine Sodium 25 Mcg Tab PO 25 mcg 0600 PINA Administration Multivitamins 1 tab 11/19/19 09:00 11/20/19 08:49 Multivit, Therapeutic 1 Tab PO 1 tab DAILY PINA Administration Phosphorus 250 mg 11/18/19 08:00 11/20/19 16:36 K-Phos Neutral 250 Mg Tab PO 250 mg TID-WM PINA Administration Quetiapine Fumarate 50 mg 11/18/19 21:00 11/19/19 20:52 Quetiapine Fumarate 25 Mg Tab PO 50 mg HS PINA Administration Saccharomyces Boulardii 250 mg 11/16/19 09:00 11/20/19 08:49 Saccharomyces Boulardii 250 Mg Cap PO 250 mg DAILY PINA Administration Sodium Chloride 10 ml 11/14/19 09:00 11/20/19 08:52 Flush - Normal Saline 10 Ml Syringe IVF 10 ml Q12HR PINA Administration Terazosin HCl 10 mg 11/13/19 09:00 11/20/19 08:49 Terazosin Hcl 5 Mg Cap PO 10 mg QAM PINA Administration - Exam General Appearance: ill appearing Neck: supple, no JVD Heart: no gallops, no rubs Respiratory: no wheezes, no ronchi Gastrointestinal: non-tender, non-distended Extremities: no cyanosis Neurological: no new deficit Neurological - other findings: Exam limited due to current mentation Psychiatric: somnolent Hosp A/P (1) Toxic metabolic encephalopathy Code(s): G92 - TOXIC ENCEPHALOPATHY Status: Acute (2) Aspiration pneumonia Code(s): J69.0 - PNEUMONITIS DUE TO INHALATION OF FOOD AND VOMIT Status: Acute (3) UTI (urinary tract infection) Status: Acute (4) DKA (diabetic ketoacidoses) Code(s): E11.10 - TYPE 2 DIABETES MELLITUS WITH KETOACIDOSIS WITHOUT COMA Status: Acute (5) SARIAH (acute kidney injury) Code(s): N17.9 - ACUTE KIDNEY FAILURE, UNSPECIFIED Status: Acute (6) Hypovolemic shock Code(s): R57.1 - HYPOVOLEMIC SHOCK Status: Acute (7) Lactic acidosis Code(s): E87.2 - ACIDOSIS Status: Acute (8) Hypothyroidism Code(s): E03.9 - HYPOTHYROIDISM, UNSPECIFIED Status: Chronic (9) Electrolyte abnormality Code(s): E87.8 - OTH DISORDERS OF ELECTROLYTE AND FLUID BALANCE, NEC Status: Acute (10) Swallowing dysfunction Code(s): R13.10 - DYSPHAGIA, UNSPECIFIED Status: Acute (11) History of bladder cancer Code(s): Z85.51 - PERSONAL HISTORY OF MALIGNANT NEOPLASM OF BLADDER Status: Acute (12) Other issues per previous notes - Plan DVT proph w/lovenox, DVT proph w/SCDs 11/19 Continue IMCU monitoring. Urine culture positive for entero-bacterial and Proteus sensitive to cephalosporins. Chest x-ray showed questionable airspace disease versus atelectasis at bases. Will change antibiotics to Omnicef per urology recommendation. Discontinue Diflucan. Continue close monitoring. Recommended family to stay overnight if possible. Diet per speech therapy. Continue gentle hydration until appetite improves. A.m. labs. Check vitamin B12 and folic acid in a.m. Lantus on hold due to poor appetite. Continue other medications as above 11/18 Patient transferred to IMCU yesterday. Had hypoglycemia this morning. Will hold Lantus. Mentation gradually improving. Will adjust IV fluids based on blood sugar. Continue IV Zosyn for possible aspiration pneumonia. Repeat urine cultures pending. Continue nebulizer treatments. Add incentive spirometry. Replace electrolytes. Recheck labs in a.m. encourage family to stay overnight if possible 11/17 Overnight events reviewed. Replace vitals which was 2.1 today. Continue IV fluids. Continue current dose of Lantus. Change sliding scale to AC at bedtime. Discussed case with neurology who recommended CT brain with and without contrast and the EEG. Will complete 7 days of antibiotics. Will check postvoid residual. Repeat urinalysis per family's request continue fluconazole. Recheck labs in a.m. intermediate facility evaluation 11/16 Continue supportive care. Patient will be transferred to medical bed. intermediate facility evaluation. Cultures negative so far. Lynn catheter DC'd. Continue other medications including antibiotics for now. Continue current dose of Lantus with sliding scale. Replace potassium and phosphorus. Recheck labs in a.m. 11/15 Start diet per speech therapy recommendation. Change IV fluid to half NS. Continue Lantus with sliding scale. Continue empiric antibiotics. Cultures so far have been negative. Will discontinue Lynn catheter in a.m. Continue physical therapy. Replace electrolytes. A.m. labs. Continue other medications as above. 11/14 Continue IV fluids. Continue current dose of Lantus with sliding scale. Continue empiric Zosyn. Lynn catheter can probably be DC'd in a.m. due to yeast colonization. Will start fluconazole tomorrow. Consult physical therapy. Speech therapy consulted. Continue DVT prophylaxis. Add Pepcid. Continue other medications as above. Resume eyedrops. Other problems: History of hypertension, dyslipidemia, hypertension, history of bladder and ureteral cancer, former smoker, severe dehydration with osmolality of 341 on admission, chronic anemia
[2019-11-20] MEDS: Cefdinir 300 MG CAP PO SCH (20:01)
[2019-11-20] MEDS: Latanoprost 0.005% Ophth Soln 2.5 ml Bottle EA EYE SCH (20:02)
[2019-11-20] MEDS ORDERED: Bacteriostatic Water 30 ML VIAL FS PRN (21:45)
[2019-11-20] MEDS ORDERED: methylPREDNISolone Sod Succ/PF 125 MG/2 ML VIAL IVP SCH (21:45)
--- NOTE | 2019-11-20 23:03 | PRG ---
DATE OF SERVICE: 11/20/2019 SUBJECTIVE: He is confused and somnolent this morning. He is much better this afternoon. I reviewed his medications. He received Haldol last night. He also received 50 of Seroquel, so we will cut the dose to 25 mg tonight. He is in no distress. He is wheezing, which is something new for him this admission. He has never been told he had asthma or never was a smoker or diagnosed with COPD. OBJECTIVE: VITAL SIGNS: He is afebrile. Heart rates in the 90s, blood pressure 125/72, and respiratory rates in the 20s. LUNGS: Remarkable for diffuse wheezes. HEART: Regular rhythm. ABDOMEN: Soft. LABORATORY DATA: White count 6.7, hemoglobin 9.1, platelets 275. Sodium 139, potassium 4.2, chloride 106, bicarb 19, BUN 11, and creatinine 1.19. IMPRESSION: 1. Status post intubation for severe metabolic acidosis associated with new type 1 diabetes and diabetic ketoacidosis. 2. Status post immunotherapy for bladder cancer. 3. Advanced age. 4. Reactive airways at this time. He will receive magnesium. Some p.o. antibiotics. He will receive one dose of IV steroids tonight to see if that helps. Hopefully, we are seeing ongoing clinical improvement. His IV antibiotics have been switched to p.o. Job ID: [id number]
[2019-11-21] MEDS: Insulin Regular 300 UNITS/3 ML VIAL SC PRN ×4 (00:50→17:20)
[2019-11-21 03:35] LABS: ALT (SGPT) 22 U/L (8-55); AST (SGOT) 18 U/L (5-34); Albumin 2.9 g/dL (3.4-4.8); Alkaline Phosphatase 72 U/L (40-110); Anion Gap 23 mmol/L (10-20); BUN (Urea Nitrogen) 18 mg/dL (8.4-25.7); Bilirubin, Total 0.5 mg/dL (0.2-1.2); Calc. Creatinine Clearance 47 mL/min (70-130); Calcium 7.9 mg/dL (7.8-10.44); Carbon Dioxide 12 mmol/L (23-31); Chloride 106 mmol/L (98-107); Estimated GFR-MDRD 46; Globulin 2.8 g/dL (2.4-3.5); Glucose 286 mg/dL (83-110); Magnesium 2.7 mg/dL (1.6-2.6); Phosphorus 4.5 mg/dL (2.3-4.7); Potassium 4.6 mmol/L (3.5-5.1); Protein, Total 5.7 g/dL (5.8-8.1); Sodium 136 mmol/L (136-145)
[2019-11-21 03:44] LABS: Mean Corpuscular HGB CONC 33.5 g/dL (32.0-36.0); Mean Corpuscular Volume 98.7 fL (78.0-98.0); Mean Platelet Volume 6.9 fL (7.4-10.4); Platelet Count 340 thou/uL (130-400); RBC Distribution Width 12.5 % (11.5-14.5); Red Blood Cell (RBC) Count 2.74 mill/uL (4.70-6.10); White Blood Cell (WBC) Count 8.5 thou/uL (4.8-10.8)
[2019-11-21 03:45] LABS: Band 17 % (5-11); Hypochromia SLIGHT = 6-15 cells (100X) (0-5/hpf); Lymphocytes 7 % (21-51); MDiff Complete? YES; Monocytes 3 % (0-10); Neutrophil 73 % (42-75); Platelet Morphology Comment Appears Adequate; Toxic Granulation SLIGHT
[2019-11-21] MEDS: Levothyroxine Sodium 25 MCG TAB PO SCH (06:15)
--- NOTE | 2019-11-21 07:25 | PRG ---
DATE OF SERVICE: 11/21/2019 SUBJECTIVE: Mr. Blount' wheezing is dramatically improved. He had a good night. He is now up in a chair. He is oriented. He very quickly told me he can make his own decisions. He is very hard of hearing. He has limited ice chips only. I have explained to family that it is important to reconsider his quality of life. I would move forward considering pureed meals and thickened liquids. Family is related that they do not want him to ever have a PEG, so this is the best option with coexistent speech pathology working with his swallowing. OBJECTIVE: VITAL SIGNS: Heart rate is in the 90s, respiratory rates in the 20s, oximetry is 100% on room air, and blood pressure is 112/56. LUNGS: Clear. HEART: Regular rhythm. ABDOMEN: Soft. EXTREMITIES: Without edema. IMPRESSION AND PLAN: 1. Status post presentation with hyperosmolar state, combined with diabetic ketoacidosis, new onset. 2. Bladder cancer, on immunotherapy. 3. Anemia of chronic disease. 4. Status post mechanical ventilation. 5. Encephalopathy, that is improving. 6. Bronchospasm/reactive airways. He has no history of this in the past and no history of smoking. This is improved after a dose of steroids and IV magnesium. He will remain in the intermediate care unit. Job ID: [id number]
--- NOTE | 2019-11-21 08:27 | PRG ---
DATE OF SERVICE: 11/21/2019 SUBJECTIVE: The patient is more alert today, recognizes me as one of his providers. [id number] at bedside. Recent clinical history updated with family. OBJECTIVE: VITAL SIGNS: Stable. He is afebrile. I's and O's are difficult as he is urinating in diaper; PureWick, which I have requested, demonstrating concentrated yellow urine. PVR checked, which is zero minimal. ABDOMEN: Soft, nontender, nondistended. No rigidity. No rebound. PERTINENT LABORATORY DATA: White count 8, hemoglobin 9, platelets 340. BMP profile with creatinine 1.4. The patient on oral restriction as swallowing test results are pending. IMPRESSION AND PLAN: 1. Mr. Blount is an 84-year-old male with history of diabetes, currently admitted with diabetic ketoacidosis, resolved, metabolic encephalopathy. 2. 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 CT on this admission demonstrates right ureteral stent in good position with no evidence of hydronephrosis no obvious bladder or ureteral tumor seen. Patient has ongoing follow-up appointment with MD Anton . his main issue on this admission remains his confusion/encephalopathy, which appears to be slowly improving on today's exam. His final disposition will be pending his medical progress. There are no acute urologic issues on this admission. When the patient is medically stable, he will continue to follow with MD Anton for ongoing treatment of his ureteral transitional cell carcinoma. I anticipate the patient will be in-house over the weekend, [facility] covering for p.r.n. issues. Family informed. Patient is not in urinary retention, Lynn catheter indwelling contraindicated due to encephalopathy increased risk of traumatic Lynn catheter removal his PVR has been checked on multiple occasions minimal. Continue pure wick in diaper. Job ID: [id number] [facility]
[2019-11-21 09:14] LABS: Lactic Acid 1.5 mmol/L (0.5-2.2)
[2019-11-21 09:17] LABS: Anion Gap 18 mmol/L (10-20); BUN (Urea Nitrogen) 20 mg/dL (8.4-25.7); Calc. Creatinine Clearance 46 mL/min (70-130); Calcium 7.8 mg/dL (7.8-10.44); Carbon Dioxide 17 mmol/L (23-31); Chloride 107 mmol/L (98-107); Estimated GFR-MDRD 44; Glucose 244 mg/dL (83-110); Potassium 4.3 mmol/L (3.5-5.1); Sodium 138 mmol/L (136-145)
[2019-11-21] MEDS: Cyanocobalamin (Vitamin B-12) 1,000 MCG TAB PO SCH (09:19)
[2019-11-21] MEDS: Cefdinir 300 MG CAP PO SCH ×2 (09:20→22:27)
[2019-11-21] MEDS: Terazosin HCl 5 MG CAP PO SCH (09:20)
[2019-11-21] MEDS: Multivit, Therapeutic 1 TAB PO SCH (09:21)
[2019-11-21] MEDS: Saccharomyces boulardii 250 MG CAP PO SCH (09:21)
[2019-11-21] MEDS: Folic Acid 1 MG TAB PO SCH (09:21)
[2019-11-21] MEDS: Docusate 100 MG CAP PO SCH ×2 (09:21→09:44)
[2019-11-21] MEDS: Enoxaparin Sodium 30 MG/0.3 ML SYRINGE SC SCH (09:22)
[2019-11-21] MEDS: Dutasteride 0.5 MG CAP PO SCH (09:22)
[2019-11-21] MEDS: K-Phos Neutral 250 MG TAB PO SCH ×3 (09:23→17:20)
[2019-11-21] MEDS: Insulin Glargine 10 UNITS in Pre-Filled Syringe 1 EACH SC SCH ×3 (09:37→22:29)
[2019-11-21] MEDS: D5 1/2 NS w/20 mEq KCL 1,000 ML IV SCH ×2 (10:27→23:35)
[2019-11-21] MEDS: 1/2 NS w/KCL 20 mEq 1,000 ML IV SCH (12:36)
--- NOTE | 2019-11-21 14:15 | PDOC.HOSPP ---
- Subjective Encounter Date: 11/21/19 Encounter Time: 10:00 Subjective: Patient seen and examined for altered mentation with diabetic ketoacidosis. Mentation improving. No fever or chills reported. Overnight events noted. Family at the bedside. - Objective Vital Signs & Weight: Vital Signs (12 hours) Temp Pulse Pulse Pulse Resp BP BP 11/21/19 11:51 97.6 F 11/21/19 11:03 90 22 H 11/21/19 10:22 94 90 125/54 L 132/64 11/21/19 07:45 11/21/19 07:26 97.4 F L 11/21/19 06:59 94 24 H 11/21/19 03:57 97.2 F L 11/21/19 03:49 11/21/19 03:48 Pulse Ox 11/21/19 11:51 11/21/19 11:03 100 11/21/19 10:22 11/21/19 07:45 100 11/21/19 07:26 11/21/19 06:59 100 11/21/19 03:57 11/21/19 03:49 100 11/21/19 03:48 100 Weight Admit Weight 170 lb 13.732 oz Weight 198 lb 9.6 oz Most Recent Monitor Data Heart Rate from ECG 88 NIBP 126/74 NIBP BP-Mean 91 Respiration from ECG 19 SpO2 100 I&O: 11/20/19 11/21/19 11/22/19 06:59 06:59 06:59 Intake Total 1759 650 495 Output Total 100 100 Balance 1659 550 495 Result Diagrams: 11/21/19 02:59 11/21/19 08:42 Additional Labs: Accuchecks 11/21/19 11/21/19 11/21/19 12:17 05:24 00:14 POC Glucose 247 H 225 H 270 H 11/20/19 11/20/19 20:18 16:05 POC Glucose 176 H 240 H Laboratory Tests 11/21/19 08:42 B-Hydroxybutyrate 5.21 H Laboratory Tests 11/21/19 02:59 Carbon Dioxide 12 L Creatinine 1.46 H EKG Reviewed by me: Yes (Sinus rhythm on telemetry) Hospitalist ROS - Review of Systems Respiratory: denies: cough, dry, shortness of breath, hemoptysis, SOB with excertion, pleuritic pain, sputum, wheezing, other Cardiovascular: denies: chest pain, palpitations, orthopnea, paroxysmal noc. dyspnea, edema, light headedness, other - Medication Medications: Active Medications Generic Name Dose Route Start Last Admin Trade Name Freq PRN Reason Stop Dose Admin Acetaminophen 650 mg 11/12/19 13:53 11/20/19 08:50 Acetaminophen 325 Mg Tab PO 650 mg Q4H PRN Administration Headache/Fever/Mild Pain (1-3) Albuterol/Ipratropium 3 ml 11/13/19 10:30 11/21/19 11:03 Ipratropium/Albuterol Sulfate 3 Ml Neb NEB 3 ml [id number] PINA Administration Cefdinir 300 mg 11/20/19 21:00 11/21/19 09:20 Cefdinir 300 Mg Cap PO 300 mg BID PINA Administration Cyanocobalamin 1,000 mcg 11/19/19 09:00 11/21/19 09:19 Cyanocobalamin (Vitamin B-12) 1,000 Mcg Tab PO 1,000 mcg DAILY PINA Administration Dextrose/Water 25 gm 11/14/19 09:30 11/19/19 04:13 Dextrose 50% Abboject 50 Ml Syringe IVP 25 gm PRN PRN Administration HYPOGLYCEMIA PROTOCOL Docusate Sodium 100 mg 11/15/19 21:00 11/21/19 09:44 Docusate 100 Mg Cap PO Not Given BID PINA Dutasteride 0.5 mg 11/13/19 09:00 11/21/19 09:22 Dutasteride 0.5 Mg Cap PO 0.5 mg DAILY PINA Administration Enoxaparin Sodium 30 mg 11/13/19 09:00 11/21/19 09:22 Enoxaparin Sodium 30 Mg/0.3 Ml Syringe SC 30 mg 09 PINA Administration Folic Acid 1 mg 11/19/19 09:00 11/21/19 09:21 Folic Acid 1 Mg Tab PO 1 mg DAILY PINA Administration Haloperidol Lactate 5 mg 11/18/19 15:37 11/19/19 20:51 Haloperidol Lactate 5 Mg/Ml Vial IM 5 mg Q4H PRN Administration Agitation Insulin Glargine 10 units/ 0.1 mls @ 0 mls/hr 11/21/19 09:00 11/21/19 10:24 Miscellaneous Medication SC 0.1 mls QAM PINA Administration Potassium Chloride/Dextrose/Sod Cl 1,000 mls @ 75 mls/hr 11/21/19 10:15 11/21/19 10:27 D5 1/2 Ns W/20 Meq Kcl IV 1,000 mls .[id number] PINA Administration Insulin Human Regular 0 units 11/21/19 10:05 11/21/19 12:39 Insulin Regular 300 Units/3 Ml Vial SC 4 units .MODERATE SLIDING SC PRN Administration Moderate Correctional Scale Latanoprost 1 drop 11/15/19 21:00 11/20/19 20:02 Latanoprost 0.005% Ophth Soln 2.5 Ml Bottle EA EYE 1 drop HS PINA Administration Levothyroxine Sodium 25 mcg 11/19/19 06:00 11/21/19 06:15 Levothyroxine Sodium 25 Mcg Tab PO Not Given 0600 PINA Multivitamins 1 tab 11/19/19 09:00 11/21/19 09:21 Multivit, Therapeutic 1 Tab PO 1 tab DAILY PINA Administration Pantoprazole Sodium 40 mg 11/21/19 09:00 11/21/19 09:19 Pantoprazole 40 Mg Tab PO 40 mg DAILY PINA Administration Phosphorus 250 mg 11/18/19 08:00 11/21/19 11:23 K-Phos Neutral 250 Mg Tab PO 250 mg TID-WM PINA Administration Quetiapine Fumarate 25 mg 11/20/19 19:27 11/20/19 20:01 Quetiapine Fumarate 25 Mg Tab PO 25 mg HS PINA Administration Saccharomyces Boulardii 250 mg 11/16/19 09:00 11/21/19 09:21 Saccharomyces Boulardii 250 Mg Cap PO 250 mg DAILY PINA Administration Sodium Chloride 10 ml 11/14/19 09:00 11/21/19 09:25 Flush - Normal Saline 10 Ml Syringe IVF Not Given Q12HR PINA Terazosin HCl 10 mg 11/13/19 09:00 11/21/19 09:20 Terazosin Hcl 5 Mg Cap PO 10 mg QAM PINA Administration - Exam General Appearance: NAD Heart: RRR, no gallops Respiratory: CTAB, no rales Gastrointestinal: non-tender, normal bowel sounds Extremities: no cyanosis, no clubbing Musculoskeletal: generalized weakness Psychiatric: A&O x 3, oriented to person, oriented to place, oriented to time, somnolent Hosp A/P (1) Toxic metabolic encephalopathy Code(s): G92 - TOXIC ENCEPHALOPATHY Status: Acute (2) Aspiration pneumonia Code(s): J69.0 - PNEUMONITIS DUE TO INHALATION OF FOOD AND VOMIT Status: Acute (3) UTI (urinary tract infection) Status: Acute (4) DKA (diabetic ketoacidoses) Code(s): E11.10 - TYPE 2 DIABETES MELLITUS WITH KETOACIDOSIS WITHOUT COMA Status: Acute (5) SARIAH (acute kidney injury) Code(s): N17.9 - ACUTE KIDNEY FAILURE, UNSPECIFIED Status: Acute (6) Hypovolemic shock Code(s): R57.1 - HYPOVOLEMIC SHOCK Status: Acute (7) Lactic acidosis Code(s): E87.2 - ACIDOSIS Status: Acute (8) Hypothyroidism Code(s): E03.9 - HYPOTHYROIDISM, UNSPECIFIED Status: Chronic (9) Electrolyte abnormality Code(s): E87.8 - OTH DISORDERS OF ELECTROLYTE AND FLUID BALANCE, NEC Status: Acute (10) Swallowing dysfunction Code(s): R13.10 - DYSPHAGIA, UNSPECIFIED Status: Acute (11) History of bladder cancer Code(s): Z85.51 - PERSONAL HISTORY OF MALIGNANT NEOPLASM OF BLADDER Status: Acute (12) Other issues per previous notes - Plan DVT proph w/SCDs 11/20 Mentation is gradually improving. Lab today was consistent with metabolic acidosis with bicarbonate of 12 and ketones of 5.21. We will start him on IV fluids with dextrose. Change Lantus to 10 units twice daily. Monitor Accu- Cheks every 4 hourly. Continue neurochecks. Encouraged family to stay with the patient. Recheck ketones in a.m. and basic metabolic profile later today around 5 PM. Continue other medications as above DVT prophylaxis. Minimize oral medications due to swallow dysfunction. digital program manager consult for inpatient rehab evaluation per family request. 11/19 Continue IMCU monitoring. Urine culture positive for entero-bacterial and Proteus sensitive to cephalosporins. Chest x-ray showed questionable airspace disease versus atelectasis at bases. Will change antibiotics to Omnicef per urology recommendation. Discontinue Diflucan. Continue close monitoring. Recommended family to stay overnight if possible. Diet per speech therapy. Continue gentle hydration until appetite improves. A.m. labs. Check vitamin B12 and folic acid in a.m. Lantus on hold due to poor appetite. Continue other medications as above 11/18 Patient transferred to [facility] yesterday. Had hypoglycemia this morning. Will hold Lantus. Mentation gradually improving. Will adjust IV fluids based on blood sugar. Continue IV Zosyn for possible aspiration pneumonia. Repeat urine cultures pending. Continue nebulizer treatments. Add incentive spirometry. Replace electrolytes. Recheck labs in a.m. encourage family to stay overnight if possible 11/17 Overnight events reviewed. Replace vitals which was 2.1 today. Continue IV fluids. Continue current dose of Lantus. Change sliding scale to AC at bedtime. Discussed case with neurology who recommended CT brain with and without contrast and the EEG. Will complete 7 days of antibiotics. Will check postvoid residual. Repeat urinalysis per family's request continue fluconazole. Recheck labs in a.m. senior care facility evaluation 11/16 Continue supportive care. Patient will be transferred to medical bed. senior care facility evaluation. Cultures negative so far. Lynn catheter DC'd. Continue other medications including antibiotics for now. Continue current dose of Lantus with sliding scale. Replace potassium and phosphorus. Recheck labs in a.m. 11/15 Start diet per speech therapy recommendation. Change IV fluid to half NS. Continue Lantus with sliding scale. Continue empiric antibiotics. Cultures so far have been negative. Will discontinue Lynn catheter in a.m. Continue physical therapy. Replace electrolytes. A.m. labs. Continue other medications as above. 11/14 Continue IV fluids. Continue current dose of Lantus with sliding scale. Cont inue empiric Zosyn. Lynn catheter can probably be DC'd in a.m. due to yeast colonization. Will start fluconazole tomorrow. Consult physical therapy. Speech therapy consulted. Continue DVT prophylaxis. Add Pepcid. Continue other medications as above. Resume eyedrops. Other problems: History of hypertension, dyslipidemia, hypertension, history of bladder and ureteral cancer, former smoker, severe dehydration with osmolality of 341 on admission, chronic anemia
[2019-11-21 18:29] LABS: Anion Gap 18 mmol/L (10-20); BUN (Urea Nitrogen) 20 mg/dL (8.4-25.7); Calc. Creatinine Clearance 45 mL/min (70-130); Calcium 7.9 mg/dL (7.8-10.44); Carbon Dioxide 18 mmol/L (23-31); Chloride 108 mmol/L (98-107); Estimated GFR-MDRD 43; Glucose 248 mg/dL (83-110); Potassium 4.5 mmol/L (3.5-5.1); Sodium 139 mmol/L (136-145)
[2019-11-21] MEDS: Senokot S 8.6-50 MG TAB PO SCH (22:27)
[2019-11-21] MEDS: Latanoprost 0.005% Ophth Soln 2.5 ml Bottle EA EYE SCH (22:28)
[2019-11-22] MEDS: D5 1/2 NS w/20 mEq KCL 1,000 ML IV SCH ×2 (01:04→12:30)
[2019-11-22 04:02] LABS: Band 18 % (5-11); Hemoglobin 8.8 g/dL (14.0-18.0); Lymphocytes 17 % (21-51); MDiff Complete? YES; Mean Corpuscular HGB CONC 33.7 g/dL (32.0-36.0); Mean Corpuscular Hemoglobin 32.6 pg (27.0-31.0); Mean Corpuscular Volume 96.9 fL (78.0-98.0); Mean Platelet Volume 6.8 fL (7.4-10.4); Monocytes 8 % (0-10); Neutrophil 57 % (42-75); Platelet Count 371 thou/uL (130-400); Platelet Morphology Comment Appears Adequate; RBC Distribution Width 12.5 % (11.5-14.5); Red Blood Cell (RBC) Count 2.69 mill/uL (4.70-6.10); White Blood Cell (WBC) Count 9.9 thou/uL (4.8-10.8)
[2019-11-22 04:17] LABS: ALT (SGPT) 19 U/L (8-55); AST (SGOT) 22 U/L (5-34); Albumin 2.9 g/dL (3.4-4.8); Alkaline Phosphatase 70 U/L (40-110); Anion Gap 14 mmol/L (10-20); BUN (Urea Nitrogen) 19 mg/dL (8.4-25.7); Bilirubin, Total 0.4 mg/dL (0.2-1.2); Calc. Creatinine Clearance 47 mL/min (70-130); Calcium 7.8 mg/dL (7.8-10.44); Carbon Dioxide 20 mmol/L (23-31); Chloride 109 mmol/L (98-107); Estimated GFR-MDRD 46; Globulin 2.6 g/dL (2.4-3.5); Glucose 217 mg/dL (83-110); Magnesium 2.2 mg/dL (1.6-2.6); Phosphorus 3.3 mg/dL (2.3-4.7); Potassium 4.2 mmol/L (3.5-5.1); Protein, Total 5.5 g/dL (5.8-8.1); Sodium 139 mmol/L (136-145)
[2019-11-22] MEDS: Levothyroxine Sodium 25 MCG TAB PO SCH (06:34)
[2019-11-22] MEDS: Insulin Regular 300 UNITS/3 ML VIAL SC PRN (06:34)
[2019-11-22] MEDS: K-Phos Neutral 250 MG TAB PO SCH ×3 (09:15→17:44)
[2019-11-22] MEDS: Cefdinir 300 MG CAP PO SCH ×2 (09:15→20:37)
[2019-11-22] MEDS: Dutasteride 0.5 MG CAP PO SCH (09:16)
[2019-11-22] MEDS: Enoxaparin Sodium 30 MG/0.3 ML SYRINGE SC SCH (09:16)
[2019-11-22] MEDS: Insulin Glargine 10 UNITS in Pre-Filled Syringe 1 EACH SC SCH ×2 (09:16→20:38)
[2019-11-22] MEDS: Saccharomyces boulardii 250 MG CAP PO SCH (09:16)
[2019-11-22] MEDS: Terazosin HCl 5 MG CAP PO SCH (09:17)
--- NOTE | 2019-11-22 11:16 | PRG ---
DATE OF SERVICE: 11/22/2019 SUBJECTIVE: The patient is doing reasonably well except for shouting out. OBJECTIVE: VITAL SIGNS: On exam, his temperature is 97.7, pulse 86, blood pressure 129/65, O2 saturation 100%. HEENT: Unremarkable. NECK: No adenopathy or JVD. LUNGS: Clear. CARDIAC: S1 and S2. Regular. ABDOMEN: Soft. EXTREMITIES: Edematous. LABORATORY DATA: White cell count 9.9, hematocrit 26.1, and platelet count 371. Sodium 139, potassium 4.2, BUN 19, creatinine 1.5, glucose 217. ASSESSMENT: 1. Stable pulmonary status. 2. Status post hyperosmolar state. 3. Encephalopathy. 4. History of reactive airway disease. PLAN: From my standpoint, he is stable for transfer to rehab, I would probably withhold as many of the antipsychotics as possible. Job ID: [id number]
--- NOTE | 2019-11-22 15:54 | PDOC.HOSPP ---
- Subjective Encounter Date: 11/22/19 Encounter Time: 09:30 Subjective: [id number]-[id number] at bedside. Patient is sitting in the chair. It appears she was quite confused last night and got out of the bed. Asking for wallet etc. Ativan caused more hallucination per oiqfxneu-wg-[id number]. All sedative medications are on hold. Tydafuye-zz-knv states that patient is already on Seroquel. But I do not see that aided in the home medication are as an inpatient. Dr. Champion's note reviewed. No sedatives or antipsychotics for the time being. - Objective Vital Signs & Weight: Vital Signs (12 hours) Temp Pulse Resp Pulse Ox 11/22/19 11:27 97.2 F L 11/22/19 11:13 80 18 11/22/19 08:00 97 11/22/19 07:16 97.7 F 11/22/19 06:58 87 20 100 11/22/19 04:48 98.2 F Weight Admit Weight 170 lb 13.732 oz Weight 200 lb 1.6 oz Most Recent Monitor Data Heart Rate from ECG 92 NIBP 153/80 NIBP BP-Mean 104 Respiration from ECG 23 SpO2 100 I&O: 11/21/19 11/22/19 11/23/19 06:59 06:59 06:59 Intake Total 650 1513 Output Total 100 Balance 550 1513 Result Diagrams: 11/22/19 03:13 11/22/19 03:13 Additional Labs: Accuchecks 11/22/19 11/22/19 11/22/19 12:43 08:11 04:28 POC Glucose 62 L 178 H 186 H 11/22/19 11/21/19 11/21/19 00:22 20:37 16:17 POC Glucose 233 H 210 H 212 H Hospitalist ROS - Medication Medications: Active Medications Generic Name Dose Route Start Last Admin Trade Name Freq PRN Reason Stop Dose Admin Acetaminophen 650 mg 11/12/19 13:53 11/20/19 08:50 Acetaminophen 325 Mg Tab PO 650 mg Q4H PRN Administration Headache/Fever/Mild Pain (1-3) Albuterol/Ipratropium 3 ml 11/13/19 10:30 11/22/19 11:13 Ipratropium/Albuterol Sulfate 3 Ml Neb NEB 3 ml [id number] PINA Administration Cefdinir 300 mg 11/20/19 21:00 11/22/19 09:15 Cefdinir 300 Mg Cap PO 300 mg BID PINA Administration Dextrose/Water 25 gm 11/14/19 09:30 11/19/19 04:13 Dextrose 50% Abboject 50 Ml Syringe IVP 25 gm PRN PRN Administration HYPOGLYCEMIA PROTOCOL Dutasteride 0.5 mg 11/13/19 09:00 11/22/19 09:16 Dutasteride 0.5 Mg Cap PO 0.5 mg DAILY PINA Administration Enoxaparin Sodium 30 mg 11/13/19 09:00 11/22/19 09:16 Enoxaparin Sodium 30 Mg/0.3 Ml Syringe SC 30 mg 0900 PINA Administration Insulin Glargine 10 units/ 0.1 mls @ 0 mls/hr 11/21/19 09:00 11/22/19 09:16 Miscellaneous Medication SC 0.1 mls QAM PINA Administration Potassium Chloride/Dextrose/Sod Cl 1,000 mls @ 75 mls/hr 11/21/19 10:15 11/22/19 12:30 D5 1/2 Ns W/20 Meq Kcl IV 1,000 mls .[id number] PINA Administration Insulin Glargine 10 units/ 0.1 mls @ 0 mls/hr 11/21/19 21:00 11/21/19 22:29 Miscellaneous Medication SC 0.1 mls HS PINA Administration Insulin Human Regular 0 units 11/21/19 10:05 11/22/19 06:34 Insulin Regular 300 Units/3 Ml Vial SC 2 units .MODERATE SLIDING SC PRN Administration Moderate Correctional Scale Latanoprost 1 drop 11/15/19 21:00 11/21/19 22:28 Latanoprost 0.005% Ophth Soln 2.5 Ml Bottle EA EYE 1 drop HS PINA Administration Levothyroxine Sodium 25 mcg 11/19/19 06:00 11/22/19 06:34 Levothyroxine Sodium 25 Mcg Tab PO 25 mcg 0600 PINA Administration Pantoprazole Sodium 40 mg 11/21/19 09:00 11/22/19 09:16 Pantoprazole 40 Mg Tab PO 40 mg DAILY PINA Administration Phosphorus 250 mg 11/18/19 08:00 11/22/19 12:30 K-Phos Neutral 250 Mg Tab PO 250 mg TID-WM PINA Administration Saccharomyces Boulardii 250 mg 11/16/19 09:00 11/22/19 09:16 Saccharomyces Boulardii 250 Mg Cap PO 250 mg DAILY PINA Administration Senna/Docusate Sodium 1 tab 11/21/19 21:00 11/21/19 22:27 Senokot S 8.6-50 Mg Tab PO 1 tab HS PINA Administration Sodium Chloride 10 ml 11/14/19 09:00 11/22/19 09:16 Flush - Normal Saline 10 Ml Syringe IVF Not Given Q12HR PINA Terazosin HCl 10 mg 11/13/19 09:00 11/22/19 09:17 Terazosin Hcl 5 Mg Cap PO 10 mg QAM PINA Administration - Exam General Appearance: NAD Eye: PERRL ENT: normocephalic atraumatic Neck: supple Heart: RRR Respiratory: CTAB, normal chest expansion Gastrointestinal: soft, normal bowel sounds Neurological: no focal deficits Psychiatric: oriented to person Hosp A/P - Plan Toxic metabolic encephalopathy Code(s): G92 - TOXIC ENCEPHALOPATHY Status: Acute (2) Aspiration pneumonia Code(s): J69.0 - PNEUMONITIS DUE TO INHALATION OF FOOD AND VOMIT Status: Acute (4) DKA (diabetic ketoacidoses) (5) SARIAH (acute kidney injury) secondary to severe dehydration. -Improving -Initially 2.46 now ---the last one on November 21 1.46 (6) Hypovolemic shock (7) Lactic acidosis (8) Hypothyroidism Code(s): E03.9 - HYPOTHYROIDISM, UNSPECIFIED Status: Chronic (9) Electrolyte abnormality Code(s): E87.8 - OTH DISORDERS OF ELECTROLYTE AND FLUID BALANCE, NEC Status: Acute (10) Swallowing dysfunction Code(s): R13.10 - DYSPHAGIA, UNSPECIFIED Status: Acute (11) History of bladder cancer Code(s): Z85.51 - PERSONAL HISTORY OF MALIGNANT NEOPLASM OF BLADDER Status: Acute (3) UTI (urinary tract infection) Urine culture positive for entero-bacterial and Proteus sensitive to cephalosporins. - Omnicef per urology recommendation. . blood Cultures so far have been negative. -Continue physical therapy. Probable euthyroid sick syndrome TSH in hyper thyroid range with two 0.09 and a free T4 is normal. on November 11 -he would benefit with repeating TSH free T4 and T3 and if T3 is on the low side and that would confirm this is a euthyroid sick syndrome. -We will follow a.m. labs.
[2019-11-22] MEDS: Senokot S 8.6-50 MG TAB PO SCH (20:37)
[2019-11-22] MEDS: Latanoprost 0.005% Ophth Soln 2.5 ml Bottle EA EYE SCH (20:39)
[2019-11-23] MEDS: D5 1/2 NS w/20 mEq KCL 1,000 ML IV SCH ×2 (03:23→17:35)
[2019-11-23 04:19] LABS: Band 3 % (5-11); Eosinophils 2 % (0-10); Hypochromia SLIGHT = 6-15 cells (100X) (0-5/hpf); Lymphocytes 12 % (21-51); MDiff Complete? YES; Mean Corpuscular HGB CONC 33.1 g/dL (32.0-36.0); Mean Corpuscular Hemoglobin 32.7 pg (27.0-31.0); Mean Corpuscular Volume 98.9 fL (78.0-98.0); Mean Platelet Volume 6.9 fL (7.4-10.4); Monocytes 2 % (0-10); Neutrophil 81 % (42-75); Platelet Count 372 thou/uL (130-400); Platelet Morphology Comment Appears Adequate; RBC Distribution Width 12.6 % (11.5-14.5); Red Blood Cell (RBC) Count 2.75 mill/uL (4.70-6.10); White Blood Cell (WBC) Count 8.4 thou/uL (4.8-10.8)
[2019-11-23 04:29] LABS: Thyroid Stimulating Hormone 12.1316 uIU/mL (0.35-4.94)
[2019-11-23] MEDS: Levothyroxine Sodium 25 MCG TAB PO SCH (04:51)
[2019-11-23] MEDS: Insulin Regular 300 UNITS/3 ML VIAL SC PRN ×3 (04:52→17:36)
[2019-11-23 05:25] LABS: Free T4 (Free Thyroxine) 0.74 ng/dL (0.70-1.48)
[2019-11-23] MEDS: K-Phos Neutral 250 MG TAB PO SCH ×3 (09:49→17:35)
[2019-11-23] MEDS: Enoxaparin Sodium 30 MG/0.3 ML SYRINGE SC SCH (09:49)
[2019-11-23] MEDS: Dutasteride 0.5 MG CAP PO SCH (09:49)
[2019-11-23] MEDS: Cefdinir 300 MG CAP PO SCH ×2 (09:49→20:46)
[2019-11-23] MEDS: Terazosin HCl 5 MG CAP PO SCH (09:50)
[2019-11-23] MEDS: Insulin Glargine 10 UNITS in Pre-Filled Syringe 1 EACH SC SCH ×2 (09:50→20:46)
[2019-11-23] MEDS: Saccharomyces boulardii 250 MG CAP PO SCH (09:50)
--- NOTE | 2019-11-23 13:51 | PDOC.HOSPP ---
- Subjective Encounter Date: 11/23/19 Encounter Time: 10:10 Subjective: Patient is sitting in the chair. The daughter at bedside. He had no acute events overnight. Mentation is clear this morning. He is communicating meaningfully. Lower extremity edema seems to be improved. Discussed with RN, patient and his daughter. Plan for rehab early next week. - Objective Vital Signs & Weight: Vital Signs (12 hours) Temp Pulse Resp Pulse Ox 11/23/19 11:28 98.0 F 11/23/19 10:30 77 25 H 100 11/23/19 08:00 99 11/23/19 07:17 97.0 F L 11/23/19 03:52 100 11/23/19 03:36 97.5 F L Weight Admit Weight 170 lb 13.732 oz Weight 202 lb 3 oz Most Recent Monitor Data Heart Rate from ECG 94 NIBP 152/86 NIBP BP-Mean 108 Respiration from ECG 19 SpO2 100 I&O: 11/22/19 11/23/19 11/24/19 06:59 06:59 06:59 Intake Total 1513 2570 Output Total 900 Balance 1513 1670 Result Diagrams: 11/23/19 03:26 11/22/19 03:13 Additional Labs: Accuchecks 11/23/19 11/23/19 11/23/19 12:30 08:23 04:53 POC Glucose 243 H 184 H 238 H 11/23/19 11/22/19 11/22/19 00:14 20:22 17:09 POC Glucose 158 H 88 102 H Hospitalist ROS - Medication Medications: Active Medications Generic Name Dose Route Start Last Admin Trade Name Freq PRN Reason Stop Dose Admin Acetaminophen 650 mg 11/12/19 13:53 11/20/19 08:50 Acetaminophen 325 Mg Tab PO 650 mg Q4H PRN Administration Headache/Fever/Mild Pain (1-3) Albuterol/Ipratropium 3 ml 11/13/19 10:30 11/23/19 10:30 Ipratropium/Albuterol Sulfate 3 Ml Neb NEB 3 ml [id number] PINA Administration Cefdinir 300 mg 11/20/19 21:00 11/23/19 09:49 Cefdinir 300 Mg Cap PO 300 mg BID PINA Administration Dextrose/Water 25 gm 11/14/19 09:30 11/19/19 04:13 Dextrose 50% Abboject 50 Ml Syringe IVP 25 gm PRN PRN Administration HYPOGLYCEMIA PROTOCOL Dutasteride 0.5 mg 11/13/19 09:00 11/23/19 09:49 Dutasteride 0.5 Mg Cap PO 0.5 mg DAILY PINA Administration Enoxaparin Sodium 30 mg 11/13/19 09:00 11/23/19 09:49 Enoxaparin Sodium 30 Mg/0.3 Ml Syringe SC 30 mg 0900 PINA Administration Insulin Glargine 10 units/ 0.1 mls @ 0 mls/hr 11/21/19 09:00 11/23/19 09:50 Miscellaneous Medication SC 0.1 mls QAM PINA Administration Potassium Chloride/Dextrose/Sod Cl 1,000 mls @ 75 mls/hr 11/21/19 10:15 06/08 03:23 D5 1/2 Ns W/20 Meq Kcl IV 1,000 mls .[id number] PINA Administration Insulin Glargine 10 units/ 0.1 mls @ 0 mls/hr 11/21/19 21:00 11/22/19 20:38 Miscellaneous Medication SC Not Given HS PINA Insulin Human Regular 0 units 11/21/19 10:05 11/23/19 12:49 Insulin Regular 300 Units/3 Ml Vial SC 4 units .MODERATE SLIDING SC PRN Administration Moderate Correctional Scale Latanoprost 1 drop 11/15/19 21:00 11/22/19 20:39 Latanoprost 0.005% Ophth Soln 2.5 Ml Bottle EA EYE 1 drop HS PINA Administration Levothyroxine Sodium 25 mcg 11/19/19 06:00 11/23/19 04:51 Levothyroxine Sodium 25 Mcg Tab PO 25 mcg 0600 PINA Administration Pantoprazole Sodium 40 mg 11/21/19 09:00 11/23/19 09:50 Pantoprazole 40 Mg Tab PO 40 mg DAILY PINA Administration Phosphorus 250 mg 11/18/19 08:00 11/23/19 12:45 K-Phos Neutral 250 Mg Tab PO 250 mg TID-WM PINA Administration Saccharomyces Boulardii 250 mg 11/16/19 09:00 11/23/19 09:50 Saccharomyces Boulardii 250 Mg Cap PO 250 mg DAILY PINA Administration Senna/Docusate Sodium 1 tab 11/21/19 21:00 11/22/19 20:37 Senokot S 8.6-50 Mg Tab PO 1 tab HS PINA Administration Sodium Chloride 10 ml 11/14/19 09:00 11/23/19 09:50 Flush - Normal Saline 10 Ml Syringe IVF Not Given Q12HR PINA Terazosin HCl 10 mg 11/13/19 09:00 11/23/19 09:50 Terazosin Hcl 5 Mg Cap PO 10 mg QAM PINA Administration - Exam General Appearance: NAD, awake alert Eye: PERRL ENT: normocephalic atraumatic Neck: supple, no carotid bruit Heart: RRR, normal peripheral pulses Respiratory: CTAB, normal chest expansion Gastrointestinal: soft, normal bowel sounds Neurological: cranial nerve grossly intact, no focal deficits Psychiatric: A&O x 3 Hosp A/P - Plan Toxic metabolic encephalopathy Code(s): G92 - TOXIC ENCEPHALOPATHY Status: Acute (2) Aspiration pneumonia Code(s): J69.0 - PNEUMONITIS DUE TO INHALATION OF FOOD AND VOMIT Status: Acute (4) DKA (diabetic ketoacidoses) (5) SARIAH (acute kidney injury) secondary to severe dehydration. -Improving -Initially 2.46 now ---the last one on November 21 1.46 (6) Hypovolemic shock (7) Lactic acidosis (8) Hypothyroidism Code(s): E03.9 - HYPOTHYROIDISM, UNSPECIFIED Status: Chronic (9) Electrolyte abnormality Code(s): E87.8 - OTH DISORDERS OF ELECTROLYTE AND FLUID BALANCE, NEC Status: Acute (10) Swallowing dysfunction Code(s): R13.10 - DYSPHAGIA, UNSPECIFIED Status: Acute (11) History of bladder cancer Code(s): Z85.51 - PERSONAL HISTORY OF MALIGNANT NEOPLASM OF BLADDER Status: Acute (3) UTI (urinary tract infection) Urine culture positive for entero-bacterial and Proteus sensitive to cephalosporins. - Omnicef per urology recommendation. . blood Cultures so far have been negative. -Continue physical therapy. 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 -We will follow a.m. labs. 4th -TSH changed from 0.09-12.13 with a repeat level. Basically jumped from hyper to hypothyroid state. His free T4 is in the normal range however free T3 is 1.1 suggesting hypo-thyroidism state. Patient on levothyroxine 25 mcg as home regimen and I am going to increase that to 50 mcg and he needs follow-up in 2 weeks on TSH level. Discussed with RN, patient and his daughter. Plan for rehab early next week.
[2019-11-23] MEDS ORDERED: Levothyroxine Sodium 25 MCG TAB PO SCH (14:00)
[2019-11-23] MEDS ORDERED: Calcium Carbonate 500 MG ChewTAB PO PRN (16:59)
[2019-11-23] MEDS: Senokot S 8.6-50 MG TAB PO SCH (20:46)
[2019-11-23] MEDS: Latanoprost 0.005% Ophth Soln 2.5 ml Bottle EA EYE SCH (20:47)
[2019-11-24 03:56] LABS: Band 9 % (5-11); Eosinophils 6 % (0-10); Hemoglobin 9.1 g/dL (14.0-18.0); Lymphocytes 24 % (21-51); MDiff Complete? YES; Mean Corpuscular HGB CONC 33.4 g/dL (32.0-36.0); Mean Corpuscular Hemoglobin 33.1 pg (27.0-31.0); Mean Corpuscular Volume 99.2 fL (78.0-98.0); Mean Platelet Volume 6.9 fL (7.4-10.4); Monocytes 7 % (0-10); Neutrophil 54 % (42-75); Platelet Count 347 thou/uL (130-400); Platelet Morphology Comment Appears Adequate; RBC Distribution Width 12.8 % (11.5-14.5); Red Blood Cell (RBC) Count 2.76 mill/uL (4.70-6.10); White Blood Cell (WBC) Count 8.6 thou/uL (4.8-10.8)
[2019-11-24 03:59] LABS: Anion Gap 12 mmol/L (10-20); BUN (Urea Nitrogen) 12 mg/dL (8.4-25.7); Calc. Creatinine Clearance 71 mL/min (70-130); Calcium 7.9 mg/dL (7.8-10.44); Carbon Dioxide 21 mmol/L (23-31); Chloride 109 mmol/L (98-107); Estimated GFR-MDRD 73; Glucose 150 mg/dL (83-110); Potassium 4.4 mmol/L (3.5-5.1); Sodium 138 mmol/L (136-145)
[2019-11-24] MEDS: Levothyroxine Sodium 50 MCG TAB PO SCH (05:23)
[2019-11-24] MEDS: D5 1/2 NS w/20 mEq KCL 1,000 ML IV SCH ×2 (05:23→21:14)
[2019-11-24] MEDS: K-Phos Neutral 250 MG TAB PO SCH ×3 (07:46→18:47)
[2019-11-24] MEDS: Dutasteride 0.5 MG CAP PO SCH (07:47)
[2019-11-24] MEDS: Cefdinir 300 MG CAP PO SCH ×2 (07:47→21:12)
[2019-11-24] MEDS: Enoxaparin Sodium 30 MG/0.3 ML SYRINGE SC SCH (07:47)
[2019-11-24] MEDS: Terazosin HCl 5 MG CAP PO SCH (07:49)
[2019-11-24] MEDS: Saccharomyces boulardii 250 MG CAP PO SCH (07:49)
--- NOTE | 2019-11-24 10:13 | PRG ---
DATE OF SERVICE: 11/24/2019 SUBJECTIVE: He is doing well without complaint. He is awaiting rehab placement. OBJECTIVE: VITAL SIGNS: On exam, temperature 97.4, pulse 65, blood pressure 145/72, O2 saturation 98%. HEENT: Unremarkable. NECK: No JVD. CHEST: Clear. CARDIAC: S1 and S2, regular. ABDOMEN: Soft. EXTREMITIES: Trace edema. LABORATORY DATA: White blood cell count 8.6, hematocrit 27.4, and platelet count 347. Sodium 138, potassium 4.4, chloride 109, CO2 of 21, BUN 12, creatinine 0.9, and glucose 150. ASSESSMENT: 1. Stable pulmonary status. 2. Status post hyperosmolar state. 3. Resolved encephalopathy. PLAN: He is ready for rehab. There are no further pulmonary recommendations at this time. I will stop his daily labs. Job ID: [id number]
--- NOTE | 2019-11-24 10:29 | PRG ---
DATE OF SERVICE: 11/24/2019 SUBJECTIVE: The patient is alert, his mental status has significantly improved. OBJECTIVE: VITAL SIGNS: Stable. He is afebrile. GENERAL: The patient is in no acute distress. ABDOMEN: Soft, nontender, nondistended. No rigidity. No rebound. EXTREMITIES: No cyanosis, clubbing, or edema. No calf tenderness appreciated. PERTINENT LABORATORY DATA: White count 8, hemoglobin 9.1, platelets Creatinine 0.98. IMPRESSION AND PLAN: Mr. Blount is an 84-year-old male, admitted for diabetic ketoacidosis. 1. Aspiration pneumonia. 2. Encephalopathy, which has been slowly resolving. His mental status has significantly improved on morning rounds. 3. History of bladder cancer, bulky right ureteral transitional cell carcinoma, which he has transitioned his care to [facility]. undergoing immunotherapy at [facility], planning to transition to local Medical Oncology to continue. He will continue his diagnostic debulking, ureteroscopy at [facility] with DR Handley. His current admission with CT demonstrates no bulky recurrence of concern. The patient, [id number] informed at bedside. From my perspective, the patient can be transitioned to rehab any time. Recommend family continue to follow up at [facility] as planned for ongoing therapy and ureteroscopy. Continue Omnicef, from urologic perspective, this can be continued for another 5 to 7 days and discontinue. Job ID: [id number] [facility]
[2019-11-24] MEDS: Insulin Glargine 10 UNITS in Pre-Filled Syringe 1 EACH SC SCH ×2 (10:43→21:13)
--- NOTE | 2019-11-24 12:36 | RAD ---
EXAM: XR Ba Swallow W/Speech Therap PROVIDED CLINICAL HISTORY: Dysphagia, unspecified. Feeding difficulties. COMPARISON: None FINDINGS: This examination was performed in conjunction with speech pathology, and varying consistencies of bar ium were administered during the exam including barium soaked cracker. The patient demonstrates premature spill of contrast into the vallecula and piriform sinuses prior to initiation of the swallo wing mechanism with evidence of pooling within the vallecula and piriform sinuses.. There is mild delay in formation of bolus into the posterior pharynx. The patient does demonstrate deep penetration with thin liquid barium by cup with question of trace aspiration. Fluoroscopy: Time-2.3 minutes Dose-0.892 shelton centimeter squared IMPRESSION: 1. Episode of deep penetration with thin liquid barium with questionable trace aspiration. 2. Prominent residue in the vallecula and piriform sinuses with mild pooling in the vallecula and pir iform sinuses.
[2019-11-24] MEDS: Insulin Regular 300 UNITS/3 ML VIAL SC PRN (14:25)
--- NOTE | 2019-11-24 14:33 | PDOC.HOSPP ---
- Subjective Encounter Date: 11/24/19 Encounter Time: 10:00 Subjective: Speech therapy at bedside. He can handle pured diet but prefer regular diet. Requested the speech therapy to follow with modified barium swallow study. Daughter at bedside - Objective Vital Signs & Weight: Vital Signs (12 hours) Temp Pulse Resp Pulse Ox 11/24/19 11:00 98.0 F 11/24/19 08:00 98 11/24/19 07:00 97.4 F L 11/24/19 05:24 88 16 99 11/24/19 03:48 96.6 F L Weight Admit Weight 170 lb 13.732 oz Weight 204 lb 8 oz Most Recent Monitor Data Heart Rate from ECG 76 NIBP 146/78 NIBP BP-Mean 100 Respiration from ECG 18 SpO2 97 I&O: 11/23/19 11/24/19 11/25/19 06:59 06:59 06:59 Intake Total 2570 1060 Output Total 900 300 Balance 1670 760 Result Diagrams: 11/24/19 03:27 11/24/19 03:27 Additional Labs: Accuchecks 11/24/19 11/23/19 11/23/19 13:01 20:35 16:21 POC Glucose 218 H 166 H 230 H Hospitalist ROS - Medication Medications: Active Medications Generic Name Dose Route Start Last Admin Trade Name Freq PRN Reason Stop Dose Admin Acetaminophen 650 mg 11/12/19 13:53 11/20/19 08:50 Acetaminophen 325 Mg Tab PO 650 mg Q4H PRN Administration Headache/Fever/Mild Pain (1-3) Albuterol/Ipratropium 3 ml 11/13/19 10:30 11/24/19 11:31 Ipratropium/Albuterol Sulfate 3 Ml Neb NEB Not Given [id number] PINA Cefdinir 300 mg 11/20/19 21:00 11/24/19 07:47 Cefdinir 300 Mg Cap PO 300 mg BID PINA Administration Dextrose/Water 25 gm 11/14/19 09:30 11/19/19 04:13 Dextrose 50% Abboject 50 Ml Syringe IVP 25 gm PRN PRN Administration HYPOGLYCEMIA PROTOCOL Dutasteride 0.5 mg 11/13/19 09:00 11/24/19 07:47 Dutasteride 0.5 Mg Cap PO 0.5 mg DAILY PINA Administration Enoxaparin Sodium 30 mg 11/13/19 09:00 11/24/19 07:47 Enoxaparin Sodium 30 Mg/0.3 Ml Syringe SC 30 mg 0900 PINA Administration Insulin Glargine 10 units/ 0.1 mls @ 0 mls/hr 11/21/19 09:00 11/24/19 10:43 Miscellaneous Medication SC 0.1 mls QAM PINA Administration Potassium Chloride/Dextrose/Sod Cl 1,000 mls @ 75 mls/hr 11/21/19 10:15 11/24/19 05:23 D5 1/2 Ns W/20 Meq Kcl IV 1,000 mls .[id number] PINA Administration Insulin Glargine 10 units/ 0.1 mls @ 0 mls/hr 11/21/19 21:00 11/23/19 20:46 Miscellaneous Medication SC 0.1 mls HS PINA Administration Insulin Human Regular 0 units 11/21/19 10:05 11/24/19 14:25 Insulin Regular 300 Units/3 Ml Vial SC 4 units .MODERATE SLIDING SC PRN Administration Moderate Correctional Scale Latanoprost 1 drop 11/15/19 21:00 11/23/19 20:47 Latanoprost 0.005% Ophth Soln 2.5 Ml Bottle EA EYE 1 drop HS PINA Administration Levothyroxine Sodium 50 mcg 11/24/19 06:00 11/24/19 05:23 Levothyroxine Sodium 50 Mcg Tab PO 50 mcg 0600 PINA Administration Pantoprazole Sodium 40 mg 11/21/19 09:00 11/24/19 07:49 Pantoprazole 40 Mg Tab PO 40 mg DAILY PINA Administration Phosphorus 250 mg 11/18/19 08:00 11/24/19 10:44 K-Phos Neutral 250 Mg Tab PO 250 mg TID-WM PINA Administration Saccharomyces Boulardii 250 mg 11/16/19 09:00 11/24/19 07:49 Saccharomyces Boulardii 250 Mg Cap PO 250 mg DAILY PINA Administration Senna/Docusate Sodium 1 tab 11/21/19 21:00 11/23/19 20:46 Senokot S 8.6-50 Mg Tab PO 1 tab HS PINA Administration Sodium Chloride 10 ml 11/14/19 09:00 11/24/19 07:49 Flush - Normal Saline 10 Ml Syringe IVF Not Given Q12HR PINA Terazosin HCl 10 mg 11/13/19 09:00 11/24/19 07:49 Terazosin Hcl 5 Mg Cap PO 10 mg QAM PINA Administration - Exam General Appearance: NAD, awake alert Eye: PERRL ENT: normocephalic atraumatic Neck: supple Heart: RRR, normal peripheral pulses Gastrointestinal: soft, normal bowel sounds Neurological: no focal deficits Psychiatric: A&O x 3 Hosp A/P - Plan Toxic metabolic encephalopathy Code(s): G92 - TOXIC ENCEPHALOPATHY Status: Acute (2) Aspiration pneumonia Code(s): J69.0 - PNEUMONITIS DUE TO INHALATION OF FOOD AND VOMIT Status: Acute (4) DKA (diabetic ketoacidoses) (5) SARIHA (acute kidney injury) secondary to severe dehydration. -Improving -Initially .46 now ---the last one on November 21 (6) Hypovolemic shock (7) Lactic acidosis (8) Hypothyroidism Code(s): E03.9 - HYPOTHYROIDISM, UNSPECIFIED Status: Chronic (9) Electrolyte abnormality Code(s): E87.8 - OTH DISORDERS OF ELECTROLYTE AND FLUID BALANCE, NEC Status: Acute (10) Swallowing dysfunction Code(s): R13.10 - DYSPHAGIA, UNSPECIFIED Status: Acute (11) History of bladder cancer Code(s): Z85.51 - PERSONAL HISTORY OF MALIGNANT NEOPLASM OF BLADDER Status: Acute (3) UTI (urinary tract infection) Urine culture positive for entero-bacterial and Proteus sensitive to cephalosporins. - Omnicef per urology recommendation. . blood Cultures so far have been negative. -Continue physical therapy. 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 -We will follow a.m. labs. 4th -TSH changed from 0.09-12.13 with a repeat level. Basically jumped from hyper to hypothyroid state. His free T4 is in the normal range however free T3 is 1.1 suggesting hypo-thyroidism state. Patient on levothyroxine 25 mcg as home regimen and I am going to increase that to 50 mcg and he needs follow-up in 2 weeks on TSH level. Discussed with RN, patient and his daughter. Plan for rehab early next week. 5th Modified barium swallow study completed nectar by cup Believe regular diet is also acceptable. Ready to be transferred to the rehab.
[2019-11-24] MEDS: Senokot S 8.6-50 MG TAB PO SCH (21:12)
[2019-11-24] MEDS: Latanoprost 0.005% Ophth Soln 2.5 ml Bottle EA EYE SCH (21:13)
[2019-11-25] MEDS: Acetaminophen 325 MG TAB PO PRN (00:16)
[2019-11-25] MEDS: Levothyroxine Sodium 50 MCG TAB PO SCH (06:00)
--- NOTE | 2019-11-25 08:20 | PRG ---
DATE OF SERVICE: 11/25/2019 SUBJECTIVE: The patient is sleeping, easily arousable, [id number] at bedside who relates that his mental status has been stable, continues to improve, likely discharge to rehab today. OBJECTIVE: VITAL SIGNS: Stable. Afebrile. ABDOMEN: Soft, nontender, and nondistended. No rigidity. No rebound. EXTREMITIES: No cyanosis, clubbing, or edema. No calf tenderness appreciated. LABORATORY STUDIES: No new labs. IMPRESSION AND PLAN: 1. An 84-year-old male with history of diabetic ketoacidosis, resolved. 2. Metabolic encephalopathy, resolving. 3. 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 Current admission CT scan demonstrates no obvious recurrence of concern. When the patient is medically stable, able to travel, they will follow up with Dr. Mcgarry to schedule stage ureteroscopy. [id number] informed and agrees to current plan. Discharge to rehab, okay from urologic perspective. Job ID: [id number] [facility]
[2019-11-25] MEDS: Terazosin HCl 5 MG CAP PO SCH (09:15)
[2019-11-25] MEDS: K-Phos Neutral 250 MG TAB PO SCH ×3 (09:15→18:35)
[2019-11-25] MEDS: Enoxaparin Sodium 30 MG/0.3 ML SYRINGE SC SCH (09:16)
[2019-11-25] MEDS: Dutasteride 0.5 MG CAP PO SCH (09:16)
[2019-11-25] MEDS: Saccharomyces boulardii 250 MG CAP PO SCH (09:16)
[2019-11-25] MEDS: Cefdinir 300 MG CAP PO SCH ×2 (09:16→20:14)
[2019-11-25] MEDS: D5 1/2 NS w/20 mEq KCL 1,000 ML IV SCH ×2 (09:17→20:47)
[2019-11-25] MEDS: Insulin Glargine 10 UNITS in Pre-Filled Syringe 1 EACH SC SCH ×2 (09:30→18:14)
--- NOTE | 2019-11-25 14:01 | PDOC.HOSPP ---
- Subjective Encounter Date: 11/25/19 Encounter Time: 11:10 Subjective: Morning he is having his breakfast and tolerating his diet. Her daughter at bedside. He has low blood glucose last evening. Rehab transfer forms signed. Discussed with RN. - Objective Vital Signs & Weight: Vital Signs (12 hours) Temp Pulse Pulse Resp BP BP Pulse Ox 11/25/19 11:32 97.3 F L 11/25/19 09:35 90 160/82 H 138/84 11/25/19 08:03 68 14 98 11/25/19 08:00 97 11/25/19 07:27 97.6 F 11/25/19 03:00 97.1 F L Pulse Ox 11/25/19 11:32 11/25/19 09:35 97 11/25/19 08:03 11/25/19 08:00 11/25/19 07:27 11/25/19 03:00 Weight Admit Weight 170 lb 13.732 oz Weight 205 lb 4 oz Most Recent Monitor Data Heart Rate from ECG 82 NIBP 149/96 NIBP BP-Mean 113 Respiration from ECG 20 SpO2 74 I&O: 11/24/19 11/25/19 11/26/19 06:59 06:59 06:59 Intake Total 1060 400 Output Total 300 225 Balance 760 175 Result Diagrams: 11/24/19 03:27 11/24/19 03:27 Additional Labs: Accuchecks 11/25/19 11/25/19 11/25/19 13:02 08:39 04:13 POC Glucose 243 H 212 H 175 H 11/25/19 11/24/19 11/24/19 00:15 22:03 19:53 POC Glucose 147 H 118 H 62 L 11/24/19 11/24/19 11/24/19 19:10 18:41 18:06 POC Glucose 64 L 59 L* 42 L* Hospitalist ROS - Medication Medications: Active Medications Generic Name Dose Route Start Last Admin Trade Name Freq PRN Reason Stop Dose Admin Acetaminophen 650 mg 11/12/19 13:53 11/25/19 00:16 Acetaminophen 325 Mg Tab PO 650 mg Q4H PRN Administration Headache/Fever/Mild Pain (1-3) Albuterol/Ipratropium 3 ml 11/13/19 10:30 11/25/19 11:23 Ipratropium/Albuterol Sulfate 3 Ml Neb NEB 3 ml [id number] PINA Administration Cefdinir 300 mg 11/20/19 21:00 11/25/19 09:16 Cefdinir 300 Mg Cap PO 300 mg BID PINA Administration Dextrose/Water 25 gm 11/14/19 09:30 11/19/19 04:13 Dextrose 50% Abboject 50 Ml Syringe IVP 25 gm PRN PRN Administration HYPOGLYCEMIA PROTOCOL Dutasteride 0.5 mg 11/13/19 09:00 11/25/19 09:16 Dutasteride 0.5 Mg Cap PO 0.5 mg DAILY PINA Administration Enoxaparin Sodium 30 mg 11/13/19 09:00 11/25/19 09:16 Enoxaparin Sodium 30 Mg/0.3 Ml Syringe SC 30 mg 09 PINA Administration Insulin Glargine 10 units/ 0.1 mls @ 0 mls/hr 11/21/19 09:00 11/25/19 09:30 Miscellaneous Medication SC 0.1 mls QAM PINA Administration Potassium Chloride/Dextrose/Sod Cl 1,000 mls @ 75 mls/hr 11/21/19 10:15 11/25/19 09:17 D5 1/2 Ns W/20 Meq Kcl IV Not Given .[id number] PINA Insulin Glargine 10 units/ 0.1 mls @ 0 mls/hr 11/21/19 21:00 11/24/19 21:13 Miscellaneous Medication SC Not Given HS [facility] Insulin Human Regular 0 units 11/21/19 10:05 11/24/19 14:25 Insulin Regular 300 Units/3 Ml Vial SC 4 units .MODERATE SLIDING SC PRN Administration Moderate Correctional Scale Latanoprost 1 drop 11/15/19 21:00 11/24/19 21:13 Latanoprost 0.005% Ophth Soln 2.5 Ml Bottle EA EYE 1 drop HS PINA Administration Levothyroxine Sodium 50 mcg 11/24/19 06:00 11/25/19 06:00 Levothyroxine Sodium 50 Mcg Tab PO 50 mcg 0600 PINA Administration Pantoprazole Sodium 40 mg 11/21/19 09:00 11/25/19 09:15 Pantoprazole 40 Mg Tab PO 40 mg DAILY PINA Administration Phosphorus 250 mg 11/18/19 08:00 11/25/19 09:15 K-Phos Neutral 250 Mg Tab PO 250 mg TID-WM PINA Administration Saccharomyces Boulardii 250 mg 11/16/19 09:00 11/25/19 09:16 Saccharomyces Boulardii 250 Mg Cap PO 250 mg DAILY PINA Administration Senna/Docusate Sodium 1 tab 11/21/19 21:00 11/24/19 21:12 Senokot S 8.6-50 Mg Tab PO 1 tab HS PINA Administration Sodium Chloride 10 ml 11/14/19 09:00 11/25/19 09:30 Flush - Normal Saline 10 Ml Syringe IVF 10 ml Q12HR PINA Administration Terazosin HCl 10 mg 11/13/19 09:00 11/25/19 09:15 Terazosin Hcl 5 Mg Cap PO 10 mg QAM PINA Administration - Exam General Appearance: NAD, awake alert Eye: PERRL ENT: normocephalic atraumatic Neck: supple Heart: RRR, normal peripheral pulses Respiratory: CTAB, normal chest expansion Gastrointestinal: soft, normal bowel sounds Skin: normal turgor Neurological: cranial nerve grossly intact, no focal deficits Psychiatric: A&O x 3 Hosp A/P - Plan Toxic metabolic encephalopathy Code(s): G92 - TOXIC ENCEPHALOPATHY Status: Acute (2) Aspiration pneumonia Code(s): J69.0 - PNEUMONITIS DUE TO INHALATION OF FOOD AND VOMIT Status: Acute (4) DKA (diabetic ketoacidoses) (5) SARIAH (acute kidney injury) secondary to severe dehydration. -Improving -Initially 2.46 now ---the last one on November 21 (6) Hypovolemic shock (7) Lactic acidosis (8) Hypothyroidism Code(s): E03.9 - HYPOTHYROIDISM, UNSPECIFIED Status: Chronic (9) Electrolyte abnormality Code(s): E87.8 - OTH DISORDERS OF ELECTROLYTE AND FLUID BALANCE, NEC Status: Acute (10) Swallowing dysfunction Code(s): R13.10 - DYSPHAGIA, UNSPECIFIED Status: Acute (11) History of bladder cancer Code(s): Z85.51 - PERSONAL HISTORY OF MALIGNANT NEOPLASM OF BLADDER Status: Acute (3) UTI (urinary tract infection) Urine culture positive for entero-bacterial and Proteus sensitive to cephalosporins. - Omnicef per urology recommendation. . blood Cultures so far have been negative. -Continue physical therapy. 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 -We will follow a.m. labs. 4th -TSH changed from 0.09-12.13 with a repeat level. Basically jumped from hyper to hypothyroid state. His free T4 is in the normal range however free T3 is 1.1 suggesting hypo-thyroidism state. Patient on levothyroxine 25 mcg as home regimen and I am going to increase that to 50 mcg and he needs follow-up in 2 weeks on TSH level. Discussed with RN, patient and his daughter. Plan for rehab early next week. 5th Modified barium swallow study completed nectar by cup Believe regular diet is also acceptable. Ready to be transferred to the rehab. 6th Hypoglycemia yesterday A1c 7.1 -While inpatient we can continue titrating insulin.- -In outpatient setting he would benefit with the low-dose metformin which I am starting here. He does not need insuliln as outpatient. History of transitional cell carcinoma of the bladder - followed by [facility], Dr. Childress -schedule staged ureteroscopy at [facility] in the future. Urology signed off. Ending insurance clearance for rehab placement
[2019-11-25] MEDS: metFORMIN 500 MG TAB PO SCH (18:35)
[2019-11-25] MEDS: Insulin Regular 300 UNITS/3 ML VIAL SC PRN ×2 (18:36→20:17)
[2019-11-25] MEDS: Senokot S 8.6-50 MG TAB PO SCH (20:14)
[2019-11-25] MEDS: Latanoprost 0.005% Ophth Soln 2.5 ml Bottle EA EYE SCH (20:15)
[2019-11-26] MEDS: Levothyroxine Sodium 50 MCG TAB PO SCH (06:12)
[2019-11-26] MEDS: Dutasteride 0.5 MG CAP PO SCH (08:32)
[2019-11-26] MEDS: metFORMIN 500 MG TAB PO SCH ×2 (08:32→17:28)
[2019-11-26] MEDS: K-Phos Neutral 250 MG TAB PO SCH ×3 (08:33→17:28)
[2019-11-26] MEDS: Terazosin HCl 5 MG CAP PO SCH (08:33)
[2019-11-26] MEDS: Saccharomyces boulardii 250 MG CAP PO SCH (08:33)
[2019-11-26] MEDS: Enoxaparin Sodium 30 MG/0.3 ML SYRINGE SC SCH (08:33)
[2019-11-26] MEDS: Cefdinir 300 MG CAP PO SCH ×2 (08:33→21:23)
[2019-11-26] MEDS: Insulin Glargine 7 UNITS in Pre-Filled Syringe 1 EACH SC SCH (10:28)
[2019-11-26] MEDS: D5 1/2 NS w/20 mEq KCL 1,000 ML IV SCH (10:28)
--- NOTE | 2019-11-26 15:27 | PDOC.HOSPP ---
- Subjective Encounter Date: 11/26/19 Encounter Time: 11:40 Subjective: Patient's insurance need to be readdressed as the first 1 was rejected. He is doing well. His blood glucose seems to be quite labile, DC the insulin. as I started him on low-dose metformin. That would be sufficient for 84-year-old with A1c of 7.1. - Objective Vital Signs & Weight: Vital Signs (12 hours) Temp Pulse Resp Pulse Ox 11/26/19 15:15 97.8 F 11/26/19 15:08 80 19 11/26/19 12:00 97.0 F L 11/26/19 11:27 80 18 11/26/19 07:53 85 16 97 11/26/19 07:23 97.2 F L 11/26/19 07:14 99 11/26/19 04:00 97.1 F L 92 15 98 Weight Admit Weight 170 lb 13.732 oz Weight 205 lb Most Recent Monitor Data Heart Rate from ECG 82 NIBP 106/77 NIBP BP-Mean 86 Respiration from ECG 20 SpO2 74 I&O: 11/25/19 11/26/19 11/27/19 06:59 06:59 06:59 Intake Total 400 400 Output Total 225 620 Balance 175 -220 Result Diagrams: 11/24/19 03:27 11/24/19 03:27 Additional Labs: Accuchecks 11/26/19 11/26/19 11/26/19 08:29 06:16 04:58 POC Glucose 98 102 H 84 11/26/19 11/25/19 11/25/19 00:05 20:19 18:22 POC Glucose 158 H 269 H 292 H Hospitalist ROS - Medication Medications: Active Medications Generic Name Dose Route Start Last Admin Trade Name Freq PRN Reason Stop Dose Admin Acetaminophen 650 mg 11/12/19 13:53 11/25/19 00:16 Acetaminophen 325 Mg Tab PO 650 mg Q4H PRN Administration Headache/Fever/Mild Pain (1-3) Albuterol/Ipratropium 3 ml 11/13/19 10:30 11/26/19 15:08 Ipratropium/Albuterol Sulfate 3 Ml Neb NEB 3 ml [id number] PINA Administration Cefdinir 300 mg 11/20/19 21:00 11/26/19 08:33 Cefdinir 300 Mg Cap PO 300 mg BID PINA Administration Dextrose/Water 25 gm 11/14/19 09:30 11/19/19 04:13 Dextrose 50% Abboject 50 Ml Syringe IVP 25 gm PRN PRN Administration HYPOGLYCEMIA PROTOCOL Dutasteride 0.5 mg 11/13/19 09:00 11/26/19 08:32 Dutasteride 0.5 Mg Cap PO 0.5 mg DAILY PINA Administration Enoxaparin Sodium 30 mg 11/13/19 09:00 11/26/19 08:33 Enoxaparin Sodium 30 Mg/0.3 Ml Syringe SC 30 mg 0900 PINA Administration Potassium Chloride/Dextrose/Sod Cl 1,000 mls @ 75 mls/hr 11/21/19 10:15 11/26/19 10:28 D5 1/2 Ns W/20 Meq Kcl IV Not Given .[id number] PINA Insulin Glargine 10 units/ 0.1 mls @ 0 mls/hr 11/21/19 21:00 11/25/19 18:14 Miscellaneous Medication SC Not Given HS PINA Insulin Glargine 7 units/ 0.07 mls @ 0 mls/hr 11/26/19 09:00 11/26/19 10:28 Miscellaneous Medication SC Not Given QAM PINA Insulin Human Regular 0 units 11/21/19 10:05 11/25/19 20:17 Insulin Regular 300 Units/3 Ml Vial SC 6 units .MODERATE SLIDING SC PRN Administration Moderate Correctional Scale Latanoprost 1 drop 11/15/19 21:00 11/25/19 20:15 Latanoprost 0.005% Ophth Soln 2.5 Ml Bottle EA EYE 1 drop HS PINA Administration Levothyroxine Sodium 50 mcg 11/24/19 06:00 11/26/19 06:12 Levothyroxine Sodium 50 Mcg Tab PO 50 mcg 0600 PINA Administration Metformin HCl 500 mg 11/25/19 17:00 11/26/19 08:32 Metformin 500 Mg Tab PO 500 mg BID-WM PINA Administration Pantoprazole Sodium 40 mg 11/21/19 09:00 11/26/19 08:32 Pantoprazole 40 Mg Tab PO 40 mg DAILY PINA Administration Phosphorus 250 mg 11/18/19 08:00 11/26/19 13:30 K-Phos Neutral 250 Mg Tab PO Not Given TID-WM PINA Saccharomyces Boulardii 250 mg 11/16/19 09:00 11/26/19 08:33 Saccharomyces Boulardii 250 Mg Cap PO 250 mg DAILY PINA Administration Senna/Docusate Sodium 1 tab 11/21/19 21:00 11/25/19 20:14 Senokot S 8.6-50 Mg Tab PO 1 tab HS PINA Administration Sodium Chloride 10 ml 11/14/19 09:00 11/26/19 08:33 Flush - Normal Saline 10 Ml Syringe IVF 10 ml Q12HR PINA Administration Terazosin HCl 10 mg 11/13/19 09:00 11/26/19 08:33 Terazosin Hcl 5 Mg Cap PO 10 mg QAM PINA Administration - Exam General Appearance: NAD, awake alert Eye: PERRL ENT: normocephalic atraumatic Neck: supple Heart: RRR, normal peripheral pulses Respiratory: CTAB, normal chest expansion Gastrointestinal: soft, normal bowel sounds Neurological: no focal deficits Psychiatric: A&O x 3 Hosp A/P - Plan Toxic metabolic encephalopathy Code(s): G92 - TOXIC ENCEPHALOPATHY Status: Acute (2) Aspiration pneumonia Code(s): J69.0 - PNEUMONITIS DUE TO INHALATION OF FOOD AND VOMIT Status: Acute (4) DKA (diabetic ketoacidoses) (5) SARIAH (acute kidney injury) secondary to severe dehydration. -Improving -Initially 2.46 now ---the last one on November 21.46 (6) Hypovolemic shock (7) Lactic acidosis (8) Hypothyroidism Code(s): E03.9 - HYPOTHYROIDISM, UNSPECIFIED Status: Chronic (9) Electrolyte abnormality Code(s): E87.8 - OTH DISORDERS OF ELECTROLYTE AND FLUID BALANCE, NEC Status: Acute (10) Swallowing dysfunction Code(s): R13.10 - DYSPHAGIA, UNSPECIFIED Status: Acute (11) History of bladder cancer Code(s): Z85.51 - PERSONAL HISTORY OF MALIGNANT NEOPLASM OF BLADDER Status: Acute (3) UTI (urinary tract infection) Urine culture positive for entero-bacterial and Proteus sensitive to cephalosporins. - Omnicef per urology recommendation. . blood Cultures so far have been negative. -Continue physical therapy. 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 -We will follow a.m. labs. 4th -TSH changed from 0.09-12.13 with a repeat level. Basically jumped from hyper to hypothyroid state. His free T4 is in the normal range however free T3 is 1.1 suggesting hypo-thyroidism state. Patient on levothyroxine 25 mcg as home regimen and I am going to increase that to 50 mcg and he needs follow-up in 2 weeks on TSH level. Discussed with RN, patient and his daughter. Plan for rehab early next week. 5th Modified barium swallow study completed nectar by cup Believe regular diet is also acceptable. Ready to be transferred to the rehab. 6th Hypoglycemia yesterday A1c 7.1 -While inpatient we can continue titrating insulin.- -In outpatient setting he would benefit with the low-dose metformin which I am starting here. He does not need insuliln as outpatient. History of transitional cell carcinoma of the bladder - followed by [facility], Dr. Childress -schedule staged ureteroscopy at [facility] in the future. Urology signed off. 7th Diabetes mellitus His blood glucose seems to be quite labile, DC the insulin. as I started him on low-dose metformin. That would be sufficient for 84-year-old with A1c of 7.1. Pending insurance clearance for rehab placement
--- NOTE | 2019-11-26 16:42 | EKG ---
Test Reason : Blood Pressure : / mmHG Vent. Rate : 108 BPM Atrial Rate : 108 BPM P-R Int : 176 ms QRS Dur : 132 ms QT Int : 394 ms P-R-T Axes : 041 005 182 degrees QTc Int : 527 ms Sinus tachycardia with occasional Premature ventricular complexes and Fusion complexes Left bundle branch block Abnormal ECG Confirmed by LIDA GUILLORY DO ([id number]), social media editor MAURISIO LOPEZ ([id number]) on 11/26/2019 4:42:15 PM Referred By: Confirmed By:LIDA GUILLORY DO
[2019-11-26] MEDS: Senokot S 8.6-50 MG TAB PO SCH (21:23)
[2019-11-26] MEDS: Latanoprost 0.005% Ophth Soln 2.5 ml Bottle EA EYE SCH (21:24)
[2019-11-26] MEDS: Insulin Glargine 10 UNITS in Pre-Filled Syringe 1 EACH SC SCH (21:24)
[2019-11-27] MEDS: D5 1/2 NS w/20 mEq KCL 1,000 ML IV SCH ×2 (00:15→00:19)
[2019-11-27] MEDS: Insulin Regular 300 UNITS/3 ML VIAL SC PRN ×3 (00:16→17:01)
[2019-11-27] MEDS: Levothyroxine Sodium 50 MCG TAB PO SCH (06:47)
[2019-11-27] MEDS: metFORMIN 500 MG TAB PO SCH ×2 (08:51→16:57)
[2019-11-27] MEDS: Dutasteride 0.5 MG CAP PO SCH (08:51)
[2019-11-27] MEDS: K-Phos Neutral 250 MG TAB PO SCH ×3 (08:51→16:57)
[2019-11-27] MEDS: Terazosin HCl 5 MG CAP PO SCH (08:51)
[2019-11-27] MEDS: Enoxaparin Sodium 30 MG/0.3 ML SYRINGE SC SCH (08:51)
[2019-11-27] MEDS: Saccharomyces boulardii 250 MG CAP PO SCH (08:51)
[2019-11-27] MEDS: Cefdinir 300 MG CAP PO SCH ×2 (08:51→21:04)
[2019-11-27] MEDS: Insulin Glargine 7 UNITS in Pre-Filled Syringe 1 EACH SC SCH (08:53)
[2019-11-27 13:16] VITALS: BMI 27.9
--- NOTE | 2019-11-27 15:08 | PDOC.HOSPP ---
- Subjective Encounter Date: 11/27/19 Encounter Time: 09:45 Subjective: He is doing well. Insurance issue, Delaying the discharge to the rehab. Daughter at bedside. - Objective Vital Signs & Weight: Vital Signs (12 hours) Temp Pulse Resp BP Pulse Ox 11/27/19 14:02 98.0 F 82 101/67 95 11/27/19 10:37 82 16 96 11/27/19 08:09 85 16 96 11/27/19 07:50 96 11/27/19 07:09 96.8 F L 79 92 L 11/27/19 04:00 97.2 F L Weight Admit Weight 170 lb 13.732 oz Weight 206 lb Most Recent Monitor Data Heart Rate from ECG 82 NIBP 101/67 NIBP BP-Mean 78 Respiration from ECG 20 SpO2 74 I&O: 11/26/19 11/27/19 11/28/19 06:59 06:59 06:59 Intake Total 400 300 Output Total 620 250 Balance -220 50 Result Diagrams: 11/24/19 03:27 11/24/19 03:27 Additional Labs: Accuchecks 11/27/19 11/27/19 11/27/19 12:24 08:53 04:09 POC Glucose 317 H 240 H 230 H 11/27/19 11/26/19 00:10 20:26 POC Glucose 273 H 245 H Hospitalist ROS - Medication Medications: Active Medications Generic Name Dose Route Start Last Admin Trade Name Freq PRN Reason Stop Dose Admin Acetaminophen 650 mg 11/12/19 13:53 11/25/19 00:16 Acetaminophen 325 Mg Tab PO 650 mg Q4H PRN Administration Headache/Fever/Mild Pain (1-3) Albuterol/Ipratropium 3 ml 11/13/19 10:30 11/27/19 14:50 Ipratropium/Albuterol Sulfate 3 Ml Neb NEB 3 ml [id number] PINA Administration Cefdinir 300 mg 11/20/19 21:00 11/27/19 08:51 Cefdinir 300 Mg Cap PO 300 mg BID PINA Administration Dextrose/Water 25 gm 11/14/19 09:30 11/19/19 04:13 Dextrose 50% Abboject 50 Ml Syringe IVP 25 gm PRN PRN Administration HYPOGLYCEMIA PROTOCOL Dutasteride 0.5 mg 11/13/19 09:00 11/27/19 08:51 Dutasteride 0.5 Mg Cap PO 0.5 mg DAILY PINA Administration Enoxaparin Sodium 30 mg 11/13/19 09:00 11/27/19 08:51 Enoxaparin Sodium 30 Mg/0.3 Ml Syringe SC 30 mg 0900 PINA Administration Potassium Chloride/Dextrose/Sod Cl 1,000 mls @ 75 mls/hr 11/21/19 10:15 11/27/19 00:19 D5 1/2 Ns W/20 Meq Kcl IV Not Given .[id number] PINA Insulin Glargine 10 units/ 0.1 mls @ 0 mls/hr 11/21/19 21:00 11/26/19 21:24 Miscellaneous Medication SC Not Given HS PINA Insulin Glargine 7 units/ 0.07 mls @ 0 mls/hr 11/26/19 09:00 11/27/19 08:53 Miscellaneous Medication SC 0.07 mls QAM PINA Administration Insulin Human Regular 0 units 11/21/19 10:05 11/27/19 12:33 Insulin Regular 300 Units/3 Ml Vial SC 8 units .MODERATE SLIDING SC PRN Administration Moderate Correctional Scale Latanoprost 1 drop 11/15/19 21:00 11/26/19 21:24 Latanoprost 0.005% Ophth Soln 2.5 Ml Bottle EA EYE 1 drop HS PINA Administration Levothyroxine Sodium 50 mcg 11/24/19 06:00 11/27/19 06:47 Levothyroxine Sodium 50 Mcg Tab PO 50 mcg 0600 IPNA Administration Metformin HCl 500 mg 11/25/19 17:00 11/27/19 08:51 Metformin 500 Mg Tab PO 500 mg BID- PINA Administration Pantoprazole Sodium 40 mg 11/21/19 09:00 11/27/19 08:51 Pantoprazole 40 Mg Tab PO 40 mg DAILY PINA Administration Phosphorus 250 mg 11/18/19 08:00 11/27/19 12:33 K-Phos Neutral 250 Mg Tab PO 250 mg TID-WM PINA Administration Saccharomyces Boulardii 250 mg 11/16/19 09:00 11/27/19 08:51 Saccharomyces Boulardii 250 Mg Cap PO 250 mg DAILY PINA Administration Senna/Docusate Sodium 1 tab 11/21/19 21:00 11/26/19 21:23 Senokot S 8.6-50 Mg Tab PO 1 tab HS PINA Administration Sodium Chloride 10 ml 11/14/19 09:00 11/27/19 08:52 Flush - Normal Saline 10 Ml Syringe IVF 10 ml Q12HR PINA Administration Terazosin HCl 10 mg 11/13/19 09:00 11/27/19 08:51 Terazosin Hcl 5 Mg Cap PO 10 mg QAM PINA Administration - Exam General Appearance: NAD, awake alert Eye: PERRL ENT: normocephalic atraumatic Neck: supple Heart: RRR Respiratory: CTAB, normal chest expansion Gastrointestinal: soft, normal bowel sounds Neurological: no focal deficits Psychiatric: A&O x 3 Hosp A/P - Plan Toxic metabolic encephalopathy Code(s): G92 - TOXIC ENCEPHALOPATHY Status: Acute (2) Aspiration pneumonia Code(s): J69.0 - PNEUMONITIS DUE TO INHALATION OF FOOD AND VOMIT Status: Acute (4) DKA (diabetic ketoacidoses) (5) SARIAH (acute kidney injury) secondary to severe dehydration. -Improving -Initially 2.46 now ---the last one on November 21 1.46 (6) Hypovolemic shock (7) Lactic acidosis (8) Hypothyroidism Code(s): E03.9 - HYPOTHYROIDISM, UNSPECIFIED Status: Chronic (9) Electrolyte abnormality Code(s): E87.8 - OTH DISORDERS OF ELECTROLYTE AND FLUID BALANCE, NEC Status: Acute (10) Swallowing dysfunction Code(s): R13.10 - DYSPHAGIA, UNSPECIFIED Status: Acute (11) History of bladder cancer Code(s): Z85.51 - PERSONAL HISTORY OF MALIGNANT NEOPLASM OF BLADDER Status: Acute (3) UTI (urinary tract infection) Urine culture positive for entero-bacterial and Proteus sensitive to cephalosporins. - Omnicef per urology recommendation. . blood Cultures so far have been negative. -Continue physical therapy. 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 -We will follow a.m. labs. 4th -TSH changed from 0.09-12.13 with a repeat level. Basically jumped from hyper t o hypothyroid state. His free T4 is in the normal range however free T3 is 1.1 suggesting hypo-thyroidism state. Patient on levothyroxine 25 mcg as home regimen and I am going to increase that to 50 mcg and he needs follow-up in 2 weeks on TSH level. Discussed with RN, patient and his daughter. Plan for rehab early next week. 5th Modified barium swallow study completed nectar by cup Believe regular diet is also acceptable. Ready to be transferred to the rehab. 6th Hypoglycemia yesterday A1c 7.1 -While inpatient we can continue titrating insulin.- -In outpatient setting he would benefit with the low-dose metformin which I am starting here. He does not need insuliln as outpatient. History of transitional cell carcinoma of the bladder - followed by [facility], Dr. Childress -schedule staged ureteroscopy at [facility] in the future. Urology signed off. 7th Diabetes mellitus His blood glucose seems to be quite labile, DC the insulin. as I started him on low-dose metformin. That would be sufficient for 84-year-old with A1c of 7.1. 8th Pending insurance clearance for rehab placement
[2019-11-27] MEDS: Insulin Glargine 10 UNITS in Pre-Filled Syringe 1 EACH SC SCH (21:04)
[2019-11-27] MEDS: Senokot S 8.6-50 MG TAB PO SCH (21:04)
[2019-11-27] MEDS: Latanoprost 0.005% Ophth Soln 2.5 ml Bottle EA EYE SCH (21:07)
[2019-11-28] MEDS: D5 1/2 NS w/20 mEq KCL 1,000 ML IV SCH ×2 (01:53→16:44)
[2019-11-28] MEDS: Levothyroxine Sodium 50 MCG TAB PO SCH (06:43)
[2019-11-28] MEDS: Terazosin HCl 5 MG CAP PO SCH (10:16)
[2019-11-28] MEDS: Cefdinir 300 MG CAP PO SCH (10:16)
[2019-11-28] MEDS: Enoxaparin Sodium 30 MG/0.3 ML SYRINGE SC SCH (10:16)
[2019-11-28] MEDS: K-Phos Neutral 250 MG TAB PO SCH ×2 (10:17→13:20)
[2019-11-28] MEDS: metFORMIN 500 MG TAB PO SCH (10:17)
[2019-11-28] MEDS: Saccharomyces boulardii 250 MG CAP PO SCH (10:17)
[2019-11-28] MEDS: Dutasteride 0.5 MG CAP PO SCH (10:18)
[2019-11-28] MEDS: Insulin Glargine 7 UNITS in Pre-Filled Syringe 1 EACH SC SCH (10:19)
--- NOTE | 2019-11-28 13:49 | PRG ---
DATE OF SERVICE: 11/28/2019 SUBJECTIVE: The patient is back to his near baseline mental status. [id number] is at bedside. OBJECTIVE: VITAL SIGNS: Stable. He is afebrile, voiding without significant issues. ABDOMEN: Soft, nontender, nondistended. EXTREMITIES: No cyanosis, clubbing, or edema. LABORATORY STUDIES: No new labs. CBC is grossly unremarkable. Blood sugar is running 200s to 113. IMPRESSION AND PLAN: 1. Mr. Blount is a pleasant 84-year-old male currently admitted for diabetic ketoacidosis and metabolic encephalopathy, resolving. 2. 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 He has transitioned care to [facility], undergoing ureteroscopy and debulking surgery. Current admission CT demonstrates no hydronephrosis. Daughter informs me that the current stent placed by [facility] is good for 6 months. I encouraged them to follow up with Dr. Mcgarry at [facility] as previous for ongoing surveillance. will sign off as the patient is most likely being discharged today or tomorrow to rehab. Job ID: [id number] [facility]
[2019-11-28 15:35] VITALS: TEMP 97.7
[2019-11-28 15:40] VITALS: BP 163/77
--- NOTE | 2019-12-01 14:04 | DIS ---
DATE OF ADMISSION: 11/12/2019 DATE OF DISCHARGE: 11/28/2019 DISCHARGE DIAGNOSES: 1. Toxic metabolic encephalopathy. 2. Aspiration pneumonia. 3. Diabetic ketoacidosis, acute kidney injury secondary to severe dehydration, hypovolemic shock present on admission. Hypothyroidism/euthyroid sick syndrome as well. Electrolyte abnormality. Dysphagia. Urinary tract infection. HOSPITAL COURSE: He had a lengthy hospital course. Please refer to history and physical and daily progress notes for more details. Briefly, an 84-year-old presented with vomiting and diarrhea accompanied by his daughter. The patient lives alone for the most part and his grandson usually stays with him. He presented with sepsis secondary to hypovolemia and DKA. That has been corrected over the time. He admitted in the critical unit and required initially vasopressors and broad-spectrum antibiotics along with DKA protocol. His urine culture grew Enterobacter aerogenes as well as Proteus mirabilis sensitive to cephalosporin group. Over the time, antibiotics deescalated to cefdinir and discharged with the same. His admission was initially on November 11 and he is discharged on November 27. He also has a history of transitional cell carcinoma of the bladder and he has undergone surgical removal and his care was transitioned to [facility] at that time for debulking surgery. Since then, he is following with Dr. Mcgarry at [facility] for ongoing surveillance. Daughter is quite involved with his care and understood that they need followup. While inpatient, he was followed by Chitra Cruz, urologist. He also had uncontrolled hyperglycemia and over the course of the time that has been improved as well. His A1c is only 7.1. Being elderly and 84, he does not need aggressive titration of his glucose, so we started him on metformin low dose and it seems to help him. His creatinine is normal. The patient also had euthyroid sick syndrome with acuity. His TSH initially was 0.09 and then a repeat level showed a hypothyroidism state and the patient is on levothyroxine currently, but however, he needs to follow up with PCP in 2 weeks to check the TSH as well as free T4. The patient is stable to go to the rehab today. DISCHARGE INSTRUCTIONS: Activity as tolerated. Diabetic diet. Follow up with PCP in 1 week. TIME SPENT: Discharge time took over 35 minutes. Job ID: [id number]
[2019-12-02] MEDS ORDERED: Norepinephrine 8 MG/0.9% NS 250 ML IVPB SCH (18:00)
== END 2019-11-28 17:00 | DRG 871 ==
LOC: ERS 11:50 → CCU 14:04 → T4-A 11-17 10:10 → IMCU/EMU 11-18 16:21
PROVIDERS: ADMIT Internal Medicine; ATTEND Internal Medicine
PROC: 3E033XZ Introduction of Vasopressor into Peripheral Vein, Percutaneous Approach (ICD-10-PCS; principal; 2019-11-12)
PROC: 5A1945Z Respiratory Ventilation, 24-96 Consecutive Hours (ICD-10-PCS; 2019-11-12)
PROC: 8E0ZXY6 Isolation (ICD-10-PCS; 2019-11-12)
PROC: 0BH18EZ Insertion of Endotracheal Airway into Trachea, Via Natural or Artificial Opening Endoscopic (ICD-10-PCS; 2019-11-12)
PROC: 5A09357 Assistance with Respiratory Ventilation, Less than 24 Consecutive Hours, Continuous Positive Airway Pressure (ICD-10-PCS; 2019-11-20)
DX: A41.9 Sepsis, unspecified organism (principal); E10.10 Type 1 diabetes mellitus with ketoacidosis without coma; R65.21 Severe sepsis with septic shock; J96.00 Acute respiratory failure, unspecified whether with hypoxia or hypercapnia; Z66 Do not resuscitate; Z20.828 Contact with and (suspected) exposure to other viral communicable diseases; E07.81 Sick-euthyroid syndrome; G92 Toxic encephalopathy; R57.1 Hypovolemic shock; J69.0 Pneumonitis due to inhalation of food and vomit; N17.9 Acute kidney failure, unspecified; E87.1 Hypo-osmolality and hyponatremia; C79.00 Secondary malignant neoplasm of unspecified kidney and renal pelvis; C79.19 Secondary malignant neoplasm of other urinary organs; N39.0 Urinary tract infection, site not specified; E03.9 Hypothyroidism, unspecified; E78.5 Hyperlipidemia, unspecified; I10 Essential (primary) hypertension; H91.90 Unspecified hearing loss, unspecified ear; H40.9 Unspecified glaucoma; R11.10 Vomiting, unspecified; R19.7 Diarrhea, unspecified; N40.0 Benign prostatic hyperplasia without lower urinary tract symptoms; C67.9 Malignant neoplasm of bladder, unspecified; D63.8 Anemia in other chronic diseases classified elsewhere; E86.0 Dehydration; E10.649 Type 1 diabetes mellitus with hypoglycemia without coma; E87.6 Hypokalemia; R13.10 Dysphagia, unspecified; B96.4 Proteus (mirabilis) (morganii) as the cause of diseases classified elsewhere; B96.89 Other specified bacterial agents as the cause of diseases classified elsewhere; Z88.2 Allergy status to sulfonamides; Z90.49 Acquired absence of other specified parts of digestive tract; Z87.891 Personal history of nicotine dependence; Z79.899 Other long term (current) drug therapy; Z79.890 Hormone replacement therapy; Z78.1 Physical restraint status
CPT/HCPCS: 36415; 36416; 36556; 51701; 70470; 71045; 74176; 74230; 80048; 80053; 81001; 81003; 81015; 82010; 82330; 82553; 82607; 82746; 82803; 82805; 83036; 83605; 83690; 83735; 83930; 84100; 84439; 84443; 84481; 84484; 85007; 85025; 85027; 86140; 87040; 87077; 87086; 87186; 87635; 93005; 93010; 94002; 94003; 94640; 94660; 95712; 95819; 95957; 96361; 96365; 96374; 96375; 96376; 99292; J1630; J1650; J1815; J2060; J2250; J2270; J2358; J2405; J2543; J2930; J3010; J3370; J3475; J3480; J3490; J7050; J7070; J7620; P9047; Q9967; U0003